=== PATIENT | male | born 1945 ===

== ENCOUNTER 2020-04-03 08:40 | Outpatient (REF) | payer MEDICARE, SELFPAY ==
[2020-04-03 09:27] LABS: Glucose Urine UA NEG (NEG); Leukocyte Esterase Urine NEG (NEG); Nitrite Urine POS (NEG); Specific Gravity - Urine >= 1.030 (1.005-1.025); Urine Blood 3+ (NEG); Urine Ketones NEG (NEG); Urine Protein 2+ MG/DL (NEG-TRACE)
[2020-04-03 09:28] LABS: Appearance Urine CLOUDY; Color Urine YELLOW
[2020-04-03 09:36] LABS: Bacteria Urine 1+ /LPF; RBC Urine TNTC /HPF (0); Squamous Epithelial Cell Urine 1+ /LPF
[2020-04-03 09:54] LABS: Alanine Aminotransferase 23 U/L (0-40); Albumin Level 4.2 g/dL (3.5-5.0); Alkaline Phosphatase 61 U/L (39-117); Anion Gap 12 (12-20); Aspartate Amino Transferase 21 U/L (5-37); Blood Urea Nitrogen 12 mg/dL (9-16); Carbon Dioxide 31 mmol/L (22-29); Chloride 101 mmol/L (96-108); Cholesterol 134 mg/dL; Estimated Glomerular Filt Rate > 60; Glucose Fasting 145 mg/dL (60-99); HDL Cholesterol 44 mg/dL; LDL Cholesterol Calculated 54 mg/dl; Potassium 4.4 mmol/L (3.3-5.1); Sodium 140 mmol/L (135-145); Total Protein 7.2 g/dL (6.5-8.0); Triglycerides 183 mg/dL
== END 2020-04-03 08:41 | disposition home or self-care (01) ==
LOC: HO.LAB 08:40
PROVIDERS: PCP Internal Medicine; Visit Provider Internal Medicine
DX: E11.9 Type 2 diabetes mellitus without complications (principal); R30.0 Dysuria
CPT/HCPCS: 36415; 80053; 80061; 81001

== ENCOUNTER 2020-04-24 17:19 | Emergency (ER) | payer MEDICARE, SELFPAY ==
--- NOTE | ~2020-04-24 | CT_ITS ---
EXAMINATION: CT ABDOMEN AND PELVIS WITHOUT CONTRAST CLINICAL INFORMATION: r/o renal mass, blood in urine COMPARISON: 03/04/2014 TECHNIQUE: Multidetector volumetric imaging was performed from the superior aspect of the liver through the pubic symphysis. Sagittal and coronal reformatted images were obtained on the technologist's workstation. This CT examination was performed using dose optimization techniques as appropriate, variously including the following: *Automated exposure control *Adjustment of mA and/or kV according to patient size (this includes techniques or standardized protocols for targeted exams where dose is matched to indication/reason for exam; i.e. extremities or head) *Use of iterative reconstruction technique DLP: 200 mGy-cm FINDINGS: LUNG BASES: The visualized lung bases are unremarkable. LIVER, GALLBLADDER, AND BILIARY TREE: The liver is normal in size, shape, and attenuation. No focal hepatic lesion or biliary ductal dilatation is present. There is a punctate 3 mm hyperdense focus within the dependent portion of the gallbladder neck, likely correspond to a small gallstone. The gallbladder is otherwise unremarkable with no evidence of gallbladder wall thickening, or obvious pericholecystic inflammatory changes. PANCREAS: Unremarkable. SPLEEN: Unremarkable. ADRENAL GLANDS: Normal KIDNEYS AND URETERS: A punctate 1 mm nonobstructing calculus is present within a calyx at the interpolar region/lower pole of the right kidney. No additional renal calculi are identified. No hydronephrosis or hydroureter. Focal cortical scarring is present at the lateral aspect of the right renal midpole. At the interpolar region of the left kidney, there is a 2.1 cm water density cystic structure (-6 Hounsfield units). No aggressive features are identified on these images. This is increased in size from 7 mm in the prior study from 2014. No additional renal lesions are identified. Ureters are normal in course and caliber. BLADDER: Hyperdense intraluminal material is present within the base of the bladder near the urethral orifice. There is a 1.1 cm lobular cluster of intraluminal calcifications in the left lateral aspect of the base the bladder, likely a cluster of 2 small adjacent calcifications with peripheral lobulation. The hyperdense material is most consistent with colectomy with a blood products. The bladder is otherwise normal in appearance. GASTROINTESTINAL TRACT: Moderate colonic diverticulosis, most notably in the transverse and descending colon. No acute diverticulitis. Appendix is normal. Stomach, small bowel, and colon are normal in caliber. No bowel wall thickening or inflammatory changes. No intraperitoneal free air or free fluid. ABDOMINAL WALL: Small fat-containing umbilical hernia. There is a 2.4 cm subcutaneous cyst in the midline at level of L5, likely a epidermal inclusion cyst/sebaceous cyst. LYMPH NODES: Normal. VASCULAR: Atherosclerotic calcifications are present in the abdominal aorta and iliac arteries. No aneurysmal dilatation. PELVIC VISCERA: Prostate gland is enlarged, measuring 6.3 x 6.2 x 6.3 cm. OSSEOUS STRUCTURES: Moderate to severe degenerative spondylosis in the lower lumbar spine. No acute fracture or malalignment. 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 CT/CT abdomen pelvis wo con IMPRESSION: 1. Small volume of hyperdense intraluminal coagulated blood products within the base of the bladder is consistent with known hematuria. There is an associated 1.1 cm lobular cluster of bladder calculi, potentially the cause of the hematuria. No appreciable bladder wall thickening or focal bladder lesions on these images, though sensitivity is limited. 2. A 2.1 cm water density cyst in the left kidney is indeterminate in the absence of intravenous contrast. No suspicious features. Consider further assessment with contrast-enhanced renal mass protocol CT/MRI or renal ultrasound on a nonemergent basis. 3. A punctate 1 mm nonobstructing right renal calculus. 4. Prostatomegaly 5. Cholelithiasis without evidence of acute cholecystitis. 6. Colonic diverticulosis without evidence of acute diverticulitis.
[2020-04-24 17:21] VITALS: BP 203/87; PULSE 80; RESP 20; TEMP 36.4; O2SAT 98; BMI 31.1
[2020-04-24 19:49] LABS: MANUAL DIFF FLAG NO
[2020-04-24 19:54] LABS: Basophils Absolute Auto 0.1 X10*3/uL (0.0-0.2); Basophils Percent Auto 0.8 % (0-2); Eosinophils Absolute Auto 0.3 X10*3/uL (0.0-0.4); Eosinophils Percent Auto 2.9 % (0-4); Hemoglobin 14.4 g/dl (14.0-18.0); Imm Gran Abs Auto 0.08 X10*3/uL (0.00-0.03); Imm Gran Pct Auto 0.8 % (0.0-0.4); Lymphocytes Absolute Auto 1.6 X10*3/uL (1.2-4.9); Lymphocytes Percent Auto 16.4 % (20-40); Mean Corpuscular HGB Conc 33.5 g/dl (31.0-36.0); Mean Corpuscular Hemoglobin 29.1 pg (27.0-33.0); Mean Corpuscular Volume 86.9 fL (80-98); Mean Platelet Volume 11.4 fL (9.4-12.4); Monocytes Absolute Auto 0.8 X10*3/uL (0.1-1.2); Monocytes Percent Auto 8.2 % (2-11); Neutrophils Percent Auto 70.9 % (45-73); Platelet Count 201 X10*3/uL (160-400); Red Blood Count 4.95 X10*6/uL (4.60-5.80); Red Cell Distribution Width 12.2 % (11.0-16.0); White Blood Count 9.9 X10*3/uL (4.8-10.8)
--- NOTE | 2020-04-24 20:12 | ED_ITS ---
HPI - Male Genitourinary General Chief complaint: Urogenital-Male Stated complaint: Blood in urine Time Seen by Provider: 04/24/20 20:00 Source: patient Mode of arrival: ambulatory Limitations: no limitations History of Present Illness HPI Narrative: Patient comes emergency room complaining of hematuria. Patient states he 1st noticed it 6-7 months ago. On April 03, patient went to see his primary care physician, a urinalysis was positive for UTI, patient was treated with Bactrim. Patient states that initially the hematuria resolved, however shortly after he started having hematuria again. Today was the worst day, this is the 1st time the patient passed blood clots. Patient denies dysuria. Related Data Home Medications Medication Instructions Recorded Confirmed atorvastatin 40 mg tablet 40 mg PO DAILY 12/06/19 04/06/20 fluticasone 500 mcg-salmeterol 50 INHALATION 12/06/19 04/06/20 mcg/dose blistr powdr for inhalation metformin 500 mg tablet,extended 1,000 mg PO BID 12/06/19 04/06/20 release 24 hr tiotropium bromide 18 mcg capsule 1 cap INHALATION DAILY 12/06/19 04/06/20 with inhalation device Previous Rx's Medication Instructions Recorded diltiazem HCl 180 mg 180 mg PO DAILY 90 Days #90 cap 11/25/19 capsule,extended release 24 hr lancets 33 gauge #100 ea 11/25/19 ibuprofen 600 mg tablet 600 mg PO TID PRN #30 tab 12/23/19 blood sugar diagnostic 1 strip MISCELLANEOUS BID 30 Days 01/12/20 #150 strip albuterol sulfate 90 mcg/actuation 2 puff INHALATION Q6H PRN 30 Days 04/06/20 aerosol inhaler #6.7 g fluticasone 500 mcg-salmeterol 50 1 ea PO BID #60 cap 04/06/20 mcg/dose blistr powdr for inhalation lisinopril 20 mg tablet 20 mg PO DAILY 90 Days #90 tab 04/06/20 sulfamethoxazole 800 1 tab PO BID 7 Days #14 tab 04/06/20 mg-trimethoprim 160 mg tablet Allergies Allergy/AdvReac Type Severity Reaction Status Date / Time levofloxacin [From LEVAQUIN] Allergy Unknown HIVES Verified 04/06/20 17:53 Iodinated Contrast Media AdvReac Intermediate HIVES Verified 04/06/20 17:53 [IV CONTRAST] Review of Systems Review of Systems: Constitutional : No Weight loss, No Fever, No Chills, No Night Sweats, No Fatigue, No Malaise ENT/Mouth : No Hearing loss, No Ear Pain, No Nasal Congestion, No Sinus Pain, No Hoarseness, No sore throat, No Rhinorrhea, No Swallowing Difficulty Eyes: No Eye Pain, No Swelling, No Redness, No Foreign Body, No Discharge, No Vision Changes Cardiovascular : No Chest Pain, No SOB, No Dyspnea on Exertion, No Orthopnea, No Edema, No Palpitations Respiratory : No Cough, No Sputum, No Wheezing, No Smoke Exposure, No Dyspnea Gastrointestinal : No Nausea, No Vomiting, No Diarrhea, No Constipation, No abdominal Pain, No Hematochezia, No Melena Genitourinary : Patient complaining of hematuria, No Dysuria, No Urinary Frequency, No Urinary Incontinence, No Urgency, No Flank Pain, No Urinary Flow Changes, No Hesitancy Musculoskeletal : No joint pain, No Myalgias, No Joint Swelling Skin : No Skin Lesions, No rash Neuro : No Weakness, No Numbness, No Paresthesias, No Loss of Consciousness, No Dizziness, No Headache Psych : No Anxiety/Panic, No Depression, No SI/HI/AH/VH, No Social Issues, Heme/Lymph: No Bruising, No Bleeding,No Lymphadenopathy Endocrine : No Polyuria, No Polydipsia, No Temperature Intolerance [facility] Past Medical History Medical History COPD (chronic obstructive pulmonary disease) Diabetes mellitus Dyslipidemia Essential hypertension Gross hematuria Surgical History History of prosthetic aortic valve replacement Family History Family History Father Medical history unknown Mother Medical history unknown Brother No problems noted. Son No problems noted. Daughter No problems noted. Daughter No problems noted. Daughter No problems noted. Social History Social History Alcohol intake: current Alcohol intake frequency: holidays/special occasions only Alcohol type: wine Smoking Status: Never smoker Use of substances other than those prescribed or required for medical reasons: No Advance Directives: No Physical Exam Vital Signs: Vital Signs: Last Vital Signs Temp 98.6 F 04/24/20 22:29 Pulse 85 04/25/20 02:28 Resp 17 04/25/20 02:28 BP 175/89 H 04/25/20 02:28 Pulse Ox 97 04/25/20 02:28 Body Mass Index 31.1 Appearance: Alert. Oriented X3. No acute distress. Eyes: Pupils equal, round and reactive to light. ENT: Pharynx normal. Neck: Normal inspection. Neck supple. No lymph nodes noted. No crepitus CVS: Normal heart rate and rhythm. Pulses normal. Normal S1 and S2 Respiratory: No respiratory distress. Breath sounds normal. No Wheezing. No rales Abdomen: Soft and nontender. No rigidity. No distention. good BS x4 Skin: Skin warm and dry. Normal skin color. Normal skin turgor. Extremities: No lower extremity edema. No lower extremity edema. No Lacerations. No Rash Neuro: Oriented X 3. No motor deficit. No sensory deficit. Moving all extermities. No slurred speech. Course Course Course Narrative: I discussed the labs and imaging with the patient, patient will need to follow-up with urology. Patient states that a few minutes ago he went to urinate a 2nd time, he still urinating amrita blood per patient. CBI will be started Patient received 2 bags, then patient's bladder was manually irrigated with 2 L of normal saline, the urine started to clear up, pinkish fluid was still draining. Patient is receiving 2 more bags. Patient remains asymptomatic. The last back is running at this time. No amrita hematuria. Patient is to follow-up with urology today. Patient is relatively ready for discharge. If anything changes prior to discharge, patient's nurse will inform Dr. jimenez. Received sign-out. Otherwise, patient will be discharged home with clear instructions to call Urology this morning MDM - Male Genitourinary Lab Data Result diagrams: 04/24/20 19:34 04/24/20 19:34 Labs: Lab Results 04/24/20 04/24/20 04/24/20 Range/Units 19:34 19:34 19:34 WBC 9.9 (4.8-10.8) X10*3/uL RBC 4.95 (4.60-5.80) X10*6/uL Hgb 14.4 (14.0-18.0) g/dl Hct 43.0 (42-52) % MCV 86.9 (80-98) fL MCH 29.1 (27.0-33.0) pg MCHC 33.5 (31.0-36.0) g/dl RDW 12.2 (11.0-16.0) % Plt Count 201 (160-400) X10*3/uL MPV 11.4 (9.4-12.4) fL Immature Gran % (Auto) 0.8 H (0.0-0.4) % Neut % (Auto) 70.9 (45-73) % Lymph % (Auto) 16.4 L (20-40) % [place] % (Auto) 8.2 (2-11) % Eos % (Auto) 2.9 (0-4) % Baso % (Auto) 0.8 (0-2) % Lymph # (Auto) 1.6 (1.2-4.9) X10*3/uL [place] # (Auto) 0.8 (0.1-1.2) X10*3/uL Eos # (Auto) 0.3 (0.0-0.4) X10*3/uL Baso # (Auto) 0.1 (0.0-0.2) X10*3/uL Abs Immat Gran (auto) 0.08 H (0.00-0.03) X10*3/uL Absolute Neuts (auto) 7.0 (2.0-8.3) X10*3/uL Absolute Nucleated RBC 0.000 (0.0-0.012) X10*3/uL Nucleated RBC % (auto) 0.0 (0.0-0.2) /100WBC Hold Blue Top SEE NOTE Sodium 139 (135-145) mmol/L Potassium 5.4 H D (3.3-5.1) mmol/L Chloride 102 (96-108) mmol/L Carbon Dioxide 30 H (22-29) mmol/L Anion Gap 12 (12-20) BUN 12 (9-16) mg/dL Creatinine 0.85 (0.5-1.4) mg/dL Estim Creat Clear Calc 83.0 Estimated GFR > 60 Random Glucose 149 H (60-115) mg/dL Calcium 9.4 (8.4-10.2) mg/dL Total Bilirubin 0.7 (0.0-1.0) mg/dL AST 20 (5-37) U/L ALT 20 (0-40) U/L Alkaline Phosphatase 61 (39-117) U/L Total Protein 7.2 (6.5-8.0) g/dL Albumin 4.2 (3.5-5.0) g/dL Urine Color Urine Appearance Urine pH (5.0-8.0) Ur Specific [place] (1.005-1.025) Urine Protein (NEG-TRACE) MG/DL Urine Glucose (UA) (NEG) MG/DL Urine Ketones (NEG) MG/DL Urine Blood (NEG) Urine Nitrite (NEG) Ur Leukocyte Esterase (NEG) Urine RBC (0) /HPF Urine WBC (0-4) /HPF Ur Squamous Epith Cells /LPF Urine Bacteria /LPF 04/24/20 Range/Units 20:30 WBC (4.8-10.8) X10*3/uL RBC (4.60-5.80) X10*6/uL Hgb (14.0-18.0) g/dl Hct (42-52) % MCV (80-98) fL MCH (27.0-33.0) pg MCHC (31.0-36.0) g/dl RDW (11.0-16.0) % Plt Count (160-400) X10*3/uL MPV (9.4-12.4) fL Immature Gran % (Auto) (0.0-0.4) % Neut % (Auto) (45-73) % Lymph % (Auto) (20-40) % [place] % (Auto) (2-11) % Eos % (Auto) (0-4) % Baso % (Auto) (0-2) % Lymph # (Auto) (1.2-4.9) X10*3/uL [place] # (Auto) (0.1-1.2) X10*3/uL Eos # (Auto) (0.0-0.4) X10*3/uL Baso # (Auto) (0.0-0.2) X10*3/uL Abs Immat Gran (auto) (0.00-0.03) X10*3/uL Absolute Neuts (auto) (2.0-8.3) X10*3/uL Absolute Nucleated RBC (0.0-0.012) X10*3/uL Nucleated RBC % (auto) (0.0-0.2) /100WBC Hold Blue Top Sodium (135-145) mmol/L Potassium (3.3-5.1) mmol/L Chloride (96-108) mmol/L Carbon Dioxide (22-29) mmol/L Anion Gap (12-20) BUN (9-16) mg/dL Creatinine (0.5-1.4) mg/dL Estim Creat Clear Calc Estimated GFR Random Glucose (60-115) mg/dL Calcium (8.4-10.2) mg/dL Total Bilirubin (0.0-1.0) mg/dL AST (5-37) U/L ALT (0-40) U/L Alkaline Phosphatase (39-117) U/L Total Protein (6.5-8.0) g/dL Albumin (3.5-5.0) g/dL Urine Color RED Urine Appearance TURBID Urine pH 8.0 (5.0-8.0) Ur Specific [place] 1.020 (1.005-1.025) Urine Protein 2+ H (NEG-TRACE) MG/DL Urine Glucose (UA) NEG (NEG) MG/DL Urine Ketones NEG (NEG) MG/DL Urine Blood 3+ H (NEG) Urine Nitrite NEG (NEG) Ur Leukocyte Esterase NEG (NEG) Urine RBC TNTC H (0) /HPF Urine WBC 1-4 (0-4) /HPF Ur Squamous Epith Cells TRACE /LPF Urine Bacteria TRACE /LPF ECG Data Attestation: I personally reviewed and interpreted this ECG as follows: (Heart rate 80, sinus rhythm, occasional PVCs, ST segment depression or elevation, no T-wave inversions, QTC 445) Discharge Plan Discharge Clinical Impression: Gross hematuria Patient Disposition: Home, Self-Care Instructions: Hematuria (ED) Additional Instructions: Please call Urology this morning to schedule an appointment. Please follow-up with your primary care physician tomorrow. If you have any worsening or new symptoms, please return to the emergency room or call 911 Prescriptions: No Action diltiazem HCl [Cartia XT] 180 mg capsule,extended release 24hr 180 mg PO DAILY 90 Days Qty: 90 RF: 3 (DME) lancets [OneTouch Delica Lancets] 33 gauge misc See Rx Instructions .ROUTE .MEDSUPPLY Qty: 100 RF: 11 ibuprofen 600 mg tablet 600 mg PO TID PRN (Reason: fever or pain) Qty: 30 RF: 0 blood sugar diagnostic [OneTouch Ultra Blue Test Strip] Strip 1 strip miscellaneous BID 30 Days Qty: 150 RF: 11 metformin 500 mg tablet extended release 24 hr 1,000 mg PO BID RF: 0 Spiriva with HandiHaler 18 mcg capsule, w/inhalation device 1 cap inhalation DAILY RF: 0 fluticasone propion-salmeterol 500-50 mcg/dose blister with device inhalation RF: 0 atorvastatin 40 mg tablet 40 mg PO DAILY RF: 0 albuterol sulfate 90 mcg/actuation HFA aerosol inhaler 2 puff inhalation Q6H PRN (Reason: shortness of breath or wheezing) 30 Days Qty: 6.7 RF: 6 fluticasone propion-salmeterol [Advair Diskus] 500-50 mcg/dose blister with device 1 ea PO BID Qty: 60 RF: 6 lisinopril 20 mg tablet 20 mg PO DAILY 90 Days Qty: 90 RF: 3 sulfamethoxazole-trimethoprim [Bactrim DS] 800-160 mg tablet 1 tab PO BID 7 Days Qty: 14 RF: 0 Referrals: Jose D Abel MD [Physician] - 04/25/20 8:00 am
[2020-04-24 20:17] LABS: Alanine Aminotransferase 20 U/L (0-40); Albumin Level 4.2 g/dL (3.5-5.0); Alkaline Phosphatase 61 U/L (39-117); Anion Gap 12 (12-20); Aspartate Amino Transferase 20 U/L (5-37); Bilirubin Total 0.7 mg/dL (0.0-1.0); Blood Urea Nitrogen 12 mg/dL (9-16); Calcium 9.4 mg/dL (8.4-10.2); Carbon Dioxide 30 mmol/L (22-29); Chloride 102 mmol/L (96-108); Estimated Glomerular Filt Rate > 60; Glucose Random 149 mg/dL (60-115); Potassium 5.4 mmol/L (3.3-5.1); Sodium 139 mmol/L (135-145); Total Protein 7.2 g/dL (6.5-8.0)
[2020-04-24 20:28] VITALS: BP 155/97; PULSE 87; RESP 18; TEMP 37.1; O2SAT 96
[2020-04-24 20:54] LABS: Glucose Urine UA NEG (NEG); Leukocyte Esterase Urine NEG (NEG); Nitrite Urine NEG (NEG); Urine Blood 3+ (NEG); Urine Ketones NEG (NEG); Urine Protein 2+ MG/DL (NEG-TRACE)
[2020-04-24 20:55] LABS: Appearance Urine TURBID; Color Urine RED
--- NOTE | 2020-04-24 20:56 | ECG_ITS ---
Test Reason : ABNORMAL LABS Blood Pressure : / mmHG Vent. Rate : 080 BPM Atrial Rate : 080 BPM P-R Int : 184 ms QRS Dur : 106 ms QT Int : 386 ms P-R-T Axes : 023 -40 052 degrees QTc Int : 445 ms Sinus rhythm with occasional Premature ventricular complexes Left axis deviation Abnormal ECG When compared with ECG of 08-MAY-2017 12:24, No significant change was found Referred By: Constanza Brewer Electronically Signed By:SAIMA WHITAKER MD
[2020-04-24 21:01] LABS: Bacteria Urine TRACE /LPF; RBC Urine TNTC /HPF (0); Squamous Epithelial Cell Urine TRACE /LPF
[2020-04-24] MEDS: Sodium Polystyrene Sulfon/Sorb 15 GM/60 ML ORAL.SUSP 30 GM PO (21:35)
[2020-04-24 22:29] VITALS: BP 156/97; PULSE 67; RESP 18; TEMP 37; O2SAT 96
[2020-04-24 23:29] VITALS: BP 173/100; PULSE 83; RESP 18; O2SAT 96
[2020-04-25] MEDS: Lidocaine HCl 2 % Urojet 10 ML JEL.PF.APP 20 ML TOPICAL (00:26)
--- NOTE | 2020-04-25 00:27 | PC.NURSE ---
Pt A&Ox3, skin pwd, respirations even and unlabored without distress noted. Pt denies the presence of pain and/or discomfort at this time. RN received report from Marialuisa ROBERTS at 2300 when CBI was initiated; pt tolerating well. This RN emptied the patient's collection bag for 4L. Output remains a cranberry color with clots of various sizes noted. Pt was educated on plan and asked if he can go home after the second 3L irrigation bag was infused and the RN educated the pt on potential outcomes. Pt with call wheeler in reach, denies questions/concerns at this time
--- NOTE | 2020-04-25 01:00 | PC.NURSE ---
This RN to bedside with Md Brewer for manual bladder irrigation; pt tolerated well. Pt denied pain/discomfort during the irrigation. Plan at this time is to continue with another 3L bag of irrigation and reassess
[2020-04-25 02:28] VITALS: BP 175/89; PULSE 85; RESP 17; O2SAT 97
== END 2020-04-25 04:15 | disposition home or self-care (01) ==
PROVIDERS: Emergency Provider Emergency Medicine; PCP Internal Medicine
DX: R31.0 Gross hematuria (principal); E11.69 Type 2 diabetes mellitus with other specified complication; I10 Essential (primary) hypertension; E78.5 Hyperlipidemia, unspecified; J44.9 Chronic obstructive pulmonary disease, unspecified; Z79.899 Other long term (current) drug therapy; Z79.84 Long term (current) use of oral hypoglycemic drugs
CPT/HCPCS: 36415; 51700; 51702; 74176; 80053; 81001; 85025; 93005; 99284

== ENCOUNTER 2020-05-03 14:52 | Outpatient (REF) | payer MEDICARE, SELFPAY | END 2020-05-03 14:53 | disposition home or self-care (01) | LOC: CF 14:52 | PROVIDERS: PCP Internal Medicine; Visit Provider Urology | DX: R31.9 Hematuria, unspecified (principal); N21.0 Calculus in bladder | CPT/HCPCS: 81002; 88112; 99202 ==

== ENCOUNTER → 2020-05-24 14:18 | Outpatient (BNVA) | payer MEDICARE, SELFPAY | PROVIDERS: PCP Internal Medicine; Visit Provider Internal Medicine | DX: Z01.810 Encounter for preprocedural cardiovascular examination (principal); Z95.3 Presence of xenogenic heart valve; Z98.890 Other specified postprocedural states; Z87.74 Personal history of (corrected) congenital malformations of heart and circulatory system | CPT/HCPCS: 93005; 99202 ==

== ENCOUNTER → 2020-05-31 13:56 | Outpatient (REF) | payer MEDICARE, SELFPAY ==
--- NOTE | 2020-05-31 14:03 | CA_ITS ---
Transthoracic Echocardiogram Patient (Last, First, Middle): Nasir Olvera, Gender: Male Date of : 1945 Age: 74 Procedure Date: 05/31/2020 Procedure Type: Transthoracic Echocardiogram Location: OP Height: 172.72 cm Weight: 96.62 kg BSA: 2.10 m2 Heart Rate: bpm BP: 137 / 70 mmHg Housekeeping Associate: DSG Referring MD: Raul Herrera MD Symptoms: Z95.3 - Presence of xenogenic heart valve Study Quality: Fair ECG Rhythm: Sinus Conclusions: - The left ventricular systolic function is normal. The visually estimated ejection fraction is between 60-65%. - Gradients across the bioprosthetic aortic valve are slightly elevated but there is no significant dysfunction. Could reflect early degeneration of the valve. - There is mild mitral valve regurgitation. There is no mitral valve stenosis. By history, there is mitral valve repair. Findings Left Ventricle Normal left ventricular cavity size. There is mildly increased left ventricular wall thickness. The left ventricular systolic function is normal. The visually estimated ejection fraction is between 60-65%. There is no evidence of regional wall motion abnormalities. E/E prime ratio is between 8 and 15 consistent with indeterminate filling pressures. Evidence suggests grade I (mild) diastolic dysfunction. Right Ventricle Normal right ventricular cavity size and systolic function. Atria The left atrium is normal in size. The right atrium is normal in size. Aortic Valve A bioprosthetic aortic valve is present. The peak aortic velocity is 2.91 m/s with a calculated peak gradient of 34 mmHg. The mean gradient is 21 mmHg. The aortic valve area is 1.59 cm2. There is no aortic valve regurgitation. Gradients across the bioprosthetic aortic valve are slightly elevated but there is no significant dysfunction. Could reflect early degeneration of the valve. Mitral Valve There is mild anterior mitral leaflet thickening. There is mild mitral valve regurgitation. There is no mitral valve stenosis. By history, there is mitral valve repair. Mean gradient across the valve 2 mm Hg at 83/Min. Pulmonic Valve The pulmonic valve was not well visualized. Tricuspid Valve Normal tricuspid valve structure. There is trace tricuspid valve regurgitation. The pulmonary artery systolic pressure is normal. Great Vessels The aortic annulus, sinuses of valsalva, and asc aorta are normal in size. Venous The inferior vena cava is normal in size and collapses greater than 50% with inspiration. Pericardium/Pleural There is no evidence of pericardial effusion. Prior Study Comparison Changes noted compared to prior study dated: 03/05/2014. s/p valve surgery. Measurements 2D Linear Measurements IVSd: 1.26 0.6-0.9/0.6-1.0 cm LVIDd: 5.06 3.9-5.3/4.2-5.9 cm LVIDd Index: 2.41 2.4-3.2/2.2-3.1 cm/m2 LVIDs: 2.87 2.0-3.6 cm LVPWd: 1.27 0.7-1.1 cm LA Diam: 3.60 2.7-3.8/3.0-4.0 cm LAIDs Index: 1.71 1.5-2.3 cm/m2 LV Mass: 320.00 67-162/88-224 g LV Mass Index: 152.38 43-95/49-115 g/m2 LVOT Diam: 2.00 3.0+(-)1.3 cm 2D Systolic Function EF 4C: 65.70 >55% EF 2C: 66.70 >55% EF BiP: 65.70 >55% Mitral Valve MV VTI: 0.25 MV Pk Santos: 0.98 MV Mn Santos: 0.64 MV Pk Grad: 4.00 MV Mn Grad: 2.00 MV Pk E: 0.87 MV PK A: 0.93 MV Decel Time: 215.00 E/A: 0.90 E'Lateral: 9.67 E'Medial: 8.51 E/E' Med: 10.20 E/E' Lat: 9.00 PHT: 63.00 MVA PHT: 3.49 MVA Continuity: 3.14 Decel [place]: 4.04 Aortic Valve AoV Pk Santos: 2.91 AoV Mn Santos: 2.11 AoV VTI: 0.50 AoV Pk Grad: 34.00 Aov Mn Grad: 21.00 RONALD Cont.VTI: 1.59 LVOT LVOT Pk Santos: 1.43 LVOT Mn Santos: 0.92 LVOT VTI: 0.25 LVOT Pk Grad: 8.00 LVOT Mn Grad: 5.00 LVOT Diam: 2.00 LVOT Area: 3.14 Diastolic Function MV Pk E: 0.87 MV Pk A: 0.93 E/A: 0.90 E'Medial: 8.51 E/E' Med: 10.20 E' Laterial: 9.67 E/E' Lat: 9.00 Tricuspid Valve TR Pk Santos: 2.51 TR Pk Grad: 25.00 RA Press: 3.00 RVSP: 28.00 Great Vessels Aorta Ao Asc: 3.90 2.1-3.4 cm Updated in Other Vendor System with Status of Final Raul Herrera MD electronically signed on 06/01/2020 12:10:20 PM with status of Final
== END ==
LOC: HO.CARD 13:56
PROVIDERS: PCP Internal Medicine; Visit Provider Internal Medicine
DX: Z95.3 Presence of xenogenic heart valve (principal); Z98.890 Other specified postprocedural states
CPT/HCPCS: 93306

== ENCOUNTER → 2020-06-07 10:42 | Outpatient (BNVA) | payer MEDICARE, SELFPAY | PROVIDERS: PCP Internal Medicine; Visit Provider Nurse Practitioner Family | DX: Z01.810 Encounter for preprocedural cardiovascular examination (principal); I10 Essential (primary) hypertension; E78.5 Hyperlipidemia, unspecified; E11.9 Type 2 diabetes mellitus without complications; Z87.74 Personal history of (corrected) congenital malformations of heart and circulatory system; Z98.890 Other specified postprocedural states; Z95.3 Presence of xenogenic heart valve; Z79.899 Other long term (current) drug therapy; Z87.891 Personal history of nicotine dependence | CPT/HCPCS: Q3014 ==

== ENCOUNTER 2020-06-26 13:14 | Day surgery (SDC) | payer MEDICARE, SELFPAY ==
[2020-05-18 12:08] VITALS: BMI 32.5
[2020-05-18 12:13] VITALS: BP 137/68; PULSE 81; RESP 20; O2SAT 94
--- NOTE | 2020-05-18 12:38 | P.CONAN_ITS ---
HPI - Anesthesia Eval Consult details Narrative: 74yo M for Cystoscopy Bladder Stone Laser 05/18/20 Pt with h/o AVR and MV repair. Hasn't followed with cardiology since 2014. Denies SOB/CP. 1+ LE edema. Needs cardiac clearance/echo. ARMANDO Stoddard at [facility] notified. Seen by cardiology. ? cancelled procedure. [facility] Active Problems Active Problems: All Active Problems (Updated 05/18/20 @ 11:58 by Tyesha Acosta) Gross hematuria (Acute) Dyslipidemia (Acute) Diabetes mellitus (Acute) Essential hypertension (Acute) COPD (chronic obstructive pulmonary disease) (Acute) Past Medical History Medical History Asthma BPH (benign prostatic hyperplasia) Chronic back pain COPD (chronic obstructive pulmonary disease) Diabetes mellitus Dyslipidemia Essential hypertension Gross hematuria History of DVT (deep vein thrombosis) History of TIA (transient ischemic attack) Family History Family History Father Medical history unknown Mother Medical history unknown Brother No problems noted. Son No problems noted. Daughter No problems noted. Daughter No problems noted. Daughter No problems noted. Surgical History Surgical History History of prosthetic aortic valve replacement Hx of cataract extraction Social History Social History Alcohol intake: current Alcohol intake frequency: a few times a month Alcohol type: wine Smoking Status: Former smoker Meds Allergies Allergy/AdvReac Type Severity Reaction Status Date / Time levofloxacin [From LEVAQUIN] Allergy Unknown HIVES Verified 06/07/20 10:52 Iodinated Contrast Media AdvReac Intermediate HIVES Verified 06/07/20 10:52 [IV CONTRAST] Home Medications Medication Instructions Recorded Confirmed Last Taken Type atorvastatin 40 mg tablet 40 mg PO DAILY 12/06/19 06/07/20 Unknown History metformin 500 mg tablet,extended 1,000 mg PO BID 12/06/19 06/07/20 Unknown History release 24 hr tiotropium bromide 18 mcg capsule 1 cap INHALATION DAILY 12/06/19 06/07/20 Unknown History with inhalation device Exam Exam Date and Time: May 18, 2020 1238 Height,Weight and Vital Signs: Height 5 ft 8 in Weight 97.069 kg Last Vital Signs Pulse 81 05/18/20 12:13 Resp 20 05/18/20 12:13 BP 137/68 05/18/20 12:13 Pulse Ox 94 05/18/20 12:13 Airway Mallampati Class: IV (Small mouth) TM Dist: >3cm Neck ROM: Full Heart: RRR + M Lungs: CTA, dim bases Assessment and Plan Assessment Anesthesia Assessment: PAT Visit
--- NOTE | 2020-06-22 12:21 | P.CONAN_ITS ---
Documented by User: Olive Pierreney 06/22/20 12:25 HPI - Anesthesia Eval Consult details Narrative: 74yo M for Cystoscopy Bladder Stone Laser 05/18/20 Pt with h/o AVR and MV repair. Hasn't followed with cardiology since 2014. Denies SOB/CP. 1+ LE edema. Needs cardiac clearance/echo. [facility]O [facility] notified. Cardiac cleared @ low to intermediate cardiac risk. [facility] Active Problems Active Problems: All Active Problems (Updated 05/24/20 @ 15:11 by Raul Herrera MD) S/P patent foramen ovale closure (Acute) Status post mitral valve repair (Acute) Status post aortic valve replacement with bioprosthetic valve (Acute) Preoperative cardiovascular examination (Acute) Aortic valve disease (Acute) Gross hematuria (Acute) Dyslipidemia (Acute) Diabetes mellitus (Acute) Essential hypertension (Acute) COPD (chronic obstructive pulmonary disease) (Acute) Past Medical History Medical History Asthma BPH (benign prostatic hyperplasia) Chronic back pain COPD (chronic obstructive pulmonary disease) Diabetes mellitus Dyslipidemia Essential hypertension Gross hematuria History of DVT (deep vein thrombosis) History of TIA (transient ischemic attack) Family History Family History Father Medical history unknown Mother Medical history unknown Brother No problems noted. Son No problems noted. Daughter No problems noted. Daughter No problems noted. Daughter No problems noted. Surgical History Surgical History History of prosthetic aortic valve replacement Hx of cataract extraction S/P patent foramen ovale closure Social History Social History Are you a primary ocular care technologist to a significant other at home: No Do you presently have visiting nurse or other home services: No Alcohol intake: current Alcohol intake frequency: a few times a month Alcohol type: wine Smoking Status: Former smoker Smoking Quit Date: many years ago Use of substances other than those prescribed or required for medical reasons: No Have you been hit, kicked, punched, or otherwise hurt by someone within the past year? If so, by whom?: No Are you DNR?: No Advance Directives: No Advance Directives Information Provided: No Advance Directives on File: No Recently lost weight without trying: No Eating poorly because of decreased appetite: No Nutrition Risks: No Nutritional Risk Meds Allergies Allergy/AdvReac Type Severity Reaction Status Date / Time levofloxacin [From LEVAQUIN] Allergy Unknown HIVES Verified 06/07/20 10:52 Iodinated Contrast Media AdvReac Intermediate HIVES Verified 06/07/20 10:52 [IV CONTRAST] Home Medications Medication Instructions Recorded Confirmed Last Taken Type tiotropium bromide 18 mcg capsule 1 cap INHALATION DAILY 12/06/19 06/07/20 Unknown History with inhalation device Exam Exam Date and Time: June 22, 2020 1221 Height,Weight and Vital Signs: Height 5 ft 8 in Weight 97.069 kg Last Vital Signs Pulse 81 05/18/20 12:13 Resp 20 05/18/20 12:13 BP 137/68 05/18/20 12:13 Pulse Ox 94 05/18/20 12:13 Narrative Narrative: EKG 04/2020 Vent. Rate : 080 BPM Atrial Rate : 080 BPM P-R Int : 184 ms QRS Dur : 106 ms QT Int : 386 ms P-R-T Axes : 023 -40 052 degrees QTc Int : 445 ms Sinus rhythm with occasional Premature ventricular complexes Left axis deviation Abnormal ECG When compared with ECG of 08-MAY-2017 12:24, No significant change was found Echo 05/2020 Conclusions: - The left ventricular systolic function is normal. The visually estimated ejection fraction is between 60-65%. - Gradients across the bioprosthetic aortic valve are slightly elevated but there is no significant dysfunction. Could reflect early degeneration of the valve. - There is mild mitral valve regurgitation. There is no mitral valve stenosis. By history, there is mitral valve repair. Assessment and Plan Assessment Anesthesia Assessment: Chart Reviewed (Pt seen in PAT 04/2020. Procedure delayed d/t cardiac w/u.) Documented by User: Joan Cline 06/26/20 14:19 [facility] Past Medical History Medical History Asthma BPH (benign prostatic hyperplasia) Chronic back pain COPD (chronic obstructive pulmonary disease) Diabetes mellitus Dyslipidemia Essential hypertension Gross hematuria History of DVT (deep vein thrombosis) History of TIA (transient ischemic attack) Family History Family History Father Medical history unknown Mother Medical history unknown Brother No problems noted. Son No problems noted. Daughter No problems noted. Daughter No problems noted. Daughter No problems noted. Surgical History Surgical History History of prosthetic aortic valve replacement Hx of cataract extraction S/P patent foramen ovale closure Social History Social History Are you a primary ocular care technologist to a significant other at home: No Do you presently have visiting nurse or other home services: No Alcohol intake: current Alcohol intake frequency: a few times a month Alcohol type: wine Smoking Status: Former smoker Smoking Quit Date: many years ago Use of substances other than those prescribed or required for medical reasons: No Have you been hit, kicked, punched, or otherwise hurt by someone within the past year? If so, by whom?: No Are you DNR?: No Advance Directives: No Advance Directives Information Provided: No Advance Directives on File: No Recently lost weight without trying: No Eating poorly because of decreased appetite: No Nutrition Risks: No Nutritional Risk Meds Allergies Allergy/AdvReac Type Severity Reaction Status Date / Time levofloxacin [From LEVAQUIN] Allergy Unknown HIVES Verified 06/07/20 10:52 Iodinated Contrast Media AdvReac Intermediate HIVES Verified 06/07/20 10:52 [IV CONTRAST] Home Medications Medication Instructions Recorded Confirmed Last Taken Type tiotropium bromide 18 mcg capsule 1 cap INHALATION DAILY 12/06/19 06/07/20 Unknown History with inhalation device Exam Airway Mallampati Class: II TM Dist: >3cm Neck ROM: Full Assessment and Plan Assessment Anesthesia Assessment: Anesthesia Plan Discussed and Chart Reviewed Final Anesthetic Review NPO: Yes ASA Class: III Final Preanesthetic Review: No Changes in Pt Med Stat, Meds/Allgs Chart Reviewed, Consent Obtained/Reviewed and Anes Risks/Benef Reviewed Patient Risk: Intermediate Procedure Risk: Low Assessment/Block/Sedation in SS: Assess/Block/Sedation-SS Anesthetic Plan Anesthetic Plan: GA Disposition: Standard PACU
[2020-06-26] VITALS (7 sets, daily range): BP systolic 112–152; BP diastolic 67–79; PULSE 72–81; RESP 12–18; TEMP 36.4–36.9; O2SAT 94–99
[2020-06-26 14:19] LABS: Glucose, Whole Blood 93 mg/dL (60-115)
[2020-06-26] MEDS: Lactated Ringers 1,000 ML 100 ML IVCONT (14:35)
--- NOTE | 2020-06-26 14:58 | MHC.SHP ---
Pre-Procedural Eval Section B Chief Complaint: Calculus of Bladder Details of Present Illness: Small bladder stones Relevant Family History (Specify if Yes): No Relevant Social History: None Present Medications: see Short Stay Collaborative assessment Medical History: No relevant PMH Allergies: Allergies Allergy/AdvReac Type Severity Reaction Status Date / Time levofloxacin [From LEVAQUIN] Allergy Unknown HIVES Verified 06/07/20 10:52 Iodinated Contrast Media AdvReac Intermediate HIVES Verified 06/07/20 10:52 [IV CONTRAST] Review of Systems Sugical H&P ROS: Negative: Constitution, Cardiovascular, Respiratory, Neurological, Psychiatric, Hem-Onc, Allergic/Immunologic, Gastrointestinal, Genitourinary, Musculoskeletal, Integumentary, Endocrine and Eyes/Ears/Nose/Throat Exam Surgical H&P Exam: Normal: HEENT, Normal: Heart, Normal: Lungs, Normal: Extremities, Normal: Abdomen, Normal: Skin and Normal: Neurological Plan Diagnosis/Plan: Unchanged (Plan for cystoscopy with removal of bladder stones) I have reviewed the history and physical and performed a pertinent physical examination on my patient. No changes have occurred unless specified.
--- NOTE | 2020-06-26 15:34 | W.PM.OPN ---
Operative Note Operative Note Date of Service: 06/26/20 Narrative: PreOperative Diagnosis: Bladder stone Post Operative Diagnosis: Calcified hematoma in bladder Procedure: Cystoscopy with bladder stone removal small Surgeon: Dr Jose D Abel Anesthesia: General Indications for procedure: Gross hematuria with bladder stone on CT. Urgency frequency. Procedure: After informed consent was verified the patient was brought to the operating room and placed in a supine position. anesthesia was administered per protocol. The patient was placed in modified dorsal lithotomy position and prepped and draped in sterile fashion. Safety pause time-out was performed. Twenty-two Bahraini cystoscope inserted per urethra. Bladder was entered and there were for 1 cm dark stones. Using the stone forest fire management officer these were easily broken. There appeared to be calcified clot product that may been left over from when he had gross hematuria. They were easily removed and his bladder was washed out. He was extubated and transferred in stable condition to the recovery area Pathology: - Drains: -
== END 2020-06-26 16:40 | disposition home or self-care (01) ==
PROVIDERS: PCP Internal Medicine; Visit Provider Urology
PROC: (CPT 52317; principal; 2020-06-26 14:40)
DX: N21.0 Calculus in bladder (principal); R31.0 Gross hematuria; N40.0 Benign prostatic hyperplasia without lower urinary tract symptoms; J44.9 Chronic obstructive pulmonary disease, unspecified; I10 Essential (primary) hypertension; E11.9 Type 2 diabetes mellitus without complications; Z79.51 Long term (current) use of inhaled steroids; Z79.84 Long term (current) use of oral hypoglycemic drugs; Z79.899 Other long term (current) drug therapy; Z86.718 Personal history of other venous thrombosis and embolism; Z86.73 Personal history of transient ischemic attack (TIA), and cerebral infarction without residual deficits; Z95.2 Presence of prosthetic heart valve
CPT/HCPCS: 52317; 82947; J2250; J3010

== ENCOUNTER → 2020-07-27 13:24 | Outpatient (BNVA) | payer MEDICARE, SELFPAY | PROVIDERS: PCP Internal Medicine; Visit Provider Urology | DX: Z13.89 Encounter for screening for other disorder (principal) | CPT/HCPCS: Q3014 ==

== ENCOUNTER 2020-10-18 08:25 | Outpatient (REF) | payer MEDICARE, SELFPAY ==
[2020-10-18 08:57] LABS: MANUAL DIFF FLAG NO
[2020-10-18 09:01] LABS: Basophils Absolute Auto 0.1 X10*3/uL (0.0-0.2); Basophils Percent Auto 0.7 % (0-2); Eosinophils Absolute Auto 0.2 X10*3/uL (0.0-0.4); Eosinophils Percent Auto 2.9 % (0-4); Hematocrit 43.9 % (42-52); Hemoglobin 14.3 g/dl (14.0-18.0); Imm Gran Pct Auto 1.2 % (0.0-0.4); Lymphocytes Absolute Auto 2.4 X10*3/uL (1.2-4.9); Lymphocytes Percent Auto 28.3 % (20-40); Mean Corpuscular HGB Conc 32.6 g/dl (31.0-36.0); Mean Corpuscular Hemoglobin 28.4 pg (27.0-33.0); Mean Corpuscular Volume 87.1 fL (80-98); Mean Platelet Volume 10.9 fL (9.4-12.4); Monocytes Absolute Auto 0.7 X10*3/uL (0.1-1.2); Monocytes Percent Auto 8.7 % (2-11); Neutrophils Absolute Auto 4.9 X10*3/uL (2.0-8.3); Neutrophils Percent Auto 58.2 % (45-73); Platelet Count 161 X10*3/uL (160-400); Red Blood Count 5.04 X10*6/uL (4.60-5.80); Red Cell Distribution Width 13.2 % (11.0-16.0); White Blood Count 8.4 X10*3/uL (4.8-10.8)
[2020-10-18 09:34] LABS: Alanine Aminotransferase 17 U/L (0-40); Albumin Level 4.1 g/dL (3.5-5.0); Alkaline Phosphatase 52 U/L (39-117); Anion Gap 12 (12-20); Aspartate Amino Transferase 18 U/L (5-37); Bilirubin Total 1.4 mg/dL (0.0-1.0); Blood Urea Nitrogen 14 mg/dL (9-16); Calcium 9.5 mg/dL (8.4-10.2); Carbon Dioxide 28 mmol/L (22-29); Chloride 103 mmol/L (96-108); Cholesterol 125 mg/dL; Estimated Glomerular Filt Rate > 60; Glucose Fasting 170 mg/dL (60-99); HDL Cholesterol 43 mg/dL; LDL Cholesterol Calculated 44 mg/dl; Potassium 4.2 mmol/L (3.3-5.1); Sodium 139 mmol/L (135-145); Total Protein 7.1 g/dL (6.5-8.0); Triglycerides 192 mg/dL
[2020-10-18 11:10] LABS: Creatinine Urine 238.94 mg/dL; Microalbum/Creatinine Ratio Ur 199.6 ug/mg cr
[2020-10-24 13:16] LABS: Vitamin D 25-OH, D2 <4 ng/mL; Vitamin D 25-OH, D3 21 ng/mL; Vitamin D 25-OH, Total 21 ng/mL (30-100)
== END 2020-10-18 08:26 | disposition home or self-care (01) ==
LOC: HO.LAB 08:25
PROVIDERS: PCP Internal Medicine; Visit Provider Internal Medicine
DX: E11.9 Type 2 diabetes mellitus without complications (principal); E78.5 Hyperlipidemia, unspecified; E55.9 Vitamin D deficiency, unspecified; D64.9 Anemia, unspecified
CPT/HCPCS: 36415; 80053; 80061; 82043; 82306; 85025

== ENCOUNTER → 2020-12-06 14:56 | Outpatient (BNVA) | payer MEDICARE, SELFPAY | PROVIDERS: PCP Internal Medicine; Referring Provider Internal Medicine; Visit Provider Surgery | DX: L72.0 Epidermal cyst (principal) | CPT/HCPCS: 99202 ==

== ENCOUNTER 2020-12-22 13:16 | Outpatient (REF) | payer MEDICARE, SELFPAY ==
[2020-12-22 14:02] VITALS: BP 171/91; PULSE 74; RESP 16; TEMP 36.9; O2SAT 98
[2020-12-22 14:06] VITALS: BMI 32.2
[2020-12-22 14:50] VITALS: BP 154/53; PULSE 95; RESP 16; O2SAT 96
--- NOTE | 2020-12-22 15:16 | P.OP_ITS ---
Operative Note Operative Note Date of Service: 12/22/20 Narrative: Preop diagnosis: Epidermal cyst of the back Postop diagnosis: Epidermal cyst of the back Procedure: Excision of large epidermal cyst of the back Surgeon: Willian Cameron MD Patient is a 75-year-old male with an area of recurrent swelling and drainage on the back with this was consistent with an epidermal cyst. He understood the technique of excision under local anesthesia. He was aware of the risks, benefits, and alternatives He was brought to the minor procedure room and placed in prone position. The area of the cyst was prepped and draped. Lidocaine 1% was used for local anesthesia. I made a generous elliptical incision on the skin around this area of induration using a blade 15. This carried down through the full-thickness of skin and subcutaneous fat. We continued to carry down the incision sharply with a blade to excise the entire indurated tissue. This was sent as specimen. The specimen measured about 5 cm long by about 3 cm wide. I irrigated the area of excision. I closed the incision with multiple full- thickness nylon 2-0 interrupted sutures. Dressings were applied. The procedure was then completed. The patient tolerated procedure well. There were no complications noted. He was given wound care instructions and will be seen in the office for follow-up for removal of sutures.
== END 2020-12-22 13:17 | disposition home or self-care (01) ==
LOC: HO.MS 13:16
PROVIDERS: PCP Internal Medicine; Visit Provider Surgery
PROC: (CPT 11406; principal; 2020-12-22 14:00)
DX: L72.0 Epidermal cyst (principal); Z88.1 Allergy status to other antibiotic agents; Z91.041 Radiographic dye allergy status; J45.909 Unspecified asthma, uncomplicated; G89.29 Other chronic pain; M54.9 Dorsalgia, unspecified; J44.9 Chronic obstructive pulmonary disease, unspecified; I10 Essential (primary) hypertension; E11.9 Type 2 diabetes mellitus without complications; Z86.718 Personal history of other venous thrombosis and embolism; Z86.73 Personal history of transient ischemic attack (TIA), and cerebral infarction without residual deficits; Z95.2 Presence of prosthetic heart valve; Z87.891 Personal history of nicotine dependence
CPT/HCPCS: 11406; 88304

== ENCOUNTER → 2021-01-03 11:29 | Outpatient (BNVA) | payer MEDICARE, SELFPAY | PROVIDERS: PCP Internal Medicine; Referring Provider Internal Medicine; Visit Provider Surgery | DX: Z48.817 Encounter for surgical aftercare following surgery on the skin and subcutaneous tissue (principal); Z87.2 Personal history of diseases of the skin and subcutaneous tissue | CPT/HCPCS: 99212 ==

== ENCOUNTER → 2021-01-26 13:41 | Outpatient (BNVA) | payer MEDICARE, SELFPAY | PROVIDERS: PCP Internal Medicine; Visit Provider Urology | DX: N40.1 Benign prostatic hyperplasia with lower urinary tract symptoms (principal); R35.1 Nocturia; R39.12 Poor urinary stream; R31.0 Gross hematuria | CPT/HCPCS: 51798; 99212 ==

== ENCOUNTER 2021-03-02 09:09 | Outpatient (REF) | payer MEDICARE, SELFPAY ==
[2021-03-02 09:33] LABS: MANUAL DIFF FLAG NO
[2021-03-02 09:43] LABS: Basophils Absolute Auto 0.1 X10*3/uL (0.0-0.2); Basophils Percent Auto 0.6 % (0-2); Eosinophils Absolute Auto 0.3 X10*3/uL (0.0-0.4); Eosinophils Percent Auto 3.1 % (0-4); Hematocrit 43.8 % (42.0-52.0); Hemoglobin 14.2 g/dl (14.0-18.0); Imm Gran Pct Auto 1.1 % (0.0-0.4); Lymphocytes Absolute Auto 2.3 X10*3/uL (1.2-4.9); Lymphocytes Percent Auto 25.6 % (20-40); Mean Corpuscular HGB Conc 32.4 g/dl (31.0-36.0); Mean Corpuscular Hemoglobin 28.9 pg (27.0-33.0); Mean Platelet Volume 10.7 fL (9.4-12.4); Monocytes Absolute Auto 0.8 X10*3/uL (0.1-1.2); Monocytes Percent Auto 8.5 % (2-11); Neutrophils Absolute Auto 5.5 x10*3/uL (2.0-8.3); Neutrophils Percent Auto 61.1 % (45-73); Platelet Count 166 X10*3/uL (160-400); Red Blood Count 4.92 X10*6/uL (4.60-5.80); Red Cell Distribution Width 12.5 % (11.0-16.0); White Blood Count 8.9 X10*3/uL (4.8-10.8)
[2021-03-02 10:05] LABS: Creatinine Urine 235.48 mg/dL
[2021-03-02 10:08] LABS: Alanine Aminotransferase 19 U/L (0-40); Albumin Level 3.9 g/dL (3.5-5.0); Alkaline Phosphatase 58 U/L (39-117); Anion Gap 11 (12-20); Aspartate Amino Transferase 14 U/L (5-37); Bilirubin Total 0.7 mg/dL (0.0-1.0); Blood Urea Nitrogen 12 mg/dL (9-16); Calcium 9.4 mg/dL (8.4-10.2); Carbon Dioxide 31 mmol/L (22-29); Chloride 104 mmol/L (96-108); Cholesterol 119 mg/dL; Estimated Glomerular Filt Rate > 60; Glucose Fasting 135 mg/dL (60-99); HDL Cholesterol 38 mg/dL; LDL Cholesterol Calculated 52 mg/dl; Potassium 4.7 mmol/L (3.3-5.1); Sodium 141 mmol/L (135-145); Total Protein 7.1 g/dL (6.5-8.0); Triglycerides 146 mg/dL
[2021-03-07 16:02] LABS: Vitamin D 25-OH, D2 <4 ng/mL; Vitamin D 25-OH, D3 12 ng/mL; Vitamin D 25-OH, Total 12 ng/mL (30-100)
== END 2021-03-02 09:10 | disposition home or self-care (01) ==
LOC: HO.LAB 09:09
PROVIDERS: PCP Internal Medicine; Visit Provider Internal Medicine
DX: E55.9 Vitamin D deficiency, unspecified (principal); E11.9 Type 2 diabetes mellitus without complications; E78.5 Hyperlipidemia, unspecified; J44.9 Chronic obstructive pulmonary disease, unspecified
CPT/HCPCS: 36415; 80053; 80061; 82043; 82306; 85025

== ENCOUNTER → 2021-05-14 12:45 | Outpatient (REF) | payer MEDICARE, SELFPAY ==
--- NOTE | 2021-05-14 12:48 | CA_ITS ---
Transthoracic Echocardiogram Patient (Last, First, Middle): Nasir Olvera, Gender: Male Date of : 1945 Age: 75 Procedure Date: 05/14/2021 Procedure Type: Transthoracic Echocardiogram Location: OP Height: 172.72 cm Weight: 96.16 kg BSA: 2.10 m2 Heart Rate: bpm BP: 140 / 82 mmHg Summer School Coordinator: AZEEM Referring MD: Harriet Ashley CD TECHNICIAN-Lyssa Rotor Winder: Javed Singh MD Symptoms: Z95.3 - Presence of xenogenic heart valve Study Quality: Fair ECG Rhythm: Sinus Conclusions: - 1. Normal LV systolic function with grade 2 diastolic dysfunction next 2. Mildly dilated left atrium 3. Bioprosthetic aortic valve with mean gradient of 20 mmHg, not changed from before 4. [id number] mitral regurgitation 5. Normal RV systolic pressure 6. No pericardial effusion Findings Left Ventricle Normal left ventricular size and systolic function. There is mildly increased left ventricular wall thickness. The visually estimated ejection fraction is between 60-65%. Spectral Doppler is indicative of a pseudonormal filling pattern. E/E prime ratio is >15, consistent with elevated filling pressures. Evidence suggests grade II (moderate) diastolic dysfunction. Right Ventricle Normal right ventricular cavity size and systolic function. Atria The left atrium is mildly dilated. Interatrial shunt cannot be excluded. The right atrium is normal in size. Aortic Valve A bioprosthetic aortic valve is present. The mean gradient is 20 mmHg. There is no aortic valve regurgitation. the valve is well seated without abnormal rocking motion. The leaflets are not well visualized. The gradients are elevated, although unchanged from before Mitral Valve There is moderate anterior and posterior mitral leaflet thickening. There is mild mitral annular calcification. There is mild to moderate mitral valve regurgitation. There is no mitral valve stenosis. Pulmonic Valve The pulmonic valve was not well visualized. Tricuspid Valve Likely normal tricuspid valve structure and function. There is trace tricuspid valve regurgitation. The right ventricular systolic pressure is normal. The right ventricular systolic pressure is 15 mmHg. Normal right atrial pressure. Great Vessels The pulmonary artery was not well visualized. There is mild dilatation of the ascending aorta measuring 4.00 cm. Venous The inferior vena cava is normal in size and collapses greater than 50% with inspiration. Pericardium/Pleural There is no evidence of pericardial effusion. Prior Study Comparison No significant change compared to prior study dated: 05/31/2020. Measurements 2D Linear Measurements IVSd: 1.15 0.6-0.9/0.6-1.0 cm LVIDd: 5.46 3.9-5.3/4.2-5.9 cm LVIDd Index: 2.60 2.4-3.2/2.2-3.1 cm/m2 LVIDs: 4.03 2.0-3.6 cm LVPWd: 1.22 0.7-1.1 cm LA Diam: 3.80 2.7-3.8/3.0-4.0 cm LAIDs Index: 1.81 1.5-2.3 cm/m2 LV Mass: 329.97 67-162/88-224 g LV Mass Index: 157.13 43-95/49-115 g/m2 LVOT Diam: 2.00 3.0+(-)1.3 cm 2D Systolic Function EF 4C: 61.00 >55% EF 2C: 65.00 >55% EF BiP: 62.40 >55% Mitral Valve MV VTI: 0.33 MV Pk Santos: 0.94 MV Mn Santos: 0.62 MV Pk Grad: 4.00 MV Mn Grad: 2.00 MV Pk E: 0.89 MV PK A: 0.94 MV Decel Time: 273.00 E/A: 0.90 E'Lateral: 10.70 E'Medial: 5.98 E/E' Med: 14.80 E/E' Lat: 8.30 PHT: 80.00 MVA PHT: 2.75 MVA Continuity: 2.13 Decel [place]: 3.25 Aortic Valve AoV Pk Santos: 2.91 AoV Mn Santos: 2.11 AoV VTI: 0.59 AoV Pk Grad: 34.00 Aov Mn Grad: 20.00 RONALD Cont.VTI: 1.19 LVOT LVOT Pk Santos: 1.04 LVOT Mn Santos: 0.73 LVOT VTI: 0.22 LVOT Pk Grad: 4.00 LVOT Mn Grad: 2.00 LVOT Diam: 2.00 LVOT Area: 3.14 Diastolic Function MV Pk E: 0.89 MV Pk A: 0.94 E/A: 0.90 E'Medial: 5.98 E/E' Med: 14.80 E' Laterial: 10.70 E/E' Lat: 8.30 Right Ventricle TAPSE (mm): 18.60 TVS' Santos: 9.03 Tricuspid Valve TR Pk Santos: 1.75 TR Pk Grad: 12.00 RA Press: 3.00 RVSP: 15.00 Great Vessels Aorta Sinus of Valsalva: 3.47 2.0-3.[address] [place]: 2.93 1.7-3.4 cm Ao Asc: 4.00 2.1-3.4 cm Ao Arch: 2.70 Updated in Other Vendor System with Status of Final Javed Singh MD electronically signed on 05/14/2021 6:12:38 PM with status of Final
== END ==
LOC: HO.CARD 12:45
PROVIDERS: Visit Provider Internal Medicine
DX: Z87.74 Personal history of (corrected) congenital malformations of heart and circulatory system (principal); Z95.3 Presence of xenogenic heart valve; Z98.890 Other specified postprocedural states
CPT/HCPCS: 93306

== ENCOUNTER 2021-05-23 14:21 | Outpatient (REF) | payer MEDICARE, OTHER, SELFPAY ==
--- NOTE | ~2021-05-23 | XR_ITS ---
EXAMINATION: XR CHEST CLINICAL INFORMATION: Dyspnea. COMPARISON: Chest 02/26/2016. TECHNIQUE: 2 views of the chest were obtained. FINDINGS: The lungs are hyperinflated but clear of acute pneumonic process. The heart size and pulmonary vascularity is normal.. There are median sternotomy sutures and aortic valve prosthesis noted. No gross bony abnormality seen. XR/XR chest 2V IMPRESSION: Hyperinflated lungs with no acute process.
== END 2021-05-23 14:22 | disposition home or self-care (01) ==
LOC: HO.XRAY 14:21
PROVIDERS: PCP Internal Medicine; Visit Provider Internal Medicine
DX: R06.00 Dyspnea, unspecified (principal)
CPT/HCPCS: 71046

== ENCOUNTER → 2021-06-07 10:59 | Outpatient (BNVA) | payer MEDICARE, MEDICAID, SELFPAY | PROVIDERS: PCP Internal Medicine; Visit Provider Internal Medicine Pulmonary Disease | DX: J44.9 Chronic obstructive pulmonary disease, unspecified (principal); R91.8 Other nonspecific abnormal finding of lung field | CPT/HCPCS: 99202 ==

== ENCOUNTER → 2021-06-13 14:02 | Outpatient (BNVA) | payer MEDICARE, MEDICAID, SELFPAY | PROVIDERS: PCP Internal Medicine; Referring Provider Internal Medicine; Visit Provider Internal Medicine | DX: Z95.3 Presence of xenogenic heart valve (principal); Z87.74 Personal history of (corrected) congenital malformations of heart and circulatory system | CPT/HCPCS: 93005; 99212 ==

== ENCOUNTER 2021-06-19 11:07 | Outpatient (REF) | payer MEDICARE, OTHER, SELFPAY ==
--- NOTE | ~2021-06-19 | CT_ITS ---
EXAMINATION: CT CHEST WITHOUT CONTRAST CLINICAL INFORMATION: Pulmonary nodules. COMPARISON: CTA chest 05/30/2014. TECHNIQUE: Multidetector volumetric CT imaging of the chest was done. Axial MIP volume rendering provided. Sagittal and coronal reformatted images were obtained. This CT examination was performed using dose optimization techniques as appropriate, variously including the following: *Automated exposure control *Adjustment of mA and/or kV according to patient size (this includes techniques or standardized protocols for targeted exams where dose is matched to indication/reason for exam; i.e. extremities or head) *Use of iterative reconstruction technique DLP: 322 mGy-cm. FINDINGS: GEAR SETTER: Well-inflated lungs with median sternotomy sutures and aortic valve prosthesis. LUNGS: The lungs are well expanded and clear. There are no ground-glass densities seen in the right upper lobe or right lower lobe medially as was noted on the previous study. There is a 2 mm nodule seen in the superior segment right lower lobe axial image 28/74, previously it measured 3 mm. MEDIASTINUM: The thyroid lobes are symmetric and normal. The central trachea and the bronchi are widely patent. Heart size and the great vessels are normal caliber. There are punctate small mediastinal lymph nodes. No pericardial effusion seen. There is aortic valve prosthesis. PLEURA: There is no pleural effusion. No pleural mass or thickening. AXILLA: No lymphadenopathy. UPPER ABDOMEN: Visualized liver, spleen, pancreas and bilateral adrenal glands are unremarkable. OSSEOUS STRUCTURES: There is moderate ventral spondylosis throughout dorsal spine. Median sternotomy sutures are noted from previous intervention. CT/CT chest wo con IMPRESSION: Interval resolution of right upper lobe and right lower lobe medially-based ground-glass density since 2014. 3 mm pulmonary nodule now measures 2 mm in the superior segment right lower lobe. No new nodules seen. Fleischner guidelines were followed.
== END 2021-06-19 11:08 | disposition home or self-care (01) ==
LOC: HO.CT 11:07
PROVIDERS: Visit Provider Internal Medicine Pulmonary Disease
DX: R91.8 Other nonspecific abnormal finding of lung field (principal)
CPT/HCPCS: 71250

== ENCOUNTER 2021-07-18 09:49 | Outpatient (REF) | payer MEDICARE, OTHER, SELFPAY ==
--- NOTE | 2021-07-18 11:03 | PFT_ITS ---
INDICATION: COPD. SPIROMETRY: FEV1 to FVC 58% with an FEV1 of 1.52 L, which is 55% predicted and an FVC of 2.6 L, which is 67% predicted. There was a trend response to bronchodilators noted and significant small airways disease. Maximum voluntary ventilation 57% predicted. LUNG VOLUMES: Total lung capacity 90% predicted with a residual volume of 57% predicted. DIFFUSION CAPACITY: DLCO 76% predicted. COMPARISONS: PFTs in 2019. INTERPRETATION: There appears to be an obstructive ventilatory defect consistent with moderate to severe COPD. There was a trend response to bronchodilators noted and significant small airways disease. There was a moderate decrease in maximum voluntary ventilation secondary to likely deconditioning. Lung volumes do demonstrate a low normal total lung capacity, although with respect to hyperinflation based on the obstruction. The patient has some mild diffusion impairment. When compared to 2019, there is a trend decrease in the FVC, trend decrease in the FEV1, significant increase in the total lung capacity, and a significant decrease in the diffusion capacity. Clinical correlation warranted. MD EVA Burnette/WILDER / [id number]
== END 2021-07-18 09:50 | disposition home or self-care (01) ==
LOC: HO.RESP 09:49
PROVIDERS: PCP Internal Medicine; Visit Provider Internal Medicine Pulmonary Disease
DX: J44.9 Chronic obstructive pulmonary disease, unspecified (principal); R91.8 Other nonspecific abnormal finding of lung field
CPT/HCPCS: 94060; 94727; 94729; 99212

== ENCOUNTER 2021-12-01 10:18 | Outpatient (REF) | payer MEDICARE, SELFPAY ==
[2021-12-01 12:09] LABS: Creatinine Urine 86.74 mg/dL
[2021-12-01 12:37] LABS: Alanine Aminotransferase 13 U/L (0-40); Albumin Level 4.2 g/dL (3.5-5.0); Alkaline Phosphatase 50 U/L (39-117); Anion Gap 17 (12-20); Aspartate Amino Transferase 14 U/L (5-37); Blood Urea Nitrogen 15 mg/dL (9-16); Calcium 9.5 mg/dL (8.4-10.2); Carbon Dioxide 26 mmol/L (22-29); Chloride 107 mmol/L (96-108); Cholesterol 119 mg/dL; Estimated Glomerular Filt Rate > 60; Glucose Fasting 114 mg/dL (60-99); HDL Cholesterol 37 mg/dL; LDL Cholesterol Calculated 60 mg/dl; Potassium 4.3 mmol/L (3.3-5.1); Sodium 146 mmol/L (135-145); Total Protein 7.1 g/dL (6.5-8.0); Triglycerides 112 mg/dL
[2021-12-01 13:00] LABS: Vitamin D 25-OH Total 43.4 ng/mL (>30)
== END 2021-12-01 10:19 | disposition home or self-care (01) ==
LOC: HO.LAB 10:18
PROVIDERS: PCP Internal Medicine; Visit Provider Internal Medicine
DX: E55.9 Vitamin D deficiency, unspecified (principal); E78.5 Hyperlipidemia, unspecified; E11.9 Type 2 diabetes mellitus without complications
CPT/HCPCS: 36415; 80053; 80061; 82043; 82306

== ENCOUNTER → 2021-12-20 11:15 | Outpatient (REF) | payer MEDICARE, SELFPAY ==
--- NOTE | 2021-12-20 11:19 | ECG_ITS ---
Test Reason : preop Blood Pressure : / mmHG Vent. Rate : 080 BPM Atrial Rate : 080 BPM P-R Int : 176 ms QRS Dur : 118 ms QT Int : 370 ms P-R-T Axes : 042 -53 061 degrees QTc Int : 426 ms Sinus rhythm with frequent Premature ventricular complexes Left anterior fascicular block Non-specific intra-ventricular conduction delay Abnormal ECG When compared with ECG of 24-APR-2020 21:37, No significant change was found Referred By: Connie Robertson Electronically Signed By:KANU JEFFREY MD
== END ==
LOC: HO.CARD 11:15
PROVIDERS: PCP Internal Medicine; Visit Provider Internal Medicine
DX: Z01.818 Encounter for other preprocedural examination (principal)
CPT/HCPCS: 93005

== ENCOUNTER 2022-01-24 10:03 | Outpatient (REF) | payer MEDICARE, SELFPAY ==
[2022-01-24 11:46] LABS: Prostate Specific Antigen 2.78 ng/mL (<0.05-4.0)
== END 2022-01-24 10:04 | disposition home or self-care (01) ==
LOC: HO.LAB 10:03
PROVIDERS: PCP Internal Medicine; Visit Provider Urology
DX: N40.1 Benign prostatic hyperplasia with lower urinary tract symptoms (principal); N13.8 Other obstructive and reflux uropathy; Z12.5 Encounter for screening for malignant neoplasm of prostate
CPT/HCPCS: 36415; 84153

== ENCOUNTER 2022-01-29 14:41 | Outpatient (AMB) | payer MEDICARE, SELFPAY ==
--- NOTE | 2022-01-29 14:57 | MHC.OFFVIS ---
Intake Intake Visit Reasons: 1 Year PSA/PVR(set) Intake Note: Patient is present for PVR/PSA Urology Medication: Finasteride Blood Thinner: Aspirin PVR: 51ml Allergies levofloxacin [From LEVAQUIN] Allergy (Intermediate, Verified 07/22/22 16:16) HIVES Iodinated Contrast Media [IV CONTRAST] Adverse Reaction (Intermediate, Verified 07/22/22 16:16) HIVES HPI HPI Comments History of Present Illness Details Nasir is a pleasant Slovak male. He is a patient of Dr. Robertson. He seen for the following urologic conditions - gross hematuria with blood in stone - BPH Slovak translation provided in office by qualified medical records library professor Says he is doing well with emptying Happy on the combination of finasteride and terazosin Check PSA in 12 months Lower urinary tract symptoms/Bladder stones weakness of stream nocturia times 2-3 current therapy finasteride prior therapy - cystoscopy with removal of bladder stone June 2020 PSA 01/31 2.8 Seen in ER last month for blood in urine Review in 12 months PFS Medical History Asthma Blurry vision BPH (benign prostatic hyperplasia) Chronic back pain COPD (chronic obstructive pulmonary disease) Diabetes mellitus Dyslipidemia Epidermal inclusion cyst Essential hypertension Grade II diastolic dysfunction Gross hematuria History of DVT (deep vein thrombosis) History of TIA (transient ischemic attack) Lipoma Microalbuminuria Physical exam Skin lesion Surgical History History of epidermal inclusion cyst excision (~12/22/20) History of prosthetic aortic valve replacement Hx of cataract extraction S/P patent foramen ovale closure Family History Father Medical history unknown Mother Medical history unknown Brother No problems noted. Son No problems noted. Daughter No problems noted. Daughter No problems noted. Daughter No problems noted. Social History Housing: House Are you a primary foster care social worker to a significant other at home: No Do you presently have visiting nurse or other home services: No Alcohol intake: current Alcohol intake frequency: a few times a month Alcohol type: beer and wine Patient Tobacco Use Status: Former Tobacco user e-Cigarette/Vaping Use: Never Used Second Hand Smoke Exposure: No service: No Current occupational status: retired Cognitive needs: No Hearing needs: No Vision needs: Yes Review of Systems Const Denies chills and Denies fever(s) Card Reports no additional complaints and Denies syncope Resp Denies cough GI Denies abdominal pain and Denies heartburn Reports as per HPI and Denies change in libido Neuro Denies syncope Psych Denies change in libido Endo Denies change in libido Physical Exam Const General: cooperative, healthy appearing, comfortable and no acute distress Orientation/consciousness: patient oriented x3 HEENT Face and sinus: Yes normal facial exam Mouth: moist mucous membranes Neck Neck: Yes normal visual inspection, Yes full ROM and Yes trachea midline Chest Chest palpation & inspection: normal inspection of the chest Resp Effort & Inspection: normal respiratory effort, able to speak in complete sentences and no respiratory distress GI Inspection: Yes normal to inspection Back/Spine/Pelvis Cervical Spine: normal cervical lordosis Thoracic/Lumbar Spine: thoracic and lumbar spine normal to inspection Skin General skin exam: no rashes or lesions noted Neuro General: patient oriented x3, gait normal, tone normal and moves all extremities Extrem General: Yes normal to inspection and Yes capillary refill normal Office Procedures Post Void Residual Post Residual Void Post Void Residual (PVR): 51 [id number] Void Residual by ultrasound Results AMB Urinalysis, Automated UA Leukoctes 15 Nacho/uL Last Edit by JAIRO Mora on 01/29/22 15:13 UA Nitrite Negative Last Edit by JAIRO Mora on 01/29/22 15:13 UA Urobilinogen 0.2 mg/dL Last Edit by JAIRO Mora on 01/29/22 15:13 UA Protein 30 mg/dL Last Edit by JAIRO Mora on 01/29/22 15:13 UA pH 6.5 Last Edit by JAIRO Mora on 01/29/22 15:13 UA Blood 25 David/uL Last Edit by JAIRO Mora on 01/29/22 15:13 UA Specific [place] 1.015 Last Edit by JAIRO Mora on 01/29/22 15:13 UA Ketone Negative Last Edit by JAIRO Mora on 01/29/22 15:13 UA Bilirubin 0 mg/dL Last Edit by JAIRO Mora on 01/29/22 15:13 UA Glucose 0 mg/dL Last Edit by JAIRO Mora on 01/29/22 15:13 Results Reviewed Results Reviewed: Laboratory Last Values Urine pH (Auto) 6.5 01/29/22 15:12 Specific [place] (Auto) 1.015 01/29/22 15:12 Urine Protein (Auto) 30 mg/dL 01/29/22 15:12 Glucose (UA)(Auto) 0 mg/dL 01/29/22 15:12 Urine Ketones (Auto) Negative 01/29/22 15:12 Urine Blood (Auto) 25 David/uL 01/29/22 15:12 Urine Nitrite (Auto) Negative 01/29/22 15:12 Urine Bilirubin (Auto) 0 mg/dL 01/29/22 15:12 Urine Urobilinogen (Auto) 0.2 mg/dL 01/29/22 15:12 Leukocyte Esterase (Auto) 15 Nacho/uL 01/29/22 15:12 Assessment & Plan Assessment & Plan (1) BPH (benign prostatic hyperplasia): Code(s): N40.0 - Benign prostatic hyperplasia without lower urinary tract symptoms (2) Bladder stones: Code(s): N21.0 - Calculus in bladder Plan 12 month follow-up Orders: Orders AMB Urinalysis Automated 01/29/22 Z13.9 - Encounter for screening, unspecified AMB Post Void Residual by ultrasound 01/29/22 N40.0 - Benign prostatic hyperplasia without lower urinary tract symptoms Medications: Refilled terazosin 5 mg PO BEDTIME 90 caps 3RF 90 days R31.0 - Gross hematuria, N40.1 - Benign prostatic hyperplasia with lower urinary tract symptoms, N13.8 - Other obstructive and reflux uropathy finasteride 5 mg PO DAILY 90 tabs 3RF 90 days N40.1 - Benign prostatic hyperplasia with lower urinary tract symptoms, R33.9 - Retention of urine, unspecified Patient Instructions: Imaging studies, laboratory and physical exam results were discussed and reviewed in detail. No major barriers to patient understanding were identified. An opportunity to ask questions regarding the treatment plan was provided. All questions were answered. The patient expressed understanding and agreement with the above treatment plan. The patient is aware they should contact our office by phone for worsening of their current condition or the appearance of new urologic symptoms. Compliance is encouraged with any medications and followup testing that is ordered. It is a privilege to participate in the urologic care of your patient. If you have any questions or concerns regarding treatment for the above conditions, or other urologic issues, please do not hesitate to contact me. The office telephone contact is [phone]. This note is constructed using voice recognition software. While every effort has been made to ensure accuracy gasoline tester errors may have been included. Yours sincerely, Dr Jose D Abel MD, [facility] - Urology Providers of Expert, Compassionate Care for the Genitourinary System Coding Level of Care Code Est Pt Level 4 (22060) Diagnoses BPH (benign prostatic hyperplasia) N40.0 Bladder stones N21.0 CPT Codes Post Residual Void - PVR CPT Code: 38897-Qgrf Void Residual by ultrasound ([id number])
== END 2022-01-29 15:27 | disposition home or self-care (01) ==
LOC: HO.HUSH 14:41
PROVIDERS: PCP Internal Medicine; Visit Provider Urology
DX: N40.0 Benign prostatic hyperplasia without lower urinary tract symptoms (principal); N21.0 Calculus in bladder
CPT/HCPCS: 99214

== ENCOUNTER → 2022-01-29 14:41 | Outpatient (BNVA) | payer MEDICARE, SELFPAY | PROVIDERS: PCP Internal Medicine; Visit Provider Urology | DX: N40.0 Benign prostatic hyperplasia without lower urinary tract symptoms (principal); N21.0 Calculus in bladder | CPT/HCPCS: 51798; 99212 ==

== ENCOUNTER 2022-04-10 08:16 | Outpatient (REF) | payer MEDICARE, SELFPAY ==
[2022-04-10 09:06] LABS: Creatinine Urine 258.34 mg/dL; Microalbum/Creatinine Ratio Ur 143.9 ug/mg cr
[2022-04-10 09:17] LABS: Alanine Aminotransferase 13 U/L (0-40); Alkaline Phosphatase 57 U/L (39-117); Anion Gap 10 (12-20); Aspartate Amino Transferase 11 U/L (5-37); Bilirubin Total 0.8 mg/dL (0.0-1.0); Blood Urea Nitrogen 18 mg/dL (9-16); Calcium 9.2 mg/dL (8.4-10.2); Carbon Dioxide 22 mmol/L (22-29); Chloride 114 mmol/L (96-108); Cholesterol 116 mg/dL; Estimated Glomerular Filt Rate > 60; Glucose Fasting 129 mg/dL (60-99); HDL Cholesterol 35 mg/dL; LDL Cholesterol Calculated 61 mg/dl; Potassium 4.2 mmol/L (3.3-5.1); Sodium 142 mmol/L (135-145); Total Protein 6.9 g/dL (6.5-8.0); Triglycerides 103 mg/dL
[2022-04-10 09:31] LABS: Vitamin D 25-OH Total 31.1 ng/mL (>30)
== END 2022-04-10 08:17 | disposition home or self-care (01) ==
LOC: HO.LAB 08:16
PROVIDERS: PCP Internal Medicine; Visit Provider Internal Medicine
DX: E11.9 Type 2 diabetes mellitus without complications (principal); E78.5 Hyperlipidemia, unspecified; E55.9 Vitamin D deficiency, unspecified
CPT/HCPCS: 36415; 80053; 80061; 82043; 82306

== ENCOUNTER → 2022-06-19 13:48 | Outpatient (BNVA) | payer MEDICARE, SELFPAY | PROVIDERS: PCP Internal Medicine; Referring Provider Internal Medicine; Visit Provider Internal Medicine | DX: Z95.3 Presence of xenogenic heart valve (principal); Z98.890 Other specified postprocedural states; Z87.74 Personal history of (corrected) congenital malformations of heart and circulatory system | CPT/HCPCS: 99212 ==

== ENCOUNTER 2022-12-20 08:02 | Outpatient (REF) | payer MEDICARE, SELFPAY ==
[2022-12-20 09:50] LABS: Alanine Aminotransferase 10 U/L (0-40); Albumin Level 3.8 g/dL (3.5-5.0); Alkaline Phosphatase 54 U/L (39-117); Anion Gap 10 (12-20); Aspartate Amino Transferase 12 U/L (5-37); Bilirubin Total 0.6 mg/dL (0.0-1.0); Blood Urea Nitrogen 17 mg/dL (9-16); Carbon Dioxide 21 mmol/L (22-29); Chloride 115 mmol/L (96-108); Cholesterol 116 mg/dL (<200); Estimated Glomerular Filt Rate > 60; Glucose Fasting 93 mg/dL (60-99); HDL Cholesterol 35 mg/dL (>40); LDL Cholesterol Calculated 63 mg/dL (<100); Potassium 3.7 mmol/L (3.3-5.1); Sodium 142 mmol/L (135-145); Total Protein 6.7 g/dL (6.5-8.0); Triglycerides 91 mg/dL (<150)
[2022-12-20 10:10] LABS: Vitamin D 25-OH Total 33.9 ng/mL (>30)
[2022-12-20 10:46] LABS: Creatinine Urine 142.78 mg/dL
== END 2022-12-20 08:03 | disposition home or self-care (01) ==
LOC: HO.LAB 08:02
PROVIDERS: PCP Internal Medicine; Visit Provider Internal Medicine
DX: E11.9 Type 2 diabetes mellitus without complications (principal); E78.5 Hyperlipidemia, unspecified; E55.9 Vitamin D deficiency, unspecified
CPT/HCPCS: 36415; 80053; 80061; 82043; 82306; 82570

== ENCOUNTER 2022-12-27 15:19 | Outpatient (AMB) | payer MEDICARE, SELFPAY ==
[2022-12-27 15:23] VITALS: BP 110/62; PULSE 76; O2SAT 96; BMI 29.0
--- NOTE | 2022-12-27 15:23 | MHC.PC.OV ---
Vital Signs 12/27/22 15:23 Height 5 ft 8 in Weight 191 lb 0.4 oz BMI 29.0 BP 110/62 Blood Pressure Location Lt brachial Position Sitting Pulse 76 Pulse Source Pulse Oximeter Temp Source Skin Pulse Oximetry (%) 96 Oxygen Delivery Method Room Air Intake Visit Reasons: DM Electronic Industrial Controls Mechanic Required: Yes Electronic Industrial Controls Mechanic Language: Burmese Allergies levofloxacin [From LEVAQUIN] Allergy (Intermediate, Verified 12/27/22 15:53) HIVES Iodinated Contrast Media [IV CONTRAST] Adverse Reaction (Intermediate, Verified 12/27/22 15:53) HIVES Medication List - Last Reconciled 12/27/22 by Keyla Rene, SATYA acetazolamide ER 500 mg PO BID albuterol sulfate 90 mcg/actuation 2 puffs inhalation Q6H PRN 30 days aspirin 81 mg PO DAILY 90 days atorvastatin 40 mg PO DAILY 90 days blood sugar diagnostic ([employer] Ultra Blue Test Strip) 1 strip miscellaneous BID 30 days brinzolamide-brimonidine 1-0.2 % (Simbrinza) 1 drp ophthalmic (eye) TID bromfenac 0.07% (Prolensa) 1 drp ophthalmic (eye) DAILY cholecalciferol (vitamin D3) 50 mcg PO DAILY 90 days diltiazem HCl (Cartia XT) 180 mg PO DAILY 90 days finasteride 5 mg PO DAILY 90 days lancets ([employer] Delica Lancets) 1 Lancet to be use twice a day latanoprost 0.005% drps ophthalmic (eye) lisinopril 20 mg PO DAILY 90 days metformin ER 2,000 mg (4 x 500 mg) PO QPM netarsudil 0.02% (Rhopressa) 0 drps ophthalmic (eye) terazosin 5 mg PO BEDTIME 90 days Trelegy Ellipta 200-62.5-25 mcg (lsrzzjmqini-axfdyfcmy-fdzblznk) 1 ea inhalation DAILY NS Tobacco use date assessed: 12/27/22 Fall risk assessment: No Falls in past year Last assessed Fall Risk: 12/27/22 HPI DM HPI Details Patient is a 77-year-old male who presents today to follow-up on diabetes. Patient of Dr. Merrill. Medical history significant for COPD, diabetes, dyslipidemia, BPH, diastolic dysfunction-followed by [facility], microalbuminuria, glaucoma-reports seeing eye doctor every 3 months. Patient reports that he is compliant with medications and denies side effects. No shortness of breath or chest pain. Recent blood work results reviewed with the patient. Patient is a Burmese-speaking and GILDA Johnson was helping with interpretation. [facility] Medical History Microalbuminuria Physical exam Grade II diastolic dysfunction Blurry vision Epidermal inclusion cyst Skin lesion Lipoma History of TIA (transient ischemic attack) Asthma History of DVT (deep vein thrombosis) Chronic back pain BPH (benign prostatic hyperplasia) Gross hematuria Dyslipidemia Diabetes mellitus Essential hypertension COPD (chronic obstructive pulmonary disease) Surgical History History of epidermal inclusion cyst excision (~12/22/20) S/P patent foramen ovale closure Hx of cataract extraction History of prosthetic aortic valve replacement Family History Father Medical history unknown Mother Medical history unknown Brother No problems noted. Son No problems noted. Daughter No problems noted. Daughter No problems noted. Daughter No problems noted. Social History Housing: House Are you a primary elderly caregiver to a significant other at home: No Do you presently have visiting nurse or other home services: No Alcohol intake: current Alcohol intake frequency: a few times a month Alcohol type: beer and wine Patient Tobacco Use Status: Former Tobacco user e-Cigarette/Vaping Use: Never Used Second Hand Smoke Exposure: No service: No Current occupational status: retired Cognitive needs: No Hearing needs: No Vision needs: Yes Questionnaire Thrive Questionnaire Date Thrive assessed: 04/15/22 AUDIT C Alcohol Use Questionnaire (AUDIT-C) 1. How often do you have a drink containing alcohol?: Monthly or less 2. How many drinks containing alcohol do you have on a typical day when you are drinking?: 1 or 2 3. How often do you have six or more drinks on one occasion?: Never Total Score: 1 Score Reviewed/Action Taken: No ANNIE-7 AMB Questionnaire ANNIE-7 Date ANNIE - 7 assessed: 04/15/22 Source: Developed by Drs. Jonathan Escobar, Lianet MichaelsFord and colleagues, with an educational harrison from [employer]. Review of Systems Const Denies body aches, Denies chills, Denies fever(s) and Denies headache(s) Eyes Details: Glaucoma ENT Denies dizziness, Denies otalgia, Denies headache(s), Denies nasal discharge, Denies sinus pain and Denies sore throat Card Denies chest pain, Denies edema, Denies lightheadedness and Denies dyspnea Resp Denies cough, Denies dyspnea and Denies wheezing GI Denies abdominal pain Denies dysuria Musc Denies myalgias Skin/Breast Denies rash Neuro Denies dizziness and Denies headache(s) Aller/Immun Denies wheezing Physical exam (Primary Care) Vital Signs: Last Vital Signs Pulse 76 12/27/22 15:23 BP 110/62 12/27/22 15:23 Pulse Ox 96 12/27/22 15:23 Oxygen Delivery Method Room Air 12/27/22 15:23 BMI result Body Mass Index 29.0 Tobacco/Smoking Status: Tobacco use Status Tobacco use date assessed 12/27/22 12/27/22 15:25 Patient Tobacco Use Status Former Tobacco user 12/27/22 15:25 Tobacco use type 06/19/22 14:04 e-Cigarette/Vaping Use Never Used 12/27/22 15:25 Thrive Assessment: Date of Thrive Assessment Date Thrive assessed 04/15/22 12/27/22 15:25 Const General: cooperative and no acute distress Orientation/consciousness: patient oriented x3 HENMT Head: Yes normocephalic and Yes atraumatic Throat: Yes posterior oropharynx normal Eyes Other: Bilateral conjunctival erythema-patient reports this is chronic-he is followed by Ophthalmology every 3 months Pupils: Equal, round and reactive pupils present Neck Neck: Yes normal visual inspection and Yes full ROM Resp Effort & Inspection: normal respiratory effort and able to speak in complete sentences Auscultation: clear to auscultation bilaterally, no crackles, no rales, no rhonchi and no wheezes Cardio Rate: regular rate Rhythm: regular rhythm Heart sounds: S1 normal heart sound present and S2 normal heart sound present GI Auscultation: normal bowel sounds Skin General skin exam: no rashes or lesions noted Neuro General: patient oriented x3 Cranial nerves: Yes Equal, round and reactive pupils present Gait exam (Neuro): Normal gait present Extrem General: Yes full ROM and No edema Results AMB Hemoglobin A1c AMB Hemoglobin A1c 5.9 % Last Edit by JAIRO Jarvis on 12/27/22 15:45 Results Reviewed Results Reviewed: Laboratory Last Values Hgb A1c (Clinic) 5.9 % (4.0-6.0) 12/27/22 15:29 Assessment and Plan Assessment & Plan (1) Microalbuminuria: Code(s): R80.9 - Proteinuria, unspecified Plan: Microalbumin 160 12/2022, better than previously Will recheck in 4 months (2) Dyslipidemia: Code(s): E78.5 - Hyperlipidemia, unspecified Plan: Continue atorvastatin Low-cholesterol diet (3) Diabetes mellitus: Code(s): E11.9 - Type 2 diabetes mellitus without complications Qualifiers: Diabetes mellitus type: type 2 Diabetes mellitus terminal superintendent insulin use: without terminal superintendent use Diabetes mellitus complication status: without complication Qualified Code(s): E11.9 - Type 2 diabetes mellitus without complications Plan: A1c 5.9 today Continue metformin Low-carbohydrate diet (4) Essential hypertension: Code(s): I10 - Essential (primary) hypertension Plan: Continue current treatment Low-sodium diet Goal BP equal or less than 140/90 (5) COPD (chronic obstructive pulmonary disease): Code(s): J44.9 - Chronic obstructive pulmonary disease, unspecified Plan: Stable with current inhalers Orders: Orders Lipid Panel 12/27/22 E78.5 - Hyperlipidemia, unspecified Comprehensive Arnett. Panel Fast 12/27/22 E11.9 - Type 2 diabetes mellitus without complications Hemoglobin A1c 4 Months E11.9 - Type 2 diabetes mellitus without complications Microalbumin, Random (w Creat) 12/27/22 E11.9 - Type 2 diabetes mellitus without complications AMB Hemoglobin A1c 12/27/22 E11.9 - Type 2 diabetes mellitus without complications Coding Level of Care Code Est Pt Level 4 (30550) Diagnoses Microalbuminuria R80.9 Dyslipidemia E78.5 Type 2 diabetes mellitus without complication, without long-term current use of insulin E11.9 Diabetes mellitus type: type 2 Diabetes mellitus snf insulin use: without snf use Diabetes mellitus complication status: without complication Essential hypertension I10 COPD (chronic obstructive pulmonary disease) J44.9
== END 2022-12-27 16:06 | disposition home or self-care (01) ==
PROVIDERS: PCP Internal Medicine; Visit Provider Nurse Practitioner Family
DX: E11.9 Type 2 diabetes mellitus without complications (principal)
CPT/HCPCS: 83036; 99214

== ENCOUNTER 2023-05-17 07:28 | Outpatient (REF) | payer MEDICARE, SELFPAY ==
[2023-05-17 08:41] LABS: Estimated Average Glucose 117 mg/dL; Hemoglobin A1c % 5.7 % (<6.0)
[2023-05-17 09:05] LABS: Alanine Aminotransferase 10 U/L (0-40); Albumin Level 3.9 g/dL (3.5-5.0); Alkaline Phosphatase 57 U/L (39-117); Anion Gap 11 (12-20); Aspartate Amino Transferase 9 U/L (5-37); Bilirubin Total 0.8 mg/dL (0.0-1.0); Blood Urea Nitrogen 19 mg/dL (9-16); Calcium 9.4 mg/dL (8.4-10.2); Carbon Dioxide 22 mmol/L (22-29); Chloride 114 mmol/L (96-108); Cholesterol 100 mg/dL (<200); Estimated Glomerular Filt Rate > 60; Glucose Fasting 105 mg/dL (60-99); HDL Cholesterol 36 mg/dL (>40); LDL Cholesterol Calculated 47 mg/dL (<100); Potassium 3.8 mmol/L (3.3-5.1); Sodium 143 mmol/L (135-145); Triglycerides 85 mg/dL (<150)
[2023-05-17 14:33] LABS: Creatinine Urine 199.09 mg/dL; Microalbum/Creatinine Ratio Ur 160.2 ug/mg cr (<30)
== END 2023-05-17 07:29 | disposition home or self-care (01) ==
LOC: HO.LAB 07:28
PROVIDERS: Absent Provider Nurse Practitioner Family; PCP Internal Medicine; Visit Provider Urology
DX: E78.5 Hyperlipidemia, unspecified (principal); E11.9 Type 2 diabetes mellitus without complications
CPT/HCPCS: 36415; 80053; 80061; 82043; 82570; 83036

== ENCOUNTER 2023-05-22 14:57 | Outpatient (AMB) | payer MEDICARE, SELFPAY ==
--- NOTE | 2023-05-22 14:59 | A.OFFPC_ITS ---
Vital Signs 05/22/23 15:00 Height 5 ft 8 in Weight 194 lb BMI 29.5 BP 112/70 Blood Pressure Location Lt brachial Position Sitting Intake Visit Reasons: Per Dr Merrill Intake Note: Patient here for a follow up, c/o toe nail issues Legal Records Manager Required: No Accompanied by: Significant Other Allergies levofloxacin [From LEVAQUIN] Allergy (Intermediate, Verified 05/22/23 15:16) HIVES Iodinated Contrast Media [IV CONTRAST] Adverse Reaction (Intermediate, Verified 05/22/23 15:16) HIVES Medication List - Last Reconciled 05/22/23 by Connie Robertson MD acetazolamide ER 500 mg PO BID albuterol sulfate 90 mcg/actuation 2 puffs inhalation Q6H PRN 30 days aspirin 81 mg PO DAILY 90 days atorvastatin 40 mg PO DAILY 90 days blood sugar diagnostic ([employer] Ultra Blue Test Strip) 1 strip miscellaneous BID 30 days brinzolamide-brimonidine 1-0.2 % (Simbrinza) 1 drp ophthalmic (eye) TID bromfenac 0.07% (Prolensa) 1 drp ophthalmic (eye) DAILY cholecalciferol (vitamin D3) 50 mcg PO DAILY 90 days diltiazem HCl CD (Cartia XT) 180 mg PO DAILY 90 days finasteride 5 mg PO DAILY 90 days ilcojgmgcnn-noejcdrio-pelfdzvv 200-62.5-25 mcg (Trelegy Ellipta) 1 ea inhalation DAILY lancets ([employer] Delica Lancets) 1 Lancet to be use twice a day latanoprost 0.005% drps ophthalmic (eye) lisinopril 20 mg PO DAILY 90 days metformin ER 2,000 mg (4 x 500 mg) PO QPM netarsudil 0.02% (Rhopressa) 0 drps ophthalmic (eye) terazosin 5 mg PO BEDTIME 90 days Tobacco use date assessed: 05/22/23 Fall risk assessment: No Falls in past year Last assessed Fall Risk: 05/22/23 Dental Screening Dental Screen Date: 05/22/23 Did you have a dental visit in the last 12 months?: No Did you have a dental problem in the last 6 months where you did not have access to dental care?: No Was dental information given to patient?: Patient declined HPI HPI Comments History of Present Illness Details This is a 77-year-old male with diabetes mellitus type 2, hypertension, dyslipidemia and COPD that comes today accompanied by for follow-up on his conditions. A1c within goal. LDL stable. Blood pressure within goal. COPD well controlled with long-acting inhaler and use rescue inhaler once or twice a month. 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 I will refer him to Ophthalmo logy close by. Denies any chest pain or shortness of breath. [facility] Medical History Microalbuminuria Physical exam Grade II diastolic dysfunction Blurry vision Epidermal inclusion cyst Skin lesion Lipoma History of TIA (transient ischemic attack) Asthma History of DVT (deep vein thrombosis) Chronic back pain BPH (benign prostatic hyperplasia) Gross hematuria Dyslipidemia Diabetes mellitus Essential hypertension COPD (chronic obstructive pulmonary disease) Surgical History History of epidermal inclusion cyst excision (~12/22/20) S/P patent foramen ovale closure Hx of cataract extraction History of prosthetic aortic valve replacement Family History Father Medical history unknown Mother Medical history unknown Brother No problems noted. Son No problems noted. Daughter No problems noted. Daughter No problems noted. Daughter No problems noted. Social History Housing: House Are you a primary skin care instructor to a significant other at home: No Do you presently have visiting nurse or other home services: No Alcohol intake: current Alcohol intake frequency: a few times a month Alcohol type: beer and wine Patient Tobacco Use Status: Former Tobacco user e-Cigarette/Vaping Use: Never Used Second Hand Smoke Exposure: No service: No Current occupational status: retired Cognitive needs: No Hearing needs: No Vision needs: Yes Questionnaire PHQ-9 Over the last 2 weeks, how often have you been bothered by any of the following problems? 1. Little interest or pleasure in doing things: not at all 2. Feeling down, depressed, or hopeless: several days 3. Trouble falling or staying asleep, or sleeping too much: not at all 4. Feeling tired or having little energy: not at all 5. Poor appetite or overeating: not at all 6. Feeling bad about yourself - or that you are a failure or have let yourself or your family down: not at all 7. Trouble concentrating on things, such as reading the newspaper or watching television: not at all 8. Moving or speaking so slowly that other people could have noticed. Or the opposite - being so fidgety or restless that you have been moving around a lot more than usual: not at all 9. Thoughts that you would be better off or of hurting yourself in some way: not at all Total score: 1 Source: Developed by Drs. Jonathan Escobar, Lianet Michaels, Ford López and colleagues, with an educational harrison from [employer]. Thrive Questionnaire Date Thrive assessed: 05/22/23 I am a: Patient What is your living situation today?: I have a steady place to live Within the past 12 months, did the food you bought not last and you didn't have the money to get more?: Never true Within the past 12 months, did you worry whether your food would run out before you got money to buy more?: Never true Do you have trouble paying for medicines?: No Do you have trouble getting transportation to medical appointments?: No Do you have trouble paying your heating and electricity bill?: No Do you have trouble taking care of your child, family member or friend?: No Do you have trouble with day-to-day activities such as bathing, preparing meals, shopping, managing finances, etc.?: No Are you currently unemployed and looking for a job?: No Are you interested in more education?: No Please select the resources that you would like help with: None Currently or been in a relationship where the following occur: no concerns reported THRIVE Score: 0 AUDIT C Alcohol Use Questionnaire (AUDIT-C) 1. How often do you have a drink containing alcohol?: Monthly or less 2. How many drinks containing alcohol do you have on a typical day when you are drinking?: 1 or 2 3. How often do you have six or more drinks on one occasion?: Never Total Score: 1 ANNIE-7 AMB Questionnaire ANNIE-7 Date ANNIE - 7 assessed: 05/22/23 Feeling nervous, anxious, or on edge: 0 = Not at all Not being able to stop or control worryin = Not at all Worrying too much about different things: 0 = Not at all Trouble relaxin = Not at all Being so restless that it is hard to sit still: 0 = Not at all Becoming easily annoyed or irritable: 0 = Not at all Feeling afraid as if something awful might happen: 0 = Not at all Total ANNIE-7 score (0-4 normal; 5-9 mild; 10-14 moderate; 15-21 severe): 0 Source: Developed by Drs. Jonathan Escobar, Lianet Michaels, Ford López and colleagues, with an educational harrison from [employer]. Review of Systems Const All systems reviewed & are unremarkable except as noted in HPI and below Eyes Reports no additional complaints, Denies change in vision and Denies other v isual disturbances Card Denies chest pain at rest, Denies chest pain with activity, Denies edema, Denies irregular heart rhythm, Denies claudication, Denies dyspnea, Denies dyspnea on exertion, Denies orthopnea, Denies paroxysmal nocturnal dyspnea and Denies slow heart rate Resp Denies cough, Denies dyspnea and Denies dyspnea on exertion GI Denies abdominal pain, Denies change in bowel habits, Denies excessive flatus, Denies nausea and Denies vomiting Denies urinary hesitancy, Denies urinary incontinence and Denies urinary urgency Physical exam (Primary Care) Vital Signs: Last Vital Signs BP 112/70 05/22/23 15:00 BMI result Body Mass Index 29.5 Tobacco/Smoking Status: Tobacco use Status Tobacco use date assessed 05/22/23 05/22/23 15:06 Patient Tobacco Use Status Former Tobacco user 05/22/23 15:06 Tobacco use type 06/19/22 14:04 e-Cigarette/Vaping Use Never Used 05/22/23 15:06 PHQ-9: PHQ-9 Score PHQ-9: Total score 1 05/22/23 15:52 Thrive Assessment: Date of Thrive Assessment Date Thrive assessed 05/22/23 05/22/23 15:06 Currently or been in a relationship where the following occur: no concerns reported Const General: cooperative Eyes Conjunctivae: conjunctival abnormal bilateral conjunctival injection diffuse Resp Effort & Inspection: normal respiratory effort Auscultation: clear to auscultation bilaterally Cardio Jugular venous distension: no JVD Rate: regular rate Rhythm: regular rhythm Heart sounds: S1 normal heart sound present and S2 normal heart sound present Extrem General: Yes full ROM Assessment and Plan Assessment & Plan (1) Diabetes mellitus: Code(s): E11.9 - Type 2 diabetes mellitus without complications Qualifiers: Diabetes mellitus type: type 2 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 A1c goal is equal or less than 7%. (2) COPD (chronic obstructive pulmonary disease): Code(s): J44.9 - Chronic obstructive pulmonary disease, unspecified Plan: Continue long-acting inhaler. Use rescue inhaler as needed. Follow-up with pulmonology. (3) Dyslipidemia: Code(s): E78.5 - Hyperlipidemia, unspecified Plan: Continue statins. LDL goal is less than 70. (4) Essential hypertension: Code(s): I10 - Essential (primary) hypertension Plan: Continue lisinopril. Blood pressure goal is equal or less than 130/80. 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
[2023-05-22 15:00] VITALS: BP 112/70; BMI 29.5
== END 2023-05-22 15:28 | disposition home or self-care (01) ==
PROVIDERS: PCP Internal Medicine; Visit Provider Internal Medicine
DX: E11.69 Type 2 diabetes mellitus with other specified complication (principal); J44.9 Chronic obstructive pulmonary disease, unspecified; E78.5 Hyperlipidemia, unspecified; I10 Essential (primary) hypertension
CPT/HCPCS: 99214

== ENCOUNTER → 2023-06-06 08:35 | Outpatient (REF) | payer MEDICARE, SELFPAY ==
--- NOTE | 2023-06-06 08:38 | CA_ITS ---
Transthoracic Echocardiogram Patient (Last, First, Middle): Nasir Olvera, Gender: Male Date of : 1945 Age: 77 Procedure Date: 06/06/2023 Procedure Type: Transthoracic Echocardiogram Location: OP Height: 172.72 cm Weight: 88. kg BSA: 2.02 m2 Heart Rate: 81 bpm BP: 110 / 68 mmHg Basket Weaver: SB Referring MD: Raul Herrera MD Special Equipment Technician: Javed Singh MD Symptoms: Z95.3 - Presence of xenogenic heart valve Study Quality: Adequate ECG Rhythm: Sinus with extra beats Conclusions: - 1. Normal LV ejection fraction 55-60% with impaired relaxation filling pattern with moderate asymmetric septal hypertrophy 2. Bioprosthetic aortic valve present with normal function with mean gradient of 12 mmHg 3. Mild mitral regurgitation 4. Mildly dilated ascending aorta at 4 cm 5. Normal RV systolic pressure 6. No gross pericardial effusion Findings Left Ventricle Normal left ventricular size, thickness, and systolic function. The visually estimated ejection fraction is between 55-60%. Spectral Doppler is indicative of an impaired relaxation filling pattern. E/E prime ratio is between 8 and 15 consistent with indeterminate filling pressures. There is moderate septal asymmetric hypertrophy. Wall Motion Rest Echo Findings The basal inferior segment is akinetic. All other scored wall segments showed normal motion. Right Ventricle Mildly increased right ventricular cavity size. There is normal right ventricular systolic function. Atria The left atrium is normal in size. Interatrial shunt cannot be excluded. The right atrium is mildly dilated. Aortic Valve A bioprosthetic aortic valve is present. The prosthetic aortic valve appears to be functioning normally. The mean gradient is 12 mmHg. There is no aortic valve regurgitation. the valve is well seated without abnormal rocking motion Mitral Valve There is moderate anterior and mild posterior mitral leaflet thickening. There is mild mitral valve regurgitation. There is no mitral valve stenosis. Pulmonic Valve The pulmonic valve was not well visualized. Tricuspid Valve Likely normal tricuspid valve structure and function. There is mild tricuspid valve regurgitation. The right ventricular systolic pressure is normal. The right ventricular systolic pressure is 33 mmHg. Normal right atrial pressure. There is no evidence of pulmonary hypertension. Great Vessels The pulmonary artery was not well visualized. There is mild dilatation of the ascending aorta measuring 4.00 cm. Venous The inferior vena cava is normal in size and collapses greater than 50% with inspiration. Pericardium/Pleural There is no evidence of pericardial effusion. Prior Study Comparison Changes noted compared to prior study dated: 05/14/2021. aortic valve gradient is reduced compared to prior study at 12 mm Hg, question lower stroke volume versus technical issues Measurements 2D Linear Measurements IVSd: 1.54 0.6-0.9/0.6-1.0 cm LVIDd: 5.44 3.9-5.3/4.2-5.9 cm LVIDd Index: 2.69 2.4-3.2/2.2-3.1 cm/m2 LVIDs: 4.21 2.0-3.6 cm LVPWd: 0.77 0.7-1.1 cm LA Diam: 3.60 2.7-3.8/3.0-4.0 cm LAIDs Index: 1.78 1.5-2.3 cm/m2 LV Mass: 316.30 67-162/88-224 g LV Mass Index: 156.58 43-95/49-115 g/m2 LVOT Diam: 2.20 3.0+(-)1.3 cm 2D Systolic Function EF 4C: 54.40 >55% EF 2C: 57.30 >55% EF BiP: 55.00 >55% Mitral Valve MV Pk E: 0.74 MV PK A: 0.80 MV Decel Time: 233.00 E/A: 0.90 E'Lateral: 8.49 E'Medial: 5.98 E/E' Med: 12.30 E/E' Lat: 8.70 PHT: 68.00 MVA PHT: 3.24 Decel Graves: 3.15 Aortic Valve AoV Pk Santos: 2.38 AoV Mn Santos: 1.65 AoV VTI: 0.46 AoV Pk Grad: 23.00 Aov Mn Grad: 12.00 RONALD Cont.VTI: 2.22 LVOT LVOT Pk Santos: 1.33 LVOT Mn Santos: 0.95 LVOT VTI: 0.27 LVOT Pk Grad: 7.00 LVOT Mn Grad: 4.00 LVOT Diam: 2.20 LVOT Area: 3.80 Diastolic Function MV Pk E: 0.74 MV Pk A: 0.80 E/A: 0.90 E'Medial: 5.98 E/E' Med: 12.30 E' Laterial: 8.49 E/E' Lat: 8.70 Right Ventricle TVS' Santos: 9.79 Tricuspid Valve TR Pk Santos: 2.73 TR Pk Grad: 30.00 RA Press: 3.00 RVSP: 33.00 Great Vessels Aorta Sinus of Valsalva: 2.90 2.0-3.5 cm Ao Asc: 4.00 2.1-3.4 cm Pulmonary Veins Pulm Vein S/D 1.60 Pulmonary Valve PV Pk Santos: 1.46 Peak PV Grad: 9.00 Updated in Other Vendor System with Status of Final Javed Singh MD electronically signed on 06/07/2023 5:59:51 AM with status of Final
== END ==
LOC: HO.CARD 08:35
PROVIDERS: PCP Internal Medicine; Visit Provider Internal Medicine
DX: Z95.3 Presence of xenogenic heart valve (principal)
CPT/HCPCS: 93306

== ENCOUNTER → 2023-06-06 08:38 | Outpatient (BNV) | payer MEDICARE, SELFPAY | PROVIDERS: PCP Internal Medicine; Visit Provider Internal Medicine Cardiovascular Disease | DX: I34.0 Nonrheumatic mitral (valve) insufficiency (principal) | CPT/HCPCS: 93306 ==

== ENCOUNTER 2023-06-19 13:03 | Outpatient (AMB) | payer MEDICARE, SELFPAY ==
[2023-06-19 13:10] VITALS: BP 120/70; PULSE 98; BMI 29.6
--- NOTE | 2023-06-19 13:10 | MHC.OFFVIS ---
Vital Signs 06/19/23 13:10 Height 5 ft 8 in Weight 194 lb 14.218 oz BMI 29.6 BP 120/70 Pulse 98 Intake Visit Reasons: 1 yr s/p echo Regional Marketing Director Required: Yes Regional Marketing Director Name: [id number] Accompanied by: Self / Same As Patient Allergies levofloxacin [From LEVAQUIN] Allergy (Intermediate, Verified 05/22/23 15:16) HIVES Iodinated Contrast Media [IV CONTRAST] Adverse Reaction (Intermediate, Verified 05/22/23 15:16) HIVES Medication List - Last Reconciled 06/19/23 by Raul Herrera MD acetazolamide ER 500 mg PO BID albuterol sulfate 90 mcg/actuation 2 puffs inhalation Q6H PRN 30 days aspirin 81 mg PO DAILY 90 days atorvastatin 40 mg PO DAILY 90 days blood sugar diagnostic ([employer] Ultra Blue Test Strip) 1 strip miscellaneous BID 30 days brinzolamide-brimonidine 1-0.2 % (Simbrinza) 1 drp ophthalmic (eye) TID bromfenac 0.07% (Prolensa) 1 drp ophthalmic (eye) DAILY cholecalciferol (vitamin D3) 50 mcg PO DAILY 90 days diltiazem HCl CD (Cartia XT) 180 mg PO DAILY 90 days finasteride 5 mg PO DAILY 90 days tybtwvvdlog-kyyfszttw-imgexuwr 200-62.5-25 mcg (Trelegy Ellipta) 1 ea inhalation DAILY lancets ([employer] Delica Lancets) 1 Lancet to be use twice a day latanoprost 0.005% drps ophthalmic (eye) lisinopril 20 mg PO DAILY 90 days metformin ER 2,000 mg (4 x 500 mg) PO QPM netarsudil 0.02% (Rhopressa) 0 drps ophthalmic (eye) terazosin 5 mg PO BEDTIME 90 days HPI Comments Details: Nasir returns for follow-up. 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 He underwent bioprosthetic aortic valve replacement, mitral valve repair and PFO closure. He states that he is generally doing fine for the most part. Does not really have any cardiac symptoms like chest pain or palpitations. Has been having vision issues and can not see well. Has been going on for a while. He does go to ophthalmology. [facility] Medical History Microalbuminuria Physical exam Grade II diastolic dysfunction Blurry vision Epidermal inclusion cyst Skin lesion Lipoma History of TIA (transient ischemic attack) Asthma History of DVT (deep vein thrombosis) Chronic back pain BPH (benign prostatic hyperplasia) Gross hematuria Dyslipidemia Diabetes mellitus Essential hypertension COPD (chronic obstructive pulmonary disease) Surgical History History of epidermal inclusion cyst excision (~12/22/20) S/P patent foramen ovale closure Hx of cataract extraction History of prosthetic aortic valve replacement Family History Father Medical history unknown Mother Medical history unknown Brother No problems noted. Son No problems noted. Daughter No problems noted. Daughter No problems noted. Daughter No problems noted. Social History Housing: House Are you a primary career professional to a significant other at home: No Do you presently have visiting nurse or other home services: No Alcohol intake: current Alcohol intake frequency: a few times a month Alcohol type: beer and wine Patient Tobacco Use Status: Former Tobacco user e-Cigarette/Vaping Use: Never Used Second Hand Smoke Exposure: No service: No Current occupational status: retired Cognitive needs: No Hearing needs: No Vision needs: Yes Review of Systems Const Denies chills, Denies fatigue, Denies fever(s), Denies frequent falls, Denies weakness, Denies weight gain and Denies weight loss ENT Denies dizziness Card Denies chest pain, Denies leg edema, Denies lightheadedness, Denies palpitations, Denies dyspnea and Denies dyspnea on exertion Resp Denies cough, Denies dyspnea and Denies dyspnea on exertion GI Denies hematochezia Musc Denies abnormal gait, Denies muscle weakness, Denies numbness, Denies radiating pain into limb and Denies tingling Neuro Denies abnormal gait, Denies dizziness, Denies frequent falls, Denies numbness, Denies tingling and Denies weakness Endo Denies fatigue and Denies palpitations Physical Exam Vital Signs: Last Vital Signs Pulse 98 06/19/23 13:10 BP 120/70 06/19/23 13:10 BMI result Body Mass Index 29.6 Const General: comfortable and no acute distress Orientation/consciousness: patient oriented x3 HEENT Other: Unremarkable Head: Yes normal to inspection Neck Neck: Yes normal visual inspection Chest Chest palpation & inspection: normal inspection of the chest Resp Auscultation: clear to auscultation bilaterally Cardio Palpation: normal PMI Heart sounds: S1 normal heart sound present, S2 normal heart sound present, no gallops, Murmur heart sound present systolic II/ and at the right sternal border and no rubs GI Palpation (GI): Soft to palpation Back/Spine/Pelvis Other: unremarkable Skin General skin exam: no rashes or lesions noted Neuro General: patient oriented x3 Extrem General: Yes normal to inspection Psych Mental Status: mental status grossly normal Office Procedures EKG Details: EKG with sinus rhythm at 98/Min; LVH; frequent [place]. [id number], Complete Assessment & Plan Assessment & Plan (1) Status post aortic valve replacement with bioprosthetic valve: Code(s): Z95.3 - Presence of xenogenic heart valve Category: Surgical (2) Status post mitral valve repair: Code(s): Z98.890 - Other specified postprocedural states Category: Surgical (3) S/P patent foramen ovale closure: Code(s): Z87.74 - Personal history of (corrected) congenital malformations of heart and circulatory system Category: Surgical (4) PVC (premature ventricular contraction): Code(s): I49.3 - Ventricular premature depolarization Category: Medical Plan In the recent echocardiogram, normally functioning bioprosthetic aortic valve. LVEF is preserved at 55-60%. Question of basal inferior akinesis but upon review, no major change compared to before. Valve gradient is lower than before and hence possibly technical issue vs difference in stroke volume. EKG shows frequent PVCs. However, he has got no palpitations or in fact any other complaints. Based on operative report from 2015, normal coronary arteries. With age, frailty, inability to see due to vision issues, we will keep the care conservative. As he has got no symptoms from the PVCs, we can just plan Holter to evaluate for any NSVT extra. Infective endocarditis prophylaxis per protocol. Follow-up in 6 months. Orders: Orders ECG 3 day holter monitor 6 Months I49.3 - Ventricular premature depolarization Coding Level of Care Code Est Pt Level 4 (99386) Diagnoses Status post aortic valve replacement with bioprosthetic valve Z95.3 Status post mitral valve repair Z98.890 S/P patent foramen ovale closure Z87.74 PVC (premature ventricular contraction) I49.3 CPT Codes EKG - CPT: [id number], Complete ([id number])
== END 2023-06-19 13:32 | disposition home or self-care (01) ==
PROVIDERS: Visit Provider Internal Medicine
DX: Z95.3 Presence of xenogenic heart valve (principal); Z98.890 Other specified postprocedural states; Z87.74 Personal history of (corrected) congenital malformations of heart and circulatory system; I49.3 Ventricular premature depolarization
CPT/HCPCS: 93010; 99214

== ENCOUNTER → 2023-06-19 13:03 | Outpatient (BNVA) | payer MEDICARE, SELFPAY | PROVIDERS: Visit Provider Internal Medicine | DX: I49.3 Ventricular premature depolarization (principal); Z95.3 Presence of xenogenic heart valve; Z98.890 Other specified postprocedural states; Z87.74 Personal history of (corrected) congenital malformations of heart and circulatory system | CPT/HCPCS: 93005; 99212 ==

== ENCOUNTER 2023-06-23 08:39 | Outpatient (REF) | payer MEDICARE, SELFPAY ==
[2023-06-23 10:15] LABS: PSA,Total (Free>4and<10) 5.32 ng/mL (0.00-4.00)
[2023-06-24 12:34] LABS: Free Prostate Spec Ag 0.8 ng/mL; Percent Free Prostate Spec Ag 17 % (calc) (>25); Prostate Specific Ag Total 4.6 ng/mL (< OR = 4.0)
== END 2023-06-23 08:40 | disposition home or self-care (01) ==
LOC: HO.LAB 08:39
PROVIDERS: PCP Internal Medicine; Visit Provider Urology
DX: N40.0 Benign prostatic hyperplasia without lower urinary tract symptoms (principal); Z12.5 Encounter for screening for malignant neoplasm of prostate
CPT/HCPCS: 36415; 84153; 84154

== ENCOUNTER 2023-06-27 10:21 | Outpatient (AMB) | payer MEDICARE, SELFPAY ==
--- NOTE | 2023-06-27 10:24 | A.OFFVIS_ITS ---
Intake Visit Reasons: 1y/PSA/PVR(set) Intake Note: Patient is present for PVR/PSA Urology Medication: terazosin Blood Thinner: Aspirin Last PVR: 51ml Today's PVR: 47ml's Boat Painter Required: Yes Accompanied by: Unknown Allergies levofloxacin [From LEVAQUIN] Allergy (Intermediate, Verified 07/29/23 14:32) HIVES Iodinated Contrast Media [IV CONTRAST] Adverse Reaction (Intermediate, Verified 07/29/23 14:32) HIVES HPI Comments Details: Nasir is a pleasant [place]i male. He is a patient of Dr. Robertson. He seen for the following urologic conditions - gross hematuria with blood in stone - BPH Yemeni translation provided in office by qualified medical lab assistant Restart finasteride which have been stopped Repeat PSA in 6 months UA today with urinary tract infection needs antibiotics Lower urinary tract symptoms/Bladder stones weakness of stream nocturia times 2-3 current therapy finasteride prior therapy - cystoscopy with removal of bladder stone June 2020 PSA 01/31 2.8, 07/03 4.6 17% Seen in ER last month for blood in urine Review in 12 months PFS Medical History Microalbuminuria Physical exam Grade II diastolic dysfunction Blurry vision Epidermal inclusion cyst Skin lesion Lipoma History of TIA (transient ischemic attack) Asthma History of DVT (deep vein thrombosis) Chronic back pain BPH (benign prostatic hyperplasia) Gross hematuria Dyslipidemia Diabetes mellitus Essential hypertension COPD (chronic obstructive pulmonary disease) Surgical History History of epidermal inclusion cyst excision (~12/22/20) S/P patent foramen ovale closure Hx of cataract extraction History of prosthetic aortic valve replacement Family History Father Medical history unknown Mother Medical history unknown Brother No problems noted. Son No problems noted. Daughter No problems noted. Daughter No problems noted. Daughter No problems noted. Social History Housing: House Are you a primary urgent care physician assistant to a significant other at home: No Do you presently have visiting nurse or other home services: No Alcohol intake: current Alcohol intake frequency: a few times a month Alcohol type: beer and wine Patient Tobacco Use Status: Former Tobacco user e-Cigarette/Vaping Use: Never Used Second Hand Smoke Exposure: No service: No Current occupational status: retired Cognitive needs: No Hearing needs: No Vision needs: Yes Review of Systems Const Denies chills and Denies fever(s) Card Reports no additional complaints and Denies syncope Resp Denies cough GI Denies abdominal pain and Denies heartburn Reports as per HPI and Denies change in libido Neuro Denies syncope Psych Denies change in libido Endo Denies change in libido Physical Exam Const General: cooperative, healthy appearing, comfortable and no acute distress Orientation/consciousness: patient oriented x3 HEENT Face and sinus: Yes normal facial exam Mouth: moist mucous membranes Neck Neck: Yes normal visual inspection, Yes full ROM and Yes trachea midline Chest Chest palpation & inspection: normal inspection of the chest Resp Effort & Inspection: normal respiratory effort, able to speak in complete sentences and no respiratory distress GI Inspection: Yes normal to inspection Back/Spine/Pelvis Cervical Spine: normal cervical lordosis Thoracic/Lumbar Spine: thoracic and lumbar spine normal to inspection Skin General skin exam: no rashes or lesions noted Neuro General: patient oriented x3, gait normal, tone normal and moves all extremities Extrem General: Yes normal to inspection and Yes capillary refill normal Results AMB Urinalysis, Automated UA Leukoctes 70 Nacho/uL Last Edit by [employer] on 06/27/23 10:40 UA Nitrite Positive Last Edit by [employer] on 06/27/23 10:40 UA Urobilinogen 0.2 mg/dL Last Edit by [employer] on 06/27/23 10:40 UA Protein 300 mg/dL Last Edit by [employer] on 06/27/23 10:40 UA pH 5.5 Last Edit by [employer] on 06/27/23 10:40 UA Blood 25 David/uL Last Edit by [employer] on 06/27/23 10:40 UA Specific [place] 1.030 Last Edit by [employer] on 06/27/23 10:40 UA Ketone Positive Last Edit by [employer] on 06/27/23 10:40 UA Bilirubin 1 mg/dL Last Edit by [employer] on 06/27/23 10:40 UA Glucose 0 mg/dL Last Edit by Regulo Tai on 06/27/23 10:40 Results Reviewed Results Reviewed: Laboratory Last Values Urine pH (Auto) 5.5 06/27/23 10:39 Specific [place] (Auto) 1.030 06/27/23 10:39 Urine Protein (Auto) 300 mg/dL 06/27/23 10:39 Glucose (UA)(Auto) 0 mg/dL 06/27/23 10:39 Urine Ketones (Auto) Positive 06/27/23 10:39 Urine Blood (Auto) 25 David/uL 06/27/23 10:39 Urine Nitrite (Auto) Positive 06/27/23 10:39 Urine Bilirubin (Auto) 1 mg/dL 06/27/23 10:39 Urine Urobilinogen (Auto) 0.2 mg/dL 06/27/23 10:39 Leukocyte Esterase (Auto) 70 Nacho/uL 06/27/23 10:39 Assessment & Plan Assessment & Plan (1) Chronic UTI (urinary tract infection): Code(s): N39.0 - Urinary tract infection, site not specified Category: Medical (2) Bladder outlet obstruction: Code(s): N32.0 - Bladder-neck obstruction Category: Medical Plan Restart finasteride Infection today Bactrim Orders: Orders AMB Urinalysis Automated 06/27/23 Z13.9 - Encounter for screening, unspecified Urine Culture 06/27/23 Z13.9 - Encounter for screening, unspecified PSA,Total (Free>4and<10) 6 Months N40.0 - Benign prostatic hyperplasia without lower urinary tract symptoms Medications: New sulfamethoxazole-trimethoprim 800-160 mg (Bactrim DS) 1 tab PO BID 10 tabs 0RF 5 days N39.0 - Urinary tract infection, site not specified Refilled finasteride 5 mg PO DAILY 90 tabs 3RF 90 days N40.1 - Benign prostatic hyperplasia with lower urinary tract symptoms, R33.9 - Retention of urine, unspecified Patient Instructions: Imaging studies, laboratory and physical exam results were discussed and reviewed in detail. No major barriers to patient understanding were identified. An opportunity to ask questions regarding the treatment plan was provided. All q uestions were answered. The patient expressed understanding and agreement with the above treatment plan. The patient is aware they should contact our office by phone for worsening of their current condition or the appearance of new urologic symptoms. Compliance is encouraged with any medications and followup testing that is ordered. It is a privilege to participate in the urologic care of your patient. If you have any questions or concerns regarding treatment for the above conditions, or other urologic issues, please do not hesitate to contact me. The office telephone contact is [phone]. This note is constructed using voice recognition software. While every effort has been made to ensure accuracy molder vacuum errors may have been included. Yours sincerely, Dr Jose D Abel MD, [facility] - Urology Providers of Expert, Compassionate Care for the Genitourinary System Coding Level of Care Code Est Pt Level 4 (98752) Diagnoses Chronic UTI (urinary tract infection) N39.0 Bladder outlet obstruction N32.0
== END 2023-06-27 11:10 | disposition home or self-care (01) ==
PROVIDERS: PCP Internal Medicine; Visit Provider Urology
DX: N39.0 Urinary tract infection, site not specified (principal); N32.0 Bladder-neck obstruction
CPT/HCPCS: 99214

== ENCOUNTER 2023-06-27 10:21 | Outpatient (REF) | payer MEDICARE, SELFPAY | END 2023-06-27 10:22 | disposition home or self-care (01) | LOC: HO.LNP 10:21 | PROVIDERS: PCP Internal Medicine; Visit Provider Urology | DX: N40.1 Benign prostatic hyperplasia with lower urinary tract symptoms (principal); R33.8 Other retention of urine; N39.0 Urinary tract infection, site not specified | CPT/HCPCS: 81003; 87086; 99212 ==

== ENCOUNTER 2023-07-25 08:27 | Outpatient (REF) | payer MEDICARE, MEDICAID, SELFPAY ==
[2023-07-25 09:46] LABS: Basophils Absolute Auto 0.1 X10*3/uL (0.0-0.2); Basophils Percent Auto 0.7 % (0-2); Eosinophils Absolute Auto 0.2 X10*3/uL (0.0-0.4); Eosinophils Percent Auto 2.6 % (0-4); Hematocrit 42.1 % (42.0-52.0); Hemoglobin 13.8 g/dl (14.0-18.0); Imm Gran Abs Auto 0.08 X10*3/uL (0.00-0.03); Imm Gran Pct Auto 1.2 % (0.0-0.4); Lymphocytes Absolute Auto 1.5 X10*3/uL (1.2-4.9); Lymphocytes Percent Auto 22.4 % (20-40); MANUAL DIFF FLAG SCAN; Mean Corpuscular HGB Conc 32.8 g/dl (31.0-36.0); Mean Corpuscular Hemoglobin 29.4 pg (27.0-33.0); Mean Corpuscular Volume 89.6 fL (80.0-98.0); Monocytes Absolute Auto 0.6 X10*3/uL (0.1-1.2); Monocytes Percent Auto 8.2 % (2-11); Neutrophils Absolute Auto 4.5 x10*3/uL (2.0-8.3); Neutrophils Percent Auto 64.9 % (45-73); PLT CLUMP 1; Red Cell Distribution Width 12.8 % (11.0-16.0); SCAN SMEAR FLAG 1
[2023-07-25 09:50] LABS: White Blood Count 6.9 X10*3/uL (4.8-10.8)
[2023-07-25 10:11] LABS: Alanine Aminotransferase 12 U/L (0-40); Alkaline Phosphatase 54 U/L (39-117); Anion Gap 10 (12-20); Aspartate Amino Transferase 11 U/L (5-37); Bilirubin Total 0.8 mg/dL (0.0-1.0); Blood Urea Nitrogen 15 mg/dL (9-16); Calcium 9.4 mg/dL (8.4-10.2); Carbon Dioxide 23 mmol/L (22-29); Chloride 114 mmol/L (96-108); Estimated Glomerular Filt Rate > 60; Glucose Random 106 mg/dL (60-115); Potassium 4.1 mmol/L (3.3-5.1); Sodium 143 mmol/L (135-145); Total Protein 7.2 g/dL (6.5-8.0)
[2023-07-25 10:24] LABS: Platelet Count 125 X10*3/uL (160-400)
[2023-07-25 10:25] LABS: SLIDE REVIEW VERIFIED
[2023-07-25 10:29] LABS: Syphilis Screen Nonreactive (Nonreactive)
[2023-07-28 04:15] LABS: TS Negative Control Passed; TS Panel A 1; TS Panel B 0; TS Positive Control Passed; TSpotTB Negative (Negative)
[2023-07-28 17:47] LABS: Lyme Abs Screen <0.90 index
[2023-07-29 09:47] LABS: Neutrophil Cyto Ab Screen NEGATIVE (NEGATIVE)
[2023-07-30 14:38] LABS: Lysozyme, Serum 10.4 mcg/mL (5.0-11.0)
[2023-07-30 22:04] LABS: Angiotensin Converting Enzyme 5 U/L (9-67)
== END 2023-07-25 08:28 | disposition home or self-care (01) ==
LOC: HO.LAB 08:27
PROVIDERS: PCP Internal Medicine; Visit Provider Ophthalmology
DX: H20.13 Chronic iridocyclitis, bilateral (principal)
CPT/HCPCS: 36415; 80053; 82164; 85025; 85549; 86036; 86481; 86617; 86618; 86780

== ENCOUNTER 2023-07-29 14:05 | Outpatient (AMB) | payer MEDICARE, SELFPAY ==
[2023-07-29 14:11] VITALS: BP 102/60; BMI 29.3
--- NOTE | 2023-07-29 14:11 | A.OFFPC_ITS ---
Vital Signs 07/29/23 14:11 Height 5 ft 8 in Weight 193 lb BMI 29.3 BP 102/60 Blood Pressure Location Lt brachial Position Sitting Intake Visit Reasons: PE Intake Note: Patient here for a physical exam Pugger Helper Required: No Accompanied by: Significant Other Allergies levofloxacin [From LEVAQUIN] Allergy (Intermediate, Verified 07/29/23 14:32) HIVES Iodinated Contrast Media [IV CONTRAST] Adverse Reaction (Intermediate, Verified 07/29/23 14:32) HIVES Medication List - Last Reconciled 07/29/23 by Connie Robertson MD acetazolamide ER 500 mg PO BID albuterol sulfate 90 mcg/actuation 2 puffs inhalation Q6H PRN 30 days aspirin 81 mg PO DAILY 90 days atorvastatin 40 mg PO DAILY 90 days blood sugar diagnostic (MinuteKey Ultra Blue Test Strip) 1 strip miscellaneous BID 30 days brinzolamide-brimonidine 1-0.2 % (Simbrinza) 1 drp ophthalmic (eye) TID bromfenac 0.07% (Prolensa) 1 drp ophthalmic (eye) DAILY cholecalciferol (vitamin D3) 50 mcg PO DAILY 90 days diltiazem HCl CD (Cartia XT) 180 mg PO DAILY 90 days finasteride 5 mg PO DAILY 90 days iffcvxwmkaf-inqzauuki-bijcmvhm 200-62.5-25 mcg (Trelegy Ellipta) 1 ea inhalation DAILY lancets ([employer] Delica Lancets) 1 Lancet to be use twice a day latanoprost 0.005% drps ophthalmic (eye) lisinopril 20 mg PO DAILY 90 days metformin ER 2,000 mg (4 x 500 mg) PO QPM netarsudil 0.02% (Rhopressa) 0 drps ophthalmic (eye) prednisolone acetate 1% drps ophthalmic (eye) terazosin 5 mg PO BEDTIME 90 days Tobacco use date assessed: 05/22/23 Fall risk assessment: No Falls in past year Last assessed Fall Risk: 07/29/23 Dental Screening Dental Screen Date: 05/22/23 HPI HPI Comments History of Present Illness Details This is a 77-year-old male with COPD and diabetes mellitus type 2 that comes accompanied by for his physical exam. COPD has been stable with Trelegy and this is follow by pulmonology. A1c within goal. Last diabetic eye exam was less than a year ago. No chest pain or shortness on breath. No need for colonoscopy in due to age. [facility] Medical History (Updated 07/29/23 @ 15:30 by Connie Robertson MD) Microalbuminuria Physical exam Grade II diastolic dysfunction Blurry vision Epidermal inclusion cyst Skin lesion Lipoma History of TIA (transient ischemic attack) Asthma History of DVT (deep vein thrombosis) Chronic back pain BPH (benign prostatic hyperplasia) Gross hematuria Dyslipidemia Diabetes mellitus Essential hypertension COPD (chronic obstructive pulmonary disease) Surgical History History of epidermal inclusion cyst excision (~12/22/20) S/P patent foramen ovale closure Hx of cataract extraction History of prosthetic aortic valve replacement Family History Father Medical history unknown Mother Medical history unknown Brother No problems noted. Son No problems noted. Daughter No problems noted. Daughter No problems noted. Daughter No problems noted. Social History Housing: House Are you a primary aged or disabled carer to a significant other at home: No Do you presently have visiting nurse or other home services: No Alcohol intake: current Alcohol intake frequency: a few times a month Alcohol type: beer and wine Patient Tobacco Use Status: Former Tobacco user e-Cigarette/Vaping Use: Never Used Second Hand Smoke Exposure: No service: No Current occupational status: retired Cognitive needs: No Hearing needs: No Vision needs: Yes Questionnaire Thrive Questionnaire Date Thrive assessed: 05/22/23 ANNIE-7 AMB Questionnaire ANNIE-7 Date ANNIE - 7 assessed: 05/22/23 Source: Developed by Drs. Jonathan Escobar, Lianet Michaels, Ford López and colleagues, with an educational harrison from [employer]. Review of Systems Const All systems reviewed & are unremarkable except as noted in HPI and below Card Denies chest pain at rest, Denies chest pain with activity, Denies edema, Denies irregular heart rhythm, Denies claudication, Denies dyspnea, Denies dyspnea on exertion, Denies orthopnea, Denies paroxysmal nocturnal dyspnea and Denies slow heart rate Resp Denies cough, Denies dyspnea and Denies dyspnea on exertion Musc Denies abnormal gait, Denies atrophy, Denies deformity and Denies limited range of motion Neuro Denies abnormal gait, Denies behavioral changes, Denies confusion and Denies lack of coordination Psych Denies behavioral changes and Denies confusion Physical exam (Primary Care) Vital Signs: Last Vital Signs BP 102/60 07/29/23 14:11 BMI result Body Mass Index 29.3 Tobacco/Smoking Status: Tobacco use Status Tobacco use date assessed 05/22/23 07/29/23 14:13 Patient Tobacco Use Status Former Tobacco user 07/29/23 14:13 Tobacco use type 06/19/22 14:04 e-Cigarette/Vaping Use Never Used 07/29/23 14:13 Thrive Assessment: Date of Thrive Assessment Date Thrive assessed 05/22/23 07/29/23 14:13 Const General: No confusion Orientation/consciousness: patient oriented x3 and No confusion HENMT Head: Yes normal to inspection, Yes normocephalic and Yes atraumatic Ears: external ears normal Eyes General: appearance normal, both eyes and all related structures Eyelids: Yes eyelids normal Conjunctivae: conjunctivae normal Neck Neck: Yes normal visual inspection and Yes supple Resp Effort & Inspection: normal respiratory effort Auscultation: clear to auscultation bilaterally Cardio Jugular venous distension: no JVD Rate: regular rate Rhythm: regular rhythm Heart sounds: S1 normal heart sound present and S2 normal heart sound present GI Inspection: Yes normal to inspection Palpation (GI): Soft to palpation and nontender Auscultation: normal bowel sounds Skin General skin exam: no rashes or lesions noted Neuro General: patient oriented x3, no focal motor deficits and No confusion Extrem General: Yes full ROM Psych Appearance: grossly normal Assessment and Plan Assessment & Plan (1) Physical exam: Code(s): Z00.00 - Encounter for general adult medical examination without abnormal findings Plan: Repeat in a year. (2) Diabetes mellitus: Code(s): E11.9 - Type 2 diabetes mellitus without complications Qualifiers: Diabetes mellitus type: type 2 Diabetes mellitus termite control technician insulin use: without termite control technician use Diabetes mellitus complication status: without complication Qualified Code(s): E11.9 - Type 2 diabetes mellitus without complications Plan: Continue metformin. A1c goal is equal or less than 7%. (3) COPD (chronic obstructive pulmonary disease): Code(s): J44.9 - Chronic obstructive pulmonary disease, unspecified Qualifiers: COPD type: unspecified COPD Qualified Code(s): J44.9 - Chronic obstructive pulmonary disease, unspecified Plan: Continue Trelegy. Follow-up with pulmonology. Coding Level of Care Code Est Pt Prev Care >65y(32250) Diagnoses Physical exam Z00.00 Type 2 diabetes mellitus without complication, without long-term current use of insulin E11.9 Diabetes mellitus type: type 2 Diabetes mellitus termite control technician insulin use: without termite control technician use Diabetes mellitus complication status: without complication Chronic obstructive pulmonary disease, unspecified COPD type J44.9 COPD type: unspecified COPD Time Spent (min) 35
== END 2023-07-29 14:46 | disposition home or self-care (01) ==
PROVIDERS: PCP Internal Medicine; Visit Provider Internal Medicine
DX: Z00.00 Encounter for general adult medical examination without abnormal findings (principal); E11.9 Type 2 diabetes mellitus without complications; J44.9 Chronic obstructive pulmonary disease, unspecified
CPT/HCPCS: 99397

== ENCOUNTER 2023-09-12 07:06 | Outpatient (REF) | payer MEDICARE, OTHER, SELFPAY ==
--- NOTE | ~2023-09-12 | CT_ITS ---
EXAMINATION: CT CHEST WITHOUT CONTRAST CLINICAL INFORMATION: Pulmonary nodules COMPARISON: CT chest 06/27/2021. CT chest 03/04/2014. TECHNIQUE: Multidetector volumetric CT imaging of the chest was done. Axial MIP volume rendering provided. Sagittal and coronal reformatted images were obtained. This CT examination was performed using dose optimization techniques as appropriate, variously including the following: *Automated exposure control *Adjustment of mA and/or kV according to patient size (this includes techniques or standardized protocols for targeted exams where dose is matched to indication/reason for exam; i.e. extremities or head) *Use of iterative reconstruction technique DLP: 189 mGy-cm FINDINGS: LUNGS: Evaluation of lung parenchyma is slightly limited due to motion. Central airways are patent. No focal consolidation. 4 mm nodule in the superior right lower lobe, not significantly changed from prior exam dating back to 2014, 6:259. No new or enlarging pulmonary nodules. MEDIASTINUM: Heart is normal in size. No pericardial effusion. Aortic valvular prosthesis. Scattered aortic calcifications. No enlarged mediastinal lymph nodes. CORONARY ARTERY CALCIFICATION: Mild to moderate coronary calcifications PLEURA: There is no pleural effusion. AXILLA: No lymphadenopathy. UPPER ABDOMEN: Punctate cholelithiasis. Scattered colonic diverticulosis. Small hiatal hernia. OSSEOUS STRUCTURES: Median sternotomy wires. Flowing ossification along the anterior longitudinal ligament at multiple levels in thoracic spine suggestive of diffuse idiopathic skeletal hyperostosis. No acute or suspicious osseous abnormality. CT/CT chest wo IV con IMPRESSION: Evaluation of lung parenchyma is slightly limited due to motion. 4 mm nodule in the superior right lower lobe, not significantly changed from prior exam dating back to 2014. No new or enlarging pulmonary nodules. Punctate cholelithiasis. Scattered colonic diverticulosis. Small hiatal hernia. Fleischner guidelines were followed. Electronically signed by: Jacob Everett MD 10/07/2023 12:21 PM EDT
== END 2023-09-12 07:07 | disposition home or self-care (01) ==
LOC: HO.CT 07:06
PROVIDERS: PCP Internal Medicine; Visit Provider Internal Medicine Pulmonary Disease
DX: R91.8 Other nonspecific abnormal finding of lung field (principal)
CPT/HCPCS: 71250

== ENCOUNTER 2023-10-10 09:55 | Outpatient (AMB) | payer MEDICARE, MEDICAID, SELFPAY ==
--- NOTE | 2023-10-10 09:59 | MHC.OFFVIS ---
Vital Signs 10/10/23 10:00 Height 5 ft 8 in Weight 194 lb BMI 29.5 BP 108/60 Blood Pressure Location Lt brachial Position Sitting Pulse 78 Pulse Source Pulse Oximeter Pulse Oximetry (%) 96 Oxygen Delivery Method Room Air Intake Visit Reasons: pulm nodules/ CT Follow up Strapper And Buffer Required: Yes Strapper And Buffer Name: tashira Allergies levofloxacin [From LEVAQUIN] Allergy (Intermediate, Verified 10/10/23 10:02) HIVES Iodinated Contrast Media [IV CONTRAST] Adverse Reaction (Intermediate, Verified 10/10/23 10:02) HIVES HPI HPI pulm nodules/ CT Follow up: Details: 78-year-old gentleman, former 40+ pack-year smoker, quit over 20 years prior with underlying at least moderate diastolic dysfunction and history of bioprosthetic aortic valve replacement.? He is followed by Cardiology service. He continues to use trilogy and albuterol MDI with good control of his symptoms. He denies any recent exacerbations. His follow-up CT chest showed stable 4 mm pulmonary nodule. [facility] Medical History (Updated 10/10/23 @ 09:31 by Selene Connelly PA-C) Microalbuminuria Grade II diastolic dysfunction Blurry vision History of TIA (transient ischemic attack) Asthma History of DVT (deep vein thrombosis) Chronic back pain BPH (benign prostatic hyperplasia) Gross hematuria Dyslipidemia Diabetes mellitus Essential hypertension COPD (chronic obstructive pulmonary disease) Surgical History (Updated 10/10/23 @ 09:35 by Selene Connelly PA-C) Status post aortic valve replacement with bioprosthetic valve Status post mitral valve repair Status post patent foramen ovale closure History of epidermal inclusion cyst excision (~12/22/20) Hx of cataract extraction Family History Father Medical history unknown Mother Medical history unknown Brother No problems noted. Son No problems noted. Daughter No problems noted. Daughter No problems noted. Daughter No problems noted. Social History Housing: House Are you a primary child care education coordinator to a significant other at home: No Do you presently have visiting nurse or other home services: No Alcohol intake: current Alcohol intake frequency: a few times a month Alcohol type: beer and wine Patient Tobacco Use Status: Former Tobacco user e-Cigarette/Vaping Use: Never Used Second Hand Smoke Exposure: No service: No Current occupational status: retired Cognitive needs: No Hearing needs: No Vision needs: Yes Review of Systems Const Denies daytime sleepiness, Denies excessive sweating, Denies fatigue, Denies fever(s), Denies lethargy, Denies malaise, Denies night sweats, Denies snoring and Denies weight loss Eyes Denies blurry vision and Denies itchy eyes ENT Denies nasal congestion, Denies post nasal drip, Denies sinus pain, Denies sinus pressure and Denies other ( Thrush) Card Denies chest pain, Denies pedal edema, Denies dyspnea, Denies orthopnea and Denies paroxysmal nocturnal dyspnea Resp Denies cough, Denies hemoptysis, Denies excessive phlegm production, Denies dyspnea, Denies snoring and Denies wheezing GI Denies abdominal pain and Denies heartburn Musc Denies myalgias, Denies arthralgias and Denies joint swelling Skin/Breast Denies rash Neuro Denies memory loss and Denies seizure-like activity Psych Denies abnormal sleep pattern, Denies anxiety and Denies memory loss Endo Denies excessive sweating, Denies fatigue and Denies heat intolerance Bryson/Lymph Denies easy bruising Aller/Immun Denies itchy eyes, Denies seasonal rhinorrhea and Denies wheezing Physical Exam Vital Signs: Last Vital Signs Pulse 78 10/10/23 10:00 BP 108/60 10/10/23 10:00 Pulse Ox 96 10/10/23 10:00 Oxygen Delivery Method Room Air 10/10/23 10:00 BMI result Body Mass Index 29.5 Const General: no acute distress and alert Nutritional Appearance: not obese Orientation/consciousness: Other orientation findings ( oriented) HEENT Head: Yes atraumatic Eyes General: appearance normal, both eyes and all related structures Sclerae: sclerae normal EOM: EOMs intact bilaterally Neck Neck: Yes supple Lymphatic: no lymphadenopathy noted Resp Effort & Inspection: normal respiratory effort and no use of accessory muscles Auscultation: clear to auscultation bilaterally Cardio Rate: regular rate Rhythm: regular rhythm Heart sounds: no gallops, no murmurs and no rubs Skin General skin exam: other ( warm) Extrem General: No clubbing, No cyanosis and No edema Assessment & Plan Assessment & Plan (1) Pulmonary nodules: Code(s): R91.8 - Other nonspecific abnormal finding of lung field Category: Medical Plan: Results of follow-up CT chest reviewed, stable 4 mm pulmonary nodule, will repeat CT chest in 12 months, if stable at that time, then no further imaging follow-up would be required. (2) COPD (chronic obstructive pulmonary disease): Code(s): J44.9 - Chronic obstructive pulmonary disease, unspecified Category: Medical Qualifiers: COPD type: unspecified COPD Qualified Code(s): J44.9 - Chronic obstructive pulmonary disease, unspecified Plan: Well controlled current regimen of Trelegy and albuterol MDI. Continue current regimen. Orders: Orders CT chest wo IV con 09/08/24 R91.8 - Other nonspecific abnormal finding of lung field Medications: Refilled mextzmlhmrm-tbkjzlizt-fvustvpd 200-62.5-25 mcg (Trelegy Ellipta) 1 ea inhalation DAILY 60 ea 6RF Coding Level of Care Code Est Pt Level 4 (12392) Diagnoses Pulmonary nodules R91.8 Chronic obstructive pulmonary disease, unspecified COPD type J44.9 COPD type: unspecified COPD
[2023-10-10 10:00] VITALS: BP 108/60; PULSE 78; O2SAT 96; BMI 29.5
== END 2023-10-10 10:19 | disposition home or self-care (01) ==
PROVIDERS: PCP Internal Medicine; Visit Provider Internal Medicine Pulmonary Disease
DX: R91.8 Other nonspecific abnormal finding of lung field (principal); J44.9 Chronic obstructive pulmonary disease, unspecified
CPT/HCPCS: 99214

== ENCOUNTER → 2023-10-10 09:55 | Outpatient (BNVA) | payer MEDICARE, MEDICAID, SELFPAY | PROVIDERS: PCP Internal Medicine; Visit Provider Internal Medicine Pulmonary Disease | DX: R91.8 Other nonspecific abnormal finding of lung field (principal); J44.9 Chronic obstructive pulmonary disease, unspecified | CPT/HCPCS: 99212 ==

== ENCOUNTER 2023-11-28 09:09 | Outpatient (REF) | payer MEDICARE, MEDICAID, SELFPAY ==
[2023-11-28 11:20] LABS: Creatinine Urine 117.29 mg/dL; Microalbum/Creatinine Ratio Ur 153.4 ug/mg cr (<30)
[2023-11-28 11:22] LABS: Alanine Aminotransferase 11 U/L (0-40); Albumin Level 3.8 g/dL (3.5-5.0); Alkaline Phosphatase 57 U/L (39-117); Anion Gap 14 (12-20); Aspartate Amino Transferase 12 U/L (5-37); Bilirubin Total 0.6 mg/dL (0.0-1.0); Blood Urea Nitrogen 19 mg/dL (9-16); Calcium 9.3 mg/dL (8.4-10.2); Carbon Dioxide 22 mmol/L (22-29); Chloride 112 mmol/L (96-108); Cholesterol 128 mg/dL (<200); Estimated Glomerular Filt Rate > 60; Glucose Fasting 129 mg/dL (60-99); HDL Cholesterol 33 mg/dL (>40); LDL Cholesterol Calculated 76 mg/dL (<100); Potassium 4.3 mmol/L (3.3-5.1); Sodium 144 mmol/L (135-145); Triglycerides 98 mg/dL (<150)
== END 2023-11-28 09:10 | disposition home or self-care (01) ==
LOC: HO.LAB 09:09
PROVIDERS: PCP Internal Medicine; Visit Provider Internal Medicine
DX: E11.9 Type 2 diabetes mellitus without complications (principal); E78.5 Hyperlipidemia, unspecified
CPT/HCPCS: 36415; 80053; 80061; 82043; 82570

== ENCOUNTER 2023-12-01 16:55 | Outpatient (AMB) | payer MEDICARE, MEDICAID, SELFPAY ==
[2023-12-01 17:09] VITALS: BP 122/80; BMI 30.1
--- NOTE | 2023-12-01 17:09 | A.OFFPC_ITS ---
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 Required: No Accompanied by: Self / Same As Patient Allergies levofloxacin [From LEVAQUIN] Allergy (Intermediate, Verified 12/01/23 17:15) HIVES Iodinated Contrast Media [IV CONTRAST] Adverse Reaction (Intermediate, Verified 12/01/23 17:15) HIVES Medication List - Last Reconciled 12/01/23 by Connie Robertson MD acetazolamide ER 500 mg PO BID albuterol sulfate 90 mcg/actuation 2 puffs inhalation Q6H PRN 30 days aspirin 81 mg PO DAILY 90 days atorvastatin 40 mg PO DAILY 90 days blood sugar diagnostic ([employer] Ultra Blue Test Strip) 1 strip miscellaneous BID 30 days brinzolamide-brimonidine 1-0.2 % (Simbrinza) 1 drp ophthalmic (eye) TID bromfenac 0.07% (Prolensa) 1 drp ophthalmic (eye) DAILY cholecalciferol (vitamin D3) 50 mcg PO DAILY 90 days diltiazem HCl CD (Cartia XT) 180 mg PO DAILY 90 days finasteride 5 mg PO DAILY 90 days xxrjafvbndu-xdwqiovsn-iwqvsyrs 200-62.5-25 mcg (Trelegy Ellipta) 1 ea inhalation DAILY lancets ([employer] Delica Lancets) 1 Lancet to be use twice a day latanoprost 0.005% drps ophthalmic (eye) lisinopril 20 mg PO DAILY 90 days metformin ER 2,000 mg (4 x 500 mg) PO QPM netarsudil 0.02% (Rhopressa) 0 drps ophthalmic (eye) prednisolone acetate 1% drps ophthalmic (eye) terazosin 5 mg PO BEDTIME 90 days Tobacco use date assessed: 05/22/23 Fall risk assessment: No Falls in past year Last assessed Fall Risk: 12/01/23 Dental Screening Dental Screen Date: 12/01/23 Did you have a dental visit in the last 12 months?: No Did you have a dental problem in the last 6 months where you did not have access to dental care?: No Was dental information given to patient?: Patient has dentist HPI HPI Comments History of Present Illness Details This is a 78-year-old male with diabetes mellitus type 2, hypertension, dyslipidemia, COPD and microalbuminuria that comes today accompanied by complaining of epigastric pain burning like quality most likely due to GERD. I will start him on PPIs 30 minutes before breakfast. A1c within goal. Blood pressure stable. LDL close to goal. Use rescue inhaler twice a month for his COPD and is follow by pulmonology. Microalbumin has decreased but still elevated and I will refer him to Nephrology. No chest pain or shortness on breath. Has bilateral eye inflammation and glaucoma follow by Ophthalmology. [facility] Medical History History of TIA (transient ischemic attack) History of DVT (deep vein thrombosis) Grade II diastolic dysfunction Essential hypertension Dyslipidemia Diabetes mellitus COPD (chronic obstructive pulmonary disease) Gross hematuria Microalbuminuria BPH (benign prostatic hyperplasia) Chronic UTI (urinary tract infection) Chronic back pain Glaucoma Surgical History Status post aortic valve replacement with bioprosthetic valve (~2014) Status post mitral valve repair (~2014) Status post patent foramen ovale closure (~2014) History of epidermal inclusion cyst excision (~2020) Hx of cataract extraction (~2013) Family History Father Medical history unknown Mother Medical history unknown Brother No problems noted. Son No problems noted. Daughter No problems noted. Daughter No problems noted. Daughter No problems noted. Social History Housing: House Are you a primary child care leader to a significant other at home: No Do you presently have visiting nurse or other home services: No Alcohol intake: current Alcohol intake frequency: a few times a month Alcohol type: beer and wine Patient Tobacco Use Status: Former Tobacco user e-Cigarette/Vaping Use: Never Used Second Hand Smoke Exposure: No service: No Current occupational status: retired Cognitive needs: No Hearing needs: No Vision needs: Yes Questionnaire Thrive Questionnaire Date Thrive assessed: 05/22/23 AUDIT C Alcohol Use Questionnaire (AUDIT-C) 3. How often do you have six or more drinks on one occasion?: Less than monthly Total Score: 1 ANNIE-7 AMB Questionnaire ANNIE-7 Date ANNIE - 7 assessed: 05/22/23 Source: Developed by Drs. Jonathan Escobar, Lianet Michaels, Ford López and colleagues, with an educational harrison from [employer]. Review of Systems Const All systems reviewed & are unremarkable except as noted in HPI and below Card Denies chest pain at rest, Denies chest pain with activity, Denies edema, Denies irregular heart rhythm, Denies claudication, Denies dyspnea, Denies dyspnea on exertion, Denies orthopnea, Denies paroxysmal nocturnal dyspnea and Denies slow heart rate Resp Denies cough, Denies dyspnea and Denies dyspnea on exertion Neuro Denies lack of coordination Physical exam (Primary Care) Vital Signs: Last Vital Signs BP 122/80 12/01/23 17:09 BMI result Body Mass Index 30.1 BMI Assessment/Plan discussion: High BMI High, discussed plan: lifestyle, weight reduction, dietary and physical activity Tobacco/Smoking Status: Tobacco use Status Tobacco use date assessed 05/22/23 12/01/23 17:12 Patient Tobacco Use Status Former Tobacco user 12/01/23 17:12 Tobacco use type 06/19/22 14:04 e-Cigarette/Vaping Use Never Used 12/01/23 17:12 Thrive Assessment: Date of Thrive Assessment Date Thrive assessed 05/22/23 12/01/23 17:12 Eyes Conjunctivae: conjunctival abnormal bilateral conjunctival injection Resp Effort & Inspection: normal respiratory effort Auscultation: clear to auscultation bilaterally Cardio Jugular venous distension: no JVD Rate: regular rate Rhythm: regular rhythm Heart sounds: S1 normal heart sound present and S2 normal heart sound present Extrem General: Yes full ROM Office Procedures Flu Questionnaire Does the patient have a severe egg allergy?: No Does the patient have severe life threatening allergies?: No Does the patient have a fever or illness today?: No Has the patient ever had Guillain-[place] Syndrome?: No Has the patient ever had any past reaction to a flu shot?: No Results AMB Hemoglobin A1c AMB Hemoglobin A1c 5.9 % Last Edit by JAIRO Garcia on 12/01/23 17:1 5 Immunizations Fluarix Triv [id number] (PF) 45 mcg (15 mcg x 3)/0.5 mL IM syringe Performing Provider: Connie Robertson MD [facility] Administered by: JAIRO Garcia on 12/01/23 17:49 Dose Route Admin Location Dispensed Lot Number Expiration Date NDC Paper Gluing Operator 0.5 mL IM Left Deltoid 0.5 mL [id number] 08/09/24 [id number] [employer] VIS Given Date VIS Provided VIS Publication Date 12/01/23 Single Vaccine 20 Eligibility Eligibility Date Funding Source Not [facility] Eligible 12/01/23 Private Results Reviewed Results Reviewed: Laboratory Last Values Hgb A1c (Clinic) 5.9 % (4.0-6.0) 12/01/23 17:13 Coding Level of Care Code Est Pt Level 4 (62172) Complex EM visit Add On G2211 Diagnoses Type 2 diabetes mellitus without complication, without long-term current use of insulin E11.9 Diabetes mellitus complication status: without complication Diabetes mellitus intermediate insulin use: without buttermaker helper use Diabetes mellitus type: type 2 Chronic obstructive pulmonary disease, unspecified COPD type J44.9 COPD type: unspecified COPD Essential hypertension I10 Microalbuminuria R80.9 Dyslipidemia E78.5 Gastroesophageal reflux disease, unspecified whether esophagitis present K21.9 Esophagitis presence: esophagitis presence not specified Time Spent (min) 24 Assessment & Plan Assessment & Plan (1) Diabetes mellitus: Code(s): E11.9 - Type 2 diabetes mellitus without complications Category: Medical Qualifiers: Diabetes mellitus complication status: without complication Diabetes mellitus buttermaker helper insulin use: without buttermaker helper use Diabetes mellitus type: type 2 Qualified Code(s): E11.9 - Type 2 diabetes mellitus without complications Plan: Continue metformin. A1c goal is equal or less than 7%. (2) COPD (chronic obstructive pulmonary disease): Code(s): J44.9 - Chronic obstructive pulmonary disease, unspecified Category: Medical Qualifiers: COPD type: unspecified COPD Qualified Code(s): J44.9 - Chronic obstructive pulmonary disease, unspecified Plan: Continue Trelegy. Use rescue inhaler as needed. (3) Essential hypertension: Code(s): I10 - Essential (primary) hypertension Category: Medical Plan: Continue lisinopril and diltiazem. Blood pressure goal is equal or less than 130/80. (4) Microalbuminuria: Code(s): R80.9 - Proteinuria, unspecified Category: Medical Plan: Referred to nephrology (5) Dyslipidemia: Code(s): E78.5 - Hyperlipidemia, unspecified Category: Medical Plan: Continue statins. LDL goal is less than 70. (6) GERD (gastroesophageal reflux disease): Code(s): K21.9 - Gastro-esophageal reflux disease without esophagitis Category: Medical Qualifiers: Esophagitis presence: esophagitis presence not specified Qualified Code(s): K21.9 - Gastro-esophageal reflux disease without esophagitis Plan: Start PPIs Orders: Orders Influenza [id number] Immunization Today Z23 - Encounter for immunization Lipid Panel 4 Months E78.5 - Hyperlipidemia, unspecified Microalbumin, Random (w Creat) 4 Months R80.9 - Proteinuria, unspecified Complete Blood Count Auto Diff 4 Months D64.9 - Anemia, unspecified IRON PROFILE 4 Months D64.9 - Anemia, unspecified Vitamin D 25-OH Total 4 Months E55.9 - Vitamin D deficiency, unspecified AMB Hemoglobin A1c Today E11.9 - Type 2 diabetes mellitus without complications Comprehensive [place]. Panel Fast 4 Months E11.9 - Type 2 diabetes mellitus without complications Referrals Nephrology Referral R80.9 - Proteinuria, unspecified Medications: New omeprazole 20 mg PO DAILY 90 caps 0RF 90 days
== END 2023-12-01 17:30 | disposition home or self-care (01) ==
PROVIDERS: PCP Internal Medicine; Visit Provider Internal Medicine
DX: E11.9 Type 2 diabetes mellitus without complications (principal); J44.9 Chronic obstructive pulmonary disease, unspecified; I10 Essential (primary) hypertension; R80.9 Proteinuria, unspecified; E78.5 Hyperlipidemia, unspecified; K21.9 Gastro-esophageal reflux disease without esophagitis; Z23 Encounter for immunization

== ENCOUNTER → 2023-12-01 16:55 | Outpatient (BNVA) | payer MEDICARE, MEDICAID, SELFPAY | PROVIDERS: PCP Internal Medicine; Visit Provider Internal Medicine | DX: E11.9 Type 2 diabetes mellitus without complications (principal); J44.9 Chronic obstructive pulmonary disease, unspecified; I10 Essential (primary) hypertension; R80.9 Proteinuria, unspecified; E78.5 Hyperlipidemia, unspecified; K21.9 Gastro-esophageal reflux disease without esophagitis; Z79.899 Other long term (current) drug therapy; Z23 Encounter for immunization | CPT/HCPCS: 83036; 90471; 90656; 99212 ==

== ENCOUNTER → 2023-12-18 12:34 | Outpatient (REF) | payer MEDICARE, OTHER, SELFPAY ==
--- NOTE | 2023-12-18 12:37 | HM_ITS ---
* Total monitoring time 3 days. * Underlying rhythm is sinus with an average rate of 74/Min. * Supraventricular ectopy noted with a burden of 0.6%. * Ventricular ectopy noted with a burden of 2.6%. Rare couplets, triplets, bigeminy, trigeminy. Very brief runs, up to 4 beats. * No significant pauses or high-grade AV blocks. * No patient markers or diary events. MTDD
== END ==
LOC: HO.CARD 12:34
PROVIDERS: PCP Internal Medicine; Visit Provider Internal Medicine
DX: I49.3 Ventricular premature depolarization (principal)
CPT/HCPCS: 93242

== ENCOUNTER → 2023-12-18 12:37 | Outpatient (BNV) | payer MEDICARE, MEDICAID, SELFPAY | PROVIDERS: PCP Internal Medicine; Visit Provider Internal Medicine | DX: I49.3 Ventricular premature depolarization (principal) | CPT/HCPCS: 93244 ==

== ENCOUNTER 2023-12-29 11:00 | Outpatient (AMB) | payer MEDICARE, MEDICAID, SELFPAY ==
[2023-12-29 11:23] VITALS: BP 110/62; PULSE 72; BMI 29.8
--- NOTE | 2023-12-29 11:23 | MHC.OFFVIS ---
Vital Signs 12/29/23 11:23 Height 5 ft 8 in Weight 196 lb 3.382 oz BMI 29.8 BP 110/62 Blood Pressure Location Lt brachial Position Sitting Pulse 72 Pulse Source Pulse Oximeter Intake Visit Reasons: r/s 12/23/23 6 mos f/u after holter Venue Manager Required: Yes Venue Manager Name: [id number] Allergies levofloxacin [From LEVAQUIN] Allergy (Intermediate, Verified 12/01/23 17:15) HIVES Iodinated Contrast Media [IV CONTRAST] Adverse Reaction (Intermediate, Verified 12/01/23 17:15) HIVES Medication List - Last Reconciled 12/29/23 by Raul Herrera MD acetazolamide ER 500 mg PO BID albuterol sulfate 90 mcg/actuation 2 puffs inhalation Q6H PRN 30 days aspirin 81 mg PO DAILY 90 days atorvastatin 40 mg PO DAILY 90 days brinzolamide-brimonidine 1-0.2 % (Simbrinza) 1 drp ophthalmic (eye) TID bromfenac 0.07% (Prolensa) 1 drp ophthalmic (eye) DAILY cholecalciferol (vitamin D3) 50 mcg PO DAILY 90 days diltiazem HCl CD (Cartia XT) 180 mg PO DAILY 90 days finasteride 5 mg PO DAILY 90 days [id number]-sczuidgxd-xukbfnvx 200-62.5-25 mcg (Trelegy Ellipta) 1 ea inhalation DAILY lancets ([employer] Delica Lancets) 1 Lancet to be use twice a day latanoprost 0.005% drps ophthalmic (eye) lisinopril 20 mg PO DAILY 90 days metformin ER 2,000 mg (4 x 500 mg) PO QPM netarsudil 0.02% (Rhopressa) 0 drps ophthalmic (eye) omeprazole 20 mg PO DAILY 90 days prednisolone acetate 1% drps ophthalmic (eye) terazosin 5 mg PO BEDTIME 90 days HPI Comments Details: Nasir returns for follow-up. 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 He underwent bioprosthetic aortic valve replacement, mitral valve repair and PFO closure. Discussed with patient and family using geosciences faculty member. Overall, doing fine. No complaints like angina or shortness of breath or palpitations or in fact anything cardiac sounding. Getting along okay. Per family, he is very sedentary. [facility] Medical History History of TIA (transient ischemic attack) History of DVT (deep vein thrombosis) Grade II diastolic dysfunction Essential hypertension Dyslipidemia Diabetes mellitus COPD (chronic obstructive pulmonary disease) Gross hematuria Microalbuminuria BPH (benign prostatic hyperplasia) Chronic UTI (urinary tract infection) Chronic back pain Glaucoma Surgical History Status post aortic valve replacement with bioprosthetic valve (~2014) Status post mitral valve repair (~2014) Status post patent foramen ovale closure (~2014) History of epidermal inclusion cyst excision (~2020) Hx of cataract extraction (~2013) Family History Father Medical history unknown Mother Medical history unknown Brother No problems noted. Son No problems noted. Daughter No problems noted. Daughter No problems noted. Daughter No problems noted. Social History Housing: House Are you a primary hourly caregiver to a significant other at home: No Do you presently have visiting nurse or other home services: No Alcohol intake: current Alcohol intake frequency: a few times a month Alcohol type: beer and wine Patient Tobacco Use Status: Former Tobacco user e-Cigarette/Vaping Use: Never Used Second Hand Smoke Exposure: No service: No Current occupational status: retired Cognitive needs: No Hearing needs: No Vision needs: Yes Review of Systems Const Denies weakness ENT Denies dizziness Card Denies chest pain, Denies chest pain with activity, Denies syncope, Denies rapid heart rate, Denies pedal edema, Denies edema, Denies leg edema, Denies lightheadedness, Denies palpitations, Denies dyspnea, Denies dyspnea on exertion and Denies orthopnea Resp Denies cough, Denies dyspnea and Denies dyspnea on exertion GI Denies hematochezia and Denies change in stool character Musc Denies abnormal gait, Denies muscle cramps, Denies muscle weakness, Denies numbness, Denies radiating pain into limb and Denies tingling Neuro Denies abnormal gait, Denies dizziness, Denies syncope, Denies numbness, Denies tingling and Denies weakness Endo Denies palpitations Physical Exam Vital Signs: Last Vital Signs Pulse 72 12/29/23 11:23 BP 110/62 12/29/23 11:23 BMI result Body Mass Index 29.8 Const General: comfortable and no acute distress Orientation/consciousness: patient oriented x3 HEENT Other: Unremarkable Head: Yes normal to inspection Neck Neck: Yes normal visual inspection Chest Chest palpation & inspection: normal inspection of the chest Resp Auscultation: clear to auscultation bilaterally Cardio Palpation: normal PMI Heart sounds: S1 normal heart sound present, S2 normal heart sound present, no gallops, Murmur heart sound present systolic II/ and at the right sternal border and no rubs GI Palpation (GI): Soft to palpation Back/Spine/Pelvis Other: unremarkable Skin General skin exam: no rashes or lesions noted Neuro General: patient oriented x3 Extrem General: Yes normal to inspection Psych Mental Status: mental status grossly normal Assessment & Plan Assessment & Plan (1) Status post aortic valve replacement with bioprosthetic valve: Onset Date: ~2014 Comment: (Aortic valve replaced, Mitrial valve repair, PFO closure - Dr. Joseph, 03/11/2014) Code(s): Z95.3 - Presence of xenogenic heart valve Category: Surgical (2) Status post mitral valve repair: Onset Date: ~2014 Comment: (Aortic valve replaced, Mitrial valve repair, PFO closure - Dr. Joseph, 03/11/2014) Code(s): Z98.890 - Other specified postprocedural states Category: Surgical (3) S/P patent foramen ovale closure: Code(s): Z87.74 - Personal history of (corrected) congenital malformations of heart and circulatory system Category: Surgical (4) PVC (premature ventricular contraction): Code(s): I49.3 - Ventricular premature depolarization Category: Medical Plan In the last echocardiogram, normally functioning bioprosthetic aortic valve. LVEF is preserved at 55-60%. Question of basal inferior akinesis but upon review, no major change compared to before. Valve gradient is lower than before and hence possibly technical issue vs difference in stroke volume. EKG shows frequent PVCs. However, he has got no palpitations or in fact any other complaints. In the Holter, preliminary report with PVC burden of 2.6%. Very brief runs, up to 4 beats. Based on operative report from 2015, normal coronary arteries. Overall, conservative care only based on age, frailty. As he has got no symptoms from the PVCs, no specific management. He is already on Diltiazem and that may be continued. Otherwise, in fact endocarditis prophylaxis per protocol. Follow-up in 6 months. Discussed with geosciences faculty member. Discussed with family. Orders: Orders CA echo transthoracic complete 6 Months Z95.3 - Presence of xenogenic heart valve, Z98.890 - Other specified postprocedural states Coding Level of Care Code Est Pt Level 4 (36402) Diagnoses Status post aortic valve replacement with bioprosthetic valve Z95.3 Status post mitral valve repair Z98.890 S/P patent foramen ovale closure Z87.74 PVC (premature ventricular contraction) I49.3
== END 2023-12-29 11:45 | disposition home or self-care (01) ==
PROVIDERS: PCP Internal Medicine; Visit Provider Internal Medicine
DX: Z95.3 Presence of xenogenic heart valve (principal); Z98.890 Other specified postprocedural states; Z87.74 Personal history of (corrected) congenital malformations of heart and circulatory system; I49.3 Ventricular premature depolarization
CPT/HCPCS: 99214

== ENCOUNTER → 2023-12-29 11:00 | Outpatient (BNVA) | payer MEDICARE, MEDICAID, SELFPAY | PROVIDERS: PCP Internal Medicine; Visit Provider Internal Medicine | DX: I49.3 Ventricular premature depolarization (principal); Z95.3 Presence of xenogenic heart valve; Z98.890 Other specified postprocedural states; Z87.74 Personal history of (corrected) congenital malformations of heart and circulatory system | CPT/HCPCS: 99212 ==

== ENCOUNTER 2023-12-30 16:13 | Outpatient (REF) | payer MEDICARE, OTHER, SELFPAY ==
[2023-12-30 17:31] LABS: Prostate Specific Antigen 4.43 ng/mL (<0.05-4.0)
== END 2023-12-30 16:14 | disposition home or self-care (01) ==
LOC: HO.LAB 16:13
PROVIDERS: PCP Internal Medicine; Visit Provider Urology
DX: N40.0 Benign prostatic hyperplasia without lower urinary tract symptoms (principal); Z12.5 Encounter for screening for malignant neoplasm of prostate
CPT/HCPCS: 36415; 84153

== ENCOUNTER 2024-01-02 09:02 | Outpatient (AMB) | payer MEDICARE, SELFPAY ==
--- NOTE | 2024-01-02 09:08 | MHC.OFFVIS ---
Intake Visit Reasons: 6m/PSA/UA(SET) Intake Note: Patient is present for PSA/PVR/UA Follow up Urology Med: Finasteride, Terazosin Antibiotic Allergy: Levofloxacin Blood Thinner: Aspirin Last PVR: 47ml's Todays PVR: 81ml PSA: 12/30/23- 4.43 Hemoglobin A1C: 5.9 French Binder Required: Yes French Binder Language: Dance Coach Services: French Binder Present Rotor Blade Installer: Rotor Blade Installer Present Accompanied by: Spouse Allergies levofloxacin [From LEVAQUIN] Allergy (Intermediate, Verified 01/02/24 09:09) HIVES Iodinated Contrast Media [IV CONTRAST] Adverse Reaction (Intermediate, Verified 01/02/24 09:09) HIVES HPI Comments Details: Nasir is a pleasant [place] male. He is a patient of Dr. Robertson. He seen for the following urologic conditions - gross hematuria with blood in stone - BPH Bhutanese translation provided in office by qualified medical doctor md/medical director UA likely Gram-positive - culture today PVR 80 cc Adequate voiding parameters nocturia x2 Six-month follow-up repeat PSA Lower urinary tract symptoms/Bladder stones weakness of stream nocturia times 2-3 current therapy finasteride prior therapy - cystoscopy with removal of bladder stone June 2020 PSA 01/31 2.8, 07/03 4.6 17%, 01/03 4.4 Seen in ER last month for blood in urine Review in six-month [facility] Medical History History of TIA (transient ischemic attack) History of DVT (deep vein thrombosis) Grade II diastolic dysfunction Essential hypertension Dyslipidemia Diabetes mellitus COPD (chronic obstructive pulmonary disease) Gross hematuria Microalbuminuria BPH (benign prostatic hyperplasia) Chronic UTI (urinary tract infection) Chronic back pain Glaucoma Surgical History Status post mitral valve repair (~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 Son No problems noted. Daughter No problems noted. Daughter No problems noted. Daughter No problems noted. Social History Housing: House Are you a primary before and after school daycare worker to a significant other at home: No Do you presently have visiting nurse or other home services: No Alcohol intake: current Alcohol intake frequency: a few times a month Alcohol type: beer and wine Patient Tobacco Use Status: Former Tobacco user e-Cigarette/Vaping Use: Never Used Second Hand Smoke Exposure: No service: No Current occupational status: retired Cognitive needs: No Hearing needs: No Vision needs: Yes Review of Systems Const Denies chills and Denies fever(s) Card Reports no additional complaints and Denies syncope Resp Denies cough GI Denies abdominal pain and Denies heartburn Reports as per HPI and Denies change in libido Neuro Denies syncope Psych Denies change in libido Endo Denies change in libido Physical Exam Const General: cooperative, healthy appearing, comfortable and no acute distress Orientation/consciousness: patient oriented x3 HEENT Face and sinus: Yes normal facial exam Mouth: moist mucous membranes Neck Neck: Yes normal visual inspection, Yes full ROM and Yes trachea midline Chest Chest palpation & inspection: normal inspection of the chest Resp Effort & Inspection: normal respiratory effort, able to speak in complete sentences and no respiratory distress GI Inspection: Yes normal to inspection Back/Spine/Pelvis Cervical Spine: normal cervical lordosis Thoracic/Lumbar Spine: thoracic and lumbar spine normal to inspection Skin General skin exam: no rashes or lesions noted Neuro General: patient oriented x3, gait normal, tone normal and moves all extremities Extrem General: Yes normal to inspection and Yes capillary refill normal Office Procedures Post Void Residual Post Residual Void Post Void Residual (PVR): 81 [id number] Void Residual by ultrasound Results AMB Urinalysis, Automated UA Leukoctes 125 Nacho/uL Last Edit by JAIRO Mora on 01/02/24 09:22 UA Nitrite Negative Last Edit by JAIRO Mora on 01/02/24 09:22 UA Urobilinogen 0.2 mg/dL Last Edit by JARIO Mora on 01/02/24 09:22 UA Protein 30 mg/dL Last Edit by JAIRO Mora on 01/02/24 09:22 UA pH 5.5 Last Edit by Juani Uribe RMA on 01/02/24 09:22 UA Blood 25 David/uL Last Edit by Juani Uribe RMA on 01/02/24 09:22 UA Specific [place] 1.025 Last Edit by Juani Uribe, RMA on 01/02/24 09:22 UA Ketone Negative Last Edit by Juani Uribe, RMA on 01/02/24 09:22 UA Bilirubin 0 mg/dL Last Edit by Juani Uribe RMA on 01/02/24 09:22 UA Glucose 0 mg/dL Last Edit by Juani Uribe RMA on 01/02/24 09:22 Results Reviewed Results Reviewed: Laboratory Last Values Urine pH (Auto) 5.5 01/02/24 09:10 Specific [place] (Auto) 1.025 01/02/24 09:10 Urine Protein (Auto) 30 mg/dL 01/02/24 09:10 Glucose (UA)(Auto) 0 mg/dL 01/02/24 09:10 Urine Ketones (Auto) Negative 01/02/24 09:10 Urine Blood (Auto) 25 David/uL 01/02/24 09:10 Urine Nitrite (Auto) Negative 01/02/24 09:10 Urine Bilirubin (Auto) 0 mg/dL 01/02/24 09:10 Urine Urobilinogen (Auto) 0.2 mg/dL 01/02/24 09:10 Leukocyte Esterase (Auto) 125 Nacho/uL 01/02/24 09:10 Assessment & Plan Assessment & Plan (1) BPH (benign prostatic hyperplasia): Code(s): N40.0 - Benign prostatic hyperplasia without lower urinary tract symptoms Category: Medical (2) Chronic UTI (urinary tract infection): Code(s): N39.0 - Urinary tract infection, site not specified Category: Medical Plan Six-month follow-up PSA Orders: Orders AMB Post Void Residual by ultrasound Today N40.0 - Benign prostatic hyperplasia without lower urinary tract symptoms Urine Culture Today N39.0 - Urinary tract infection, site not specified Prostate Specific Antigen 6 Months N32.0 - Bladder-neck obstruction Prostate Specific Antigen 12/30/23 N40.0 - Benign prostatic hyperplasia without lower urinary tract symptoms AMB Urinalysis Automated Today Z13.9 - Encounter for screening, unspecified Urine Cytology Today R31.0 - Gross hematuria Patient Instructions: Imaging studies, laboratory and physical exam results were discussed and reviewed in detail. No major barriers to patient understanding were identified. An opportunity to ask questions regarding the treatment plan was provided. All questions were answered. The patient expressed understanding and agreement with the above treatment plan. The patient is aware they should contact our office by phone for worsening of their current condition or the appearance of new urologic symptoms. Compliance is encouraged with any medications and followup testing that is ordered. It is a privilege to participate in the urologic care of your patient. If you have any questions or concerns regarding treatment for the above conditions, or other urologic issues, please do not hesitate to contact me. The office telephone contact is [phone]. This note is constructed using voice recognition software. While every effort has been made to ensure accuracy radiology transcriptionist errors may have been included. Yours sincerely, Dr Jose D Abel MD, [facility] - Urology Providers of Expert, Compassionate Care for the Genitourinary System Coding Level of Care Code Est Pt Level 3 (34825) Diagnoses BPH (benign prostatic hyperplasia) N40.0 Chronic UTI (urinary tract infection) N39.0 CPT Codes Post Residual Void - PVR CPT Code: 96518-Hqvd Void Residual by ultrasound ([id number])
== END 2024-01-02 10:00 | disposition home or self-care (01) ==
PROVIDERS: PCP Internal Medicine; Visit Provider Urology
DX: N40.0 Benign prostatic hyperplasia without lower urinary tract symptoms (principal); N39.0 Urinary tract infection, site not specified; Z13.9 Encounter for screening, unspecified
CPT/HCPCS: 99213

== ENCOUNTER 2024-01-02 09:02 | Outpatient (REF) | payer MEDICARE, SELFPAY ==
[2024-01-02 16:23] LABS: Urine Cytology See Pathology rpt
== END 2024-01-02 09:03 | disposition home or self-care (01) ==
LOC: HO.LAB 09:02
PROVIDERS: PCP Internal Medicine; Visit Provider Urology
DX: N39.0 Urinary tract infection, site not specified (principal); R31.0 Gross hematuria; N40.0 Benign prostatic hyperplasia without lower urinary tract symptoms
CPT/HCPCS: 51798; 81003; 87086; 88112; 99212

== ENCOUNTER 2024-01-16 11:08 | Inpatient (IN) | payer MEDICARE, SELFPAY ==
[2024-01-16] VITALS (13 sets, daily range): BP systolic 98–153; BP diastolic 52–70; PULSE 77–100; RESP 15–23; TEMP 36.4–38.1; O2SAT 94–99; BMI 30.4; BMI 30.6
--- NOTE | ~2024-01-16 | CT_ITS ---
EXAMINATION: CT ABDOMEN AND PELVIS WITHOUT CONTRAST CLINICAL INFORMATION: Flank pain. Fever. Urinary symptoms. COMPARISON: CT chest dated 09/12/2023. CT abdomen/pelvis dated 04/24/2020. TECHNIQUE: Multidetector volumetric imaging was performed from the superior aspect of the liver through the pubic symphysis. Sagittal and coronal reformatted images were obtained on the technologist's workstation. This CT examination was performed using dose optimization techniques as appropriate, variously including the following: *Automated exposure control *Adjustment of mA and/or kV according to patient size (this includes techniques or standardized protocols for targeted exams where dose is matched to indication/reason for exam; i.e. extremities or head) *Use of iterative reconstruction technique DLP: 644 mGy-cm FINDINGS: LUNG BASES: The visualized lung bases are unremarkable. LIVER, GALLBLADDER, AND BILIARY TREE: The liver is normal in size and shape. Parenchymal hypoattenuation, consistent with steatosis. No focal hepatic lesion or biliary ductal dilatation is present. Cholelithiasis. No gallbladder wall thickening or inflammatory change to suggest acute cholecystitis. PANCREAS: Unremarkable. SPLEEN: Unremarkable. ADRENAL GLANDS: Unremarkable. KIDNEYS AND URETERS: The kidneys are normal in size, shape, and attenuation. Proximal right ureteral stone at the ureteropelvic junction measuring up to 0.6 x 0.3 x 0.3 cm. This is located approximately 16.2 cm from the posterior axillary line. Mild right-sided hydronephrosis. Right periureteral and perinephric stranding. Additional 0.2 cm right renal stones. No left-sided renal or ureteral stone. No left-sided hydroureteronephrosis. Simple left midpole renal cyst measuring up to 3 cm. Findings are not clinically significant and no dedicated follow-up imaging is recommended for the cyst. BLADDER: Nondistended and unremarkable. No calcification. GASTROINTESTINAL TRACT: Small, sliding hiatal hernia. Mild stool burden throughout the colon. No small or large bowel obstruction. There are a few scattered colonic diverticula without evidence of acute diverticulitis. No bowel wall thickening or inflammatory change. Unremarkable appendix. PERITONEAL CAVITY: No intra-abdominal free air or free fluid. No organized fluid collection or abscess formation. No intra-abdominal mass. ABDOMINAL WALL: No significant hernia is appreciated. LYMPH NODES: No significant lymphadenopathy. VASCULAR: No abdominal aortic dilatation. Scattered atherosclerotic calcifications. PELVIC VISCERA: Stable prostatomegaly. OSSEOUS STRUCTURES: No acute osseous abnormality. CT/CT abdomen pelvis wo IV con IMPRESSION: 1. Proximal right ureteral stone at the ureteropelvic junction measuring up to 0.6 cm. Mild right-sided hydronephrosis with right periureteral and perinephric stranding. Additional 0.2 cm right renal stones. No left-sided renal or ureteral stone. No left-sided hydroureteronephrosis. Unremarkable urinary bladder. 2. Small, sliding hiatal hernia. Mild stool burden throughout the colon. Diverticulosis without evidence of acute diverticulitis. No small or large bowel obstruction. Unremarkable appendix. 3. Cholelithiasis without evidence of acute cholecystitis. 4. Hepatic steatosis. 5. Stable prostatomegaly. Fleischner guidelines were followed. Electronically signed by: Maurice Gilliland MD 01/16/2024 04:45 PM [facility] Workstation: [id number]
[2024-01-16] MEDS: cefTRIAXone sodium 1 GM VIAL IVPUSH (11:43)
[2024-01-16 11:44] LABS: Appearance Urine Turbid; Color Urine Dark Yellow; Glucose Urine UA Negative (Negative); Leukocyte Esterase Urine Large (3+) (Negative); Nitrite Urine Negative (Negative); PH 5.5 (5.0-9.0); Specific Gravity - Urine 1.025 (1.005-1.025); UMIC TRIGGER UACC YES; Urine Blood Moderate (2+) (Negative); Urine Ketones Trace mg/dL (Negative); Urine Protein 300 (3+) mg/dL (Neg-Trace)
[2024-01-16 11:48] LABS: MANUAL DIFF FLAG NO
[2024-01-16 11:50] LABS: Basophils Percent Auto 0.4 % (0-2); Eosinophils Absolute Auto 0.1 X10*3/uL (0.0-0.4); Hemoglobin 12.7 g/dl (14.0-18.0); Imm Gran Abs Auto 0.08 X10*3/uL (0.00-0.03); Imm Gran Pct Auto 0.9 % (0.0-0.4); Lymphocytes Absolute Auto 0.8 X10*3/uL (1.2-4.9); Lymphocytes Percent Auto 9.1 % (20-40); Mean Corpuscular HGB Conc 33.4 g/dl (31.0-36.0); Mean Corpuscular Hemoglobin 29.5 pg (27.0-33.0); Mean Corpuscular Volume 88.4 fL (80.0-98.0); Mean Platelet Volume 11.5 fL (9.4-12.4); Monocytes Absolute Auto 1.3 X10*3/uL (0.1-1.2); Monocytes Percent Auto 14.8 % (2-11); Neutrophils Absolute Auto 6.6 x10*3/uL (2.0-8.3); Neutrophils Percent Auto 73.8 % (45-73); Platelet Count 148 X10*3/uL (160-400); Red Cell Distribution Width 12.7 % (11.0-16.0)
[2024-01-16 11:58] LABS: Bacteria Urine 2+ (None Seen); Renal Epithelial Cells Urine Present; Transitional Epi Cells Urine Present; UACC Culture Trigger YES; WBC Urine >50 /HPF (0-5)
[2024-01-16 12:03] LABS: Alanine Aminotransferase 51 U/L (0-40); Albumin Level 3.7 g/dL (3.5-5.0); Alkaline Phosphatase 61 U/L (39-117); Anion Gap 14 (12-20); Aspartate Amino Transferase 56 U/L (5-37); Bilirubin Total 1.2 mg/dL (0.0-1.0); Blood Urea Nitrogen 37 mg/dL (9-16); Calcium 9.9 mg/dL (8.4-10.2); Carbon Dioxide 21 mmol/L (22-29); Chloride 109 mmol/L (96-108); Creatinine Clr Calc Pharmacy 27.5; Estimated Glomerular Filt Rate 27; Glucose Random 177 mg/dL (60-115); Magnesium 1.8 mg/dL (1.6-2.6); Potassium 3.8 mmol/L (3.3-5.1); Sodium 140 mmol/L (135-145); Total Protein 7.6 g/dL (6.5-8.0)
[2024-01-16 12:07] LABS: Lactic Acid 2.5 mmol/L (0.5-2.0)
--- NOTE | 2024-01-16 12:14 | ED_ITS ---
HPI - General Adult General Chief complaint: Fever Stated complaint: Fever back pain Time Seen by Provider: 01/16/24 12:20 Source: patient, family () and ferris wheel operator (maltese (voyce)) Mode of arrival: ambulatory Limitations: language barrier (maltese speaking) History of Present Illness ED Provider: MARIANNE PEARSON PA-C HPI narrative: 78 year old male with pmhx significant for glaucoma, BPH, COPD, DM, HDL, HTN, DVT, and TIA (s/p septic emboli) presents to the ED today for evaluation of fevers (TMAX 101F at home), urinary frequency, urinating in small amounts, and bilateral lower back pain x3 days. Endorses lower abdominal discomfort secondary to urge to urinate. Denies hematuria. Denies N/V, diarrhea or constipation. Related Data Home Medications ?Medication ?Instructions ?Recorded ?Confirmed acetazolamide 500 mg 500 mg PO BID 04/15/22 01/16/24 capsule,extended release brinzolamide 1 %-brimonidine 0.2 % 1 drp ophthalmic (eye) TID 04/15/22 01/16/24 eye drops,suspension (Simbrinza) latanoprost 0.005 % eye drops 1 drp ophthalmic (eye) BEDTIME 12/27/22 01/16/24 prednisolone acetate 1 % eye 1 drp ophthalmic (eye) QID 07/29/23 01/16/24 drops,suspension bromfenac 0.07 % eye drops 1 drp ophthalmic (eye) DAILY 01/16/24 01/16/24 (Prolensa) diltiazem HCl 180 mg 180 mg PO DAILY 01/16/24 01/16/24 capsule,extended release 24 hr (Cartia XT) metformin 500 mg tablet,extended 2,000 mg PO BEDTIME 01/16/24 01/16/24 release 24 hr netarsudil 0.02 % eye drops 1 drp ophthalmic (eye) BEDTIME 01/16/24 01/16/24 (Rhopressa) terazosin 5 mg capsule 5 mg PO DAILY 01/16/24 01/16/24 Previous Rx's ?Medication ?Instructions ?Recorded lancets 33 gauge (OneTouch Delsebastian #100 ea 11/25/19 Lancets) albuterol sulfate 90 mcg/actuation 2 puff inhalation Q6H PRN 04/22/22 aerosol inhaler shortness of breath or wheezing 30 days #6.7 grams cholecalciferol (vitamin D3) 50 50 mcg PO DAILY 90 days #90 caps 07/22/22 mcg (2,000 unit) capsule aspirin 81 mg tablet,delayed 81 mg PO DAILY 90 days #90 tabs 06/29/23 release atorvastatin 40 mg tablet 40 mg PO DAILY 90 days #90 tabs 08/01/23 lisinopril 20 mg tablet 20 mg PO DAILY 90 days #90 tabs 08/15/23 fluticasone fur. 200 mcg-umeclid 1 ea inhalation DAILY #60 ea 10/10/23 62.5 mcg-vilant 25 mcg inhalat.powder (Trelegy Ellipta) finasteride 5 mg tablet 5 mg PO DAILY 90 days #90 tabs 01/02/24 Allergies Allergy/AdvReac Type Severity Reaction Status Date / Time levofloxacin [From LEVAQUIN] Allergy Intermediate HIVES Verified 01/16/24 11:16 Iodinated Contrast Media AdvReac Intermediate HIVES Verified 01/16/24 11:16 [IV CONTRAST] Review of Systems 2 Review of Systems: Constitutional: No fever, chills, fatigue, night sweats, weight changes ENT/Mouth: No ear pain, hearing loss, nasal congestion, sinus pain, rhinorrhea, sore throat Eyes: No eye pain, swelling, redness, vision changes, discharge Cardio: No chest pain, palpitations, BLACKWELL, orthopnea, peripheral edema Pulm: No SOB, cough, sputum, wheezing, dyspnea, hemoptysis GI: No nausea, vomiting, hematemesis, diarrhea, constipation, hematochezia, melena, +lower abd pain : No irregular bleeding, dysuria, urgency, hesitancy, hematuria, flank pain, urinary flow changes, urinary incontinence or retention, +urinary frequency MSK: No neck pain, joint pain, myalgias, +low back pain Skin: No lesions, rashes Neuro: No weakness, numbness, paresthesias, LOC, dizziness, headache Psych: No anxiety/panic, depression, SI/HI, AH/VH All other systems reviewed and are negative. [facility] Past Medical History Attestation statement: The following information was validated with the patient. Source: old records reviewed and nursing notes reviewed Medical History History of TIA (transient ischemic attack) History of DVT (deep vein thrombosis) Grade II diastolic dysfunction Essential hypertension Dyslipidemia Diabetes mellitus COPD (chronic obstructive pulmonary disease) Gross hematuria Microalbuminuria BPH (benign prostatic hyperplasia) Chronic UTI (urinary tract infection) Chronic back pain Glaucoma Surgical History Status post mitral valve repair (~2014) Status post aortic valve replacement with bioprosthetic valve (~2014) Status post patent foramen ovale closure (~2014) History of epidermal inclusion cyst excision (~2020) Hx of cataract extraction (~2013) Family History Family History Father Medical history unknown Mother Medical history unknown Brother No problems noted. Son No problems noted. Daughter No problems noted. Daughter No problems noted. Daughter No problems noted. Social History Social History Housing: House Are you a primary hospice care consultant to a significant other at home: No Do you presently have visiting nurse or other home services: No Alcohol intake: current Alcohol intake frequency: a few times a month Alcohol type: beer and wine Patient Tobacco Use Status: Former Tobacco user Smoked in Last 30 Days: No e-Cigarette/Vaping Use: Never Used Second Hand Smoke Exposure: No Use of substances other than those prescribed or required for medical reasons: No Advance Directives: No Advance Directives Information Provided: Yes service: No Current occupational status: retired Cognitive needs: No Hearing needs: No Vision needs: Yes Physical Exam ED Vital Signs: Vital Signs - 24 hr 01/16/24 11:12 01/16/24 11:56 01/16/24 12:18 Temperature 98.5 F 99.7 F 98.1 F Pulse Rate 80 90 90 Respiratory Rate 18 18 15 Blood Pressure 109/52 L 102/52 L 100/59 L Pulse Oximetry 95 94 94 Oxygen Delivery Method Room Air Room Air Room Air 01/16/24 12:30 01/16/24 14:00 01/16/24 14:43 Temperature 100.5 F H 98.9 F 97.8 F Pulse Rate 88 81 79 Respiratory Rate 18 18 18 Blood Pressure 106/59 L 98/59 L 101/56 L Pulse Oximetry 95 96 97 Oxygen Delivery Method Room Air Room Air Room Air 01/16/24 15:33 01/16/24 16:45 01/16/24 17:15 Temperature 98.2 F 97.5 F 97.8 F Pulse Rate 77 77 80 Respiratory Rate 18 16 18 Blood Pressure 98/60 108/60 113/60 Pulse Oximetry 95 97 97 Oxygen Delivery Method Room Air Room Air Room Air 01/16/24 19:08 Temperature 97.8 F Pulse Rate 79 Respiratory Rate 21 H Blood Pressure 129/64 Pulse Oximetry 99 Oxygen Delivery Method Room Air BMI result Body Mass Index 30.4 patient hypotensive, febrile, vitals otherwise WNL General: Well appearing, in no acute distress. Skin: Warm, dry, intact. No rashes or lesions. no jaundice. Head: Normocephalic, atraumatic. EENT: Hearing is intact b/l. Conjunctiva clear. Sclera is anicteric. PERRLA. EOM intact. Moist mucous membranes.? Cardiac: Chest wall symmetric. RRR. Lungs: Normal respiratory effort without accessory muscle use. CTA bilaterally Abdomen: soft, mildly distended, nontender to palpation without rebound tenderness or guarding. Normoactive bowel sounds x4. No CVAT bilaterally. Back: No midline spinous or paraspinal tenderness. No step off deformity. Ext: Upper and lower extremities atraumatic, without tenderness, deformity, swelling or erythema Neuro: AOx3. Normal speech. Ambulating with steady gait. Psych: Appropriate mood and affect. Responds appropriately to questions. Course Course Course Narrative: 1142 -- CBC without leukocytosis or left shift. Normocytic anemia, H&H stable and above transfusion threshold. chloride 109. carbon dioxide 21. DELISA with BUN 37 and Creatinine 2.38. lactic elevated 2.5. transaminitis with elevated total bilirubin. Urine is infected. Negative for COVID, flu, RSV. > infection suspected. Ceftriaxone given. sepsis fluid bolus ordered d/t elevated lactic. will continue to monitor. ct a/p pending. on my review, there appears to be a large stone at the right UVJ ?infected stone. will await CT results. > patient reporting abdominal pain. he is hypotensive > IV tylenol ordered for pain control. 1712 -- Lactic acid improved to 1.3 after IVF resuscitation. Delay in obtaining CT results d/tlogn read times. CT A/P showing proximal right ureteral stone at the ureteropelvic junction measuring up to 6 mm with mild right-sided hydronephrosis and right periureteral and perinephric stranding. There is an additional 2 mm right renal stone. There is no left-sided renal or ureteral stone. urinary bladder is unremarkable. > I did speak with urologist, Dr. Matthew, who has evaluated patient at bedside and endorses concern for pyelonephritis over obstructed stone. She does not feel as though surgical intervention is warranted at this time. She is recommending admission to medicine for IV antibiotics and pain control. She has plans to re- evaluate patient in the morning. > I discussed all work up results with patient. He is agreeable with admission. Will reach out to hospitalist for admission. Medications Administered Generic Name Dose Route Start Last Admin Trade Name Freq PRN Reason Stop Dose Admin Lactated Ringer's 1,000 mls @ 100 mls/hr 01/16/24 20:15 01/16/24 20:21 Lr IVCONT 01/17/24 16:14 100 mls/hr .Q10H RAJAT Administration Discontinued Medications Generic Name Dose Route Start Last Admin Trade Name Freq PRN Reason Stop Dose Admin Ceftriaxone Sodium 1 gm 01/16/24 11:17 01/16/24 11:43 Ceftriaxone Sodium 1 Gm Vial IVPUSH 01/16/24 11:18 1 gm ONCE ONE Administration Sodium Chloride 2,721 mls @ 2,721 mls/hr 01/16/24 12:15 01/16/24 16:17 Ns 30 ml/kg infuse over 1 hr (2721 ml) 01/16/24 13:14 Infused IV Infusion .Q1H STA Acetaminophen 1,000 mg in 100 mls @ 400 mls/hr 01/16/24 12:57 01/16/24 13:30 Ofirmev IV 01/16/24 13:11 Infused ONCE ONE Infusion Medical Decision Making Medical Decision Making MDM Narrative: 78 year old male with pmhx significant for glaucoma, BPH, COPD, DM, HDL, HTN, DVT, and TIA (s/p septic emboli) presents to the ED today for evaluation of fevers (TMAX 101F at home), urinary frequency, urinating in small amounts, and bilateral lower back pain x3 days. On arrival, triage provider noted patient to be hypotensive to 90's/50's. He had a low grade oral temp of 99.7. Triage provider noted concern for sepsis at that time - sepsis alert was called at 1142. Ceftriaxone administered. On my evaluation, patient is nontoxic-appearing and in no acute distress. He is lying comfortably on the exam bed. His abdomen is obese, soft, mildly distended, nontender to palpation without rebound tenderness or guarding. Bladder is not palpable. No CVAT bilaterally. There is no midline spinous tenderness or step-off deformity. Differential diagnosis includes urinary tract infection, urosepsis, nephrolitasis, bladder stones, hydronephrosis, pyelonephritis, anemia, electrolyte abnormality, BPH, viral syndrome, acute kidney injury. unlikely testicular torsion, orchitis, hydrocele, varicocele, sexually transmitted infection. Plan for labs, UA, lactic, blood cultures, CT A/P, re-evaluation. IV tylenol given for fever and pain control. Differential Diagnosis Differential Diagnoses: The differential diagnosis associated with the presentation includes as above. Admission/Observation Consideration of admission/observation: Escalation of care including admission/observation considered Patient admitted to medicine Consult Healthcare Provider Management of the patient was discussed with: Hospitalist (Dr. Singh) and Mortgage Closer (Dr. Matthew (urology)) Lab Data MDM Lab Attestation statement: I reviewed the patient's lab results. as above 01/16/24 11:40 01/16/24 11:40 Labs: Lab Results 01/16/24 01/16/24 01/16/24 Range/Units 11:26 11:40 11:45 WBC 9.0 (4.8-10.8) X10*3/uL RBC 4.30 L (4.60-5.80) X10*6/uL Hgb 12.7 L (14.0-18.0) g/dl Hct 38.0 L (42.0-52.0) % MCV 88.4 (80.0-98.0) fL MCH 29.5 (27.0-33.0) pg MCHC 33.4 (31.0-36.0) g/dl RDW 12.7 (11.0-16.0) % Plt Count 148 L (160-400) X10*3/uL MPV 11.5 (9.4-12.4) fL Immature Gran % (Auto) 0.9 H (0.0-0.4) % Neut % (Auto) 73.8 H (45-73) % Lymph % (Auto) 9.1 L (20-40) % [place] % (Auto) 14.8 H (2-11) % Eos % (Auto) 1.0 (0-4) % Baso % (Auto) 0.4 (0-2) % Lymph # (Auto) 0.8 L (1.2-4.9) X10*3/uL [place] # (Auto) 1.3 H (0.1-1.2) X10*3/uL Eos # (Auto) 0.1 (0.0-0.4) X10*3/uL Baso # (Auto) 0.0 (0.0-0.2) X10*3/uL Abs Immat Gran (auto) 0.08 H (0.00-0.03) X10*3/uL Absolute Neuts (auto) 6.6 (2.0-8.3) x10*3/uL Absolute Nucleated RBC 0.000 (0.0-0.012) X10*3/uL Nucleated RBC % (auto) 0.0 (0.0-0.2) /100WBC PT 12.0 (10.9-12.4) SEC INR 1.0 (0.9-1.1) Sodium 140 (135-145) mmol/L Potassium 3.8 (3.3-5.1) mmol/L Chloride 109 H (96-108) mmol/L Carbon Dioxide 21 L (22-29) mmol/L Anion Gap 14 (12-20) BUN 37 H (9-16) mg/dL Creatinine 2.38 H (0.5-1.4) mg/dL Estim Creat Clear Calc 27.5 Estimated GFR 27 Random Glucose 177 H (60-115) mg/dL Lactic Acid 2.5 H* (0.5-2.0) mmol/L Lactic Acid F/U @ 2Hr (0.5-2.0) mmol/L Calcium 9.9 D (8.4-10.2) mg/dL Magnesium 1.8 (1.6-2.6) mg/dL Total Bilirubin 1.2 H (0.0-1.0) mg/dL AST 56 H (5-37) U/L ALT 51 H (0-40) U/L Alkaline Phosphatase 61 (39-117) U/L Total Protein 7.6 (6.5-8.0) g/dL Albumin 3.7 (3.5-5.0) g/dL Urine Color Dark Yellow Urine Appearance Turbid Urine pH 5.5 (5.0-9.0) Ur Specific [employer] 1.025 (1.005-1.025) Urine Protein 300 (3+) H (Neg-Trace) mg/dL Urine Glucose (UA) Negative (Negative) mg/dL Urine Ketones Trace (Negative) mg/dL Urine Blood Moderate (2+) H (Negative) Urine Nitrite Negative (Negative) Ur Leukocyte Esterase Large (3+) H (Negative) Urine RBC 3-5 H (0-2) /HPF Urine WBC >50 H (0-5) /HPF Ur Squamous Epith Cells 6-10 (0-2) /HPF Ur Transition Epith Cell Present Ur Renal Epithelial Cell Present Urine Bacteria 2+ (None Seen) Hyaline Casts 3-5 (0-2) /LPF Influenza Type A (PCR) NEGATIVE (Negative) Influenza Type B (PCR) NEGATIVE (Negative) RSV RNA Qual (PCR) NEGATIVE (Negative) SARS-CoV-2 RNA (RT-PCR) NEGATIVE (Negative) 01/16/24 Range/Units 14:09 WBC (4.8-10.8) X10*3/uL RBC (4.60-5.80) X10*6/uL Hgb (14.0-18.0) g/dl Hct (42.0-52.0) % MCV (80.0-98.0) fL MCH (27.0-33.0) pg MCHC (31.0-36.0) g/dl RDW (11.0-16.0) % Plt Count (160-400) X10*3/uL MPV (9.4-12.4) fL Immature Gran % (Auto) (0.0-0.4) % Neut % (Auto) (45-73) % Lymph % (Auto) (20-40) % [place] % (Auto) (2-11) % Eos % (Auto) (0-4) % Baso % (Auto) (0-2) % Lymph # (Auto) (1.2-4.9) X10*3/uL [place] # (Auto) (0.1-1.2) X10*3/uL Eos # (Auto) (0.0-0.4) X10*3/uL Baso # (Auto) (0.0-0.2) X10*3/uL Abs Immat Gran (auto) (0.00-0.03) X10*3/uL Absolute Neuts (auto) (2.0-8.3) x10*3/uL Absolute Nucleated RBC (0.0-0.012) X10*3/uL Nucleated RBC % (auto) (0.0-0.2) /100WBC PT (10.9-12.4) SEC INR (0.9-1.1) Sodium (135-145) mmol/L Potassium (3.3-5.1) mmol/L Chloride (96-108) mmol/L Carbon Dioxide (22-29) mmol/L Anion Gap (12-20) BUN (9-16) mg/dL Creatinine (0.5-1.4) mg/dL Estim Creat Clear Calc Estimated GFR Random Glucose (60-115) mg/dL Lactic Acid (0.5-2.0) mmol/L Lactic Acid F/U @ 2Hr 1.3 (0.5-2.0) mmol/L Calcium (8.4-10.2) mg/dL Magnesium (1.6-2.6) mg/dL Total Bilirubin (0.0-1.0) mg/dL AST (5-37) U/L ALT (0-40) U/L Alkaline Phosphatase (39-117) U/L Total Protein (6.5-8.0) g/dL Albumin (3.5-5.0) g/dL Urine Color Urine Appearance Urine pH (5.0-9.0) Ur Specific [employer] (1.005-1.025) Urine Protein (Neg-Trace) mg/dL Urine Glucose (UA) (Negative) mg/dL Urine Ketones (Negative) mg/dL Urine Blood (Negative) Urine Nitrite (Negative) Ur Leukocyte Esterase (Negative) Urine RBC (0-2) /HPF Urine WBC (0-5) /HPF Ur Squamous Epith Cells (0-2) /HPF Ur Transition Epith Cell Ur Renal Epithelial Cell Urine Bacteria (None Seen) Hyaline Casts (0-2) /LPF Influenza Type A (PCR) (Negative) Influenza Type B (PCR) (Negative) RSV RNA Qual (PCR) (Negative) SARS-CoV-2 RNA (RT-PCR) (Negative) Independent Interpretation I performed an independent interpretation of an: CT Scan Interpretation: CT abdomen/pelvis with obstructing stone at right UPJ Radiology Impression Discussion of test interpretation with radiology: I have reviewed the radiologist's reading. Radiologist Impression: EXAMINATION: CT ABDOMEN AND PELVIS WITHOUT CONTRAST CLINICAL INFORMATION: Flank pain. Fever. Urinary symptoms. COMPARISON: CT chest dated 09/12/2023. CT abdomen/pelvis dated 04/24/2020. TECHNIQUE: Multidetector volumetric imaging was performed from the superior aspect of the liver through the pubic symphysis. Sagittal and coronal reformatted images were obtained on the technologist's workstation. This CT examination was performed using dose optimization techniques as appropriate, variously including the following: *Automated exposure control *Adjustment of mA and/or kV according to patient size (this includes techniques or standardized protocols for targeted exams where dose is matched to indication/reason for exam; i.e. extremities or head) *Use of iterative reconstruction technique DLP: 644 mGy-cm FINDINGS: LUNG BASES: The visualized lung bases are unremarkable. LIVER, GALLBLADDER, AND BILIARY TREE: The liver is normal in size and shape. Parenchymal hypoattenuation, consistent with steatosis. No focal hepatic lesion or biliary ductal dilatation is present. Cholelithiasis. No gallbladder wall thickening or inflammatory change to suggest acute cholecystitis. PANCREAS: Unremarkable. SPLEEN: Unremarkable. ADRENAL GLANDS: Unremarkable. KIDNEYS AND URETERS: The kidneys are normal in size, shape, and attenuation. Proximal right ureteral stone at the ureteropelvic junction measuring up to 0.6 x 0.3 x 0.3 cm. This is located approximately 16.2 cm from the posterior axillary line. Mild right-sided hydronephrosis. Right periureteral and perinephric stranding. Additional 0.2 cm right renal stones. No left-sided renal or ureteral stone. No left-sided hydroureteronephrosis. Simple left midpole renal cyst measuring up to 3 cm. Findings are not clinically significant and no dedicated follow-up imaging is recommended for the cyst. BLADDER: Nondistended and unremarkable. No calcification. GASTROINTESTINAL TRACT: Small, sliding hiatal hernia. Mild stool burden throughout the colon. No small or large bowel obstruction. There are a few scattered colonic diverticula without evidence of acute diverticulitis. No bowel wall thickening or inflammatory change. Unremarkable appendix. PERITONEAL CAVITY: No intra-abdominal free air or free fluid. No organized fluid collection or abscess formation. No intra-abdominal mass. ABDOMINAL WALL: No significant hernia is appreciated. LYMPH NODES: No significant lymphadenopathy. VASCULAR: No abdominal aortic dilatation. Scattered atherosclerotic calcifications. PELVIC VISCERA: Stable prostatomegaly. OSSEOUS STRUCTURES: No acute osseous abnormality. CT/CT abdomen pelvis wo IV con IMPRESSION: 1. Proximal right ureteral stone at the ureteropelvic junction measuring up to 0.6 cm. Mild right-sided hydronephrosis with right periureteral and perinephric stranding. Additional 0.2 cm right renal stones. No left-sided renal or ureteral stone. No left-sided hydroureteronephrosis. Unremarkable urinary bladder. 2. Small, sliding hiatal hernia. Mild stool burden throughout the colon. Diverticulosis without evidence of acute diverticulitis. No small or large bowel obstruction. Unremarkable appendix. 3. Cholelithiasis without evidence of acute cholecystitis. 4. Hepatic steatosis. 5. Stable prostatomegaly. Fleischner guidelines were followed. Electronically signed by: Maurice Gilliland MD 01/16/2024 04:45 PM [facility] [place] Workstation: [id number] Independent Historian Clinical information obtained from an independent historian. History obtained from or confirmed by: Spouse () External Record Review External record reviewed: Inpatient record, Office record, Outpatient record, Prior outpatient labs, Prior outpatient radiology, Primary care record and Outside ED record Prescription Management I considered prescription management with: Pain Medication and Antibiotic Chronic Conditions Patient?s care impacted by: Other (chronic UTI, bladder stones) Social Determinants Patient?s care significantly limited by Social Determinants of Health including: Other Social Determinant of Health Critical Care Time Critical Care Time Critical Care Time: Yes Total Critical Care Time: 40 Attestation: Critical care time in the amount of 40 minutes has been provided to the patient in terms of direct patient care, frequent reevaluation, consultation with urologist and hospitalist, review and interpretation of medical data and results, and management of potentially life-threatening conditions. This is all outside of any medical procedures. Discharge Plan Discharge Clinical Impression: Urinary tract infection, Calculus of proximal right ureter, Hydronephrosis due to obstruction of ureter, Pyelonephritis of right kidney, Sepsis Patient Disposition: Admitted As Inpatient Interventions: Admission Worksheet (ED) Last Done: 01/16/24 17:58
[2024-01-16] MEDS: 0.9 % Sodium Chloride 2,721 ML 2721 ML IV (12:27)
[2024-01-16 12:32] LABS: Influenza A PCR NEGATIVE (Negative); Influenza B PCR NEGATIVE (Negative); Resp Syncy Virus RNA Qual PCR NEGATIVE (Negative); SARS COV2 PCR INHOUSE NEGATIVE (Negative)
[2024-01-16] MEDS: Acetaminophen 1,000 MG/100 ML PIGGYBACK 400 MG IV (13:11)
[2024-01-16 13:46] LABS: Reflex Lactate? Lactic Acid Added
[2024-01-16 14:28] LABS: ~Lactic Acid-LAB USE ONLY 1.3 mmol/L (0.5-2.0)
--- NOTE | 2024-01-16 14:45 | PC.NURSE ---
Additional IV access established. Pt remains axox3. fluids continue to infuse'
--- NOTE | 2024-01-16 17:18 | P.CNUR_ITS ---
History of Present Illness Consult details Consult date: 01/16/24 Narrative: Nasir Olvera 78 year old presented with pain and fever. No prior h/o kidney stones. Follows with Dr. Abel for BPH, CTAP-6 mm proximal ureteral stone with mild hydro, Additional 0.2 cm right renal stones. No left-sided renal or ureteral stone. Review of Systems 2 Review of Systems: Yes all other systems are reviewed and are negative Constitutional: Constitutional: Reports no additional constitutional complaints Eyes: Eyes: Reports no additional eye complaints ENT: Reports system reviewed and no additional complaints, except as documented Cardiovascular: Cardiovascular: Reports no additional cardiovascular complaints Respiratory: Respiratory: Reports no additional respiratory complaints Gastrointestinal: Gastrointestinal: Reports no additional gastrointestinal complaints Genitourinary: Genitourinary: Reports as per HPI Musculoskeletal: Musculoskeletal: Reports no additional musculoskeletal complaints Integumentary/Breasts: Skin/Breast: Reports system reviewed and no additional complaints, except as docu Neurologic: Reports system reviewed and no additional complaints, except as documented Psychiatric: Psychiatric: Reports no additional psychiatric complaints Endocrine: Endocrine: Reports no additional endocrine complaints Hematologic/Lymphatic: Hematologic/Lymphatic: Reports no additional hematologic/lymphatic complaints Allergic/Immunologic: Allergic/Immunologic: Reports no additional allergic/immunologic complaints [facility] Past Medical History Medical History History of TIA (transient ischemic attack) History of DVT (deep vein thrombosis) Grade II diastolic dysfunction Essential hypertension Dyslipidemia Diabetes mellitus COPD (chronic obstructive pulmonary disease) Gross hematuria Microalbuminuria BPH (benign prostatic hyperplasia) Chronic UTI (urinary tract infection) Chronic back pain Glaucoma Family History Family History Father Medical history unknown Mother Medical history unknown Brother No problems noted. Son No problems noted. Daughter No problems noted. Daughter No problems noted. Daughter No problems noted. Surgical History Surgical History Status post mitral valve repair (~2014) Status post aortic valve replacement with bioprosthetic valve (~2014) Status post patent foramen ovale closure (~2014) History of epidermal inclusion cyst excision (~2020) Hx of cataract extraction (~2013) Social History Social History Housing: House Are you a primary childcare aide to a significant other at home: No Do you presently have visiting nurse or other home services: No Alcohol intake: current Alcohol intake frequency: a few times a month Alcohol type: beer and wine Patient Tobacco Use Status: Former Tobacco user Smoked in Last 30 Days: No e-Cigarette/Vaping Use: Never Used Second Hand Smoke Exposure: No Use of substances other than those prescribed or required for medical reasons: No Advance Directives: No Advance Directives Information Provided: Yes service: No Current occupational status: retired Cognitive needs: No Hearing needs: No Vision needs: Yes Meds Allergies Allergy/AdvReac Type Severity Reaction Status Date / Time levofloxacin [From LEVAQUIN] Allergy Intermediate HIVES Verified 01/16/24 11:16 Iodinated Contrast Media AdvReac Intermediate HIVES Verified 01/16/24 11:16 [IV CONTRAST] Home Medications ?Medication ?Instructions ?Recorded ?Confirmed ?Last Taken ?Type acetazolamide 500 mg 500 mg PO BID 04/15/22 12/29/23 Unknown History capsule,extended release brinzolamide 1 %-brimonidine 0.2 % 1 drp ophthalmic (eye) TID 04/15/22 12/29/23 Unknown History eye drops,suspension (Simbrinza) bromfenac 0.07 % eye drops 1 drp ophthalmic (eye) DAILY 04/15/22 12/29/23 Unknown History (Prolensa) netarsudil 0.02 % eye drops 0 drp ophthalmic (eye) 04/15/22 12/29/23 Unknown History (Rhopressa) latanoprost 0.005 % eye drops drp ophthalmic (eye) 12/27/22 12/29/23 Unknown History prednisolone acetate 1 % eye drp ophthalmic (eye) 07/29/23 12/29/23 Unknown History drops,suspension Physical Exam 2 Vital Signs: Vital Signs: Last Vital Signs Temp 98.2 F 01/16/24 15:33 Pulse 77 01/16/24 15:33 Resp 18 01/16/24 15:33 BP 98/60 01/16/24 15:33 Pulse Ox 95 01/16/24 15:33 O2 Del Method Room Air 01/16/24 15:33 BMI result Body Mass Index 30.4 Const: General: healthy appearing, no acute distress and well developed O rientation/consciousness: patient oriented x3 HEENT: Head: Yes normocephalic and Yes atraumatic Eyes: Conjunctivae: conjunctivae normal Neck: Neck: Yes normal visual inspection Chest: Chest palpation & inspection: normal inspection of the chest Resp: Effort & Inspection: normal respiratory effort Cardio: Rate: regular rate GI: Inspection: Yes normal to inspection Palpation (GI): Soft to palpation : General: Yes CVA tenderness (left) Back/Spine/Pelvis: Back: CVA tenderness (left) Neuro: General: patient oriented x3 Psych: Appearance: grossly normal Affect: normal affect Results Labs 01/16/24 11:40 01/16/24 11:40 Labs: Abnormal lab results 01/16/24 01/16/24 Range/Units 11:26 11:40 RBC 4.30 L (4.60-5.80) X10*6/uL Hgb 12.7 L (14.0-18.0) g/dl Hct 38.0 L (42.0-52.0) % Plt Count 148 L (160-400) X10*3/uL Immature Gran % (Auto) 0.9 H (0.0-0.4) % Neut % (Auto) 73.8 H (45-73) % Lymph % (Auto) 9.1 L (20-40) % [place] % (Auto) 14.8 H (2-11) % Lymph # (Auto) 0.8 L (1.2-4.9) X10*3/uL [place] # (Auto) 1.3 H (0.1-1.2) X10*3/uL Abs Immat Gran (auto) 0.08 H (0.00-0.03) X10*3/uL Chloride 109 H (96-108) mmol/L Carbon Dioxide 21 L (22-29) mmol/L BUN 37 H (9-16) mg/dL Creatinine 2.38 H (0.5-1.4) mg/dL Random Glucose 177 H (60-115) mg/dL Lactic Acid 2.5 H* (0.5-2.0) mmol/L Total Bilirubin 1.2 H (0.0-1.0) mg/dL AST 56 H (5-37) U/L ALT 51 H (0-40) U/L Urine Protein 300 (3+) H (Neg-Trace) mg/dL Urine Blood Moderate (2+) H (Negative) Ur Leukocyte Esterase Large (3+) H (Negative) Urine RBC 3-5 H (0-2) /HPF Urine WBC >50 H (0-5) /HPF Short CBC 01/16/24 Range/Units 11:40 WBC 9.0 (4.8-10.8) X10*3/uL Hgb 12.7 L (14.0-18.0) g/dl Hct 38.0 L (42.0-52.0) % Plt Count 148 L (160-400) X10*3/uL BMP 01/16/24 11:40 Sodium 140 Potassium 3.8 Chloride 109 H Carbon Dioxide 21 L BUN 37 H Creatinine 2.38 H Calcium 9.9 D Liver Function 01/16/24 Range/Units 11:40 Total Bilirubin 1.2 H (0.0-1.0) mg/dL AST 56 H (5-37) U/L ALT 51 H (0-40) U/L Alkaline Phosphatase 61 (39-117) U/L Albumin 3.7 (3.5-5.0) g/dL Urine 01/16/24 Range/Units 11:26 Urine Color Dark Yellow Urine Appearance Turbid Urine pH 5.5 (5.0-9.0) Ur Specific [place] 1.025 (1.005-1.025) Urine Protein 300 (3+) H (Neg-Trace) mg/dL Urine Glucose (UA) Negative (Negative) mg/dL Imaging Abdomen CT scan report/results: report reviewed CT scan - pelvis: report reviewed Additional studies: Date of Service: 01/16/24 CT ABDOMEN AND PELVIS WITHOUT CONTRAST CLINICAL INFORMATION: Flank pain. Fever. Urinary symptoms. COMPARISON: CT chest dated 09/12/2023. CT abdomen/pelvis dated 04/24/2020. TECHNIQUE: Multidetector volumetric imaging was performed from the superior aspect of the liver through the pubic symphysis. Sagittal and coronal reformatted images were obtained on the technologist's workstation. This CT examination was performed using dose optimization techniques as appropriate, variously including the following: *Automated exposure control *Adjustment of mA and/or kV according to patient size (this includes techniques or standardized protocols for targeted exams where dose is matched to indication/reason for exam; i.e. extremities or head) *Use of iterative reconstruction technique DLP: 644 mGy-cm FINDINGS: LUNG BASES: The visualized lung bases are unremarkable. LIVER, GALLBLADDER, AND BILIARY TREE: The liver is normal in size and shape. Parenchymal hypoattenuation, consistent with steatosis. No focal hepatic lesion or biliary ductal dilatation is present. Cholelithiasis. No gallbladder wall thickening or inflammatory change to suggest acute cholecystitis. PANCREAS: Unremarkable. SPLEEN: Unremarkable. ADRENAL GLANDS: Unremarkable. KIDNEYS AND URETERS: The kidneys are normal in size, shape, and attenuation. Proximal right ureteral stone at the ureteropelvic junction measuring up to 0.6 x 0.3 x 0.3 cm. This is located approximately 16.2 cm from the posterior axillary line. Mild right-sided hydronephrosis. Right periureteral and perinephric stranding. Additional 0.2 cm right renal stones. No left-sided renal or ureteral stone. No left-sided hydroureteronephrosis. Simple left midpole renal cyst measuring up to 3 cm. Findings are not clinically significant and no dedicated follow-up imaging is recommended for the cyst. BLADDER: Nondistended and unremarkable. No calcification. GASTROINTESTINAL TRACT: Small, sliding hiatal hernia. Mild stool burden throughout the colon. No small or large bowel obstruction. There are a few scattered colonic diverticula without evidence of acute diverticulitis. No bowel wall thickening or inflammatory change. Unremarkable appendix. PERITONEAL CAVITY: No intra-abdominal free air or free fluid. No organized fluid collection or abscess formation. No intra-abdominal mass. ABDOMINAL WALL: No significant hernia is appreciated. LYMPH NODES: No significant lymphadenopathy. VASCULAR: No abdominal aortic dilatation. Scattered atherosclerotic calcifications. PELVIC VISCERA: Stable prostatomegaly. OSSEOUS STRUCTURES: No acute osseous abnormality. IMPRESSION: 1. Proximal right ureteral stone at the ureteropelvic junction measuring up to 0.6 cm. Mild right-sided hydronephrosis with right periureteral and perinephric stranding. Additional 0.2 cm right renal stones. No left-sided renal or ureteral stone. No left-sided hydroureteronephrosis. Unremarkable urinary bladder. 2. Small, sliding hiatal hernia. Mild stool burden throughout the colon. Diverticulosis without evidence of acute diverticulitis. No small or large bowel obstruction. Unremarkable appendix. 3. Cholelithiasis without evidence of acute cholecystitis. 4. Hepatic steatosis. 5. Stable prostatomegaly. Assessment and Plan (1) Urinary tract infection: Status: Acute (2) Pyelonephritis: Status: Acute (3) Left ureteral stone: Status: Acute (4) Kidney stone: Status: Acute Plan IV ABX and IVF hydration No indication for surgical at this time will follow his clinical progress Procedures Date of Service Date of Service: 01/16/24
--- NOTE | 2024-01-16 17:56 | PC.NURSE ---
resting quietly. family has left but is aware of plan for admission and f/u with uro during stay.
--- NOTE | 2024-01-16 18:19 | PM.IMHP ---
History of Present Illness Date of Service: 01/16/24 Attending physician on admission: [facility] Chief Complaint: Fevers, dysuria, back pain Pt is a 78-year-old Palauan-speaking male with a PMH significant for infective endocarditis in 2014, s/p bioprosthetic aortic valve, mitral valve repair, and PFO closure, COPD, HLD, HTN, hx of TIA, glaucoma, and BPH who presents to the ED with?fever, back pain, and dysuria x3-4 days. The patient reports fever has been as high as 101 degrees at home. Pain in his back located in the middle, nonradiating. Reports increased dribbling and lessened urinary output the past 2/3 weeks, worse the past few days. No nausea, vomiting, or abdominal pain. Denies chest pain/pressure, palpitations. No shortness a breath or difficulty breathing. In the ED pt was febrile up to 100.5, elevated HR up to 90, and soft BP as low as 98/59. Labs were significant for H&H 12.7/38.0, BUN 37 , creatinine 2.38(elevated from 1.02 on 11/28/2023), lactic acid 2.5 with repeat 1.3, T bili 1.5, AST 56, ALT 51. UA positive for UTI. Tested negative for flu, COVID, RSV. CT of abdomen and pelvis found proximal right ureteral stone at UPJ of 0.6 cm, mild right-sided hydronephrosis with right periureteral and perinephric stranding, and additional 0.2 cm right renal stones. Other incidental findings include small sliding hiatal hernia, mild stool burden, diverticulosis without diverticulitis, cholelithiasis without acute cholecystitis, hepatic steatosis, and stable prostatomegaly. Pt was treated with acetaminophen, IVF, and ceftriaxone. Pt will be admitted to the hospital for treatment and further evaluation of DELISA and nephrolithiasis in the setting pyelonephritis vs ureteral obstruction. Review of Systems Review of Systems: Negative except for that which is stated in the [facility] Medical History History of TIA (transient ischemic attack) History of DVT (deep vein thrombosis) Grade II diastolic dysfunction Essential hypertension Dyslipidemia Diabetes mellitus COPD (chronic obstructive pulmonary disease) Gross hematuria Microalbuminuria BPH (benign prostatic hyperplasia) Chronic UTI (urinary tract infection) Chronic back pain Glaucoma Family History Father Medical history unknown Mother Medical history unknown Brother No problems noted. Son No problems noted. Daughter No problems noted. Daughter No problems noted. Daughter No problems noted. Surgical History Status post mitral valve repair (~2014) Status post aortic valve replacement with bioprosthetic valve (~2014) Status post patent foramen ovale closure (~2014) History of epidermal inclusion cyst excision (~2020) Hx of cataract extraction (~2013) Social History Housing: House Are you a primary hospice care consultant to a significant other at home: No Do you presently have visiting nurse or other home services: No Alcohol intake: current Alcohol intake frequency: a few times a month Alcohol type: beer and wine Patient Tobacco Use Status: Former Tobacco user Smoked in Last 30 Days: No e-Cigarette/Vaping Use: Never Used Second Hand Smoke Exposure: No Use of substances other than those prescribed or required for medical reasons: No Advance Directives: No Advance Directives Information Provided: Yes service: No Current occupational status: retired Cognitive needs: No Hearing needs: No Vision needs: Yes Meds Allergies Allergy/AdvReac Type Severity Reaction Status Date / Time levofloxacin [From LEVAQUIN] Allergy Intermediate HIVES Verified 01/16/24 11:16 Iodinated Contrast Media AdvReac Intermediate HIVES Verified 01/16/24 11:16 [IV CONTRAST] Home Medications ?Medication ?Instructions ?Recorded ?Confirmed ?Last Taken ?Type acetazolamide 500 mg 500 mg PO BID 04/15/22 01/16/24 01/15/24 History capsule,extended release brinzolamide 1 %-brimonidine 0.2 % 1 drp ophthalmic (eye) TID 04/15/22 01/16/24 01/15/24 History eye drops,suspension (Simbrinza) latanoprost 0.005 % eye drops 1 drp ophthalmic (eye) BEDTIME 12/27/22 01/16/24 01/15/24 History prednisolone acetate 1 % eye 1 drp ophthalmic (eye) QID 07/29/23 01/16/24 01/15/24 History drops,suspension bromfenac 0.07 % eye drops 1 drp ophthalmic (eye) DAILY 01/16/24 01/16/24 01/15/24 History (Prolensa) diltiazem HCl 180 mg 180 mg PO DAILY 01/16/24 01/16/24 01/15/24 History capsule,extended release 24 hr (Cartia XT) metformin 500 mg tablet,extended 2,000 mg PO BEDTIME 01/16/24 01/16/24 01/15/24 History release 24 hr netarsudil 0.02 % eye drops 1 drp ophthalmic (eye) BEDTIME 01/16/24 01/16/24 01/15/24 History (Rhopressa) terazosin 5 mg capsule 5 mg PO DAILY 01/16/24 01/16/24 01/15/24 History Physical Exam Vital Signs and Narrative: Vital Signs: Last Vital Signs Temp 97.8 F 01/16/24 17:15 Pulse 80 01/16/24 17:15 Resp 18 01/16/24 17:15 BP 113/60 01/16/24 17:15 Pulse Ox 97 01/16/24 17:15 O2 Del Method Room Air 01/16/24 17:15 BMI result Body Mass Index 30.4 General: AOx3, no acute distress Resp: CTA bilaterally CVS: S1, S2, RRR GI: +BS, NT, no distention Back: Non-tender; no CVA tenderness Skin: Warm, dry Neuro: Cranial nerves II-XII grossly intact bilaterally. Motor grossly intact bilaterally Extremities: No edema Psych: Appropriate affect Results Labs 01/16/24 11:40 01/16/24 11:40 Labs: Laboratory Results - last 24 hr 01/16/24 01/16/24 01/16/24 11:26 11:40 11:45 MCV 88.4 MCH 29.5 MCHC 33.4 RDW 12.7 Plt Count 148 L MPV 11.5 Immature Gran % (Auto) 0.9 H Neut % (Auto) 73.8 H Lymph % (Auto) 9.1 L [place] % (Auto) 14.8 H Eos % (Auto) 1.0 Baso % (Auto) 0.4 Lymph # (Auto) 0.8 L [place] # (Auto) 1.3 H Eos # (Auto) 0.1 Baso # (Auto) 0.0 Abs Immat Gran (auto) 0.08 H Absolute Neuts (auto) 6.6 Absolute Nucleated RBC 0.000 Nucleated RBC % (auto) 0.0 PT 12.0 INR 1.0 Anion Gap 14 Estim Creat Clear Calc 27.5 Estimated GFR 27 Random Glucose 177 H Lactic Acid 2.5 H* Lactic Acid F/U @ 2Hr Calcium 9.9 D Magnesium 1.8 Total Bilirubin 1.2 H AST 56 H ALT 51 H Alkaline Phosphatase 61 Total Protein 7.6 Albumin 3.7 Urine Color Dark Yellow Urine Appearance Turbid Urine pH 5.5 Ur Specific [place] 1.025 Urine Protein 300 (3+) H Urine Glucose (UA) Negative Urine Ketones Trace Urine Blood Moderate (2+) H Urine Nitrite Negative Ur Leukocyte Esterase Large (3+) H Urine RBC 3-5 H Urine WBC >50 H Ur Squamous Epith Cells 6-10 Ur Transition Epith Cell Present Ur Renal Epithelial Cell Present Urine Bacteria 2+ Hyaline Casts 3-5 Influenza Type A (PCR) NEGATIVE Influenza Type B (PCR) NEGATIVE RSV RNA Qual (PCR) NEGATIVE SARS-CoV-2 RNA (RT-PCR) NEGATIVE 01/16/24 14:09 MCV MCH MCHC RDW Plt Count MPV Immature Gran % (Auto) Neut % (Auto) Lymph % (Auto) [place] % (Auto) Eos % (Auto) Baso % (Auto) Lymph # (Auto) [place] # (Auto) Eos # (Auto) Baso # (Auto) Abs Immat Gran (auto) Absolute Neuts (auto) Absolute Nucleated RBC Nucleated RBC % (auto) PT INR Anion Gap Estim Creat Clear Calc Estimated GFR Random Glucose Lactic Acid Lactic Acid F/U @ 2Hr 1.3 Calcium Magnesium Total Bilirubin AST ALT Alkaline Phosphatase Total Protein Albumin Urine Color Urine Appearance Urine pH Ur Specific [place] Urine Protein Urine Glucose (UA) Urine Ketones Urine Blood Urine Nitrite Ur Leukocyte Esterase Urine RBC Urine WBC Ur Squamous Epith Cells Ur Transition Epith Cell Ur Renal Epithelial Cell Urine Bacteria Hyaline Casts Influenza Type A (PCR) Influenza Type B (PCR) RSV RNA Qual (PCR) SARS-CoV-2 RNA (RT-PCR) Imaging Radiologist's Impressions: Impressions Abdomen/Pelvis CT 01/16/24 11:25 IMPRESSION: 1. Proximal right ureteral stone at the ureteropelvic junction measuring up to 0.6 cm. Mild right-sided hydronephrosis with right periureteral and perinephric stranding. Additional 0.2 cm right renal stones. No left-sided renal or ureteral stone. No left-sided hydroureteronephrosis. Unremarkable urinary bladder. 2. Small, sliding hiatal hernia. Mild stool burden throughout the colon. Diverticulosis without evidence of acute diverticulitis. No small or large bowel obstruction. Unremarkable appendix. 3. Cholelithiasis without evidence of acute cholecystitis. 4. Hepatic steatosis. 5. Stable prostatomegaly. Fleischner guidelines were followed. Electronically signed by: Maurice Gilliland MD 01/16/2024 04:45 PM EST [employer] Workstation: [id number] Assessment and Plan (1) Acute UTI: Status: Acute (2) Hydronephrosis, right: Status: Acute Plan Pt is a 78-year-old [place]auan-speaking male with a PMH significant for infective endocarditis in 2014, s/p bioprosthetic aortic valve, mitral valve repair, and PFO closure, COPD, HLD, HTN, hx of TIA, glaucoma, and BPH who presents to the ED with?fever, back pain, and dysuria x3-4 days. Pt will be admitted to the hospital for treatment and further evaluation of DELISA and nephrolithiasis in the setting pyelonephritis vs ureteral obstruction. Acute UTI CT showing mild right sided hydronephrosis, concerning for pyelonephritis vs obstruction No sepsis: Tachypnea, but no tachycardia, fever, or leukocytosis; initial lactic acid 2.5 with repeat 1.3 after IVF Patient given fluid and started on broad-spectrum antibiotics in the ED Treat with ceftriaxone, started 01/16/2024 Follow urine cultures DELISA Creatinine 2.38 at time of presentation, elevated from 1.02 on 11/28/2023 In the setting of pyelonephritis vs obstruction Patient received IVF in the ED Will place on maintenance fluids Urology consult NPO after midnight for possible stenting in the morning Analgesics pain management Follow creatinine Acute lactic acidosis, resolved Lactic acid 2.5 at time of presentation with repeat 1.3 after IVF COPD Not in acute exacerbation Continue home inhalers CAD/HLD Hold aspirin due to possible surgical procedure, resume as warranted Continue statin Glaucoma Continue eye drops [id number] type 2 diabetes Hold metformin due to DELISA Will place on sliding scale insulin Diabetic diet BPH Hold finasteride, terazosin due to soft BP HTN Hold lisinopril due to DELISA and soft BP Full Code Attending:?Dr. Singh DVT Prophylaxis: Pneumatic boots due to possible surgical procedure Pt will require a hospitalization of at least two nights for treatment of?DELISA and nephrolithiasis and hydronephrosis concerning for pyelonephritis vs obstruction. Patient will require hospital level care for administration of IVF, IV antibiotics, close monitoring of labs, and specialist consultation with Urology for possible surgical procedure in the morning. Quality Stroke Does the patient have a stroke diagnosis?: No VTE Prior VTE?: Yes VTE Risk Level:: Medical - moderate - high VTE Device Contraindication: N/A - Device Ordered VTE Drug Contraindication: Treatment Not Indicated
--- NOTE | 2024-01-16 19:11 | PHA.MEDREC ---
Addendum entered by Anjel Sanabria RPh 01/16/24 19:26: MED REC CHECKED BY [facility] Original Note: Pharmacy Consult ? Medication Reconciliation Pharmacy has completed the medication reconciliation. Spoke to patient and family at bedside. Family was able to tell me what medications patient takes. Patient is no longer taking Omeprazole 20 mg. last time patient took his medication was 11/15/23.
--- NOTE | 2024-01-16 19:23 | PC.NURSE ---
This RN assumed pt care @ 1900. Pt a&ox3, no signs of distress. Pt denies pain at this time, resting in bed comfortably Family at bedside Plan of care ongoing.
[2024-01-16] MEDS: Lactated Ringers 1,000 ML 100 ML IVCONT (20:21)
--- NOTE | 2024-01-16 20:27 | PC.NURSE ---
Pt medicated per apr Pt a&ox3, no signs of distress Pt denies pain at this time Pt requested and given warm blanket Plan of care ongoing.
[2024-01-16] MEDS: Latanoprost 0.005 % Ophth Sol 2.5 ML DROPS 1 DROP EYE-BOTH (23:03)
[2024-01-16] MEDS: prednisoLONE Acetate 1 % Oph Susp 5 ML DRPBTL 1 DROP EYE-BOTH (23:03)
[2024-01-17] VITALS (7 sets, daily range): BP systolic 107–135; BP diastolic 60–75; PULSE 58–82; RESP 16–18; TEMP 36.8–37.6; O2SAT 94–97
[2024-01-17 08:15] LABS: Anion Gap 13 (12-20); Blood Urea Nitrogen 25 mg/dL (9-16); Calcium 9.3 mg/dL (8.4-10.2); Carbon Dioxide 19 mmol/L (22-29); Chloride 113 mmol/L (96-108); Estimated Glomerular Filt Rate 51; Glucose Random 94 mg/dL (60-115); Sodium 141 mmol/L (135-145)
[2024-01-17] MEDS: 0.9 % Sodium Chloride Flush 3 ML SYRINGE IVFLUSH (08:32)
[2024-01-17] MEDS: cefTRIAXone sodium 2 GM VIAL IVPUSH (08:32)
[2024-01-17] MEDS: dilTIAZem HCL CD 180 MG CAP.ER.24H PO (08:33)
[2024-01-17] MEDS: Cholecalciferol (Vitamin D3) 25 MCG TABLET 50 MCG PO (08:33)
[2024-01-17] MEDS: Atorvastatin Calcium 40 MG TABLET PO (08:33)
[2024-01-17] MEDS: prednisoLONE Acetate 1 % Oph Susp 5 ML DRPBTL 1 DROP EYE-BOTH ×3 (09:55→20:20)
[2024-01-17] MEDS: Lactated Ringers 1,000 ML 50 ML IVCONT (09:55)
[2024-01-17] MEDS: Albuterol Sulfate 90 MCG 8 GM INHALER 2 PUFF INHALE (11:32)
--- NOTE | 2024-01-17 13:09 | HO.PM.IMPN ---
Subjective Subjective Date of Service: 01/17/24 Interval History: This history was taken in [place] from the patient. Feels better No fever Denies flank or groin pain No dysuria or hematuria Review of Systems Review of Systems: Yes all other systems are reviewed and are negative Physical Exam Vital Signs: Vital Signs: Last Vital Signs Temp 99.6 F 01/17/24 07:06 Pulse 69 01/17/24 11:33 Resp 17 01/17/24 11:33 BP 122/69 01/17/24 11:33 Pulse Ox 94 01/17/24 11:33 O2 Del Method Room Air 01/17/24 07:06 BMI result Body Mass Index 30.6 Gen: in no acute distress HEENT: sclera anicteric, moist mucus membranes Neck: supple Lungs: clear to auscultation bilaterally Heart: regular rate and rhythm, no murmurs Abd: soft, non-tender, non-distended Ext: no edema Skin: warm/well-perfused Neuro: alert and oriented x3, no focal findings Psych: appropriate affect Objective Data Active Medications Acetaminophen (Acetaminophen 325 Mg Tablet) 650 mg PO Q6H PRN PRN Reason: Pain, Mild (Pain Scale 1-3), fever or headache Albuterol Sulfate (Albuterol Sulfate 90 Mcg 8 Gm Inhaler) 2 puff INHALE Q6H PRN PRN Reason: shortness of breath or wheezing Last Admin: 01/17/24 11:32 Dose: 2 puff Documented By: KAROL Atorvastatin Calcium (Atorvastatin Calcium 40 Mg Tablet) 40 mg PO DAILY [facility] Last Admin: 01/17/24 08:33 Dose: 40 mg Documented By: JERMAINE Calcium Carbonate (Calcium Carbonate 750 Mg Tab.Chew) 750 mg PO Q4H PRN PRN Reason: Heartburn Ceftriaxone Sodium (Ceftriaxone Sodium 2 Gm Vial) 2 gm IVPUSH Q24H [facility] Last Admin: 01/17/24 08:32 Dose: 2 gm Documented By: JERMAINE Diltiazem HCl (Diltiazem Hcl Cd 180 Mg Cap.Er.24h) 180 mg PO DAILY [facility]; Protocol Last Admin: 01/17/24 08:33 Dose: 180 mg Documented By: JERMAINE Fluticasone/Umeclidinium/Vilanterol (Fluticasone/Umeclidinium/Vilanterol 200/62.5/25 Blst.W.Dev) 1 puff INHALE RDAILY [facility] Last Admin: 01/17/24 07:44 Dose: Not Given Documented By: KAROL Non-Admin Reason: Patient Asleep Lactated Ringer's (Lr) 1,000 mls @ 50 mls/hr IVCONT .Q20H [facility] Last Admin: 01/17/24 09:55 Dose: 50 mls/hr Documented By: JERMAINE Latanoprost (Latanoprost 0.005 % Ophth Celena 2.5 Ml Drops) 1 drop EYE-BOTH BEDTIME [facility] Last Admin: 01/16/24 23:03 Dose: 1 drop Documented By: ODRISLaure Magnesium Hydroxide (Milk Of Magnesia 30 Ml Oral.Susp) 30 ml PO DAILY PRN PRN Reason: Constipation Melatonin (Melatonin 3 Mg Tablet) 6 mg PO BEDTIME PRN PRN Reason: Insomnia Non-Formulary Medication (Brinzolamide-Brimonidine [Simbrinza]) 1 drop EYE-BOTH TID [facility] Non-Formulary Medication (Bromfenac [Prolensa]) 1 drop EYE-BOTH DAILY [facility] Non-Formulary Medication (Netarsudil [Rhopressa]) 1 drop EYE-BOTH BEDTIME RAJAT Ondansetron HCl (Ondansetron Hcl 4 Mg/2 Ml Vial) 4 mg IVPUSH Q8H PRN PRN Reason: Nausea and Vomiting Prednisolone Acetate (Prednisolone Acetate 1 % Oph Susp 5 Ml Drpbtl) 1 drop EYE-BOTH QID [facility] Last Admin: 01/17/24 13:00 Dose: Not Given Documented By: JERMAINE Non-Admin Reason: Patient Refused Sodium Chloride (0.9 % Sodium Chloride Flush 3 Ml Syringe) 3 ml IVFLUSH QSHIFT [facility] Last Admin: 01/17/24 08:32 Dose: 3 ml Documented By: JERMAINE Tamsulosin HCl (Tamsulosin Hcl 0.4 Mg Capsule) 0.4 mg PO BEDTIME [facility] Vitamin D (Cholecalciferol (Vitamin D3) 25 Mcg Tablet) 50 mcg PO DAILY [facility] Last Admin: 01/17/24 08:33 Dose: 50 mcg Documented By: JERMAINE Labs 01/16/24 11:40 01/17/24 06:33 Labs: Laboratory Results - last 24 hr 01/16/24 01/17/24 14:09 06:33 Hold Purple Top SEE NOTE Anion Gap 13 Estim Creat Clear Calc 49.0 Estimated GFR 51 Random Glucose 94 Lactic Acid F/U @ 2Hr 1.3 Calcium 9.3 D Microbiology Microbiology Results: Microbiology 01/16/24 11:20 Urine Culture - Final Urine clean catch - Clean Catch Midstream Assessment and Plan (1) Kidney stone: Status: Acute Plan d2 for 78yo M with hx IE [2015] s/p bioprosthetic aortic valve + mitral valve repair + PFO closure, COPD, HLD, hx TIA, glaucoma, BPH; presenting with 3-4d of fever, back pain, and dysuria, found to have DELISA + pyelonephritis with 6mm ureteral stone at [facility] with mild hydronephrosis with peripnephric straindg UTI - ceftriaxone 01/15-, follow UCx/BCx; not septic ureterolithiasis - Urology consulted, no acute surgical intervention indicated DELISA - improved with IV fluids; will consider reimaging kidney to see if hydronephrosis resolves; hold lisinopril; continue IV LR lactic acidosis, acute - resolved after IV fluid hydration COPD not in acute exacerbation - continue home inhalers CAD - continue statin; ASA on hold for possible surgical procedure glaucoma - continue eye drops HTN - continue diltiazem; lisinopril held as above BPH - continue tamsulosin VTE ppx - enoxaparin dispo - eventual home with VNA In my clinical judgment, the patient requires continued inpatient hospitalization for the following reasons: IV ABX, IV fluids Total time managing care of this patient today: 45 minutes. Quality Stroke Does the patient have a stroke diagnosis?: No VTE Prior VTE?: Yes VTE Risk Level:: Medical - moderate - high VTE Device Contraindication: N/A - Device Ordered VTE Drug Contraindication: Treatment Not Indicated
[2024-01-17] MEDS: Enoxaparin Sodium 30 MG/0.3 ML SYRINGE SUBCUT (15:04)
[2024-01-17] MEDS: Latanoprost 0.005 % Ophth Sol 2.5 ML DROPS 1 DROP EYE-BOTH (20:20)
[2024-01-17] MEDS: Tamsulosin HCL 0.4 MG CAPSULE PO (20:20)
[2024-01-18] MEDS: Lactated Ringers 1,000 ML 50 ML IVCONT (03:48)
[2024-01-18 07:35] LABS: Anion Gap 14 (12-20); Blood Urea Nitrogen 21 mg/dL (9-16); Calcium 9.6 mg/dL (8.4-10.2); Carbon Dioxide 16 mmol/L (22-29); Chloride 112 mmol/L (96-108); Creatinine Clr Calc Pharmacy 60.2; Estimated Glomerular Filt Rate > 60; Glucose Random 97 mg/dL (60-115); Sodium 138 mmol/L (135-145)
[2024-01-18 07:58] VITALS: PULSE 78; RESP 16; O2SAT 96
[2024-01-18] MEDS: Fluticasone/Umeclidinium/Vilanterol 200/62.5/25 BLST.W.DEV 1 PUFF INHALE (07:58)
[2024-01-18 08:00] VITALS: BP 132/60; PULSE 61; RESP 16; TEMP 36.4; O2SAT 94
[2024-01-18] MEDS: cefTRIAXone sodium 2 GM VIAL IVPUSH (08:23)
[2024-01-18] MEDS: dilTIAZem HCL CD 180 MG CAP.ER.24H PO (08:24)
[2024-01-18] MEDS: 0.9 % Sodium Chloride Flush 3 ML SYRINGE IVFLUSH (08:24)
[2024-01-18] MEDS: Atorvastatin Calcium 40 MG TABLET PO (08:24)
[2024-01-18] MEDS: Cholecalciferol (Vitamin D3) 25 MCG TABLET 50 MCG PO (08:24)
[2024-01-18] MEDS: prednisoLONE Acetate 1 % Oph Susp 5 ML DRPBTL 1 DROP EYE-BOTH (08:31)
--- NOTE | 2024-01-18 11:46 | P.F2F_ITS ---
Service Date Service Date: 01/18/24 Encounter Date of encounter: 01/18/24 Reasons for Services Signs and symptoms assessed: balance/gait Reason for nursing home: medication management, medication treatment and teach disease management Reason for physical therapy: home safety and mobility, therapeutic exercises, gait/transfer training, assess need for DME, ADL training and energy conservation MD Overseeing Care: Connie Robertson Homebound: Leaving the home is medically contraindicated at this time without the asist of a device and/or another person due th the listed conditions above and below. Reason homebound: unsteady gait / fall risk and weakness related to hospital stay Certification: Based on the above findings, I certify that this patient is confined to the home and needs intermittent nursing home care, physical therapy and/or speech therapy, or continues to need occupational therapy. The patient is under my care, and I have initiated the establishment of the plan of care. The patient will be followed by a physician who will periodically review the plan of care. Time Spent With Patient Time: Total time managing care of this patient today ____ minutes.
--- NOTE | 2024-01-18 11:52 | PM.DS ---
DS: Providers Provider Date of Service: 01/18/24 Date of admission: 01/16/24 20:04 Date of discharge: 01/18/24 Primary care physician: Connie Robertson MD Consults: 01/16/24 20:09 Consult to Urology Routine Consulting Provider: [facility] Urology Services Reason for consultation: DELISA, UTI: Pyelonephritis vs obstruction DS: Diagnosis Discharge Diagnosis (1) Kidney stone: Status: Acute (2) Pyelonephritis of right kidney: Status: Acute (3) Acute UTI: Status: Acute (4) Hydronephrosis due to obstruction of ureter: Status: Acute DS: Summary Hospital Course Hospital Course: From the history and physical by the admitting hospitalist, BROCK Pedroza, 01/16/24: Pt is a 78-year-old Chinese-speaking male with a PMH significant for infective endocarditis in 2014, s/p bioprosthetic aortic valve, mitral valve repair, and PFO closure, COPD, HLD, HTN, hx of TIA, glaucoma, and BPH who presents to the ED with?fever, back pain, and dysuria x3-4 days. The patient reports fever has been as high as 101 degrees at home. Pain in his back located in the middle, nonradiating. Reports increased dribbling and lessened urinary output the past 2/3 weeks, worse the past few days. No nausea, vomiting, or abdominal pain. Denies chest pain/pressure, palpitations. No shortness a breath or difficulty breathing. In the ED pt was febrile up to 100.5, elevated HR up to 90, and soft BP as low as 98/59. Labs were significant for H&H 12.7/38.0, BUN 37 , creatinine 2.38(elevated from 1.02 on 11/28/2023), lactic acid 2.5 with repeat 1.3, T bili 1.5, AST 56, ALT 51. UA positive for UTI. Tested negative for flu, COVID, RSV. CT of abdomen and pelvis found proximal right ureteral stone at [facility] of 0.6 cm, mild right-sided hydronephrosis with right periureteral and perinephric stranding, and additional 0.2 cm right renal stones. Other incidental findings include small sliding hiatal hernia, mild stool burden, diverticulosis without diverticulitis, cholelithiasis without acute cholecystitis, hepatic steatosis, and stable prostatomegaly. Pt was treated with acetaminophen, IVF, and ceftriaxone. Pt will be admitted to the hospital for treatment and further evaluation of DELISA and nephrolithiasis in the setting pyelonephritis vs ureteral obstruction. 78yo M with hx IE [2015] s/p bioprosthetic aortic valve + mitral valve repair + PFO closure, COPD, HLD, hx TIA, glaucoma, BPH; presenting with 3-4d of fever, back pain, and dysuria; found to have DELISA + pyelonephritis with 6mm ureteral stone at [facility] with mild hydronephrosis with perinephric stranding. He was admitted to the medical-surgical unit and treated with IV ceftriaxone. Urine culture was contaminated. Blood cultures negative. Fever and urinary symptoms resolved quickly. Urology was consulted and no acute surgical intervention was indicated. DELISA improved with IV fluids and holding lisinopril. Lactic acidosis resolved after IV hydration. He was discharged on cefuroxime for 7 days and should follow up with Urology in 2 weeks with ultrasound to ensure hydronephrosis has resolved. Lisinopril was resumed on discharge and BMP should be checked in 1 week. Home VNA and PT services were arranged. Time Attestation Discharge Coordination Time (in mins): 35 Quality: Safe Use of Opioids Does Pt have an Active Cancer Diagnosis on the Problem List?: No Quality: Stroke Does the patient have a stroke diagnosis?: No Physical Exam Vital Signs: Vital Signs: Last Vital Signs Temp 97.5 F 01/18/24 08:00 Pulse 61 01/18/24 08:00 Resp 16 01/18/24 08:00 BP 132/60 01/18/24 08:00 Pulse Ox 94 01/18/24 08:00 O2 Del Method Room Air 01/18/24 08:00 BMI result Body Mass Index 30.6 Gen: in no acute distress HEENT: sclera anicteric, moist mucus membranes Neck: supple Lungs: clear to auscultation bilaterally Heart: regular rate and rhythm, no murmurs Abd: soft, non-tender, non-distended Ext: no edema Skin: warm/well-perfused Neuro: alert and oriented x3, no focal findings Psych: appropriate affect DS: Data Data Completed and Pending Completed studies during hospitalization [Text1]: Laboratory Results WBC 9.0 X10*3/uL (4.8-10.8) 01/16/24 11:40 RBC 4.30 X10*6/uL (4.60-5.80) L 01/16/24 11:40 Hgb 12.7 g/dl (14.0-18.0) L 01/16/24 11:40 Hct 38.0 % (42.0-52.0) L 01/16/24 11:40 MCV 88.4 fL (80.0-98.0) 01/16/24 11:40 MCH 29.5 pg (27.0-33.0) 01/16/24 11:40 MCHC 33.4 g/dl (31.0-36.0) 01/16/24 11:40 RDW 12.7 % (11.0-16.0) 01/16/24 11:40 Plt Count 148 X10*3/uL (160-400) L 01/16/24 11:40 MPV 11.5 fL (9.4-12.4) 01/16/24 11:40 Immature Gran % (Auto) 0.9 % (0.0-0.4) H 01/16/24 11:40 Neut % (Auto) 73.8 % (45-73) H 01/16/24 11:40 Lymph % (Auto) 9.1 % (20-40) L 01/16/24 11:40 Mcminn % (Auto) 14.8 % (2-11) H 01/16/24 11:40 Eos % (Auto) 1.0 % (0-4) 01/16/24 11:40 Baso % (Auto) 0.4 % (0-2) 01/16/24 11:40 Lymph # (Auto) 0.8 X10*3/uL (1.2-4.9) L 01/16/24 11:40 Mcminn # (Auto) 1.3 X10*3/uL (0.1-1.2) H 01/16/24 11:40 Eos # (Auto) 0.1 X10*3/uL (0.0-0.4) 01/16/24 11:40 Baso # (Auto) 0.0 X10*3/uL (0.0-0.2) 01/16/24 11:40 Abs Immat Gran (auto) 0.08 X10*3/uL (0.00-0.03) H 01/16/24 11:40 Absolute Neuts (auto) 6.6 x10*3/uL (2.0-8.3) 01/16/24 11:40 Absolute Nucleated RBC 0.000 X10*3/uL (0.0-0.012) 01/16/24 11:40 Nucleated RBC % (auto) 0.0 /100WBC (0.0-0.2) 01/16/24 11:40 Hold Purple Top SEE NOTE 01/17/24 06:33 PT 12.0 SEC (10.9-12.4) 01/16/24 11:40 INR 1.0 (0.9-1.1) 01/16/24 11:40 Sodium 138 mmol/L (135-145) 01/18/24 06:39 Potassium 4.0 mmol/L (3.3-5.1) 01/18/24 06:39 Chloride 112 mmol/L (96-108) H 01/18/24 06:39 Carbon Dioxide 16 mmol/L (22-29) L 01/18/24 06:39 Anion Gap 14 (12-20) 01/18/24 06:39 BUN 21 mg/dL (9-16) H 01/18/24 06:39 Creatinine 1.09 mg/dL (0.5-1.4) 01/18/24 06:39 Estim Creat Clear Calc 60.2 01/18/24 06:39 Estimated GFR > 60 01/18/24 06:39 Random Glucose 97 mg/dL (60-115) 01/18/24 06:39 Lactic Acid 2.5 mmol/L (0.5-2.0) H* 01/16/24 11:40 Lactic Acid F/U @ 2Hr 1.3 mmol/L (0.5-2.0) 01/16/24 14:09 Calcium 9.6 mg/dL (8.4-10.2) 01/18/24 06:39 Magnesium 1.8 mg/dL (1.6-2.6) 01/16/24 11:40 Total Bilirubin 1.2 mg/dL (0.0-1.0) H 01/16/24 11:40 AST 56 U/L (5-37) H 01/16/24 11:40 ALT 51 U/L (0-40) H 01/16/24 11:40 Alkaline Phosphatase 61 U/L (39-117) 01/16/24 11:40 Total Protein 7.6 g/dL (6.5-8.0) 01/16/24 11:40 Albumin 3.7 g/dL (3.5-5.0) 01/16/24 11:40 Urine Color Dark Yellow 01/16/24 11:26 Urine Appearance Turbid 01/16/24 11:26 Urine pH 5.5 (5.0-9.0) 01/16/24 11:26 Ur Specific Grimes 1.025 (1.005-1.025) 01/16/24 11:26 Urine Protein 300 (3+) mg/dL (Neg-Trace) H 01/16/24 11:26 Urine Glucose (UA) Negative mg/dL (Negative) 01/16/24 11:26 Urine Ketones Trace mg/dL (Negative) 01/16/24 11:26 Urine Blood Moderate (2+) (Negative) H 01/16/24 11:26 Urine Nitrite Negative (Negative) 01/16/24 11:26 Ur Leukocyte Esterase Large (3+) (Negative) H 01/16/24 11:26 Urine RBC 3-5 /HPF (0-2) H 01/16/24 11:26 Urine WBC >50 /HPF (0-5) H 01/16/24 11:26 Ur Squamous Epith Cells 6-10 /HPF (0-2) 01/16/24 11:26 Ur Transition Epith Cell Present 01/16/24 11:26 Ur Renal Epithelial Cell Present 01/16/24 11:26 Urine Bacteria 2+ (None Seen) 01/16/24 11:26 Hyaline Casts 3-5 /LPF (0-2) 01/16/24 11:26 Influenza Type A (PCR) NEGATIVE (Negative) 01/16/24 11:45 Influenza Type B (PCR) NEGATIVE (Negative) 01/16/24 11:45 RSV RNA Qual (PCR) NEGATIVE (Negative) 01/16/24 11:45 SARS-CoV-2 RNA (RT-PCR) NEGATIVE (Negative) 01/16/24 11:45 Impressions Abdomen/Pelvis CT 01/16/24 11:25 IMPRESSION: 1. Proximal right ureteral stone at the ureteropelvic junction measuring up to 0.6 cm. Mild right-sided hydronephrosis with right periureteral and perinephric stranding. Additional 0.2 cm right renal stones. No left-sided renal or ureteral stone. No left-sided hydroureteronephrosis. Unremarkable urinary bladder. 2. Small, sliding hiatal hernia. Mild stool burden throughout the colon. Diverticulosis without evidence of acute diverticulitis. No small or large bowel obstruction. Unremarkable appendix. 3. Cholelithiasis without evidence of acute cholecystitis. 4. Hepatic steatosis. 5. Stable prostatomegaly. Fleischner guidelines were followed. Electronically signed by: Maurice Gilliland MD 01/16/2024 04:45 PM [facility] Discharge Plan Discharge Anticipated Discharge Date/Time: 01/18/24 16:47 Patient Disposition: Home Health Service Discharge Diagnosis: pyelonephritis with kidney stone acute kidney injury Referrals: Cathy Carson MD [Physician] - 2 Weeks Connie Cummings MD [Primary Care Provider] - 1 Week Discharge Medications: New cefuroxime axetil 500 mg tablet 500 mg PO BID Qty: 14 0RF Continued (DME) lancets [OneTouch Delica Lancets] 33 gauge misc See Rx Instructions .ROUTE .MEDSUPPLY Qty: 100 11RF Rx Instructions: 1 Lancet to be use twice a day albuterol sulfate 90 mcg/actuation HFA aerosol inhaler 2 puff inhalation Q6H PRN (Reason: shortness of breath or wheezing) 30 Days Qty: 6.7 6RF aspirin 81 mg tablet,delayed release (DR/EC) 81 mg PO DAILY 90 Days Qty: 90 3RF atorvastatin 40 mg tablet 40 mg PO DAILY 90 Days Qty: 90 1RF lisinopril 20 mg tablet 20 mg PO DAILY 90 Days Qty: 90 3RF diltiazem HCl [Cartia XT] 180 mg capsule,extended release 24hr 180 mg PO DAILY bromfenac [Prolensa] 0.07 % drops 1 drp ophthalmic (eye) DAILY Rx Instructions: left eye Rhopressa 0.02 % drops 1 drp ophthalmic (eye) BEDTIME terazosin 5 mg capsule 5 mg PO DAILY metformin 500 mg tablet extended release 24 hr 2,000 mg PO BEDTIME cholecalciferol (vitamin D3) 50 mcg (2,000 unit) capsule 50 mcg PO DAILY 90 Days Qty: 90 1RF acetazolamide 500 mg capsule, extended release 500 mg PO BID Simbrinza 1-0.2 % drops,suspension 1 drp ophthalmic (eye) TID prednisolone acetate 1 % drops,suspension 1 drp ophthalmic (eye) QID Rx Instructions: Both Eyes latanoprost 0.005 % drops 1 drp ophthalmic (eye) BEDTIME Rx Instructions: both eyes Trelegy Ellipta 200-62.5-25 mcg blister with device 1 ea inhalation DAILY Qty: 60 6RF finasteride 5 mg tablet 5 mg PO DAILY 90 Days Qty: 90 3RF Discharge Orders: Discharge Order (Routine); Ordered 01/18/24 Ordered By: Mari Cooley Diet: Advance to usual diet Activity on Discharge: As tolerated Stand Alone Forms: Patient Portal Discharge page Print Language: Chinese Other Ambulatory Orders: Basic Metabolic Panel (Routine) Timeframe: 1 Week Facility: [facility] - Location: Laboratory Ordered By: Mari Cooley Care Plan Goals: cure of infection Health Concerns: pyelonephritis with kidney stone acute kidney injury Plan of Treatment: take cefuroxime 500 mg twice daily for 7 days repeat BMP in 1 week follow up with [facility] Urology in 2 weeks Please follow up with your primary care doctor within 1 week. Return to the hospital if you experience recurrent or worsening symptoms. Assessment: See Discharge Summary. Discharge Date/Time: 01/18/24 14:28
== END 2024-01-18 14:28 | disposition home health service (06) | DRG 690 ==
LOC: HO.ED 18:37 → HO.EDOVER 20:19 → HO.S3 20:45
PROVIDERS: Physician Assistant; Admitting Provider Student in an Organized Health Care Education/Training Program; Emergency Provider Emergency Medicine Emergency Medical Services; PCP Internal Medicine; Visit Provider Family Medicine
DX: N13.6 Pyonephrosis (principal); E87.1 Hypo-osmolality and hyponatremia; N40.0 Benign prostatic hyperplasia without lower urinary tract symptoms; N17.9 Acute kidney failure, unspecified; J44.9 Chronic obstructive pulmonary disease, unspecified; I25.10 Atherosclerotic heart disease of native coronary artery without angina pectoris; E78.5 Hyperlipidemia, unspecified; Z20.822 Contact with and (suspected) exposure to COVID-19; Z87.74 Personal history of (corrected) congenital malformations of heart and circulatory system; Z95.2 Presence of prosthetic heart valve; Z79.82 Long term (current) use of aspirin; Z79.84 Long term (current) use of oral hypoglycemic drugs; Z79.899 Other long term (current) drug therapy
CPT/HCPCS: 0241U; 36415; 74176; 80048; 80053; 81001; 83605; 83735; 85025; 85610; 87040; 87086; 94664; 97162; 99285; J0131; J0696; J1650; J7120

== ENCOUNTER → 2024-01-16 11:50 | Outpatient (BNV) | payer MEDICARE, SELFPAY | PROVIDERS: Emergency Provider Emergency Medicine Emergency Medical Services; PCP Internal Medicine; Visit Provider Urology | DX: N39.0 Urinary tract infection, site not specified (principal); N12 Tubulo-interstitial nephritis, not specified as acute or chronic; N20.1 Calculus of ureter; N20.0 Calculus of kidney | CPT/HCPCS: 99222 ==

== ENCOUNTER → 2024-01-16 20:04 | Outpatient (BNV) | payer MEDICARE, SELFPAY | PROVIDERS: Admitting Provider Student in an Organized Health Care Education/Training Program; Emergency Provider Emergency Medicine Emergency Medical Services; PCP Internal Medicine; Visit Provider Family Medicine | DX: N39.0 Urinary tract infection, site not specified (principal); N13.30 Unspecified hydronephrosis; N20.0 Calculus of kidney | CPT/HCPCS: 99222; 99232; 99239; G0180 ==

== ENCOUNTER 2024-01-21 16:31 | Outpatient (AMB) | payer MEDICARE, MEDICAID, SELFPAY ==
--- NOTE | 2024-01-21 16:41 | MHC.PC.OV ---
Vital Signs 01/21/24 16:42 Height 5 ft 8 in Weight 201 lb BMI 30.6 BP 120/86 Blood Pressure Location Lt brachial Position Sitting Intake Visit Reasons: [facility] 01/14 Encoding Machine Operator Required: No Accompanied by: Spouse Allergies levofloxacin [From LEVAQUIN] Allergy (Intermediate, Verified 01/21/24 16:55) HIVES Iodinated Contrast Media [IV CONTRAST] Adverse Reaction (Intermediate, Verified 01/21/24 16:55) HIVES Medication List - Last Reconciled 01/21/24 by Connie Robertson MD acetazolamide ER 500 mg PO BID albuterol sulfate 90 mcg/actuation 2 puffs inhalation Q6H PRN 30 days aspirin 81 mg PO DAILY 90 days atorvastatin 40 mg PO DAILY 90 days brinzolamide-brimonidine 1-0.2 % (Simbrinza) 1 drp ophthalmic (eye) TID bromfenac 0.07% (Prolensa) 1 drp ophthalmic (eye) DAILY cefuroxime axetil 500 mg PO BID cholecalciferol (vitamin D3) 50 mcg PO DAILY 90 days diltiazem HCl CD (Cartia XT) 180 mg PO DAILY finasteride 5 mg PO DAILY 90 days ungkorjxrjw-ltakevmhx-pvdivejg 200-62.5-25 mcg (Trelegy Ellipta) 1 ea inhalation DAILY lancets (OneTouch Delica Lancets) 1 Lancet to be use twice a day latanoprost 0.005% 1 drp ophthalmic (eye) BEDTIME lisinopril 20 mg PO DAILY 90 days metformin ER 2,000 mg (4 x 500 mg) PO QPM netarsudil 0.02% (Rhopressa) 1 drp ophthalmic (eye) BEDTIME prednisolone acetate 1% 1 drp ophthalmic (eye) QID terazosin 5 mg PO DAILY Tobacco use date assessed: 05/22/23 Fall risk assessment: No Falls in past year Last assessed Fall Risk: 01/21/24 Dental Screening Dental Screen Date: 12/01/23 HPI TCM TCM Information Date of Discharge 01/18/24 Discharged From [facility] Interactive Contact Date (Reference documentation from this date) 01/19/24 HPI Comments History of Present Illness Details The patient is a 78-year-old male presenting today accompanied by for hospital discharge follow up. He went to ER 01/16/24 with fever, back pain, and dysuria. The symptoms began several days prior to admission. The fever reached a maximum of 101?F, while the back pain was midline. Upon emergency presentation, his temperature was 100.5?F, heart rate was noted at 90 beats per minute, and blood pressure dropped to 98/59 mmHg. His hemoglobin level was slightly decreased at 12.7 g/dL, while the creatinine level was elevated at 2.38 mg/dL, raising concern for an acute kidney injury. A nephrology appointment was scheduled for further evaluation due to observed proteinuria. Lactate levels were initially 2.5 and later decreased to 1.3, indicating a positive response. A urinalysis was positive for a urinary tract infection. Negative results were obtained for flu, COVID-19, and RSV. A CT scan of the abdomen and pelvis revealed a 0.6 cm calculus in the right ureter causing hydronephrosis, along with a smaller 0.2 cm calculus in the right kidney. Gallstones and hepatic steatosis were also identified. Initial treatment in the hospital included IV fluids and ceftriaxone, and cessation of lisinopril due to low blood pressure. The patient was later transitioned to oral antibiotics. 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 Chronic conditions include COPD, hypertension controlled with lisinopril, type 2 diabetes treated with metformin, and hyperlipidemia managed with atorvastatin. The patient's oral health was noted, with one swollen cheek potentially from chewing on a hard item, like a tangerine, and not attributable to infection. Current medication adherence was confirmed during the visit. [facility] Medical History (Updated 01/21/24 @ 17:18 by Connie Robertson MD) Sepsis Acute kidney failure History of TIA (transient ischemic attack) History of DVT (deep vein thrombosis) Grade II diastolic dysfunction Essential hypertension Dyslipidemia Diabetes mellitus COPD (chronic obstructive pulmonary disease) Gross hematuria Microalbuminuria BPH (benign prostatic hyperplasia) Chronic UTI (urinary tract infection) Chronic back pain Glaucoma Surgical History Status post mitral valve repair (~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 Son No problems noted. Daughter No problems noted. Daughter No problems noted. Daughter No problems noted. Social History Household Members: Significant Other Housing: House Are you a primary pediatric care coordinator to a significant other at home: No Do you presently have visiting nurse or other home services: No Alcohol intake: current Alcohol intake frequency: a few times a month Alcohol type: beer and wine Patient Tobacco Use Status: Former Tobacco user Years Smoked: 10 e-Cigarette/Vaping Use: Never Used Second Hand Smoke Exposure: No service: No Current occupational status: retired Cognitive needs: No Hearing needs: No Vision needs: Yes Questionnaire Thrive Questionnaire Date Thrive assessed: 05/22/23 ANNIE-7 AMB Questionnaire ANNIE-7 Date ANNIE - 7 assessed: 05/22/23 Source: Developed by Drs. Jonathan Escobar, Lianet Michaels, Ford López and colleagues, with an educational harrison from [employer]. Review of Systems Const Details: - General: Reports back pain that has improved - Genitourinary: Reports burning sensation during urination. - Cardiovascular: Denies recent chest pain or palpitations. - Respiratory: Denies shortness of breath (inadequately controlled COPD noted in past history section). Physical exam (Primary Care) Vital Signs: Last Vital Signs BP 120/86 01/21/24 16:42 BMI result Body Mass Index 30.6 BMI Assessment/Plan discussion: High BMI High, discussed plan: lifestyle, weight reduction, dietary and physical activity Tobacco/Smoking Status: Tobacco use Status Tobacco use date assessed 05/22/23 01/21/24 16:42 Patient Tobacco Use Status Former Tobacco user 01/21/24 16:42 Tobacco use type 06/19/22 14:04 e-Cigarette/Vaping Use Never Used 01/21/24 16:42 Thrive Assessment: Date of Thrive Assessment Date Thrive assessed 05/22/23 01/21/24 16:42 Const Other: General: No confusion Orientation/Consciousness: Patient oriented x3 and No confusion Respiratory: Normal respiratory effort, clear to auscultation bilaterally Cardiovascular: No jugular venous distension, regular rate, regular rhythm, S1 normal heart sound present and S2 normal heart sound present Skin: No rashes or lesions noted Neurology: Patient oriented x3, no focal motor deficits and No confusion Extremities: Full ROM Coding Level of Care Code TCM Mod MDM <= 7 Days Diagnoses Pyelonephritis of right kidney N12 Kidney stone N20.0 Chronic obstructive pulmonary disease, unspecified COPD type J44.9 COPD type: unspecified COPD Type 2 diabetes mellitus without complication, without long-term current use of insulin E11.9 Diabetes mellitus type: type 2 Diabetes mellitus correction insulin use: without correction use Diabetes mellitus complication status: without complication Essential hypertension I10 Time Spent (min) 26 Assessment & Plan Assessment & Plan (1) Pyelonephritis of right kidney: Code(s): N12 - Tubulo-interstitial nephritis, not specified as acute or chronic Category: Medical (2) Kidney stone: Code(s): N20.0 - Calculus of kidney Category: Medical (3) COPD (chronic obstructive pulmonary disease): Code(s): J44.9 - Chronic obstructive pulmonary disease, unspecified Category: Medical Qualifiers: COPD type: unspecified COPD Qualified Code(s): J44.9 - Chronic obstructive pulmonary disease, unspecified (4) Diabetes mellitus: Code(s): E11.9 - Type 2 diabetes mellitus without complications Category: Medical Qualifiers: Diabetes mellitus type: type 2 Diabetes mellitus correction insulin use: without petroleum terminal plant operator use Diabetes mellitus complication status: without complication Qualified Code(s): E11.9 - Type 2 diabetes mellitus without complications (5) Essential hypertension: Code(s): I10 - Essential (primary) hypertension Category: Medical Plan - Urinary Tract Infection: Continue oral antibiotic therapy as previously prescribed. - Nephrolithiasis with Right Ureteral Obstruction: Refer to urology for further management given presence of calculus in the right ureter causing hydronephrosis. - Hypertension: Resume lisinopril with monitoring of blood pressure stability. - Gallstones and Hepatic Steatosis: Monitor; no current intervention unless symptomatic. - Chronic Conditions Management: Continue current medications including metformin, atorvastatin, and Trelegy for COPD. - Legal Blindness: Arrange support from a case briefer and discuss management of daily activities. Patient was informed and verbally consented to the use of an ambient scribe for clinic note documentation during this visit. I explained to the patient the presence of a right ureteral stone and its likely contribution to the symptoms of hydronephrosis and infection. Management includes continuation of antibiotics and referral to urology for evaluation and potential intervention. I advised the patient to adhere to the current regimen, including resuming previously held antihypertensive therapy. Discussions were made regarding the patient's visual impairment, and arrangements for support with daily living activities were highlighted. Routine follow-up for chronic conditions was recommended, along with monitoring for any progression of symptoms requiring urgent care. The importance of staying hydrated to aid in stone expulsion was emphasized. Orders: Orders Comprehensive Met. Panel Today N12 - Tubulo-interstitial nephritis, not specified as acute or chronic Referrals Urology Referral N20.0 - Calculus of kidney Patient Instructions: - Continue current antibiotics as prescribed until completion. - Resume lisinopril, monitoring blood pressure regularly. - Increase water intake to support kidney function and stone passage. - Schedule follow-up with the drug department worker on January 22. - Follow up with urologist as scheduled for right ureteral obstruction. - Contact assigned case briefer regarding visual impairment support. - Avoid eating hard foods to prevent dental issues. - Monitor for any new or worsening symptoms, and report to the clinic promptly.
[2024-01-21 16:42] VITALS: BP 120/86; BMI 30.6
== END 2024-01-21 17:08 | disposition home or self-care (01) ==
PROVIDERS: PCP Internal Medicine; Visit Provider Internal Medicine
DX: E11.9 Type 2 diabetes mellitus without complications (principal); N12 Tubulo-interstitial nephritis, not specified as acute or chronic; N20.0 Calculus of kidney; J44.9 Chronic obstructive pulmonary disease, unspecified; I10 Essential (primary) hypertension

== ENCOUNTER → 2024-01-21 16:31 | Outpatient (BNVA) | payer MEDICARE, MEDICAID, SELFPAY | PROVIDERS: PCP Internal Medicine; Visit Provider Internal Medicine | DX: N12 Tubulo-interstitial nephritis, not specified as acute or chronic (principal); N20.0 Calculus of kidney; J44.9 Chronic obstructive pulmonary disease, unspecified; E11.9 Type 2 diabetes mellitus without complications; I10 Essential (primary) hypertension | CPT/HCPCS: 99495 ==

== ENCOUNTER 2024-01-23 09:31 | Outpatient (AMB) | payer MEDICARE, MEDICAID, SELFPAY ==
--- NOTE | 2024-01-23 09:39 | HO.NEPHOV_ITS ---
Vital Signs 01/23/24 09:43 Height 5 ft 8 in Weight 204 lb 4 oz BMI 31.1 BP 120/60 Blood Pressure Location Rt brachial Position Sitting Pulse 79 Pulse Source Pulse Oximeter Pulse Oximetry (%) 95 Oxygen Delivery Method Room Air Intake Visit Reasons: Proteinuria-No Voicemail Assembler For Puller Over Hand Required: Yes Assembler For Puller Over Hand Language: Deputy Sheriff Generalist/Bailiff Services: Assembler For Puller Over Hand Offered & Declined Accompanied by: Significant Other Allergies levofloxacin [From LEVAQUIN] Allergy (Intermediate, Verified 01/23/24 09:43) HIVES Iodinated Contrast Media [IV CONTRAST] Adverse Reaction (Intermediate, Verified 01/23/24 09:43) HIVES HPI Comments Details: I had the pleasure of seeing Nasir who is a 78-year-old male presenting today for consultation for proteinuria. He recently had a creatinine level was elevated at 2.38 mg/dL which had settled down to baseline. He had a urinary tract infection @ that time. CT scan of the abdomen and pelvis revealed a 0.6 cm calculus in the right ureter causing hydronephrosis, along with a smaller 0.2 cm calculus in the right kidney. He was treated with IV fluids and ceftriaxone, and cessation of lisinopril due to low blood pressure & DELISA. 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 He has type 2 diabetes treated with metformin, and hyperlipidemia managed with atorvastatin. He has been having proteinuria for some time. He denies hypercalcemia, excess NSAID use, new bone or back pain or any new systemic complaints. He also has H/O vascular disease including TIA. [facility] Medical History (Updated 01/26/24 @ 12:53 by Christ Arthur MD) Sepsis Acute kidney failure History of TIA (transient ischemic attack) History of DVT (deep vein thrombosis) Grade II diastolic dysfunction Essential hypertension Dyslipidemia Diabetes mellitus COPD (chronic obstructive pulmonary disease) Gross hematuria Microalbuminuria BPH (benign prostatic hyperplasia) Chronic UTI (urinary tract infection) Chronic back pain Glaucoma Surgical History Status post mitral valve repair (~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 Son No problems noted. Daughter No problems noted. Daughter No problems noted. Daughter No problems noted. Social History Household Members: Significant Other Housing: House Are you a primary health care social worker to a significant other at home: No Do you presently have visiting nurse or other home services: No Alcohol intake: current Alcohol intake frequency: a few times a month Alcohol type: beer and wine Patient Tobacco Use Status: Former Tobacco user Years Smoked: 10 e-Cigarette/Vaping Use: Never Used Second Hand Smoke Exposure: No service: No Current occupational status: retired Cognitive needs: No Hearing needs: No Vision needs: Yes Review of Systems Const All systems reviewed & are unremarkable except as noted in HPI and below Physical Exam Vital Signs: Last Vital Signs Pulse 79 01/23/24 09:43 BP 120/60 01/23/24 09:43 Pulse Ox 95 01/23/24 09:43 Oxygen Delivery Method Room Air 01/23/24 09:43 BMI result Body Mass Index 31.1 Const General: comfortable and no acute distress Orientation/consciousness: patient oriented x3 HEENT Head: Yes normocephalic Mouth: Normal oral and palatal mucosa present Eyes EOM: EOMs intact bilaterally Neck Neck: Yes supple Resp Auscultation: clear to auscultation bilaterally Cardio Jugular venous distension: no JVD Rate: regular rate GI Palpation (GI): Soft to palpation Auscultation: normal bowel sounds General: Yes no CVA tenderness Back/Spine/Pelvis Back: no CVA tenderness Skin General skin exam: no rashes or lesions noted Neuro General: patient oriented x3 and moves all extremities Extrem General: Yes no pedal edema Results Reviewed Nephrology Results: Hgb 12.7 g/dl (14.0-18.0) L 01/16/24 WBC 9.0 X10*3/uL (4.8-10.8) 01/16/24 Plt Count 148 X10*3/uL (160-400) L 01/16/24 Sodium 144 mmol/L (135-145) 01/24/24 Potassium 3.8 mmol/L (3.3-5.1) 01/24/24 Chloride 108 mmol/L (96-108) 01/24/24 Carbon Dioxide 25 mmol/L (22-29) 01/24/24 BUN 11 mg/dL (9-16) 01/24/24 Creatinine 1.06 mg/dL (0.5-1.4) 01/24/24 Calcium 10.1 mg/dL (8.4-10.2) 01/24/24 Urine Protein 300 (3+) mg/dL (Neg-Trace) H 01/16/24 Assessment & Plan Assessment & Plan (1) Essential hypertension: Code(s): I10 - Essential (primary) hypertension Category: Medical (2) Kidney stone: Code(s): N20.0 - Calculus of kidney Category: Medical (3) Proteinuria: Code(s): R80.9 - Proteinuria, unspecified Category: Medical Qualifiers: Proteinuria type: other Qualified Code(s): R80.8 - Other proteinuria Plan Nasir has vascular disease as well as diabetes. 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 He had DELISA recently which has resolved. I have ordered further work up.He is on Diltiazem and ACEI. I plan to maximize ACEI if his serum creatinine, K and hemodynamics permit. He will need F/U USS for renal calculus. He may need a renal biopsy as well as addition of SGLT2i. All these have been explained to him in detail. Further management is pending evolving data Orders: Orders Protein Creatinine Ratio, Ur 2 Months I10 - Essential (primary) hypertension, N20.0 - Calculus of kidney, R80.9 - Proteinuria, unspecified Protein, 24 Hr Urine Group 2 Months I10 - Essential (primary) hypertension, N20.0 - Calculus of kidney, R80.9 - Proteinuria, unspecified Phospholipase A2 Receptor Pnl 2 Months I10 - Essential (primary) hypertension, N20.0 - Calculus of kidney, R80.9 - Proteinuria, unspecified Creatinine 2 Months I10 - Essential (primary) hypertension, N20.0 - Calculus of kidney, R80.9 - Proteinuria, unspecified Calcium 2 Months I10 - Essential (primary) hypertension, N20.0 - Calculus of kidney, R80.9 - Proteinuria, unspecified Immunofixation, Random Urine 2 Months I10 - Essential (primary) hypertension, N20.0 - Calculus of kidney, R80.9 - Proteinuria, unspecified Immunofixation Pnl, Serum 2 Months I10 - Essential (primary) hypertension, N20.0 - Calculus of kidney, R80.9 - Proteinuria, unspecified Myeloperoxidase Antibody 2 Months I10 - Essential (primary) hypertension, N20.0 - Calculus of kidney, R80.9 - Proteinuria, unspecified Proteinase 3 PR3 Antibodies 2 Months I10 - Essential (primary) hypertension, N20.0 - Calculus of kidney, R80.9 - Proteinuria, unspecified Anti DNA DS Antibody 2 Months I10 - Essential (primary) hypertension, N20.0 - Calculus of kidney, R80.9 - Proteinuria, unspecified Hepatitis B Core Antibody 2 Months I10 - Essential (primary) hypertension, N20 .0 - Calculus of kidney, R80.9 - Proteinuria, unspecified Hepatitis B Surface Antigen 2 Months I10 - Essential (primary) hypertension, N20.0 - Calculus of kidney, R80.9 - Proteinuria, unspecified Blood Urea Nitrogen 2 Months I10 - Essential (primary) hypertension, N20.0 - Calculus of kidney, R80.9 - Proteinuria, unspecified Electrolytes 2 Months I10 - Essential (primary) hypertension, N20.0 - Calculus of kidney, R80.9 - Proteinuria, unspecified Coding Level of Care Code New Pt Level 4 (11731) Diagnoses Essential hypertension I10 Kidney stone N20.0 Other proteinuria R80.8 Proteinuria type: other
[2024-01-23 09:43] VITALS: BP 120/60; PULSE 79; O2SAT 95; BMI 31.1
== END 2024-01-23 10:08 | disposition home or self-care (01) ==
PROVIDERS: PCP Internal Medicine; Referring Provider Internal Medicine; Visit Provider Internal Medicine Nephrology
DX: I10 Essential (primary) hypertension (principal); N20.0 Calculus of kidney; R80.8 Other proteinuria
CPT/HCPCS: 99204

== ENCOUNTER → 2024-01-23 09:31 | Outpatient (BNVA) | payer MEDICARE, MEDICAID, SELFPAY | PROVIDERS: PCP Internal Medicine; Referring Provider Internal Medicine; Visit Provider Internal Medicine Nephrology | DX: R80.8 Other proteinuria (principal); I10 Essential (primary) hypertension; N20.0 Calculus of kidney | CPT/HCPCS: 99202 ==

== ENCOUNTER 2024-01-24 10:55 | Outpatient (REF) | payer MEDICARE, MEDICAID, SELFPAY ==
[2024-01-24 12:23] LABS: Anion Gap 15 (12-20); Blood Urea Nitrogen 11 mg/dL (9-16); Calcium 10.1 mg/dL (8.4-10.2); Carbon Dioxide 25 mmol/L (22-29); Chloride 108 mmol/L (96-108); Estimated Glomerular Filt Rate > 60; Glucose Random 187 mg/dL (60-115); Potassium 3.8 mmol/L (3.3-5.1); Sodium 144 mmol/L (135-145)
== END 2024-01-24 10:56 | disposition home or self-care (01) ==
LOC: HO.LAB 10:55
PROVIDERS: PCP Internal Medicine; Visit Provider Family Medicine
DX: N17.9 Acute kidney failure, unspecified (principal)
CPT/HCPCS: 36415; 80048

== ENCOUNTER 2024-03-20 07:24 | Outpatient (REF) | payer MEDICARE, SELFPAY ==
[2024-03-20 09:45] LABS: Creatinine Urine 166.43 mg/dL; Protein/Creatinine Ratio, Ur 0.27 (<0.2); Total Protein Urine Random 45 mg/dL (<12)
[2024-03-20 11:17] LABS: HBc Num1 0.14 S/CO (0.00-0.79); HBsAGNum1 0.31 S/CO (0.00-0.99); Hepatitis B Core Antibody Nonreactive (Nonreactive); Hepatitis B Surface Antigen Negative (Negative)
[2024-03-20 12:42] LABS: Anion Gap 11 (12-20); Blood Urea Nitrogen 15 mg/dL (9-16); Calcium 9.8 mg/dL (8.4-10.2); Carbon Dioxide 23 mmol/L (22-29); Chloride 113 mmol/L (96-108); Estimated Glomerular Filt Rate > 60; Potassium 4.3 mmol/L (3.3-5.1); Sodium 143 mmol/L (135-145)
[2024-03-24 08:40] LABS: Anti DNA DS Antibody <1 IU/mL; Myeloperoxidase Antibody <1.0 AI; Proteinase 3 PR3 Antibodies <1.0 AI
[2024-03-25 01:43] LABS: Phospholipase A2 IgG ELISA <4 RU/mL; Phospholipase A2 IgG IFA NEGATIVE (NEGATIVE)
[2024-03-25 10:38] LABS: IgA 302 mg/dL (70-320); IgG 1688 mg/dL (600-1540); IgM 80 mg/dL (50-300)
== END 2024-03-20 07:25 | disposition home or self-care (01) ==
LOC: HO.LAB 07:24
PROVIDERS: PCP Internal Medicine; Visit Provider Internal Medicine Nephrology
DX: N20.0 Calculus of kidney (principal); I10 Essential (primary) hypertension; R80.9 Proteinuria, unspecified
CPT/HCPCS: 80051; 82310; 82565; 82570; 82784; 83520; 84156; 84520; 86021; 86225; 86255; 86334; 86335; 86704; 87340

== ENCOUNTER 2024-03-22 07:46 | Outpatient (REF) | payer MEDICARE, SELFPAY ==
--- OUTSIDE RECORDS SUMMARY | 2024-03-22 07:48 | XMS_ITS | Patient Health Record ---
[facility] [place] [address] 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 Name Role Phone Honey NUNN, Connie Primary Care Provider Unavail able Johnathan Saleh Unavailable [phone] Allergies Allergen (clinical drug ingredient) Drug/Non Drug Allergy documented on EMR Reaction Allergy Type Onset Date Status Contrast Dye (uncoded) Unknown Allergy Active Results Component Value Reference Range Notes HEMOGLOBIN A1C (GLYCOHEMOGLO BIN) Reviewed date:10/03/2023 10:56:47 AM Interpretation: Performing Lab: Notes/Report: HEMOGLOBIN A1C (HH) 5.6 Reason For Referral No Information Medications Medication SIG (Take, Route, Frequency, Duration) Notes Start Date End Date Status Trelegy Ellipta 200-62.5-25 MCG/ACT 1 puff Inhalation Once a day Active dilTIAZem HCl ER 180 MG 1 tablet Orally Once a day for 30 day(s) Active prednisoLONE Acetate 1 % 1 drop into aff ected eye Ophthalmic Twice a day Active Finasteride 5 MG 1 tablet Orally Once a day for 30 day(s) Active Lisinopril 20 MG 1 tablet Orally Once a day for 30 day(s) Active ProAir HFA Active Atorvastatin Calcium 40 MG 1 tablet Oral ly Once a day for 30 day(s) Active Rhopressa 0.02 % 1 drop into affected eye in the evening Ophthalmic Once a day Active Vitamin D Active Simbrinza 1-0.2 % 1 drop into affected eye Ophthalmic Three times a day Active Extra Depth Orthopedic Shoes, (1) Pair With (3) Pair Custom Heat Molded Multidensity Innersoles Dx: NIDDM/PVD(E11.51), Hammertoe Foot Deformity(M20.41,M20.42), Preulcerative Skin Lesion(s)(L85.1) Wear Daily for 365 days 10/03/2023 Active Prolensa 0.07 % 1 drop into affected eye Ophthalmic Once a day Active Ammonium Lactate 12 % 1 application Exte rnally to affected areas of dry skin to feet except for between the toes Twice a day for 30 days Active Terazosin HCl 5 MG 1 capsule at bedtime Orally Once a day for 30 day(s) Active Aspirin 81 MG 1 tablet Orally Once a day for 30 day(s) Active acetaZOLAMIDE ER 500 MG 1 capsule Orally Twice a day for 30 day(s) Active metFORMIN HCl 500 MG 1 tablet with a robbie l Orally Once a day for 30 day(s) Active Immunizations Vaccine Route Administration Date Status Comme nts Influenza Unknown 10/11/2022 Administered Social History Tobacco Use: Social History Observation Description Date Details (start date - stop date) Former Smoker NA - NA Tobacco Use/Smoking Question Answer Notes Are you a: former smoker Additional Findings: Tobacco Non-User Cu rrent non-smoker, but past smoking history unknown Alcohol Screen Question Answer Notes Did you have a drink containing alcohol in the p ast year? Yes Points 0 Interpretation Negative Tobacco use other than smoking: Question Answer Notes Are you an other tobacco user? No Problems Problem Type SNOMED Code ICD Code Onset Dates Problem Status W/U Status Risk Notes Problem Acquired hammer toe of right foot (7522908310535 105) Other hammer toe(s) (acquired), right foot (M20.41) Active confirmed Problem Acquired hammer toe of left foot (5772575869773 103) Other hammer toe(s) (acquired), left foot (M20.42) Active confirmed Problem Type 2 diabetes mellitus with peripheral angiopathy (845518251) Type 2 diabetes mellitus with diabetic peripheral angiopathy without gangrene (E11.51) Active confirmed Q7(A), Q8(2B), Q9(1B,2C) Vital Signs Blood pressure diastolic 85 mm Hg 01/02/2024 Height 5 ft 8 in in 01/02/2024 Blood pressure systolic 120 mm Hg 01/02/2024 Weight 184 lbs 01/02/2024 BMI 27.97 kg/m2 01/02/2024 Procedures Procedure Date Ordered Date Performed Result Body Sit e 29654-UMFDYEW NAIL, 1-5 10/03/2023 N/A 17598-VQNZ SKIN LESIONS, 2 TO 4 10/03/2023 N/A J9644-[id number] DYSTROPHIC NAILS ANY # 10/03/2023 N/A 90423-QAJBPFE NAIL, 1-5 01/02/2024 N/A 89635-YQFB SKIN LESIONS, 2 TO 4 01/02/2024 N/A U3757-NOVIVDCY DYSTROPHIC NAILS ANY # 01/02/2024 N/A Encounters Encounter Location Date Provider Diagnosis [address] [address] 10/03/2023 Johnathan Medleyunier Type 2 diabetes mellitus with diabetic peripheral angiopathy without gangrene E11.51 ; Tinea unguium B35.1 ; Pain in right toe(s) M79.674 ; Pain in left toe(s) M79.675 ; Other hammer toe(s) (acquired), right foot M20.41 and Other hammer toe(s) (acquired), left foot M20.42 [facility] [address] 01/02/2024 Johnathan Medleyunier Type 2 diabetes mellitus with diabetic peripheral angiopathy without gangrene E11.51 ; Tinea unguium B35.1 ; Pain in right toe(s) M79.674 ; Pain in left toe(s) M79.675 and Xerosis of skin L85.3 Assessments Encounter Date Diagnosis (ICD Code) Assessment Notes Treatment Notes Treatment Clinical Notes Section Notes 10/03/2023 Tinea unguium (ICD-10 - B35.1) 10/03/2023 Type 2 diabetes mellitus with diabetic peripheral angiopathy without gangrene (ICD-10 - E11.51) 01/02/2024 Tinea unguium (ICD-10 - B35.1) 01/02/2024 Type 2 diabetes mellitus with diabetic peripheral angiopathy without gangrene (ICD-10 - E11.51) Q7(A), Q8(2B), Q9(1B,2C) 10/03/2023 Pain in right toe(s) (ICD-10 - M79.674) 01/02/2024 Pain in right toe(s) (ICD-10 - M79.674) 01/02/2024 Pain in left toe(s) (ICD-10 - M79.675) 10/03/2023 Pain in left toe(s) (ICD-10 - M79.675) 10/03/2023 Other hammer toe(s) (acquired), right foot (ICD-10 - M20.41) Patient Educated with: DIABETIC FOOT CARE INSTRUCTIONS.p df (DIABETIC FOOT CARE INSTRUCTIONS.p df) 01/02/2024 Xerosis of skin (ICD-10 - L85.3) 10/03/2023 Other hammer toe(s) (acquired), left foot (ICD-10 - M20.42) Plan Of Treatment Pending Test Test Name Order Date 99922-DARXRKJ NAIL, 1-5 10/03/2023 95817-UOWVNMX NAIL, 1-5 01/02/2024 41789-TNZG SKIN LESIONS, 2 TO 4 10/03/19 24 09519-GQRX SKIN LESIONS, 2 TO 4 01/02/20 24 X9120-OZWRNUTI DYSTROPHIC NAILS ANY # B9215-XNVGMBAC DYSTROPHIC NAILS ANY # Next Appt Details Provider Name:Johnathan Carmen Saleh , 04/02/2024 12:45:00 PM, [address] [place] [address], [phone], Insurance Providers Payer Name Payer Address Payer Phone Subscriber Number Group Number Insured Name Patient Relationship to Insured Coverage Start Date Coverage End Date [employer] Medicare Adv-[id number] [address] [address] [place] [address] [id number] Nasir Ward Self - patient is the insured Medical (General) History Medical History History ICD Code Diabetic Hypertension Replacement Heart Valves Glaucoma COPD Surgical History Surgery Date(Month/Year) Heart Valve
--- OUTSIDE RECORDS SUMMARY | 2024-03-22 07:48 | XMS_ITS ---
Author Organization [facility] Address [address] [place] [address] Care Team Providers Care Quality Improvement Engineer Name Role Phone Honey NUNN, Connie Primary Care Provider Unavail able Johnathan Saleh Unavailable [phone] Allergies Allergen (clinical drug ingredient) Drug/Non Drug Allergy documented on EMR Reaction Allergy Type Onset Date Status Contrast Dye (uncoded) Unknown Allergy Active REASON FOR VISIT At Risk Footcare, Painful Nail(s) aggravated by shoes and causing difficulty standing/walking., Skin problem(s) Medications Medication SIG (Take, Route, Frequency, Duration) Notes Start Date End Date Status dilTIAZem HCl ER 180 MG 1 tablet Orally Once a day for 30 day(s) Active Lisinopril 20 MG 1 tablet Orally Once a day for 30 day(s) Active Atorvastatin Calcium 40 MG 1 tablet Oral ly Once a day for 30 day(s) Active Terazosin HCl 5 MG 1 capsule at bedtime Orally Once a day for 30 day(s) Active Aspirin 81 MG 1 tablet Orally Once a day for 30 day(s) Active Simbrinza 1-0.2 % 1 drop into affected eye Ophthalmic Three times a day Active Prolensa 0.07 % 1 drop into affected eye Ophthalmic Once a day Active Ammonium Lactate 12 % 1 application Exte rnally to affected areas of dry skin to feet except for between the toes Twice a day for 30 days Active acetaZOLAMIDE ER 500 MG 1 capsule Orally Twice a day for 30 day(s) Active metFORMIN HCl 500 MG 1 tablet with a robbie l Orally Once a day for 30 day(s) Active Trelegy Ellipta 200-62.5-25 MCG/ACT 1 puff Inhalation Once a day Active prednisoLONE Acetate 1 % 1 drop into aff ected eye Ophthalmic Twice a day Active ProAir HFA Active Rhopressa 0.02 % 1 drop into affected eye in the evening Ophthalmic Once a day Active Extra Depth Orthopedic Shoes, (1) Pair With (3) Pair Custom Heat Molded Multidensity Innersoles Dx: NIDDM/PVD(E11.51), Hammertoe Foot Deformity(M20.41,M20.42), Preulcerative Skin Lesion(s)(L85.1) Wear Daily for 365 days 10/03/2023 Active Finasteride 5 MG 1 tablet Orally Once a day for 30 day(s) Active Vitamin D Active Social History Tobacco Use: Social History Observation Description Date Details (start date - stop date) Former Smoker NA - NA Tobacco Use/Smoking Question Answer Notes Are you a: former smoker Additional Findings: Tobacco Non-User Cu rrent non-smoker, but past smoking history unknown Tobacco use other than smoking: Question Answer Notes Are you an other tobacco user? No Vital Signs Height 5 ft 8 in in 01/02/2024 Weight 184 lbs 01/02/2024 BMI 27.97 kg/m2 01/02/2024 Blood pressure systolic 120 mm Hg 01/02/20 24 Blood pressure diastolic 85 mm Hg 024 Procedures Procedure Date Ordered Date Performed Result Body Sit e 85704-WICWMTU NAIL, 1-5 01/02/2024 N/A 34704-KEJV SKIN LESIONS, 2 TO 4 01/02/2024 N/A I4801-TIOZOYHT DYSTROPHIC NAILS ANY # 01/02/2024 N/A Encounters Encounter Location Date Provider Diagnosis [facility] [address] [place] [address] 01/02/2024 Johnathan Saleh Type 2 diabetes mellitus with diabetic peripheral angiopathy without gangrene E11.51 ; Tinea unguium B35.1 ; Pain in right toe(s) M79.674 ; Pain in left toe(s) M79.675 and Xerosis of skin L85.3 Assessments Encounter Date Diagnosis (ICD Code) Assessment Notes Treatment Notes Treatment Clinical Notes Section Notes 01/02/2024 Type 2 diabetes mellitus with diabetic peripheral angiopathy without gangrene (ICD-10 - E11.51) Q7(A), Q8(2B), Q9(1B,2C) 01/02/2024 Tinea unguium (ICD-10 - B35.1) 01/02/2024 Pain in right toe(s) (ICD-10 - M79.674) 01/02/2024 Pain in left toe(s) (ICD-10 - M79.675) 01/02/2024 Xerosis of skin (ICD-10 - L85.3) Plan Of Treatment Medication Medication Name Sig Start Date Stop Date Notes Ammonium Lactate 12 % 1 application Exte rnally to affected areas of dry skin to feet except for between the toes Twice a day for 30 days Pending Test Test Name Order Date 26248-CJQHNPL NAIL, 1-5 01/02/2024 81888-TJUA SKIN LESIONS, 2 TO 4 01/02/20 24 K5769-QCWQNGLP DYSTROPHIC NAILS ANY # Next Appt Details Follow Up: 3 Months, Reason: Provider Name:Johnathan Saleh , 04/02/2024 12:45:00 PM, [address] [place] [address], [id number], Procedure Notes * Category Sub-Category Detail Notes Keratoma Treatment Parring or Cutting o f Benign Hyperkeratotic Lesion(s) (-56) 2-4 Lesions - The Benign hyperkeratotic lesions, ( 2) in total, locations as stated and described in exam, were pared, and/or cut utilizing a sterile 15 blade, tissue nippers, and/or power dremel instrumentation - 21148, Q8 Debride Nails 1-5 Procedure: Performance of this nail treatment by a nonprofessional would put this patients foot and overall health at risk. Therefore, debridement to affected nail(s), as described in exam, was performed extensively to reduce/remove overall nail length, girth, thickness, subungual debris, and necrotic tissue, by manual and/or electrical means through the use of a nail nipper and/or dremel-type chisel grinder, to a more viable healthy nail plate or bed tissue 5 nails or less in number. Silver nitrate was used for any petechial bleeding as necessary. Definitive antifungal treatment options, both pharmaceutical and surgical, have been reviewed and discussed with the patient. The patient solely prefers the use of intermittent/as needed professional debridement services for their nail condition and understands that additional periodic treatments may be required as necessary to maintain effective symptomatic relief - 49558 Nail Reduction Nail Reduction (-27) Trimming o f all dystrophic nails, locations as stated and described in exam, was performed to reduce/remove overall nail length and girth, by manual and electrical means with use of a nail nipper and/or dremel, to more viable healthy nail plate or bed tissue - G0127, Q8 Progress Notes * Cj THOMPSONoDOB:[birth year] (78 yo M)Acc No.[id number]:01/02/2024 Progress Note Patient:?Cj THOMPSON Provider:?Johnathan Saleh DPM :1945???Age:78 Y???Sex:Male Eric e:01/02/2024 Address:[address] [place], [place] [id number] Pcp:Connie Méndez MD Subjective: * Chief Complaints: * ???At Risk FootcarePainful N ail(s) aggravated by shoes and causing difficulty standing/walking.Skin problem(s) * HPI: ???At Risk footcare:?Pt States Last PCP Visit:?Date?07/30/2023 ???Skin problems:?Nature:?dryness , scaling.?Location:?B/L .?Duration:?several days.?Course:?worse.? * ROS:?General/Constitutional:?Nausea?denies, denies.?Vomiting?denies, denies.?Hunger Thirst?denies, denies.?Loss appetite?denies, denies.?Chills?denies, denies.?Fatigue?denies, denies.?Fever?denies, denies.?Night Sweats denies, denies.?Unexplained weight loss?denies, denies.?Unexplained weight gain?denies, denies.?HEENTM:?Dentures?denies.?Dizziness?denies, denies.?Glasses/contacts?denies, denies.?Retinopathy?denies, denies.?Blurred/double vision?admits, glaucoma.?TMJ?denies, denies.?Discharge/drainage?denies, denies. Implants?denies, denies.?Sore throat?denies, denies.?Dental implants?denies, denies.?Hard of hearing ?denies, denies.?Difficulty chewing/swallowing/speaking?denies, denies.?Nose bleeds?denies, denies.?Sore mouth?denies, denies.?Respiratory:?On Oxygen?denies, denies.?Pneumonia/pleurisy?denies, denies.?Bronchitis?denies, denies.?Emphysema?denies, denies.?Coughing?denies, denies.?Cough blood?denies, denies.?Shortness of breath?denies, denies.?Wheezing?admits.?Cardiovascular:?Pacemaker?denies, denies.?MVP?denies, denies.?WPW?denies, denies.?CHF?denies, denies.?Heart attack?denies, denies.?Septal defect?denies, denies.?Rapid beat?denies, denies.?Chest pain ?denies, denies.?Atrial Fib.?denies, denies.?Murmur/Palpitations?denies, denies.?Gastrointestinal:?Hemorrhoids?denies, denies.?Stomach/Abdominal pain?denies, denies.?Dark blood stool?denies, denies.?Irritable bowel ?denies, denies.?Constipation?denies, denies.?Diarrhea?denies, denies.?Hematology:?Swelling?denies, denies.?Clots?denies, denies.?Varicose Veins?denies, denies.?Bruising?admits, on aspirin.?Bleeding problem?admits, on anticoagulants.?Genitourinary:?Blood urine?denies, denies.?Frequent/Painfu/urination/bladder control?denies, denies.?Kidney stones?denies, denies.?Infection (UTI)?denies, denies.?Nephropathy?denies, denies.?sex trans dis (STD)?denies, denies.?Prostate?denies, denies.?Musculoskeletal:?Hammertoes?denies, denies.?Bunions?denies, denies.?Back Pain?denies, denies.?Muscle Cramps/ Resting?denies, denies.?Muscle cramps / walking?denies, denies.?Generalized aches and pains?denies, denies.?Weakness?denies, denies.?Integ.:?Rodriguez?denies, denies.?Scars?denies, denies.?Corns/calluses?admits.?Ingrown nails?admits.?Painful nails?admits.?Open Sores?denies, denies.?Rashes?denies, denies.?Neurologic:?Difficulty sleeping?denies, denies.?Brain disorder?denies, denies.?Numbness?denies, denies.?Balance trouble?denies, denies.?Confusion?denies, denies.?Fainting/blackouts?denies, denies.?Tingling?denies, denies.?Tremors?denies, denies.? * Medical History:? * Surgical History:?Heart Valv e * Hospitalization/Major Diagno stic Procedure:?Denies Past Hospitalization * Family History:?Mother: dece ased.?Father: .? Family history is unknown. * Social History:?Tobacco Use:?Tobacco Use/Smoking?Are you a:?former smoker ?Additional Findings: Tobacco Non-User?Current non-smoker, but past smoking history unknown ?Tobacco use other than smoking?Are you an other tobacco user??No ???Miscellaneous:?Caffeine: yes, frequency:. ?Children: yes. ?Exercise: no. ?Marital status: single. ?Occupation: Unemployed. * Medications:?TakingProAir HF A Trelegy Ellipta 200-62.5-25 MCG/ACT Aerosol Powder Breath Activated 1 puff Inhalation Once a day prednisoLONE Acetate 1 % Suspension 1 drop into affected eye Ophthalmic Twice a day Rhopressa 0.02 % Solution 1 drop into affected eye in the evening Ophthalmic Once a day Simbrinza 1-0.2 % Suspension 1 drop into affected eye Ophthalmic Three times a day Prolensa 0.07 % Solution 1 drop into affected eye Ophthalmic Once a day acetaZOLAMIDE ER 500 MG Capsule Extended Release 12 Hour 1 capsule Orally Twice a day metFORMIN HCl 500 MG Tablet 1 tablet with a meal Orally Once a day Terazosin HCl 5 MG Capsule 1 capsule at bedtime Orally Once a day Aspirin 81 MG Tablet Chewable 1 tablet Orally Once a day Lisinopril 20 MG Tablet 1 tablet Orally Once a day Atorvastatin Calcium 40 MG Tablet 1 tablet Orally Once a day dilTIAZem HCl ER 180 MG Tablet Extended Release 24 Hour 1 tablet Orally Once a day Finasteride 5 MG Tablet 1 tablet Orally Once a day Vitamin D Extra Depth Orthopedic Shoes, (1) Pair With (3) Pair Custom Heat Molded Multidensity Innersoles . Dx: NIDDM/PVD(E11.51), Hammertoe Foot Deformity(M20.41,M20.42), Preulcerative Skin Lesion(s)(L85.1) Wear Daily Medication List reviewed and reconciled with the patientTaking ProAir HFA Taking Trelegy Ellipta 200-62.5-25 MCG/ACT Aerosol Powder Breath Activated 1 puff Inhalation Once a day Taking prednisoLONE Acetate 1 % Suspension 1 drop into affected eye Ophthalmic Twice a day Taking Rhopressa 0.02 % Solution 1 drop into affected eye in the evening Ophthalmic Once a day Taking Simbrinza 1-0.2 % Suspension 1 drop into affected eye Ophthalmic Three times a day Taking Prolensa 0.07 % Solution 1 drop into affected eye Ophthalmic Once a day Taking acetaZOLAMIDE ER 500 MG Capsule Extended Release 12 Hour 1 capsule Orally Twice a day Taking metFORMIN HCl 500 MG Tablet 1 tablet with a meal Orally Once a day Taking Terazosin HCl 5 MG Capsule 1 capsule at bedtime Orally Once a day Taking Aspirin 81 MG Tablet Chewable 1 tablet Orally Once a day Taking Lisinopril 20 MG Tablet 1 tablet Orally Once a day Taking Atorvastatin Calcium 40 MG Tablet 1 tablet Orally Once a day Taking dilTIAZem HCl ER 180 MG Tablet Extended Release 24 Hour 1 tablet Orally Once a day Taking Finasteride 5 MG Tablet 1 tablet Orally Once a day Taking Vitamin D Taking Extra Depth Orthopedic Shoes, (1) Pair With (3) Pair Custom Heat Molded Multidensity Innersoles . Dx: NIDDM/PVD(E11.51), Hammertoe Foot Deformity(M20.41,M20.42), Preulcerative Skin Lesion(s)(L85.1) Wear Daily Medication List reviewed and reconciled with the patient * Allergies:?Contrast Dyeyes[A llergies Verified] Objective: * Vitals:?Ht: 5 ft 8 in, Wt:18 4, BMI: 27.97, Shoe size:9, BP:120/85mm Hg, Ht-cm: 172.72 cm, Wt-k.46 kg. * Examination: ???Vascular: ?DP PULSES(B):?0/4 , LEFT , 1/4 , RIGHT.?PT PULSES(B):? 0/4, B/L.?CAPILLARY FILL TIME:? delayed, all digits, B/L.?TROPHIC CONDITION-TEXTURE/ELASTICITY/TURGOR/HAIR GROWTH(B):? decreased, B/L.?TEMPERTURE GRADIENT(C):? decreased, cool to cool, proximal to distal, B/L.?PIGMENTATION:?mottled, B/L.?EDEMA(C):?absent, B/L.?CLAUDICATION(C):?denies, B/L.?REST PAIN:?denies, B/L.?Nails: ?NAILS are:?Elongated, overgrown, dystrophic, lytic, greater than 3mm thick, discolored and friable with crumbly malodorous subungual debris, with pain on palpation , TA , T5, all other nails not described with characteristics as possessing mycosis are elongated, overgrown, and dystrophic.?Dermatologic: ?SKIN FINDINGS:?Skin exam reveals Keratotic lesion(s) located at , Plantar, Heel(s) , B/L , Skin shows sign(s) of, dryness, scaling, in a stocking fashion, no fissure(s) present, B/L.? Assessment: * Assessment: 1.?Tinea unguium - B35.1???2 .?Type 2 diabetes mellitus with diabetic peripheral angiopathy without gangrene - E11.51 (Primary)???Notes :Q7(A), Q8(2B), Q9(1B,2C)???3.?Pain in right toe(s) - M79.674???4.?Pain in left toe(s) - M79.675???5.?Xerosis of skin - L85.3???Specify :Acute problem, Uncomplicated (3),Rx Management (4)??? Plan: * Treatment: 2.?Tinea unguium?Procedure: 45501-JLAAQWE NAIL, 1-5 3.?Xerosis of skin? Start Ammonium Lactate Cream, 12 %, 1 application, Externally to affected areas of dry skin to feet except for between the toes, Twice a day, 30 days, 140, Refills 2.?? * Procedures:?Debride Nails 1-5:?Procedure:?Performance of this nail treatment by a nonprofessional would put this patients foot and overall health at risk. Therefore, debridement to affected nail(s), as described in exam, was performed extensively to reduce/remove overall nail length, girth, thickness, subungual debris, and necrotic tissue, by manual and/or electrical means through the use of a nail nipper and/or dremel-type chisel grinder, to a more viable healthy nail plate or bed tissue 5 nails or less in number. Silver nitrate was used for any petechial bleeding as necessary. Definitive antifungal treatment options, both pharmaceutical and surgical, have been reviewed and discussed with the patient. The patient solely prefers the use of intermittent/as needed professional debridement services for their nail condition and understands that additional periodic treatments may be required as necessary to maintain effective symptomatic relief - 09055.?Keratoma Treatment:?Parring or Cutting of Benign Hyperkeratotic Lesion(s)?(-56) 2-4 Lesions - The Benign hyperkeratotic lesions, ( 2) in total, locations as stated and described in exam, were pared, and/or cut utilizing a sterile 15 blade, tissue nippers, and/or power dremel instrumentation - 48590, Q8.?Nail Reduction:?Nail Reduction?(-27) Trimming of all dystrophic nails, locations as stated and described in exam, was performed to reduce/remove overall nail length and girth, by manual and electrical means with use of a nail nipper and/or dremel, to more viable healthy nail plate or bed tissue - G0127, Q8.? * Procedure Codes:?G0127 TALI ING DYSTROPHIC NAILS ANY #, Modifiers: XS , [id number] DEBRIDE NAIL, 1-5, Modifiers: XS 01765 TRIM SKIN LESIONS, 2 TO 4, Modifiers: XS , Q8 * Preventive Medicine:? ??Counseling:?Discussion:?-13: Office or other outpatient visit for the evaluation and management of an established patient, which required a medically appropriate history and/or examination and LOW level of DECISION MAKING for: 1 STABLE ACUTE UNCOMPLICATED PROBLEM, 2 OR MORE MINOR PROBLEMS, OR 1 STABLE CHRONIC PROBLEM, THAT POSE(S) A LOW RISK FOR MORBIDITY/MORTALITY. The visit on the day of the encounter encompassed interpreting the data and educating the patient as to the nature of their condition, treatment options available according to their individual PMH, meds, allergies, and overall health/living conditions, as well as any potential risks or complications that may occur from a failure to adhere to, and participate in, the recommended course of therapy. The discussion included a complete verbal, and/or written explanation of the examination results, any x-rays taken, the proposed diagnosis, and outline of the treatment plan. A schedule for future care needs was also explained. The patient verbalized an understanding of the instructions at this time and agreed to be an active participant in their treatment. If the patient should think of any questions or concerns after the visit, I have encouraged the patient to call the office.?Xerosis:?The patient was counseled on the diagnosis, potential etiologies, and treatment options for their skin condition. We discussed the risks and benefits of each option from performing no treatment, to utilizing OTC topical skin creams/ointments, to utilizing prescription topical creams/ointments, to utilizing customized compounded topical medications and use of nocturnal occlusion with any/all previously detailed therapies. We discussed the advantages and disadvantages of each possible treatment and importance for adherence to all the recommended therapies for optimum success and avoid potential complications such as open sore/infection/possible hospitalization. We discussed the potential effectiveness of each topical preparation as well as each ones possible side effects and/or patient medication interactions. Patient questions re: use, dosage, successful outcomes, and application consistency were reviewed and the patient verbalized that all answers were clearly understood. The patient has decided to apply Rx skin creams to their feet save the interspaces while paying special attention to the heels. Such was sent to their pharmacy at the time of visit.? * Follow Up:?3 Months * Images: * Sign off status: Completed true * Provider:?Johnathan Saleh DPM Date:?2023 Generated for Terrence ortez/Gilda/Alejandro on:?03/22/2024 07:48 AM EST History and Physical Notes * HPI (History of Present Illness) Category Sub-Category Detail Notes Category Not es Skin problems Nature: dryness , scaling Location: B/L Duration: several days Course: worse At Risk footcare Pt States Last PCP Visit: Date: 4 Examination Category Sub-Category Detail Notes Category Not es Dermatologic SKIN FINDINGS: Skin exam reveal s Keratotic lesion(s) located at , Plantar, Heel(s) , B/L , Skin shows sign(s) of, dryness, scaling, in a stocking fashion, no fissure(s) present, B/L Vascular DP PULSES (B): 0/4 , LEFT , 1/4 , RIGHT PT PULSES (B): 0/4, B/L CAPILLARY FILL TIME: delayed, all digits , B/L TEMPERTURE GRADIENT (C): decreased, cool to cool, proximal to distal, B/L TROPHIC CONDITION-TEXTURE/ELASTICITY/TURGOR/HAIR GROWTH (B): decreased, B/L EDEMA (C): absent, B/L CLAUDICATION (C): denies, B/L REST PAIN: denies, B/L PIGMENTATION: mottled, B/L Nails NAILS are: Elongated, overg rown, dystrophic, lytic, greater than 3mm thick, discolored and friable with crumbly malodorous subungual debris, with pain on palpation , TA , T5, all other nails not described with characteristics as possessing mycosis are elongated, overgrown, and dystrophic
--- OUTSIDE RECORDS SUMMARY | 2024-03-22 07:48 | XMS_ITS ---
Author Organization [facility] Address [address] [place] [address] Care Team Providers Care Traffic Court Magistrate Name Role Phone Honey NUNN, Connie Primary Care Provider Unavail able Johnathan Saleh Unavailable [phone] Allergies Allergen (clinical drug ingredient) Drug/Non Drug Allergy documented on EMR Reaction Allergy Type Onset Date Status Contrast Dye (uncoded) Unknown Allergy Active REASON FOR VISIT At Risk Footcare, Painful Nail(s) aggravated by shoes and causing difficulty standing/walking., ToeIrritation Medications Medication SIG (Take, Route, Frequency, Duration) Notes Start Date End Date Status Prolensa 0.07 % 1 drop into affected eye Ophthalmic Once a day Active Simbrinza 1-0.2 % 1 drop into affected eye Ophthalmic Three times a day Active Rhopressa 0.02 % 1 drop into affected eye in the evening Ophthalmic Once a day Active prednisoLONE Acetate 1 % 1 drop into aff ected eye Ophthalmic Twice a day Active Trelegy Ellipta 200-62.5-25 MCG/ACT 1 puff Inhalation Once a day Active Vitamin D Active ProAir HFA Active Extra Depth Orthopedic Shoes, (1) Pair With (3) Pair Custom Heat Molded Multidensity Innersoles Dx: NIDDM/PVD(E11.51), Hammertoe Foot Deformity(M20.41,M20.42), Preulcerative Skin Lesion(s)(L85.1) Wear Daily for 365 days 10/03/2023 Active Finasteride 5 MG 1 tablet Orally Once a day for 30 day(s) Active dilTIAZem HCl ER 180 MG 1 tablet Orally Once a day for 30 day(s) Active Terazosin HCl 5 MG 1 capsule at bedtime Orally Once a day for 30 day(s) Active metFORMIN [...] Twice a day for 30 day(s) Active Social History Tobacco Use: Social History [...] Problem Status W/U Status Risk Notes Problem Type 2 diabetes mellitus with peripheral angiopathy (542895102) Type 2 diabetes mellitus with diabetic peripheral angiopathy without gangrene (E11.51) Active confirmed Q7(A), Q8(2B), Q9(1B,2C) Problem Acquired hammer toe of right foot (1320110645978 105) Other hammer toe(s) (acquired), right foot (M20.41) Active confirmed Problem Acquired hammer toe of left foot (1097768244778 103) Other hammer toe(s) (acquired), left foot (M20.42) Active confirmed Vital Signs Height 5 ft 8 in in 10/03/2023 Weight 184 lbs 10/03/2023 BMI 27.97 kg/m2 10/03/2023 Blood pressure systolic 120 mm Hg 10/03/19 24 Blood pressure diastolic 85 mm Hg 024 Procedures Procedure Date Ordered Date Performed Result Body Sit e 79621-WEIYOFX NAIL, 1-5 10/03/2023 N/A 37143-AKOM SKIN LESIONS, 2 TO 4 10/03/2023 N/A T7655-BJKTCLDF DYSTROPHIC NAILS ANY # 10/03/2023 N/A Encounters Encounter Location Date Provider Diagnosis [facility] [address] [place] [address] 10/03/2023 Johnathan Saleh Type 2 diabetes mellitus with diabetic peripheral angiopathy without gangrene E11.51 ; Tinea unguium B35.1 ; Pain in right toe(s) M79.674 ; Pain in left toe(s) M79.675 ; Other hammer toe(s) (acquired), right foot M20.41 and Other hammer toe(s) (acquired), left foot M20.42 Assessments Encounter Date Diagnosis (ICD Code) Assessment Notes Treatment Notes Treatment Clinical Notes Section Notes 10/03/2023 Type 2 diabetes mellitus with diabetic peripheral angiopathy without gangrene (ICD-10 - E11.51) 10/03/2023 Tinea unguium (ICD-10 - B35.1) 10/03/2023 Pain in right toe(s) (ICD-10 - M79.674) 10/03/2023 Pain in left toe(s) (ICD-10 - M79.675) 10/03/2023 Other hammer toe(s) (acquired), right foot (ICD-10 - M20.41) Patient Educated with: DIABETIC FOOT CARE INSTRUCTIONS.p df (DIABETIC FOOT CARE INSTRUCTIONS.p df) 10/03/2023 Other hammer toe(s) (acquired), left foot (ICD-10 - M20.42) Plan Of Treatment Medication Medication Name Sig Start Date Stop Date Notes Extra Depth Orthopedic Shoes , (1) Pair With (3) Pair Custom Heat Molded Multidensity Innersoles Dx: NIDDM/PVD(E11.51), Hammertoe Foot Deformity(M20.41,M20.42), Preulcerative Skin Lesion(s)(L85.1) Wear Daily for 365 days 10/03/2023 Treatment Notes Assessment Notes Other hammer toe(s) (acquired), right fo ot Patient Educated with: DIABETIC FOOT CARE INSTRUCTIONS.pdf (DIABETIC FOOT CARE INSTRUCTIONS.pdf) Pending Test Test Name Order Date 28460-ADWEEQI NAIL, 1-5 10/03/2023 22281-UKKW SKIN LESIONS, 2 TO 4 10/03/19 24 D8890-NSTQXYPM DYSTROPHIC NAILS ANY # 08 / Next Appt Details Follow Up: prn, Reason: Provider Name:Johnathan Saleh , 04/02/2024 12:45:00 PM, [address] [place], [address], Procedure Notes * Category Sub-Category Detail Notes Keratoma Treatment Parring or Cutting o f Benign Hyperkeratotic Lesion(s) 52893 ( 2-4 Lesions ) - The Benign hyperkeratotic lesions, as described above were pared, and/or cut utilizing a sterile 15 blade, tissue nippers, and/or dremel , Q8 Debride Nails 1-5 Procedure: Performance of this nail treatment by a nonprofessional would put this patients foot and overall health at risk. Therefore, nail debridement was performed extensively to reduce/remove overall nail length, girth, thickness, subungual debris, and necrotic tissue, by manual and/or electrical means through the use of a nail nipper and/or dremel-type rotary surface grinder, to a more viable healthy nail plate or bed tissue 1-5. Silver nitrate used for any petechial bleeding as necessary. Definitive antifungal treatment options have been reviewed and discussed with the patient. The patient chooses, no pharmaceutical tx (34312) Nail Reduction Nail Reduction Trimming of dyst rophic nails performed to reduce/remove overall nail length and girth, by manual and electrical means with use of a nail nipper and/or dremel, to more viable healthy nail plate or bed tissue, any number (G0127), Q8 Progress Notes * Cj THOMPSONoDOB:[birth year] (78 yo M)Acc No.[id number]:10/03/2023 Progress Notes Patient:?Cj Thompson Provider:?oJhnathan Saleh DPM :1945???Age:78 Y???Sex:Male Eric e:10/03/2023 Address:[address] [place], [place] [id number] Pcp:Connie Méndez MD Subjective: * Chief Complaints: * ???At Risk FootcarePainful N ail(s) aggravated by shoes and causing difficulty standing/walking.Toe Irritation * HPI: ???At Risk footcare:?Pt States Last PCP Visit:?Date?07/30/2023 ???Toe pain:?Location:?B/L feet.?Duration:?several years.?Course:?worse.?Aggravated by:?shoes, any pressure.?Treatments:?change in shoes.? * ROS:?General/Constitutional:?Nausea?denies, denies.?Vomiting?denies, denies.?Hunger Thirst?denies, denies.?Loss appetite?denies, denies.?Chills?denies, denies.?Fatigue?denies, denies.?Fever?denies, denies.?Night Sweats denies, denies.?Unexplained weight loss?denies, denies.?Unexplained weight gain?denies, denies.?HEENTM:?Dentures?denies.?Dizziness?denies, denies.?Glasses/contacts?denies, denies.?Retinopathy?denies, denies.?Blurred/double vision?admits, glaucoma.?TMJ?denies, denies.?Discharge/drainage?denies, denies. Implants?denies, denies.?Sore throat?denies, denies.?Dental implants?denies, denies.?Hard of hearing ?denies, denies.?Difficulty chewing/swallowing/speaking?denies, denies.?Nose bleeds?denies, denies.?Sore mouth?denies, denies.?Respiratory:?On Oxygen?denies, denies.?Pneumonia/pleurisy?denies, denies.?Bronchitis?denies, denies.?Emphysema?denies, denies.?Coughing?denies, denies.?Cough blood?denies, denies.?Shortness of breath?denies, denies.?Wheezing?admits, denies.?Cardiovascular:?Pacemaker?denies, denies.?MVP?denies, denies.?WPW?denies, denies.?CHF?denies, denies.?Heart attack?denies, denies.?Septal defect?denies, [...] than smoking?Are you an other tobacco user??No ???Drugs/Alcohol:?Drugs?Have you used drugs other than those for medical reasons in the past 12 months??No ?Alcohol Screen?Did you have a drink containing alcohol in the past year??Yes ?Points?0 ?Interpretation?Negative ???Miscellaneous:?Caffeine: yes, frequency:. ?Children: yes. ?no Exercise. ?Marital status: single. ?Occupation: Unemployed. * Medications:?TakingProAir HF A Trelegy Ellipta 200-62.5-25 MCG/ACT Aerosol Powder Breath Activated 1 puff Inhalation Once a dayprednisoLONE Acetate 1 % Suspension 1 drop into affected eye Ophthalmic Twice a dayRhopressa 0.02 % Solution 1 drop into affected eye in the evening Ophthalmic Once a daySimbrinza 1-0.2 % Suspension 1 drop into affected eye Ophthalmic Three times a dayProlensa 0.07 % Solution 1 drop into affected eye Ophthalmic Once a dayacetaZOLAMIDE ER 500 MG Capsule Extended Release 12 Hour 1 capsule Orally Twice a daymetFORMIN HCl 500 MG Tablet 1 tablet with a meal Orally Once a dayTerazosin HCl 5 MG Capsule 1 capsule at bedtime Orally Once a dayAspirin 81 MG Tablet Chewable 1 tablet Orally Once a dayLisinopril 20 MG Tablet 1 tablet Orally Once a dayAtorvastatin Calcium 40 MG Tablet 1 tablet Orally Once a daydilTIAZem HCl ER 180 MG Tablet Extended Release 24 Hour 1 tablet Orally Once a dayFinasteride 5 MG Tablet 1 tablet Orally Once a dayVitamin D Medication List reviewed and reconciled with the patientTaking ProAir HFA Taking Trelegy Ellipta 200-62.5-25 MCG/ACT Aerosol Powder Breath Activated 1 puff Inhalation Once a dayTaking prednisoLONE Acetate 1 % Suspension 1 drop into affected eye Ophthalmic Twice a dayTaking Rhopressa 0.02 % Solution 1 drop into affected eye in the evening Ophthalmic Once a dayTaking Simbrinza 1-0.2 % Suspension 1 drop into affected eye Ophthalmic Three times a dayTaking Prolensa 0.07 % Solution 1 drop into affected eye Ophthalmic Once a dayTaking acetaZOLAMIDE ER 500 MG Capsule Extended Release 12 Hour 1 capsule Orally Twice a dayTaking metFORMIN HCl 500 MG Tablet 1 tablet with a meal Orally Once a dayTaking Terazosin HCl 5 MG Capsule 1 capsule at bedtime Orally Once a dayTaking Aspirin 81 MG Tablet Chewable 1 tablet Orally Once a dayTaking Lisinopril 20 MG Tablet 1 tablet Orally Once a dayTaking Atorvastatin Calcium 40 MG Tablet 1 tablet Orally Once a dayTaking dilTIAZem HCl ER 180 MG Tablet Extended Release 24 Hour 1 tablet Orally Once a dayTaking Finasteride 5 MG Tablet 1 tablet Orally Once a dayTaking Vitamin D Medication List reviewed and reconciled with the patient * Allergies:?Contrast Dyeyes[A llergies Verified] Objective: * Vitals:?Ht: 5 ft 8 in, Wt: 1 84, BMI: 27.97, Shoe size: 9, BP: 120/85 mm Hg, BS: not taken, Ht-cm: 172.72 cm, Wt-k.46 kg. * ???Past Orders: ???Lab:HEMOGLOBIN A1C (GLYCO HEMOGLOBIN) (Order Date - 07/12/2023) (Collection Date - 07/12/2023) ? Value Reference Range ?HEMOGLOBIN A1C (HH) 5.6 * Examination: ???Vascular: ?DP PULSES:?0/4 , LEFT , 1/4 , RIGHT.?PT PULSES:? 0/4, B/L.?CAPILLARY FILL TIME:? delayed, all digits, B/L.?SKIN TEMPERTURE GRADIENT OF THE LOWER EXTERMITIES:? decreased, cool to cool, proximal to distal, B/L.?HAIR GROWTH/TEXTURE/ELASTICITY/TURGOR:? decreased, B/L.?PIGMENTATION:?mottled, B/L.?EDEMA:?absent, B/L.?CLAUDICATION:?denies, B/L.?REST PAIN:?denies, B/L.?Nails: ?NAILS are:?Elongated, overgrown, dystrophic, lytic, greater than 3mm thick, discolored and friable with crumbly malodorous subungual debris, with pain on palpation , TA , T5 , remaining nails are elongated, overgrown, dystrophic , Bassem-horn appearance noted, TA.?Dermatologic: ?SKIN FINDINGS:?Skin exam reveals Keratotic lesion(s) located at , Heel(s) , B/L.?Orthopedic: ?MUSCLE STRENGTH:?5/5 all groups in a symmetrical fashion, B/L.?FOOT MORPHOLOGY:?(-) Charcot collapse/destruction noted at MTJ.?DIGITAL DEFORMITIES:?Digital contracture, PIPJ, 2-5 B/L, incompl-reducible to push-up test, no over, nor underlapping,?there is?evidence of shoe producing skin irritation.?FOOTWEAR:?worn, non-supportive, shoe gear properties exacerbate patient's foot/toe deformity.?Neurological: ?SENSORY:?Neurological exam reveals intact sensorium, pain sensation normal, vibration sensation intact, pinprick sensation is normal in the lower extremities, Pt denies, anesthesia, burning, paresthesia, tingling, B/L.?Ophthalmology Referral: ?DIABETES EYE EXAM?General Examination: ?GENERAL APPEARANCE:?Reveals a pleasant, alert, well nourished, well- developed, well hydrated individual, who demonstrates proper attention to hygiene/body habitus, and is in no acute distress, Pt serves as own historian for office visit today , Pt accompanied by , , and/who is physically present in exam room at time of visit.?ORIENTED:?person, place, and time.?FOOT EXAM:?Footwear Evaluation? Assessment: * Assessment: 1.?Tinea unguium - B35.1?2.? Type 2 diabetes mellitus with diabetic peripheral angiopathy without gangrene - E11.51?3.?Pain in right toe(s) - M79.674?4.?Pain in left toe(s) - M79.675?5.?Other hammer toe(s) (acquired), right foot - M20.41, Chronic problem, Worse (4),Rx Management (4)?6.?Other hammer toe(s) (acquired), left foot - M20.42, Chronic problem, Worse (4),Rx Management (4)? Plan: * Treatment: 2.?Type 2 diabetes mellitus with diabetic peripheral angiopathy without gangrene?Procedure: 70222-CSAU SKIN LESIONS, 2 TO 4 ?Procedure: D2143-DSSODMJX DYSTROPHIC NAILS ANY # 3.?Other hammer toe(s) (acqu ired), right foot? Start Extra Depth Orthopedic Shoes, (1) Pair ., With (3) Pair Custom Heat Molded Multidensity Innersoles, Dx: NIDDM/PVD(E11.51), Hammertoe Foot Deformity(M20.41,M20.42), Preulcerative Skin Lesion(s)(L85.1), Wear, Daily, 365 days, 2, Refills 0.?? Notes: Patient Educated with: DIABETIC FOOT CARE INSTRUCTIONS.pdf (DIABETIC FOOT CARE INSTRUCTIONS.pdf)?? * Procedures:?Debride Nails 1-5:?Procedure:?Performance of this nail treatment by a nonprofessional would put this patients foot and overall health at risk. Therefore, nail debridement was performed extensively to reduce/remove overall nail length, girth, thickness, subungual debris, and necrotic tissue, by manual and/or electrical means through the use of a nail nipper and/or dremel-type rotary surface grinder, to a more viable healthy nail plate or bed tissue 1-5. Silver nitrate used for any petechial bleeding as necessary. Definitive antifungal treatment options have been reviewed and discussed with the patient. The patient chooses, no pharmaceutical tx (38618).?Keratoma Treatment:?Parring or Cutting of Benign Hyperkeratotic Lesion(s)?34367 ( 2-4 Lesions ) - The Benign hyperkeratotic lesions, as described above were pared, and/or cut utilizing a sterile 15 blade, tissue nippers, and/or dremel , Q8.?Nail Reduction:?Nail Reduction?Trimming of dystrophic nails performed to reduce/remove overall nail length and girth, by manual and electrical means with use of a nail nipper and/or dremel, to more viable healthy nail plate or bed tissue, any number?(G0127), Q8.? * Procedure Codes:?G0127 TALI ING DYSTROPHIC NAILS ANY #, Modifiers: XS , [id number] DEBRIDE NAIL, 1-5, Modifiers: XS 64881 TRIM SKIN LESIONS, 2 TO 4, Modifiers: XS , Q8 * Preventive Medicine:? ??Counseling:?Discussion:?-04: Office or other outpatient visit for the evaluation and management of a new patient, which required a medically appropriate history and/or examination and MODERATE level of DECISION MAKING for: 1 OR MORE CHRONIC PROBLEM(S) THATS WORSENING, 2 STABLE CHRONIC PROBLEMS, A NEWLY DIAGNOSED PROBLEM WITH UNCERTAIN PROGNOSIS, AN ACUTE COMPLICATED INJURY WITH MULTIPLE TREATMENT OPTIONS, OR AN ACUTE PROBLEM WITH ACCOMPANYING SYSTEMIC SYMPTOMS, THAT POSE(S) A MODERATE RISK OF MORBIDITY. THIS CONDITION MAY ALSO INCLUDE RX DRUG MANAGEMENT, OR A DECISON FOR MINOR SURGERY. The visit on the day of the [...] have encouraged the patient to call the office.?Digital Surgery:?Digital surgery was discussed with the patient, We elected to try conservative treatment at the present time, due to the patients medical history and increased asssociated post-operative risks.?Digital Treatment:?HT- I explained to the patient the possible etiologies of Hammertoes, including genetics/foot type/shoegear/activity level/exercise routine and the risks/benefits of all the different treatment options for their pain including: No treatment at all, Rest, Ice, New/supportive/wider/deeper Shoegear, Digital Padding/Strapping/Taping/Bracing/Gel protective sleeves, Foot/Ankle AFO Bracing, Stretching exercises, Deep Tissue Massage, Arch support/shoe inserts with splay metatarsal padding, and Custom orthoses. I insisted that any digital devices be removed daily and not worn overnight for safety. The patient is to carefully examine the toes daily for any skin irritation while using any splinting or padding device. The advantages and disadvantages of each option were discussed and the patients questions re: shoegear, padding, custom vs prefabricated inserts, activity level, and consistency in home treatment regimens for optimal success were answered to their verbally confirmed satisfaction.?Shoe Gear Counseling:?SHOE Rx - The patient was counseled in great detail on their muscoloskeletal foot and toe deformities which coincided with the dermatological presentations visualized on exam. We discussed how their deformities put the integrity of their feet at risk for potential pedal complications which makes the accomidative diabetic shoes and cutomizable inserts medically necessary. We discussed the different shoe and insert treatment types and options, as well as the important advantages for adhering to regularly wearing these accomidative devices daily. The patient was made aware of the fact that a failure to abide by these recommedations may be deleterious to their foot health as they are able to prevent many pedal complications such as skin irritation, skin ulceration, infection, and even loss of toe/foot/leg/or life. Time was also spent with the patient dispensing and discussing proper diabetic footcare techniques including daily skin moisturization, daily foot inspection for any interruption in skin integrity including open lesions, or sign of infection such as redness/malodor/drainage/swelling. Also discussed and recommended were procedures regarding daily shoe inspection for the presence of internal foreign bodies as well as any visualized irregular shoe or insert wear. Patient questions re: shoes, inserts, and self foot inspections were answered to their satisfaction as the patient verbally confirmed a full understanding of the above information. A Rx for Extra Depth Orthopedic Shoes with 3 pair of custom heat-molded inserts was dispensed.? ??Screening/Special Tests:?Fall Risk?Assessment:?Performed ?Plan of Care:?Documented ?Screening:?No falls in the past year Despite compromised vision ?FALLS: Screening for Future Fall Risk?Have you had any falls with injury in the past year??No Despite compromised vision * Follow Up:?prn * Images: * Sign off status: Completed true * Provider:?Johnathan Saleh DPM Date:?2023 Generated for Terrence ortez/Gilda/Alejandro on:?03/22/2024 07:48 AM EST History and Physical Notes * HPI (History of Present Illness) Category Sub-Category Detail Notes Category Not es Toe pain Location: B/L feet Duration: several years Course: worse Aggravated by: shoes, any pressure Treatments: change in shoes At Risk footcare Pt States Last PCP Visit: Date: 4 Examination Category Sub-Category Detail Notes Category Not es Neurological SENSORY: Neurological exa m reveals intact sensorium, pain sensation normal, vibration sensation intact, pinprick sensation is normal in the lower extremities, Pt denies, anesthesia, burning, paresthesia, tingling, B/L Dermatologic SKIN FINDINGS: Skin exam reveal s Keratotic lesion(s) located at , Heel(s) , B/L Orthopedic FOOT MORPHOLOGY: (-) Charcot col lapse/destruction noted at MTJ FOOTWEAR: worn, non-supportive , shoe gear properties exacerbate patient's foot/toe deformity DIGITAL DEFORMITIES: Digital contracture , PIPJ, 2-5 B/L, incompl-reducible to push-up test, no over, nor underlapping, there is evidence of shoe producing skin irritation MUSCLE STRENGTH: 5/5 all groups in a symmetrical fashion, B/L General Examination GENERAL APPEARANCE: Reveals a pleasant, alert, well nourished, well-developed, well hydrated individual, who demonstrates proper attention to hygiene/body habitus, and is in no acute distress, Pt serves as own historian for office visit today , Pt accompanied by , , and/who is physically present in exam room at time of visit FOOT EXAM: Lower Extremity Neurological Exa m performed:: Yes ORIENTED: person, place, and t kirstie Footwear Evaluation Footwear Evaluation performe d:: Yes Ophthalmology Referral DIABETES EYE EXAM Diabetic Retinopa thy Screening:: Yes Findings of Diabetic Eye Exam:: no retin opathy Vascular DP PULSES (B): 0/4 , LEFT [...] with pain on palpation , TA , T5 , remaining nails are elongated, overgrown, dystrophic , Bassem-horn appearance noted, TA
[2024-03-22 08:20] LABS: Total Volume 24 Hour Urine 1925 mL
[2024-03-22 08:30] LABS: Creatinine, 24Hr Urine 1.7 G/Day (1.0-2.0); Creatinine, mg/dL 87.67; Protein 24 Hr Urine 308 mg/Day (<150); Protein mg/dL 16 mg/dL
== END 2024-03-22 07:47 | disposition home or self-care (01) ==
LOC: HO.LNP 07:46
PROVIDERS: Visit Provider Internal Medicine Nephrology
DX: N20.0 Calculus of kidney (principal); I10 Essential (primary) hypertension; R80.9 Proteinuria, unspecified
CPT/HCPCS: 84156

== ENCOUNTER 2024-03-26 09:49 | Outpatient (AMB) | payer MEDICARE, MEDICAID, SELFPAY ==
--- NOTE | 2024-03-26 09:58 | HO.NEPHOV_ITS ---
Vital Signs 03/26/24 10:02 Height 5 ft 8 in Weight 198 lb 2 oz BMI 30.1 BP 100/60 Blood Pressure Location Lt brachial Position Sitting Pulse 96 Pulse Source Pulse Oximeter Pulse Oximetry (%) 96 Oxygen Delivery Method Room Air Intake Visit Reasons: Essential hypertension/ LVM Service Administrator Required: Yes Service Administrator Language: Bacteriologist Dairy Services: Service Administrator Present Service Administrator Name: Sean [phone] Accompanied by: Significant Other Allergies levofloxacin [From LEVAQUIN] Allergy (Intermediate, Verified 03/26/24 10:01) HIVES Iodinated Contrast Media [IV CONTRAST] Adverse Reaction (Intermediate, Verified 03/26/24 10:01) HIVES HPI Comments Details: Nasir is a 78-year-old male whom I had the pleasure of seeing in follow up for proteinuria. He recently had a creatinine level was elevated at 2.38 mg/dL which had settled down to baseline. He had a urinary tract infection @ that time. CT scan of the abdomen and pelvis revealed a 0.6 cm calculus in the right ureter causing hydronephrosis, along with a smaller 0.2 cm calculus in the right kidney. He was treated with IV fluids and ceftriaxone, and cessation of lisinopril due to low blood pressure & DELISA. 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 He has type 2 diabetes treated with metformin, and hyperlipidemia managed with atorvastatin. He has been having proteinuria for some time. He denies hypercalcemia, excess NSAID use, new bone or back pain or any new systemic complaints. He also has H/O vascular disease including TIA. [facility] Medical History (Updated 01/26/24 @ 12:53 by Christ Arthur MD) Sepsis Acute kidney failure History of TIA (transient ischemic attack) History of DVT (deep vein thrombosis) Grade II diastolic dysfunction Essential hypertension Dyslipidemia Diabetes mellitus COPD (chronic obstructive pulmonary disease) Gross hematuria Microalbuminuria BPH (benign prostatic hyperplasia) Chronic UTI (urinary tract infection) Chronic back pain Glaucoma Surgical History Status post mitral valve repair (~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 Son No problems noted. Daughter No problems noted. Daughter No problems noted. Daughter No problems noted. Social History Household Members: Significant Other Housing: House Are you a primary direct care provider to a significant other at home: No Do you presently have visiting nurse or other home services: No Alcohol intake: current Alcohol intake frequency: a few times a month Alcohol type: beer and wine Patient Tobacco Use Status: Former Tobacco user Years Smoked: 10 e-Cigarette/Vaping Use: Never Used Second Hand Smoke Exposure: No service: No Current occupational status: retired Cognitive needs: No Hearing needs: No Vision needs: Yes Review of Systems Const All systems reviewed & are unremarkable except as noted in HPI and below Physical Exam Const General: comfortable and no acute distress Orientation/consciousness: patient oriented x3 HEENT Head: Yes normocephalic Mouth: Normal oral and palatal mucosa present Eyes EOM: EOMs intact bilaterally Neck Neck: Yes supple Resp Auscultation: clear to auscultation bilaterally Cardio Jugular venous distension: no JVD Rate: regular rate GI Palpation (GI): Soft to palpation Auscultation: normal bowel sounds General: Yes no CVA tenderness Back/Spine/Pelvis Back: no CVA tenderness Skin General skin exam: no rashes or lesions noted Neuro General: patient oriented x3 and moves all extremities Extrem General: Yes no pedal edema Results Reviewed Nephrology Results: Hgb 12.7 g/dl (14.0-18.0) L 01/16/24 WBC 9.0 X10*3/uL (4.8-10.8) 01/16/24 Plt Count 148 X10*3/uL (160-400) L 01/16/24 Sodium 143 mmol/L (135-145) 03/20/24 Potassium 4.3 mmol/L (3.3-5.1) 03/20/24 Chloride 113 mmol/L (96-108) H 03/20/24 Carbon Dioxide 23 mmol/L (22-29) 03/20/24 BUN 15 mg/dL (9-16) 03/20/24 Creatinine 1.06 mg/dL (0.5-1.4) 03/20/24 Calcium 9.8 mg/dL (8.4-10.2) 03/20/24 Urine Protein 300 (3+) mg/dL (Neg-Trace) H 01/16/24 Urine Creatinine 166.43 mg/dL 03/20/24 Protein/Creatinin Ratio 0.27 (<0.2) H 03/20/24 Assessment & Plan Assessment & Plan (1) Kidney stone: Code(s): N20.0 - Calculus of kidney Category: Medical (2) Essential hypertension: Code(s): I10 - Essential (primary) hypertension Category: Medical (3) Proteinuria: Code(s): R80.9 - Proteinuria, unspecified Category: Medical Qualifiers: Proteinuria type: other Qualified Code(s): R80.8 - Other proteinuria Plan Nasir has vascular disease as well as diabetes. 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 He had DELISA recently which has resolved. He is on Diltiazem and ACEI. I will start him on Jardiance 10 mg daily at next visit . I plan to maximize ACEI if his serum creatinine, K and hemodynamics permit. He follow s up with Urology for renal calculus. All these have been explained to him in detail. Further management is pending evolving data Orders: Orders Creatinine 6 Months I10 - Essential (primary) hypertension, N20.0 - Calculus of kidney, R80.8 - Other proteinuria Blood Urea Nitrogen 6 Months I10 - Essential (primary) hypertension, N20.0 - Calculus of kidney, R80.8 - Other proteinuria Electrolytes 6 Months I10 - Essential (primary) hypertension, N20.0 - Calculus of kidney, R80.8 - Other proteinuria Protein Creatinine Ratio, Ur 6 Months I10 - Essential (primary) hypertension, N20.0 - Calculus of kidney, R80.8 - Other proteinuria Coding Level of Care Code Est Pt Level 4 (59300) Diagnoses Kidney stone N20.0 Essential hypertension I10 Other proteinuria R80.8 Proteinuria type: other
[2024-03-26 10:02] VITALS: BP 100/60; PULSE 96; O2SAT 96; BMI 30.1
--- OUTSIDE RECORDS SUMMARY | 2024-03-26 10:21 | XMS_ITS ---
Author Organization [facility] Address [address] [facility] [place] [address] Care Team Providers Care Bead Picker Name Role Phone Honey UNNN, Connie Primary Care Provider Unavail able Johnathan Saleh Unavailable [phone] Allergies Allergen (clinical drug ingredient) Drug/Non Drug [...] an other tobacco user? No Vital Signs Blood pressure systolic 120 mm Hg 01/02/20 24 Blood pressure diastolic 85 mm Hg 024 Height 5 ft 8 in in 01/02/2024 Weight 184 lbs 01/02/2024 BMI 27.97 kg/m2 01/02/2024 Procedures Procedure Date Ordered Date Performed Result Body Sit e 82041-PCBJPWA NAIL, 1-5 01/02/2024 N/A 27356-QHUT SKIN LESIONS, 2 TO 4 01/02/2024 N/A I8013-PTTZTXAK DYSTROPHIC NAILS ANY # 01/02/2024 N/A Encounters Encounter Location Date Provider Diagnosis [facility] [place] [address] [place] [address] 01/02/2024 Johnathan Saleh Type 2 diabetes mellitus [...] days Pending Test Test Name Order Date 89309-GGQTPFB NAIL, 1-5 01/02/2024 10016-CKHK SKIN LESIONS, 2 TO 4 01/02/20 24 O3386-QNXKFDAE DYSTROPHIC NAILS ANY # Next Appt Details Follow Up: 3 Months, Reason: Provider Name:Johnathan Saleh , 04/02/2024 12:45:00 PM, [address] [place] [address], [phone], Procedure Notes * Category Sub-Category Detail Notes Keratoma Treatment Parring or Cutting o f Benign Hyperkeratotic Lesion(s) (-56) 2-4 Lesions - The Benign hyperkeratotic lesions, ( 2) in total, locations as stated and described in exam, were pared, and/or cut utilizing a sterile 15 blade, tissue nippers, and/or power dremel instrumentation - 89018, Q8 Debride Nails 1-5 Procedure: Performance of this nail treatment by a nonprofessional would put this patients foot and overall health at risk. Therefore, debridement to affected nail(s), as described in exam, was performed extensively to reduce/remove overall nail length, girth, thickness, subungual debris, and necrotic tissue, by manual and/or electrical means through the use of a nail nipper and/or dremel-type instrument lens grinder, to a more viable healthy nail [...] necessary to maintain effective symptomatic relief - 68496 Nail Reduction Nail Reduction (-27) Trimming o f all dystrophic nails, locations as stated and described in exam, was performed to reduce/remove overall nail length and girth, by manual and electrical means with use of a nail nipper and/or dremel, to more viable healthy nail plate or bed tissue - G0127, Q8 Progress Notes * Cj THOMPSONoDOB:[birth year] (78 yo M)Acc No.[id number]:01/02/2024 Progress Note Patient:?Cj THOMPSON Provider:?Johnathan Saleh DPM :1945???Age:78 Y???Sex:Male Eric e:01/02/2024 Address:[address] [place], [place] [id number] Pcp:Connie Méndez MD Subjective: * Chief Complaints: [...] Management (4)??? Plan: * Treatment: 2.?Tinea unguium?Procedure: 78485-LPDHBMX NAIL, 1-5 3.?Xerosis of skin? Start Ammonium [...] use of a nail nipper and/or dremel-type instrument lens grinder, to a more viable healthy nail [...] necessary to maintain effective symptomatic relief - 41344.?Keratoma Treatment:?Parring or Cutting of Benign Hyperkeratotic Lesion(s)?(-56) 2-4 Lesions - The Benign hyperkeratotic lesions, ( 2) in total, locations as stated and described in exam, were pared, and/or cut utilizing a sterile 15 blade, tissue nippers, and/or power dremel instrumentation - 41207, Q8.?Nail Reduction:?Nail Reduction?(-27) Trimming of all dystrophic nails, locations as stated and described in exam, was performed to reduce/remove overall nail length and girth, by manual and electrical means with use of a nail nipper and/or dremel, to more viable healthy nail plate or bed tissue - G0127, Q8.? * Procedure Codes:?G0127 TALI ING DYSTROPHIC NAILS ANY #, Modifiers: XS , H634419 DEBRIDE NAIL, 1-5, Modifiers: XS 58849 TRIM SKIN LESIONS, 2 TO 4, Modifiers: [...] Provider:?Johnathan Saleh DPM Date:?2023 Generated for Terrence ortez/Gilda/Panchoitting on:?03/26/2024 10:21 AM EST History and Physical Notes * [...]
--- OUTSIDE RECORDS SUMMARY | 2024-03-26 10:22 | XMS_ITS ---
Author Organization [facility] Address [address] [facility] [place] [address] Care Team Providers Care Instructor Trainer Canine Service Name Role Phone Honey NUNN, Connie Primary Care Provider Unavail able Johnathan Saleh Unavailable [phone] Allergies Allergen (clinical drug ingredient) Drug/Non Drug [...] Type 2 diabetes mellitus with peripheral angiopathy (037918686) Type 2 diabetes mellitus with diabetic peripheral angiopathy without gangrene (E11.51) Active confirmed Q7(A), Q8(2B), Q9(1B,2C) Problem Acquired hammer toe of right foot (7657632741608 105) Other hammer toe(s) (acquired), right foot (M20.41) Active confirmed Problem Acquired hammer toe of left foot (4761909324257 103) Other hammer toe(s) (acquired), left foot (M20.42) Active confirmed Vital Signs Blood pressure systolic 120 mm Hg 10/03/19 24 Blood pressure diastolic 85 mm Hg 024 Height 5 ft 8 in in 10/03/2023 Weight 184 lbs 10/03/2023 BMI 27.97 kg/m2 10/03/2023 Procedures Procedure Date Ordered Date Performed Result Body Sit e 81543-OVSTTBI NAIL, 1-5 10/03/2023 N/A 43443-KOKZ SKIN LESIONS, 2 TO 4 10/03/2023 N/A B3320-FZWLPZXW DYSTROPHIC NAILS ANY # 10/03/2023 N/A Encounters Encounter Location Date Provider Diagnosis [facility] [place] [address] [place] [address] 10/03/2023 Johnathan Saleh Type 2 diabetes mellitus [...] INSTRUCTIONS.pdf) Pending Test Test Name Order Date 93730-QHGPLEW NAIL, 1-5 10/03/2023 09332-TZTK SKIN LESIONS, 2 TO 4 10/03/19 24 J8302-QKVHIXWD DYSTROPHIC NAILS ANY # 08 / Next Appt Details Follow Up: prn, Reason: Provider Name:Johnathan Saleh , 04/02/2024 12:45:00 PM, [address] [place], [address], Procedure Notes * Category Sub-Category Detail Notes Keratoma Treatment Parring or Cutting o f Benign Hyperkeratotic Lesion(s) 62483 ( 2-4 Lesions ) - The Benign [...] use of a nail nipper and/or dremel-type liquor grinder mill operator, to a more viable healthy nail plate or bed tissue 1-5. Silver nitrate used for any petechial bleeding as necessary. Definitive antifungal treatment options have been reviewed and discussed with the patient. The patient chooses, no pharmaceutical tx (48756) Nail Reduction Nail Reduction Trimming of dyst rophic nails performed to reduce/remove overall nail length and girth, by manual and electrical means with use of a nail nipper and/or dremel, to more viable healthy nail plate or bed tissue, any number (G0127), Q8 Progress Notes * Cj THOMPSONoDOB:[birth year] (78 yo M)Acc No.[id number]:10/03/2023 Progress Notes Patient:?Cj Thmopson Provider:?Johnathan Saleh DPM :1945???Age:78 Y???Sex:Male Eric e:10/03/2023 Address:[address] [place], [place] [id number] Pcp:Connie Méndez MD Subjective: * Chief Complaints: [...] mellitus with diabetic peripheral angiopathy without gangrene?Procedure: 27962-GCEE SKIN LESIONS, 2 TO 4 ?Procedure: D9949-CZMACCZP DYSTROPHIC NAILS ANY # 3.?Other hammer toe(s) [...] use of a nail nipper and/or dremel-type liquor grinder mill operator, to a more viable healthy nail plate or bed tissue 1-5. Silver nitrate used for any petechial bleeding as necessary. Definitive antifungal treatment options have been reviewed and discussed with the patient. The patient chooses, no pharmaceutical tx (25649).?Keratoma Treatment:?Parring or Cutting of Benign Hyperkeratotic Lesion(s)?17742 ( 2-4 Lesions ) - The Benign [...] DYSTROPHIC NAILS ANY #, Modifiers: XS , Q827254 DEBRIDE NAIL, 1-5, Modifiers: XS 55060 TRIM SKIN LESIONS, 2 TO 4, Modifiers: [...] Saleh DPM Date:?2023 Generated for Terrence ortez/Gilda/Alejandro on:?03/26/2024 10:21 AM EST History and Physical [...]
--- OUTSIDE RECORDS SUMMARY | 2024-03-26 10:22 | XMS_ITS | Patient Health Record ---
[facility] Address [address] [facility] [place] [address] Care Team Providers Care Director Cpg Name Role Phone Honey NUNN, Connie Primary Care Provider Unavail able Johnathan Saleh Unavailable [phone] Allergies Allergen (clinical drug ingredient) Drug/Non Drug [...] Problem Acquired hammer toe of right foot (9301978738381 105) Other hammer toe(s) (acquired), right foot (M20.41) Active confirmed Problem Acquired hammer toe of left foot (5948138713505 103) Other hammer toe(s) (acquired), left foot (M20.42) Active confirmed Problem Type 2 diabetes mellitus with peripheral angiopathy (577750939) Type 2 diabetes mellitus with diabetic peripheral angiopathy without gangrene (E11.51) Active confirmed Q7(A), Q8(2B), Q9(1B,2C) Vital Signs Blood pressure diastolic 85 mm Hg 01/02/2024 Height 5 ft 8 in in 01/02/2024 Blood pressure systolic 120 mm Hg 01/02/2024 Weight 184 lbs 01/02/2024 BMI 27.97 kg/m2 01/02/2024 Procedures Procedure Date Ordered Date Performed Result Body Sit e 04280-NKOQHGL NAIL, 1-5 10/03/2023 N/A 53812-VPQJ SKIN LESIONS, 2 TO 4 10/03/2023 N/A T1896-GNDMIPJI DYSTROPHIC NAILS ANY # 10/03/2023 N/A 86683-CHNKLUW NAIL, 1-5 01/02/2024 N/A 48427-TJWK SKIN LESIONS, 2 TO 4 01/02/2024 N/A N8357-ADKFPGZS DYSTROPHIC NAILS ANY # 01/02/2024 N/A Encounters Encounter Location Date Provider Diagnosis [address] [address] 10/03/2023 Johnathan Medleyunier Type 2 diabetes mellitus with diabetic peripheral angiopathy without gangrene E11.51 ; Tinea unguium B35.1 ; Pain in right toe(s) M79.674 ; Pain in left toe(s) M79.675 ; Other hammer toe(s) (acquired), right foot M20.41 and Other hammer toe(s) (acquired), left foot M20.[address] [facility] [address] 01/02/2024 Johnathan Medleyunier Type 2 diabetes mellitus [...] Treatment Pending Test Test Name Order Date 19726-FIAYPPD NAIL, 1-5 10/03/2023 90042-BMNITGB NAIL, 1-5 01/02/2024 73153-UBAD SKIN LESIONS, 2 TO 4 10/03/19 24 93618-VBGV SKIN LESIONS, 2 TO 4 01/02/20 24 Q4725-TSLIMIIG DYSTROPHIC NAILS ANY # D1499-QVPHWKQP DYSTROPHIC NAILS ANY # Next Appt Details Provider Name:Johnathan Carmen Saleh , 04/02/2024 12:45:00 PM, [address] [place] [address], [phone], Insurance Providers Payer Name Payer Address Payer Phone Subscriber Number Group Number Insured Name Patient Relationship to Insured Coverage Start Date Coverage End Date [employer] Medicare Adv-[id number] [address] [address] [place] [address] [id number] Nasir Ward Self - patient is the insured Medical (General) History Medical History History ICD Code Diabetic Hypertension Replacement Heart Valves Glaucoma COPD Surgical History Surgery Date(Month/Year) Heart Valve
== END 2024-03-26 10:14 | disposition home or self-care (01) ==
PROVIDERS: PCP Internal Medicine; Visit Provider Internal Medicine Nephrology
DX: N20.0 Calculus of kidney (principal); I10 Essential (primary) hypertension; R80.8 Other proteinuria
CPT/HCPCS: 99214

== ENCOUNTER → 2024-03-26 09:49 | Outpatient (BNVA) | payer MEDICARE, MEDICAID, SELFPAY | PROVIDERS: PCP Internal Medicine; Visit Provider Internal Medicine Nephrology | DX: I10 Essential (primary) hypertension (principal); R80.8 Other proteinuria; N20.0 Calculus of kidney; E11.9 Type 2 diabetes mellitus without complications; E78.5 Hyperlipidemia, unspecified; Z79.84 Long term (current) use of oral hypoglycemic drugs | CPT/HCPCS: 99212 ==

== ENCOUNTER 2024-04-02 08:54 | Outpatient (REF) | payer MEDICARE, SELFPAY ==
[2024-04-02 09:12] LABS: MANUAL DIFF FLAG NO
--- OUTSIDE RECORDS SUMMARY | 2024-04-02 09:15 | XMS_ITS | Patient Health Record ---
Author Organization [facility] Address [address] [place] [address] Care Team Providers Care Director Life Name Role Phone Honey NUNN, Connie Primary Care Provider Unavail able Johnathan Saleh Unavailable [phone] Allergies Allergen (clinical drug ingredient) Drug/Non Drug Allergy documented on EMR Reaction Allergy Type Onset Date Status Contrast Dye (uncoded) Unknown Allergy Active Results Component Value Reference Range Notes HEMOGLOBIN A1C (GLYCOHEMOGLO BIN) Reviewed date:10/03/2023 10:56:47 AM Interpretation: Performing Lab: Notes/Report: HEMOGLOBIN A1C (HH) 5.6 Reason For Referral No Information Medications Medication SIG (Take, Route, Frequency, Duration) Notes Start Date End Date Status Terazosin HCl 5 MG 1 capsule at bedtime Orally Once a day for 30 day(s) Active metFORMIN HCl 500 MG 1 tablet with a robbie l Orally Once a day for 30 day(s) Active acetaZOLAMIDE ER 500 MG 1 capsule Orally Twice a day for 30 day(s) Active Prolensa 0.07 % 1 drop into affected eye Ophthalmic Once a day Active Ammonium Lactate 12 % 1 application Exte rnally to affected areas of dry skin to feet except for between the toes Twice a day for 30 days Active Simbrinza 1-0.2 % 1 drop into affected eye Ophthalmic Three times a day Active Extra Depth Orthopedic Shoes, (1) Pair With (3) Pair Custom Heat Molded Multidensity Innersoles Dx: NIDDM/PVD(E11.51), Hammertoe Foot Deformity(M20.41,M20.42), Preulcerative Skin Lesion(s)(L85.1) Wear Daily for 365 days 10/03/2023 Active Rhopressa 0.02 % 1 drop into affected eye in the evening Ophthalmic Once a day Active Vitamin D Active prednisoLONE Acetate 1 % 1 drop into aff ected eye Ophthalmic Twice a day Active Finasteride 5 MG 1 tablet Orally Once a day for 30 day(s) Active dilTIAZem HCl ER 180 MG 1 tablet Orally Once a day for 30 day(s) Active Trelegy Ellipta 200-62.5-25 MCG/ACT 1 puff Inhalation Once a day Active ProAir HFA Active Atorvastatin Calcium 40 [...] Problem Acquired hammer toe of right foot (2629150419318 105) Other hammer toe(s) (acquired), right foot (M20.41) Active confirmed Problem Acquired hammer toe of left foot (7370476525150 103) Other hammer toe(s) (acquired), left foot (M20.42) Active confirmed Problem Type 2 diabetes mellitus with peripheral angiopathy (330017832) Type 2 diabetes mellitus with diabetic peripheral angiopathy without gangrene (E11.51) Active confirmed Q7(A), Q8(2B), Q9(1B,2C) Vital Signs Blood pressure diastolic 85 mm Hg 01/02/2024 Height 5 ft 8 in in 01/02/2024 Blood pressure systolic 120 mm Hg 01/02/2024 Weight 184 lbs 01/02/2024 BMI 27.97 kg/m2 01/02/2024 Procedures Procedure Date Ordered Date Performed Result Body Sit e 13652-ZKIPKYG NAIL, 1-5 10/03/2023 N/A 35195-URRZ SKIN LESIONS, 2 TO 4 10/03/2023 N/A S2704-TFPUDRZP DYSTROPHIC NAILS ANY # 10/03/2023 N/A 83466-BVBDKPX NAIL, 1-5 01/02/2024 N/A 72044-UOAE SKIN LESIONS, 2 TO 4 01/02/2024 N/A S4867-PWOGEVDG DYSTROPHIC NAILS ANY # 01/02/2024 N/A Encounters Encounter Location Date Provider Diagnosis [address] [address] 10/03/2023 Johnathan Medleyunier Type 2 diabetes mellitus with diabetic peripheral angiopathy without gangrene E11.51 ; Tinea unguium B35.1 ; Pain in right toe(s) M79.674 ; Pain in left toe(s) M79.675 ; Other hammer toe(s) (acquired), right foot M20.41 and Other hammer toe(s) (acquired), left foot M20.[address] [facility] [address] 01/02/2024 Johnathan Medleyunier Type 2 diabetes mellitus [...] Treatment Pending Test Test Name Order Date 60549-GVYNCVV NAIL, 1-5 10/03/2023 32137-HGSBMJZ NAIL, 1-5 01/02/2024 40603-COBV SKIN LESIONS, 2 TO 4 10/03/19 24 96660-RJEG SKIN LESIONS, 2 TO 4 01/02/20 24 Q8746-CLMLVKTB DYSTROPHIC NAILS ANY # R9427-JZQUELJD DYSTROPHIC NAILS ANY # Next Appt Details Provider Name:Johnathan Carmen Saleh , 04/02/2024 12:45:00 PM, [address] [place] [address], [phone], Insurance Providers Payer Name Payer Address Payer Phone Subscriber Number Group Number Insured Name Patient Relationship to Insured Coverage Start Date Coverage End Date [employer] Medicare [id number] [address] [address] [place] [address] [id number] Nasir Ward Self - patient is the insured Medical (General) History Medical History History ICD Code Diabetic Hypertension Replacement Heart Valves Glaucoma COPD Surgical History Surgery Date(Month/Year) Heart Valve
--- OUTSIDE RECORDS SUMMARY | 2024-04-02 09:15 | XMS_ITS ---
Author Organization [facility] Address [address] [facility] [place] [address] Care Team Providers Care Mosaic Worker Name Role Phone Honey NUNN, Connie Primary Care Provider Unavail able Johnathan Saleh Unavailable [phone] Allergies Allergen (clinical drug ingredient) Drug/Non Drug [...] Ordered Date Performed Result Body Sit e 76294-AVVDYCP NAIL, 1-5 01/02/2024 N/A 34192-WBHL SKIN LESIONS, 2 TO 4 01/02/2024 N/A X5503-TVDKTYYY DYSTROPHIC NAILS ANY # 01/02/2024 N/A Encounters Encounter Location Date Provider Diagnosis [facility] [place] [address] [place] [address] 01/02/2024 Johnathan Saleh Type 2 diabetes mellitus [...] days Pending Test Test Name Order Date 75936-GTPMCEQ NAIL, 1-5 01/02/2024 18480-GFYU SKIN LESIONS, 2 TO 4 01/02/20 24 Q2313-ZCLNJGHQ DYSTROPHIC NAILS ANY # Next Appt Details Follow Up: 3 Months, Reason: Provider Name:Johnathan Saleh , 04/02/2024 12:45:00 PM, [address] [place] [address], [phone], Procedure Notes * Category Sub-Category Detail Notes Keratoma Treatment Parring or Cutting o f Benign Hyperkeratotic Lesion(s) (-56) 2-4 Lesions - The Benign hyperkeratotic lesions, ( 2) in total, locations as stated and described in exam, were pared, and/or cut utilizing a sterile 15 blade, tissue nippers, and/or power dremel instrumentation - 27971, Q8 Debride Nails 1-5 Procedure: Performance of this nail treatment by a nonprofessional would put this patients foot and overall health at risk. Therefore, debridement to affected nail(s), as described in exam, was performed extensively to reduce/remove overall nail length, girth, thickness, subungual debris, and necrotic tissue, by manual and/or electrical means through the use of a nail nipper and/or dremel-type floor grinder, to a more viable healthy nail [...] necessary to maintain effective symptomatic relief - 68471 Nail Reduction Nail Reduction (-27) Trimming o f all dystrophic nails, locations as stated and described in exam, was performed to reduce/remove overall nail length and girth, by manual and electrical means with use of a nail nipper and/or dremel, to more viable healthy nail plate or bed tissue - G0127, Q8 Progress Notes * Cj THOMPSONoDOB:[birth year] (78 yo M)Acc No.[id number]:01/02/2024 Progress Note Patient:?Cj THOMPSON Provider:?Johnathan Saleh DPM :1945???Age:78 Y???Sex:Male Eric e:01/02/2024 Address:[address] [place], [place] [id number] Pcp:Connie Méndez MD Subjective: * Chief Complaints: [...] Management (4)??? Plan: * Treatment: 2.?Tinea unguium?Procedure: 84147-MCKUESO NAIL, 1-5 3.?Xerosis of skin? Start Ammonium [...] use of a nail nipper and/or dremel-type floor grinder, to a more viable healthy nail [...] necessary to maintain effective symptomatic relief - 48907.?Keratoma Treatment:?Parring or Cutting of Benign Hyperkeratotic Lesion(s)?(-56) 2-4 Lesions - The Benign hyperkeratotic lesions, ( 2) in total, locations as stated and described in exam, were pared, and/or cut utilizing a sterile 15 blade, tissue nippers, and/or power dremel instrumentation - 64535, Q8.?Nail Reduction:?Nail Reduction?(-27) Trimming of all dystrophic nails, locations as stated and described in exam, was performed to reduce/remove overall nail length and girth, by manual and electrical means with use of a nail nipper and/or dremel, to more viable healthy nail plate or bed tissue - G0127, Q8.? * Procedure Codes:?G0127 TALI ING DYSTROPHIC NAILS ANY #, Modifiers: XS , [id number] DEBRIDE NAIL, 1-5, Modifiers: XS 73837 TRIM SKIN LESIONS, 2 TO 4, Modifiers: [...] Saleh DPM Date:?2023 Generated for Terrence ortez/Gilda/Alejandro on:?04/02/2024 09:15 AM EST History and Physical Notes * [...]
--- OUTSIDE RECORDS SUMMARY | 2024-04-02 09:16 | XMS_ITS ---
Author Organization [facility] Address [address] [facility] [place] [address] Care Team Providers Care Dial Equipment Engineer Name Role Phone Honey NUNN, Connie Primary Care Provider Unavail able Johnathan Saleh Unavailable [phone] Allergies Allergen (clinical drug ingredient) Drug/Non Drug [...] Type 2 diabetes mellitus with peripheral angiopathy (878735753) Type 2 diabetes mellitus with diabetic peripheral angiopathy without gangrene (E11.51) Active confirmed Q7(A), Q8(2B), Q9(1B,2C) Problem Acquired hammer toe of right foot (9543268730034 105) Other hammer toe(s) (acquired), right foot (M20.41) Active confirmed Problem Acquired hammer toe of left foot (5577780722741 103) Other hammer toe(s) (acquired), left foot (M20.42) Active confirmed Vital Signs Height 5 ft 8 in in 10/03/2023 Weight 184 lbs 10/03/2023 BMI 27.97 kg/m2 10/03/2023 Blood pressure systolic 120 mm Hg 10/03/19 24 Blood pressure diastolic 85 mm Hg 024 Procedures Procedure Date Ordered Date Performed Result Body Sit e 41708-GOERHTN NAIL, 1-5 10/03/2023 N/A 99645-OFQL SKIN LESIONS, 2 TO 4 10/03/2023 N/A T1188-SETDUMIT DYSTROPHIC NAILS ANY # 10/03/2023 N/A Encounters Encounter Location Date Provider Diagnosis [facility] [place] [address] [place] [address] 10/03/2023 Johnathan Saleh Type 2 diabetes mellitus [...] INSTRUCTIONS.pdf) Pending Test Test Name Order Date 96288-HEIRKSJ NAIL, 1-5 10/03/2023 94934-KRGG SKIN LESIONS, 2 TO 4 10/03/19 24 N5046-DAGIQSOO DYSTROPHIC NAILS ANY # 08 / Next Appt Details Follow Up: prn, Reason: Provider Name:Johnathan Saleh , 04/02/2024 12:45:00 PM, [address] [place], [phone], Procedure Notes * Category Sub-Category Detail Notes Keratoma Treatment Parring or Cutting o f Benign Hyperkeratotic Lesion(s) 58540 ( 2-4 Lesions ) - The Benign [...] use of a nail nipper and/or dremel-type plate glass grinder, to a more viable healthy nail plate or bed tissue 1-5. Silver nitrate used for any petechial bleeding as necessary. Definitive antifungal treatment options have been reviewed and discussed with the patient. The patient chooses, no pharmaceutical tx (46465) Nail Reduction Nail Reduction Trimming of dyst rophic nails performed to reduce/remove overall nail length and girth, by manual and electrical means with use of a nail nipper and/or dremel, to more viable healthy nail plate or bed tissue, any number (G0127), Q8 Progress Notes * Cj THOMPSONoDOB:[birth year] (78 yo M)Acc No.[id number]:10/03/2023 Progress Notes Patient:?Cj Thompson Provider:?Johnathan Saleh DPM :1945???Age:78 Y???Sex:Male Eric e:10/03/2023 Address:[address] [place], [place] [id number] Pcp:Connie Méndez MD Subjective: * Chief Complaints: [...] mellitus with diabetic peripheral angiopathy without gangrene?Procedure: 25358-UYFH SKIN LESIONS, 2 TO 4 ?Procedure: D4586-AZZGYBLY DYSTROPHIC NAILS ANY # 3.?Other hammer toe(s) [...] use of a nail nipper and/or dremel-type plate glass grinder, to a more viable healthy nail plate or bed tissue 1-5. Silver nitrate used for any petechial bleeding as necessary. Definitive antifungal treatment options have been reviewed and discussed with the patient. The patient chooses, no pharmaceutical tx (19640).?Keratoma Treatment:?Parring or Cutting of Benign Hyperkeratotic Lesion(s)?25016 ( 2-4 Lesions ) - The Benign [...] DYSTROPHIC NAILS ANY #, Modifiers: XS , [id number] DEBRIDE NAIL, 1-5, Modifiers: XS 77433 TRIM SKIN LESIONS, 2 TO 4, Modifiers: [...]
--- OUTSIDE RECORDS SUMMARY | 2024-04-02 09:16 | XMS_ITS ---
Author Organization [facility] Address [address] [facility] [place] [address] Care Team Providers Care Spray Gun Sizer Name Role Phone Honey NUNN, Connie Primary Care Provider Unavail able Johnathan Saleh Unavailable [phone] Allergies Allergen (clinical drug ingredient) Drug/Non Drug [...] Twice a day for 30 days Active Extra Depth Orthopedic Shoes, (1) Pair With (3) Pair Custom Heat Molded Multidensity Innersoles Dx: NIDDM/PVD(E11.51), Hammertoe Foot Deformity(M20.41,M20.42), Preulcerative Skin Lesion(s)(L85.1) Wear Daily for 365 days 10/03/2023 Active Vitamin D Active [...] Active Encounters Encounter Location Date Provider Diagnosis [facility] [address] [address] 04/02/2024 Johnathan Saleh Plan Of Treatment Next Appt Details Provider Name:Johnathan Saleh , 04/02/2024 12:45:00 PM, [address] [place] [address], [phone], Progress Notes * Cj THOMPSONoDOB:[birth year] (78 yo M)Acc No.[id number]:04/02/2024 Progress Note Patient:?Cj THOMPSON Provider:?Johnathan Saleh DPM :1945???Age:78 Y???Sex:Male Eric e:04/02/2024 Address:[address] [place], [place] [id number] Pcp:Connie Méndez MD Subjective: * Chief Complaints: * ??? * Medical History:?Diabetic, H ypertension, Replacement Heart Valves, Glaucoma, COPD. * Medications:?Taking ProAir H FA , Taking Trelegy Ellipta 200-62.5-25 MCG/ACT Aerosol [...] between the toes Twice a day * Allergies:?Contrast Dye. Objective: * Vitals:? Assessment: Plan: * Treatment: * Images: * The named appointment provid er may or may not be the originator of this progress note, and it is not deemed complete until electronically signed by the appointment provider. Sign off status: Pending * Provider:?Johnathan Saleh DPM Date:?2024 Generated for Terrence ortez/Gilda/Alejandro on:?04/02/2024 09:15 AM EST
[2024-04-02 09:23] LABS: Basophils Absolute Auto 0.1 X10*3/uL (0.0-0.2); Eosinophils Absolute Auto 0.2 X10*3/uL (0.0-0.4); Eosinophils Percent Auto 2.5 % (0-4); Hematocrit 42.3 % (42.0-52.0); Hemoglobin 13.7 g/dl (14.0-18.0); Imm Gran Abs Auto 0.07 X10*3/uL (0.00-0.03); Lymphocytes Absolute Auto 1.6 X10*3/uL (1.2-4.9); Lymphocytes Percent Auto 22.3 % (20-40); Mean Corpuscular HGB Conc 32.4 g/dl (31.0-36.0); Mean Corpuscular Hemoglobin 28.5 pg (27.0-33.0); Mean Corpuscular Volume 88.1 fL (80.0-98.0); Mean Platelet Volume 10.9 fL (9.4-12.4); Monocytes Absolute Auto 0.6 X10*3/uL (0.1-1.2); Monocytes Percent Auto 8.4 % (2-11); Neutrophils Absolute Auto 4.7 x10*3/uL (2.0-8.3); Neutrophils Percent Auto 64.8 % (45-73); Platelet Count 173 X10*3/uL (160-400); Red Cell Distribution Width 12.9 % (11.0-16.0); White Blood Count 7.3 X10*3/uL (4.8-10.8)
[2024-04-02 09:51] LABS: Creatinine Urine 140.72 mg/dL
[2024-04-02 10:07] LABS: Alanine Aminotransferase 15 U/L (0-40); Alkaline Phosphatase 59 U/L (39-117); Anion Gap 11 (12-20); Aspartate Amino Transferase 17 U/L (5-37); Bilirubin Total 0.7 mg/dL (0.0-1.0); Blood Urea Nitrogen 17 mg/dL (9-16); Calcium 9.7 mg/dL (8.4-10.2); Carbon Dioxide 22 mmol/L (22-29); Chloride 112 mmol/L (96-108); Cholesterol 120 mg/dL (<200); Estimated Glomerular Filt Rate > 60; Glucose Fasting 110 mg/dL (60-99); HDL Cholesterol 35 mg/dL (>40); Iron 93 mcg/dL (45-160); LDL Cholesterol Calculated 56 mg/dL (<100); Percent Iron Saturation 38 % (15-50); Potassium 4.9 mmol/L (3.3-5.1); Sodium 140 mmol/L (135-145); Total Iron Binding Capacity 248 mcg/dL (228-428); Total Protein 7.8 g/dL (6.5-8.0); Triglycerides 147 mg/dL (<150); Unsaturated Iron Binding 155 ug/dL
[2024-04-02 10:13] LABS: Vitamin D 25-OH Total 41.6 ng/mL (>30)
== END 2024-04-02 08:55 | disposition home or self-care (01) ==
LOC: HO.LAB 08:54
PROVIDERS: PCP Internal Medicine; Visit Provider Internal Medicine
DX: D64.9 Anemia, unspecified (principal); E78.5 Hyperlipidemia, unspecified; E55.9 Vitamin D deficiency, unspecified; R80.9 Proteinuria, unspecified; E11.9 Type 2 diabetes mellitus without complications
CPT/HCPCS: 36415; 80053; 80061; 82043; 82306; 82570; 83540; 85025

== ENCOUNTER 2024-04-08 16:43 | Outpatient (AMB) | payer MEDICARE, MEDICAID, SELFPAY ==
[2024-04-08 16:48] VITALS: BP 104/62; PULSE 85; TEMP 36.3; O2SAT 96; BMI 30.6
--- NOTE | 2024-04-08 16:48 | A.OFFPC_ITS ---
Vital Signs 04/08/24 16:48 Height 5 ft 8 in Weight 201 lb BMI 30.6 BP 104/62 Blood Pressure Location Lt brachial Position Sitting Pulse 85 Pulse Source Pulse Oximeter Temp 97.3 F Temp Source Temporal Artery Scan Pulse Oximetry (%) 96 Oxygen Delivery Method Room Air Intake Visit Reasons: dm Roll Press Operator Required: Yes Roll Press Operator Language: Public Health Doctor Name: Connie Robertson MD Information Interpreted: non-clinical & clinical Accompanied by: Spouse Allergies levofloxacin [From LEVAQUIN] Allergy (Intermediate, Verified 04/08/24 17:22) HIVES Iodinated Contrast Media [IV CONTRAST] Adverse Reaction (Intermediate, Verified 04/08/24 17:22) HIVES Medication List - Last Reconciled 04/08/24 by Connie Robertson MD albuterol sulfate 90 mcg/actuation 2 puffs inhalation Q6H PRN 30 days aspirin 81 mg PO DAILY 90 days atorvastatin 40 mg PO DAILY 90 days brinzolamide-brimonidine 1-0.2 % (Simbrinza) 1 drp ophthalmic (eye) TID bromfenac 0.07% (Prolensa) 1 drp ophthalmic (eye) DAILY cholecalciferol (vitamin D3) 50 mcg PO DAILY 90 days diltiazem HCl CD (Cartia XT) 180 mg PO DAILY finasteride 5 mg PO DAILY 90 days cxyinttgdjd-dfzgvbxtp-zraatcli 200-62.5-25 mcg (Trelegy Ellipta) 1 ea inhalation DAILY lancets (OneTouch Delica Lancets) 1 Lancet to be use twice a day latanoprost 0.005% 1 drp ophthalmic (eye) BEDTIME lisinopril 20 mg PO DAILY 90 days metformin ER 1,000 mg PO BID netarsudil 0.02% (Rhopressa) 1 drp ophthalmic (eye) BEDTIME prednisolone acetate 1% 1 drp ophthalmic (eye) QID terazosin 5 mg PO DAILY Tobacco use date assessed: 04/08/24 Dental Screening Dental Screen Date: 12/01/23 HPI HPI Comments History of Present Illness Details The patient is a 78-year-old male presenting with concerns regarding his chronic conditions, including Essential Hypertension, Chronic Obstructive Pulmonary Disease (COPD), Type 2 Diabetes Mellitus, Visual Impairment, and Hyperlipidemia. His current blood pressure is 104/62 mmHg. His COPD management includes regular use of a prescribed inhaler. Diabetes is well-controlled with an A1c of 5.6% and a recent blood glucose of 110 mg/dL. He experiences visual difficulties, particularly in bright conditions, and routinely uses eyeglasses. His lipid profile indicates an LDL of 56 mg/dL, suggesting effective management, although HDL levels are slightly suboptimal. Dietary advice emphasizes limiting salt and high-fat meats to improve overall well-being. [facility] Medical History Sepsis Acute kidney failure History of TIA (transient ischemic attack) History of DVT (deep vein thrombosis) Grade II diastolic dysfunction Essential hypertension Dyslipidemia Diabetes mellitus COPD (chronic obstructive pulmonary disease) Gross hematuria Microalbuminuria BPH (benign prostatic hyperplasia) Chronic UTI (urinary tract infection) Chronic back pain Glaucoma Surgical History Status post mitral valve repair (~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 Son No problems noted. Daughter No problems noted. Daughter No problems noted. Daughter No problems noted. Social History Household Members: Significant Other Housing: House Are you a primary vision care associate to a significant other at home: No Do you presently have visiting nurse or other home services: No Alcohol intake: current Alcohol intake frequency: a few times a month Alcohol type: beer and wine Patient Tobacco Use Status: Former Tobacco user Years Smoked: 10 e-Cigarette/Vaping Use: Never Used Second Hand Smoke Exposure: No service: No Current occupational status: retired Cognitive needs: No Hearing needs: No Vision needs: Yes Questionnaire PHQ-9 Over the last 2 weeks, how often have you been bothered by any of the following problems? 1. Little interest or pleasure in doing things: not at all 2. Feeling down, depressed, or hopeless: not at all 3. Trouble falling or staying asleep, or sleeping too much: not at all 4. Feeling tired or having little energy: not at all 5. Poor appetite or overeating: not at all 6. Feeling bad about yourself - or that you are a failure or have let yourself or your family down: not at all 7. Trouble concentrating on things, such as reading the newspaper or watching television: not at all 8. Moving or speaking so slowly that other people could have noticed. Or the opposite - being so fidgety or restless that you have been moving around a lot more than usual: not at all 9. Thoughts that you would be better off or of hurting yourself in some way: not at all Total score: 0 Depression Screening Interpretation: Negative Depression Screening Done: Yes 35263 - PHQ-9 Billing: Yes Source: Developed by Drs. Jonathan Escobar, Lianet Michaels, Ford López and colleagues, with an educational harrison from [employer]. Thrive Questionnaire Date Thrive assessed: 04/08/24 I am a: Patient What is your living situation today?: I have a steady place to live Within the past 12 months, did the food you bought not last and you didn't have the money to get more?: Never true Within the past 12 months, did you worry whether your food would run out before you got money to buy more?: Never true Do you have trouble paying for medicines?: No Do you have trouble getting transportation to medical appointments?: No Do you have trouble paying your heating and electricity bill?: No Do you have trouble taking care of your child, family member or friend?: No Do you have trouble with day-to-day activities such as bathing, preparing meals, shopping, managing finances, etc.?: No Are you currently unemployed and looking for a job?: No Are you interested in more education?: No Please select the resources that you would like help with: None Currently or been in a relationship where the following occur: No concerns reported THRIVE Score: 0 AUDIT C Alcohol Use Questionnaire (AUDIT-C) 1. How often do you have a drink containing alcohol?: Monthly or less 2. How many drinks containing alcohol do you have on a typical day when you are drinking?: 1 or 2 3. How often do you have six or more drinks on one occasion?: Less than monthly Total Score: 2 Score Reviewed/Action Taken: No ANNIE-7 AMB Questionnaire ANNIE-7 Date ANNIE - 7 assessed: 04/08/24 Feeling nervous, anxious, or on edge: 0 = Not at all Not being able to stop or control worryin = Not at all Worrying too much about different things: 0 = Not at all Trouble relaxin = Not at all Being so restless that it is hard to sit still: 0 = Not at all Becoming easily annoyed or irritable: 0 = Not at all Feeling afraid as if something awful might happen: 0 = Not at all Total ANNIE-7 score (0-4 normal; 5-9 mild; 10-14 moderate; 15-21 severe): 0 Source: Developed by Drs. Jonahtan Escobar, Lianet Michaels, Ford López and colleagues, with an educational harrison from [employer]. ANNIE-7 Assessment Billing ANNIE-7 Assessment Tool: ANNEI-7 Assessment 86262 Review of Systems Const All systems reviewed & are unremarkable except as noted in HPI and below Card Denies chest pain at rest, Denies chest pain with activity, Denies edema, Denies irregular heart rhythm, Denies claudication, Denies dyspnea, Denies dyspnea on exertion, Denies orthopnea, Denies paroxysmal nocturnal dyspnea and Denies slow heart rate Resp Denies cough, Denies dyspnea and Denies dyspnea on exertion GI Denies abdominal pain, Denies change in bowel habits, Denies excessive flatus, Denies nausea and Denies vomiting Denies urinary hesitancy, Denies urinary incontinence and Denies urinary urgency Musc Denies atrophy, Denies deformity and Denies limited range of motion Skin/Breast Denies bleeding lesions, Denies changing lesions and Denies rash Physical exam (Primary Care) Vital Signs: Last Vital Signs Temp 97.3 F 04/08/24 16:48 Pulse 85 04/08/24 16:48 BP 104/62 04/08/24 16:48 Pulse Ox 96 04/08/24 16:48 Oxygen Delivery Method Room Air 04/08/24 16:48 BMI result Body Mass Index 30.6 BMI Assessment/Plan discussion: High BMI High, discussed plan: lifestyle, weight reduction, dietary and physical activity Tobacco/Smoking Status: Tobacco use Status Tobacco use date assessed 04/08/24 04/08/24 16:56 Patient Tobacco Use Status Former Tobacco user 04/08/24 16:56 Tobacco use type 06/19/22 14:04 e-Cigarette/Vaping Use Never Used 04/08/24 16:56 PHQ-9: PHQ-9 Score PHQ-9: Total score 0 04/08/24 17:26 Depression Screening Interpretation: Negative Thrive Assessment: Date of Thrive Assessment Date Thrive assessed 04/08/24 04/08/24 16:56 Currently or been in a relationship where the following occur: No concerns reported Resp Effort & Inspection: normal respiratory effort Auscultation: clear to auscultation bilaterally Cardio Jugular venous distension: no JVD Rate: regular rate Rhythm: regular rhythm Heart sounds: S1 normal heart sound present and S2 normal heart sound present Extrem General: Yes full ROM Results AMB Hemoglobin A1c AMB Hemoglobin A1c 5.6 % Last Edit by RICA Brooks on 04/08/24 17:15 Results Reviewed Results Reviewed: Laboratory Last Values Hgb A1c (Clinic) 5.6 % (4.0-6.0) 04/08/24 17:10 Coding Level of Care Code Est Pt Level 4 (79174) Complex EM visit Add On G2211 Diagnoses Type 2 diabetes mellitus without complication, without long-term current use of insulin E11.9 Diabetes mellitus type: type 2 Diabetes mellitus long term care phlebotomist insulin use: without assisted use Diabetes mellitus complication status: without complication Chronic obstructive pulmonary disease, unspecified COPD type J44.9 COPD type: unspecified COPD Essential hypertension I10 Dyslipidemia E78.5 Additional Codes ANNIE-7 Assessment Billing - ANNIE-7 Assessment Tool: ANNIE-7 Assessment 96546 ([id number]) PHQ-9 - 09262 - PHQ-9 Billing: Yes ([id number]) Time Spent (min) 22 Assessment & Plan Assessment & Plan (1) Diabetes mellitus: Code(s): E11.9 - Type 2 diabetes mellitus without complications Category: Medical Qualifiers: Diabetes mellitus type: type 2 Diabetes mellitus assisted insulin use: without assisted use Diabetes mellitus complication status: without complication Qualified Code(s): E11.9 - Type 2 diabetes mellitus without complications (2) COPD (chronic obstructive pulmonary disease): Code(s): J44.9 - Chronic obstructive pulmonary disease, unspecified Category: Medical Qualifiers: COPD type: unspecified COPD Qualified Code(s): J44.9 - Chronic obstructive pulmonary disease, unspecified (3) Essential hypertension: Code(s): I10 - Essential (primary) hypertension Category: Medical (4) Dyslipidemia: Code(s): E78.5 - Hyperlipidemia, unspecified Category: Medical Plan The current antihypertensive therapy should be revisited to ensure optimal blood pressure control. Continuation of existing inhaler usage for COPD is advised. Glycemic control is well-maintained; current diabetes management should persist. Visual support through consistent eyeglass use remains crucial, with potential for further ophthalmological evaluation. Dietary adjustments aimed at increasing HDL cholesterol levels complement ongoing statin usage. Long-term management requires regular monitoring of labs and adherence to prescribed medications. Patient was informed and verbally consented to the use of an ambient scribe for clinic note documentation during this visit. I discussed with the patient the importance of continued adherence to his medication regimen to manage his chronic conditions effectively. We reviewed his laboratory results which indicate good control of diabetes and cholesterol lev els, with LDL at 56 mg/dL. Risks and benefits of current lifestyle modifications, such as reducing dietary salt and fatty meats, were highlighted given their impact on his overall health. We emphasized the need for protective measures against photophobia through consistent eyeglass use. The importance of regular follow-up visits was reiterated to monitor his health status and adjust treatment plans as needed. Orders: Orders Lipid Panel 4 Months E78.5 - Hyperlipidemia, unspecified Microalbumin, Random (w Creat) 4 Months R80.9 - Proteinuria, unspecified Comprehensive Marcy. Panel Fast 4 Months E11.9 - Type 2 diabetes mellitus witho ut complications AMB Hemoglobin A1c Today E11.9 - Type 2 diabetes mellitus without complications Vitamin D 25-OH Total 4 Months E55.9 - Vitamin D deficiency, unspecified Patient Instructions: - Continue regular medication adherence for blood pressure, cholesterol, and diabetes. - Use prescribed inhaler daily for COPD; report any increase in respiratory symptoms. - Maintain current dietary restrictions, emphasizing reduced salt and fatty meat intake. - Protect eyes with sunglasses or prescription glasses, especially in bright sunlight. - Schedule follow-up appointments regularly to monitor and reassess ongoing health management.
--- OUTSIDE RECORDS SUMMARY | 2024-04-08 19:31 | XMS_ITS ---
Author Organization [facility] Address [address] [place] [address] Care Team Providers Care Chemistry Research Assistant Name Role Phone Honey NUNN, Connie Primary Care Provider Unavail able Johnathan Saleh Unavailable [phone] Allergies Allergen (clinical drug ingredient) Drug/Non Drug [...] Ordered Date Performed Result Body Sit e 13317-YGHJMIS NAIL, 1-5 01/02/2024 N/A 68086-UJHV SKIN LESIONS, 2 TO 4 01/02/2024 N/A J1772-ZIOOISXD DYSTROPHIC NAILS ANY # 01/02/2024 N/A Encounters Encounter Location Date Provider Diagnosis [facility] [place] [address] [place] [address] 01/02/2024 Johnathan Saleh Type 2 diabetes mellitus [...] days Pending Test Test Name Order Date 35431-QOSPEGP NAIL, 1-5 01/02/2024 14372-VUME SKIN LESIONS, 2 TO 4 01/02/20 24 P1885-SKXAZHRD DYSTROPHIC NAILS ANY # Next Appt Details Follow Up: 3 Months, Reason: Provider Name:Johnathan Saleh , 07/09/2024 10:30:00 AM, [address] [place] [address], [phone], Procedure Notes * Category Sub-Category Detail Notes Keratoma Treatment Parring or Cutting o f Benign Hyperkeratotic Lesion(s) (-56) 2-4 Lesions - The Benign hyperkeratotic lesions, ( 2) in total, locations as stated and described in exam, were pared, and/or cut utilizing a sterile 15 blade, tissue nippers, and/or power dremel instrumentation - 03225, Q8 Debride Nails 1-5 Procedure: Performance of this nail treatment by a nonprofessional would put this patients foot and overall health at risk. Therefore, debridement to affected nail(s), as described in exam, was performed extensively to reduce/remove overall nail length, girth, thickness, subungual debris, and necrotic tissue, by manual and/or electrical means through the use of a nail nipper and/or dremel-type internal grinder set up operator, to a more viable healthy nail [...] necessary to maintain effective symptomatic relief - 27445 Nail Reduction Nail Reduction (-27) Trimming o f all dystrophic nails, locations as stated and described in exam, was performed to reduce/remove overall nail length and girth, by manual and electrical means with use of a nail nipper and/or dremel, to more viable healthy nail plate or bed tissue - G0127, Q8 Progress Notes * Cj THOMPSONoDOB:[birth year] (78 yo M)Acc No.[id number]:01/02/2024 Progress Note Patient:?Cj THOMPSON Provider:?Johnathan Saleh DPM :1945???Age:78 Y???Sex:Male Eric e:01/02/2024 Address:[address] [place], [place] [id number] Pcp:Connie Méndez MD Subjective: * Chief Complaints: [...] Management (4)??? Plan: * Treatment: 2.?Tinea unguium?Procedure: 46376-BBHWNDA NAIL, 1-5 3.?Xerosis of skin? Start Ammonium [...] use of a nail nipper and/or dremel-type internal grinder set up operator, to a more viable healthy nail [...] necessary to maintain effective symptomatic relief - 37227.?Keratoma Treatment:?Parring or Cutting of Benign Hyperkeratotic Lesion(s)?(-56) 2-4 Lesions - The Benign hyperkeratotic lesions, ( 2) in total, locations as stated and described in exam, were pared, and/or cut utilizing a sterile 15 blade, tissue nippers, and/or power dremel instrumentation - 56435, Q8.?Nail Reduction:?Nail Reduction?(-27) Trimming of all dystrophic nails, locations as stated and described in exam, was performed to reduce/remove overall nail length and girth, by manual and electrical means with use of a nail nipper and/or dremel, to more viable healthy nail plate or bed tissue - G0127, Q8.? * Procedure Codes:?G0127 TALI ING DYSTROPHIC NAILS ANY #, Modifiers: XS , [id number] DEBRIDE NAIL, 1-5, Modifiers: XS 97834 TRIM SKIN LESIONS, 2 TO 4, Modifiers: [...] Saleh DPM Date:?2023 Generated for Terrence ortez/Gilda/Alejandro on:?04/08/2024 07:31 PM EST History and Physical Notes * HPI [...]
--- OUTSIDE RECORDS SUMMARY | 2024-04-08 19:31 | XMS_ITS | Patient Health Record ---
Author Organization [facility] Address [address] [facility] [address] Care Team Providers Care Security Site Supervisor Name Role Phone Honey NUNN, Connie Primary Care Provider Unavail able Johnathan Saleh Unavailable [phone] Allergies Allergen (clinical drug ingredient) Drug/Non Drug [...] Problem Acquired hammer toe of right foot ([id number] 105) Other hammer toe(s) (acquired), right foot (M20.41) Active confirmed Problem Acquired hammer toe of left foot (7470267986755 103) Other hammer toe(s) (acquired), left foot (M20.42) Active confirmed Problem Type 2 diabetes mellitus with peripheral angiopathy (316736246) Type 2 diabetes mellitus with diabetic peripheral angiopathy without gangrene (E11.51) Active confirmed Q7(A), Q8(2B), Q9(1B,2C) Vital Signs Blood pressure diastolic 85 mm Hg 01/02/2024 Height 5 ft 8 in in 01/02/2024 Blood pressure systolic 120 mm Hg 01/02/2024 Weight 184 lbs 01/02/2024 BMI 27.97 kg/m2 01/02/2024 Procedures Procedure Date Ordered Date Performed Result Body Sit e 36060-SZMAEEU NAIL, 1-5 10/03/2023 N/A 48173-GBLG SKIN LESIONS, 2 TO 4 10/03/2023 N/A M6703-XOIYPRKY DYSTROPHIC NAILS ANY # 10/03/2023 N/A 45143-GVARIDP NAIL, 1-5 01/02/2024 N/A 14476-FAQP SKIN LESIONS, 2 TO 4 01/02/2024 N/A K3272-BIPNNCYY DYSTROPHIC NAILS ANY # 01/02/2024 N/A Encounters Encounter Location Date Provider Diagnosis [address] [address] 10/03/2023 Johnathan Saleh Type 2 diabetes mellitus with diabetic peripheral angiopathy without gangrene E11.51 ; Tinea unguium B35.1 ; Pain in right toe(s) M79.674 ; Pain in left toe(s) M79.675 ; Other hammer toe(s) (acquired), right foot M20.41 and Other hammer toe(s) (acquired), left foot M20.[address] [address] 01/02/2024 Johnathan Saleh Type 2 diabetes mellitus with diabetic peripheral angiopathy without gangrene E11.51 ; Tinea unguium B35.1 ; Pain in right toe(s) M79.674 ; Pain in left toe(s) M79.675 and Xerosis of skin L85.[address] [address] 04/02/2024 Johnathan Saleh Assessments Encounter Date Diagnosis (ICD Code) Assessment [...] Treatment Pending Test Test Name Order Date 75497-GAIKDGL NAIL, 1-5 10/03/2023 61032-LBSRWKH NAIL, 1-5 01/02/2024 41261-HAFJ SKIN LESIONS, 2 TO 4 10/03/19 24 18755-HKZO SKIN LESIONS, 2 TO 4 01/02/20 24 J6484-OQVLGBIA DYSTROPHIC NAILS ANY # A9364-ADYEKKPZ DYSTROPHIC NAILS ANY # Next Appt Details Provider Name:Johnathan Saleh , 07/09/2024 10:30:00 AM, [address] [place], [phone], Insurance Providers Payer Name Payer Address Payer Phone Subscriber Number Group Number Insured Name Patient Relationship to Insured Coverage Start Date Coverage End Date [employer] Medicare Adv-[id number] [address] [address] [place] [address] [phone] [id number] Nasir Ward Self - patient is the insured Medical (General) History Medical History History ICD Code Diabetic Hypertension Replacement Heart Valves Glaucoma COPD Surgical History Surgery Date(Month/Year) Heart Valve
--- OUTSIDE RECORDS SUMMARY | 2024-04-08 19:32 | XMS_ITS ---
Author Organization [facility] Address [address] [place] [address] Care Team Providers Care Cancer Center Director Name Role Phone Honey NUNN, Connie Primary Care Provider Unavail able Johnathan Saleh Unavailable [phone] Allergies Allergen (clinical drug ingredient) Drug/Non Drug [...] Active Encounters Encounter Location Date Provider Diagnosis [facility] [address] [address] 04/02/2024 Johnathan Saleh Plan Of Treatment Next Appt Details Provider Name:Johnathan Saleh , 07/09/2024 10:30:00 AM, [address] [place] [address], [phone], Progress Notes * Cj THOMPSONoDOB:[birth year] (78 yo M)Acc No.[id number]:04/02/2024 Progress Note Patient:?Cj THOMPSON Provider:?Johnathan Saleh DPM :1945???Age:78 Y???Sex:Male Eric e:04/02/2024 Address:[address] [place], [place] [id number] Pcp:Connie Méndez MD Subjective: * Chief Complaints: [...] Saleh DPM Date:?2024 Generated for Terrence ortez/Gilda/Alejandro on:?04/08/2024 07:31 PM EST
--- OUTSIDE RECORDS SUMMARY | 2024-04-08 19:32 | XMS_ITS ---
Author Organization [facility] Address [address] [place] [address] Care Team Providers Care Operations Assistant Name Role Phone Honey NUNN, Connie Primary Care Provider Unavail able Johnathan Saleh Unavailable [phone] REASON FOR VISIT No Show Encounters Encounter Location Date Provider Diagnosis [address] [address] 04/02/2024 Johnathan Saleh Plan Of Treatment Next Appt Details Provider Name:Johnathan Saleh , 07/09/2024 10:30:00 AM, [address] [place], [address], Progress Notes * Cj THOMPSONoDOB:[birth year] (78 yo M)Acc No.[id number]:04/02/2024 Patient:?Cj THOMPSON :1945???Age:78 Y???Sex:Male Address:[address] [place] [address] * true * Date:? Generated for Printi ng/Fajoeg/eTransmitting on:?04/08/2024 07:31 PM EST
== END 2024-04-08 17:32 | disposition home or self-care (01) ==
PROVIDERS: PCP Internal Medicine; Visit Provider Internal Medicine
DX: E11.9 Type 2 diabetes mellitus without complications (principal); J44.9 Chronic obstructive pulmonary disease, unspecified; I10 Essential (primary) hypertension; E78.5 Hyperlipidemia, unspecified

== ENCOUNTER → 2024-04-08 16:43 | Outpatient (BNVA) | payer MEDICARE, SELFPAY | PROVIDERS: PCP Internal Medicine; Visit Provider Internal Medicine | DX: E11.9 Type 2 diabetes mellitus without complications (principal); E78.5 Hyperlipidemia, unspecified; I10 Essential (primary) hypertension; J44.9 Chronic obstructive pulmonary disease, unspecified | CPT/HCPCS: 83036; 96127; 99212 ==

== ENCOUNTER 2024-04-16 08:37 | Outpatient (AMB) | payer MEDICARE, SELFPAY ==
--- NOTE | 2024-04-16 08:58 | A.OFFVIS_ITS ---
Vital Signs 04/16/24 08:59 Height 5 ft 8 in Weight 200 lb BMI 30.4 BP 112/62 Blood Pressure Location Lt brachial Position Sitting Pulse 87 Pulse Source Doppler Pulse Oximetry (%) 93 Oxygen Delivery Method Room Air Intake Visit Reasons: Pulm Nodules Salesperson Hosiery Required: Yes Salesperson Hosiery Name: Juani NoelTemoLaure Allergies levofloxacin [From LEVAQUIN] Allergy (Intermediate, Verified 04/16/24 09:02) HIVES Iodinated Contrast Media [IV CONTRAST] Adverse Reaction (Intermediate, Verified 04/16/24 09:02) HIVES HPI HPI Pulm Nodules: Details: 78-year-old gentleman, former 40+ pack-year smoker, quit over 20 years prior with underlying at least moderate diastolic dysfunction and history of bioprosthetic aortic valve replacement.? He is followed by Cardiology service. He continues to use Trelegy and albuterol MDI with good control of his symptoms. He denies any recent exacerbations. [facility] Medical History Sepsis Acute kidney failure History of TIA (transient ischemic attack) History of DVT (deep vein thrombosis) Grade II diastolic dysfunction Essential hypertension Dyslipidemia Diabetes mellitus COPD (chronic obstructive pulmonary disease) Gross hematuria Microalbuminuria BPH (benign prostatic hyperplasia) Chronic UTI (urinary tract infection) Chronic back pain Glaucoma Surgical History Status post mitral valve repair (~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 Son No problems noted. Daughter No problems noted. Daughter No problems noted. Daughter No problems noted. Social History Household Members: Significant Other Housing: House Are you a primary hospice home care coordinator to a significant other at home: No Do you presently have visiting nurse or other home services: No Alcohol intake: current Alcohol intake frequency: a few times a month Alcohol type: beer and wine Patient Tobacco Use Status: Former Tobacco user Years Smoked: 10 e-Cigarette/Vaping Use: Never Used Second Hand Smoke Exposure: No service: No Current occupational status: retired Cognitive needs: No Hearing needs: No Vision needs: Yes Review of Systems Const Denies daytime sleepiness, Denies excessive sweating, Denies fatigue, Denies fever(s), Denies lethargy, Denies malaise, Denies night sweats, Denies snoring and Denies weight loss Eyes Denies blurry vision and Denies itchy eyes ENT Denies nasal congestion, Denies post nasal drip, Denies sinus pain, Denies sinus pressure and Denies other ( Thrush) Card Denies chest pain, Denies pedal edema, Denies dyspnea, Denies orthopnea and Denies paroxysmal nocturnal dyspnea Resp Denies cough, Denies hemoptysis, Denies excessive phlegm production, Denies dyspnea, Denies snoring and Denies wheezing GI Denies abdominal pain and Denies heartburn Musc Denies myalgias, Denies arthralgias and Denies joint swelling Skin/Breast Denies rash Neuro Denies memory loss and Denies seizure-like activity Psych Denies abnormal sleep pattern, Denies anxiety and Denies memory loss Endo Denies excessive sweating, Denies fatigue and Denies heat intolerance Bryson/Lymph Denies easy bruising Aller/Immun Denies itchy eyes, Denies seasonal rhinorrhea and Denies wheezing Physical Exam Vital Signs: Last Vital Signs Pulse 87 04/16/24 08:59 BP 112/62 04/16/24 08:59 Pulse Ox 93 04/16/24 08:59 Oxygen Delivery Method Room Air 04/16/24 08:59 BMI result Body Mass Index 30.4 Const General: no acute distress and alert Nutritional Appearance: not obese Orientation/consciousness: Other orientation findings ( oriented) HEENT Head: Yes atraumatic Eyes General: appearance normal, both eyes and all related structures Sclerae: sclerae normal EOM: EOMs intact bilaterally Neck Neck: Yes supple Lymphatic: no lymphadenopathy noted Resp Effort & Inspection: normal respiratory effort and no use of accessory muscles Auscultation: clear to auscultation bilaterally Cardio Rate: regular rate Rhythm: regular rhythm Heart sounds: no gallops, no murmurs and no rubs Skin General skin exam: other ( warm) Extrem General: No clubbing, No cyanosis and No edema Assessment & Plan Assessment & Plan (1) COPD (chronic obstructive pulmonary disease): Code(s): J44.9 - Chronic obstructive pulmonary disease, unspecified Category: Medical Qualifiers: COPD type: unspecified COPD Qualified Code(s): J44.9 - Chronic obstructive pulmonary disease, unspecified Plan: Well controlled on Trelegy and albuterol MDI. Continue current regimen. (2) Pulmonary nodules: Code(s): R91.8 - Other nonspecific abnormal finding of lung field Category: Medical Plan: Results of CT chest reviewed, underlying 5 mm and under pulmonary nodules. Will repeat CT chest in October of 2024, if stable at that time, then no further imaging follow-up would be necessary. Orders: Orders CT chest wo IV con 10/06/24 R91.8 - Other nonspecific abnormal finding of lung field Coding Level of Care Code Est Pt Level 4 (86626) Diagnoses Chronic obstructive pulmonary disease, unspecified COPD type J44.9 COPD type: unspecified COPD Pulmonary nodules R91.8
[2024-04-16 08:59] VITALS: BP 112/62; PULSE 87; O2SAT 93; BMI 30.4
--- OUTSIDE RECORDS SUMMARY | 2024-04-16 09:08 | XMS_ITS ---
Author Organization [facility] Address [address] [place] [address] Care Team Providers Care Color Mixer Name Role Phone Honey NUNN, Connie Primary Care Provider Unavail able Johnathan Saleh Unavailable [phone] Allergies Allergen (clinical drug ingredient) Drug/Non Drug [...] Ordered Date Performed Result Body Sit e 24994-TUKWJBR NAIL, 1-5 01/02/2024 N/A 91801-FOMH SKIN LESIONS, 2 TO 4 01/02/2024 N/A B4454-JQSCFRUM DYSTROPHIC NAILS ANY # 01/02/2024 N/A Encounters Encounter Location Date Provider Diagnosis [facility] [place] [address] [place] [address] 01/02/2024 Johnathan Saleh Type 2 diabetes mellitus [...] days Pending Test Test Name Order Date 43875-AFMRXVH NAIL, 1-5 01/02/2024 23567-YIAA SKIN LESIONS, 2 TO 4 01/02/20 24 B9321-LNYOJQDG DYSTROPHIC NAILS ANY # Next Appt Details Follow Up: 3 Months, Reason: Provider Name:Johnathan Saleh , 07/09/2024 10:30:00 AM, [address] [place] [address], [address], Procedure Notes * Category Sub-Category Detail Notes Keratoma Treatment Parring or Cutting o f Benign Hyperkeratotic Lesion(s) (-56) 2-4 Lesions - The Benign hyperkeratotic lesions, ( 2) in total, locations as stated and described in exam, were pared, and/or cut utilizing a sterile 15 blade, tissue nippers, and/or power dremel instrumentation - 31966, Q8 Debride Nails 1-5 Procedure: Performance of this nail treatment by a nonprofessional would put this patients foot and overall health at risk. Therefore, debridement to affected nail(s), as described in exam, was performed extensively to reduce/remove overall nail length, girth, thickness, subungual debris, and necrotic tissue, by manual and/or electrical means through the use of a nail nipper and/or dremel-type head grinder, to a more viable healthy nail [...] necessary to maintain effective symptomatic relief - 29938 Nail Reduction Nail Reduction (-27) Trimming o f all dystrophic nails, locations as stated and described in exam, was performed to reduce/remove overall nail length and girth, by manual and electrical means with use of a nail nipper and/or dremel, to more viable healthy nail plate or bed tissue - G0127, Q8 Progress Notes * Cj THOMPSONoDOB:[birth year] (78 yo M)Acc No.[id number]:01/02/2024 Progress Note Patient:?Cj THOMPSON Provider:?Johnathan Saleh DPM :1945???Age:78 Y???Sex:Male Eric e:01/02/2024 Address:[address] [place], [place] [id number] Pcp:Connie Méndez MD Subjective: * Chief Complaints: [...] Management (4)??? Plan: * Treatment: 2.?Tinea unguium?Procedure: 42326-MQWVNGD NAIL, 1-5 3.?Xerosis of skin? Start Ammonium [...] use of a nail nipper and/or dremel-type head grinder, to a more viable healthy nail [...] necessary to maintain effective symptomatic relief - 59656.?Keratoma Treatment:?Parring or Cutting of Benign Hyperkeratotic Lesion(s)?(-56) 2-4 Lesions - The Benign hyperkeratotic lesions, ( 2) in total, locations as stated and described in exam, were pared, and/or cut utilizing a sterile 15 blade, tissue nippers, and/or power dremel instrumentation - 53709, Q8.?Nail Reduction:?Nail Reduction?(-27) Trimming of all dystrophic nails, locations as stated and described in exam, was performed to reduce/remove overall nail length and girth, by manual and electrical means with use of a nail nipper and/or dremel, to more viable healthy nail plate or bed tissue - G0127, Q8.? * Procedure Codes:?G0127 TALI ING DYSTROPHIC NAILS ANY #, Modifiers: XS , [id number] DEBRIDE NAIL, 1-5, Modifiers: XS 73171 TRIM SKIN LESIONS, 2 TO 4, Modifiers: [...] Saleh DPM Date:?2023 Generated for Terrence ortez/Gilda/Alejandro on:?04/16/2024 09:07 AM EST History and Physical Notes * [...]
--- OUTSIDE RECORDS SUMMARY | 2024-04-16 09:08 | XMS_ITS ---
Author Organization [facility] Address [address] [place] [address] Care Team Providers Care Dubbing Machine Operator Name Role Phone Honey NUNN, Connie Primary Care Provider Unavail able Johnathan Saleh Unavailable [phone] Allergies Allergen (clinical drug ingredient) Drug/Non Drug [...] Active Encounters Encounter Location Date Provider Diagnosis [facility] [address] [address] 04/02/2024 Johnathan Saleh Plan Of Treatment Next Appt Details Provider Name:Johnathan Saleh , 07/09/2024 10:30:00 AM, [address] [place] [address], [address], Progress Notes * Cj THOMPSONoDOB:[birth year] (78 yo M)Acc No.[id number]:04/02/2024 Progress Note Patient:?Cj THOMPSON Provider:?Johnathan Saleh DPM :1945???Age:78 Y???Sex:Male Eric e:04/02/2024 Address:[address] [place], [place] [id number] Pcp:Connie Méndez MD Subjective: * Chief Complaints: [...] Saleh DPM Date:?2024 Generated for Terrence ortez/Gilda/Alejandro on:?04/16/2024 09:08 AM EST
--- OUTSIDE RECORDS SUMMARY | 2024-04-16 09:08 | XMS_ITS | Patient Health Record ---
Author Organization [facility] Address [address] [facility] [address] Care Team Providers Care Software Configuration Manager Name Role Phone Honey NUNN, Connie Primary Care Provider Unavail able Johnathan Saleh Unavailable [phone] Allergies Allergen (clinical drug ingredient) Drug/Non Drug [...] Problem Acquired hammer toe of right foot (5292320060432 105) Other hammer toe(s) (acquired), right foot (M20.41) Active confirmed Problem Acquired hammer toe of left foot (3695441769880 103) Other hammer toe(s) (acquired), left foot (M20.42) Active confirmed Problem Type 2 diabetes mellitus with peripheral angiopathy (047949576) Type 2 diabetes mellitus with diabetic peripheral angiopathy without gangrene (E11.51) Active confirmed Q7(A), Q8(2B), Q9(1B,2C) Vital Signs Blood pressure diastolic 85 mm Hg 01/02/2024 Height 5 ft 8 in in 01/02/2024 Blood pressure systolic 120 mm Hg 01/02/2024 Weight 184 lbs 01/02/2024 BMI 27.97 kg/m2 01/02/2024 Procedures Procedure Date Ordered Date Performed Result Body Sit e 01785-SUTCUQA NAIL, 1-5 10/03/2023 N/A 19574-YOYE SKIN LESIONS, 2 TO 4 10/03/2023 N/A A9036-LELICSIF DYSTROPHIC NAILS ANY # 10/03/2023 N/A 81478-ANXZAMJ NAIL, 1-5 01/02/2024 N/A 61552-EPQA SKIN LESIONS, 2 TO 4 01/02/2024 N/A T9305-YCWODDBU DYSTROPHIC NAILS ANY # 01/02/2024 N/A Encounters Encounter Location Date Provider Diagnosis [address] [address] 10/03/2023 Johnathan Saleh Type 2 diabetes mellitus with diabetic peripheral angiopathy without gangrene E11.51 ; Tinea unguium B35.1 ; Pain in right toe(s) M79.674 ; Pain in left toe(s) M79.675 ; Other hammer toe(s) (acquired), right foot M20.41 and Other hammer toe(s) (acquired), left foot M20.[address] [address] 01/02/2024 Johnathan Saleh Type 2 diabetes mellitus with diabetic peripheral angiopathy without gangrene E11.51 ; Tinea unguium B35.1 ; Pain in right toe(s) M79.674 ; Pain in left toe(s) M79.675 and Xerosis of skin L85.[address] [address] 04/02/2024 Johnathan Saleh Assessments Encounter Date Diagnosis [...] Treatment Pending Test Test Name Order Date 97276-URKBRPF NAIL, 1-5 10/03/2023 06886-ETEJGXF NAIL, 1-5 01/02/2024 51496-XXPV SKIN LESIONS, 2 TO 4 10/03/19 24 05968-GJSG SKIN LESIONS, 2 TO 4 01/02/20 24 C3878-EDUVQCCJ DYSTROPHIC NAILS ANY # Y2118-HSECIVTL DYSTROPHIC NAILS ANY # Next Appt Details Provider Name:Johnathan Saleh , 07/09/2024 10:30:00 AM, [address] [place], [address], Insurance Providers Payer Name Payer Address Payer Phone Subscriber Number Group Number Insured Name Patient Relationship to Insured Coverage Start Date Coverage End Date [employer] Medicare [id number] [address] [address] [place] [address] [id number] Nasir [place] Self - patient is the insured Medical (General) History Medical History History ICD Code Diabetic Hypertension Replacement Heart Valves Glaucoma COPD Surgical History Surgery Date(Month/Year) Heart Valve
--- OUTSIDE RECORDS SUMMARY | 2024-04-16 09:08 | XMS_ITS ---
Author Organization [facility] Address [address] [place] [address] Care Team Providers Care Brick Machine Operator Name Role Phone Honey NUNN, Connie Primary Care Provider Unavail able Johnathan Saleh Unavailable [phone] REASON FOR VISIT No Show Encounters Encounter Location Date Provider Diagnosis [address] [address] 04/02/2024 Johnathan Saleh Plan Of Treatment Next Appt Details Provider Name:Johnathan Saleh , 07/09/2024 10:30:00 AM, [address] [place], [address], Progress Notes * Cj THOMPSONoDOB:[birth year] (78 yo M)Acc No.[id number]:04/02/2024 Patient:?Cj THOMPSON :1945???Age:78 Y???Sex:Male Address:[address] [place] [address] * true * Date:? Generated for Printi ng/Fajoeg/eTransmitting on:?04/16/2024 09:08 AM EST
== END 2024-04-16 09:17 | disposition home or self-care (01) ==
PROVIDERS: PCP Internal Medicine; Visit Provider Internal Medicine Pulmonary Disease
DX: J44.9 Chronic obstructive pulmonary disease, unspecified (principal); R91.8 Other nonspecific abnormal finding of lung field
CPT/HCPCS: 99214

== ENCOUNTER → 2024-04-16 08:37 | Outpatient (BNVA) | payer MEDICARE, SELFPAY | PROVIDERS: PCP Internal Medicine; Visit Provider Internal Medicine Pulmonary Disease | DX: J44.9 Chronic obstructive pulmonary disease, unspecified (principal); R91.8 Other nonspecific abnormal finding of lung field | CPT/HCPCS: 99212 ==

== ENCOUNTER → 2024-06-25 08:39 | Outpatient (REF) | payer MEDICARE, SELFPAY ==
--- NOTE | 2024-06-25 08:43 | CA_ITS ---
Transthoracic Echocardiogram Patient (Last, First, Middle): Nasir Olvera, Gender: Male Date of : 1945 Age: 78 Procedure Date: 06/25/2024 Procedure Type: Transthoracic Echocardiogram Location: OP Height: 172.72 cm Weight: 90.72 kg BSA: 2.04 m2 Heart Rate: bpm BP: 110 / 58 mmHg Operations Examiner: TO Referring MD: Raul Herrera MD Horse Shoer: Javed Singh MD Symptoms: Z95.3 - Presence of xenogenic heart valve Study Quality: Technically Difficult/Contrast ECG Rhythm: Sinus Conclusions: - 1. Mildly reduced LV ejection fraction 45-50% 2. Mildly dilated left atrium 3. Bioprosthetic aortic valve with a mean gradient of 60 mm Hg which is mildly elevated compared to prior study 4. Mild mitral regurgitation 5. 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 Left Ventricle The left ventricle was not well visualized. Normal left ventricular cavity size. There is normal left ventricular wall thickness. The left ventricular systolic function is mildly decreased. The visually estimated ejection fraction is between 45-50%. Spectral Doppler is indicative of an impaired relaxation filling pattern. Right Ventricle The right ventricle was not well visualized. Atria The left atrium is mildly dilated. Interatrial shunt cannot be excluded. The right atrium was not well visualized. Aortic Valve A bioprosthetic aortic valve is present. The mean gradient is 16 mmHg. The gradients are increased at 16 mm Hg compared to prior study, may suggest early stenosis. Mitral Valve There is moderate anterior and posterior mitral leaflet thickening. There is mild mitral valve regurgitation. There is no mitral valve stenosis. Pulmonic Valve The pulmonic valve was not well visualized. Tricuspid Valve The tricuspid valve was not well visualized. Tricuspid regurgitation envelope is inadequate for calculation of right ventricular systolic pressure. Normal right atrial pressure. Great Vessels The pulmonary artery was not well visualized. There is mild dilatation of the ascending aorta measuring 4.00 cm. Venous The inferior vena cava is normal in size and collapses greater than 50% with inspiration. Pericardium/Pleural The pericardium was not well visualized. Prior Study Comparison Changes noted compared to prior study dated: 06/25/2024. LV systolic function is mildly reduced. Mean gradient across aortic valve is mildly increased. Clinical correlation suggested Measurements 2D Linear Measurements LVOT Diam: 2.30 3.0+(-)1.3 cm 2D Systolic Function EF 4C: 49.20 >55% Mitral Valve MV Pk E: 0.54 MV PK A: 0.46 MV Decel Time: 218.00 E/A: 1.20 E'Lateral: 12.40 E'Medial: 5.77 E/E' Med: 9.30 E/E' Lat: 4.30 PHT: 64.00 MVA PHT: 3.44 Decel [place]: 2.45 Aortic Valve AoV Pk Santos: 2.70 AoV Mn Santos: 1.89 AoV VTI: 0.51 AoV Pk Grad: 29.00 Aov Mn Grad: 16.00 RONALD Cont.VTI: 1.59 LVOT LVOT Pk Santos: 1.03 LVOT Mn Santos: 0.68 LVOT VTI: 0.20 LVOT Pk Grad: 4.00 LVOT Mn Grad: 2.00 LVOT Diam: 2.30 LVOT Area: 4.15 Diastolic Function MV Pk E: 0.54 MV Pk A: 0.46 E/A: 1.20 E'Medial: 5.77 E/E' Med: 9.30 E' Laterial: 12.40 E/E' Lat: 4.30 Right Ventricle TAPSE (mm): 15.60 TVS' Santos: 9.14 Tricuspid Valve RA Press: 3.00 Great Vessels Aorta Ao Asc: 4.00 2.1-3.4 cm Updated in Other Vendor System with Status of Final Javed Singh MD electronically signed on 06/25/2024 4:56:54 PM with status of Final
--- OUTSIDE RECORDS SUMMARY | 2024-06-25 08:51 | XMS_ITS | Patient Health Record ---
[facility] Address [address] [place] [address] Care Team Providers Care Explosives Handler Name Role Phone Honey NUNN, Connie Primary Care Provider Unavail able Johnathan Saleh Unavailable [phone] Allergies Allergen (clinical drug ingredient) Drug/Non Drug [...] Problem Acquired hammer toe of right foot (6539129691340 105) Other hammer toe(s) (acquired), right foot (M20.41) Active confirmed Problem Acquired hammer toe of left foot (8595100014741 103) Other hammer toe(s) (acquired), left foot (M20.42) Active confirmed Problem Type 2 diabetes mellitus with peripheral angiopathy (231609806) Type 2 diabetes mellitus with diabetic peripheral angiopathy without gangrene (E11.51) Active confirmed Q7(A), Q8(2B), Q9(1B,2C) Vital Signs Blood pressure diastolic 85 mm Hg 01/02/2024 Height 5 ft 8 in in 01/02/2024 Blood pressure systolic 120 mm Hg 01/02/2024 Weight 184 lbs 01/02/2024 BMI 27.97 kg/m2 01/02/2024 Procedures Procedure Date Ordered Date Performed Result Body Sit e 43605-TNWZNCS NAIL, 1-5 10/03/2023 N/A 56339-LTMB SKIN LESIONS, 2 TO 4 10/03/2023 N/A H6829-UDOLDLJZ DYSTROPHIC NAILS ANY # 10/03/2023 N/A 42614-LZFRMQG NAIL, 1-5 01/02/2024 N/A 48879-MIDI SKIN LESIONS, 2 TO 4 01/02/2024 N/A C6635-PAXQJCRO DYSTROPHIC NAILS ANY # 01/02/2024 N/A Encounters Encounter Location Date Provider Diagnosis [address] [address] 10/03/2023 Johnathan Saleh Type 2 diabetes mellitus with diabetic peripheral angiopathy without gangrene E11.51 ; Tinea unguium B35.1 ; Pain in right toe(s) M79.674 ; Pain in left toe(s) M79.675 ; Other hammer toe(s) (acquired), right foot M20.41 and Other hammer toe(s) (acquired), left foot M20.[address] [address] 01/02/2024 Johnathan Saleh Type 2 diabetes mellitus with diabetic peripheral angiopathy without gangrene E11.51 ; Tinea unguium B35.1 ; Pain in right toe(s) M79.674 ; Pain in left toe(s) M79.675 and Xerosis of skin L85.[address] [address] 04/02/2024 Johnathan Saleh Assessments Encounter Date Diagnosis [...] Treatment Pending Test Test Name Order Date 81031-XLBNYBB NAIL, 1-5 10/03/2023 69825-QQEDNDI NAIL, 1-5 01/02/2024 28648-ODKT SKIN LESIONS, 2 TO 4 10/03/19 24 00824-PCKR SKIN LESIONS, 2 TO 4 01/02/20 24 O7669-UALITIIO DYSTROPHIC NAILS ANY # D3263-GBANOVAU DYSTROPHIC NAILS ANY # Next Appt Details Provider Name:Johnathan Saleh , 07/09/2024 10:30:00 AM, [address] [place], [address], Insurance Providers Payer Name Payer Address Payer Phone Subscriber Number Group Number Insured Name Patient Relationship to Insured Coverage Start Date Coverage End Date [employer] Medicare [id number] [address] [address] [place] [address] [phone] [id number] Nasir [place] Self - patient is the insured Medical (General) History Medical History History ICD Code Diabetic Hypertension Replacement Heart Valves Glaucoma COPD Surgical History Surgery Date(Month/Year) Heart Valve
--- OUTSIDE RECORDS SUMMARY | 2024-06-25 08:51 | XMS_ITS ---
Author Organization [facility] Address [address] [facility] [place] [address] Care Team Providers Care Harness Maker Name Role Phone Honey NUNN, Connei Primary Care Provider Unavail able Johnathan Saleh Unavailable [phone] Allergies Allergen (clinical drug ingredient) Drug/Non Drug [...] Active Encounters Encounter Location Date Provider Diagnosis [facility] [address] [address] 04/02/2024 Johnathan Saleh Plan Of Treatment Next Appt Details Provider Name:Johnathan Saleh , 07/09/2024 10:30:00 AM, [address] [place] [address], [address], Progress Notes * Cj THOMPSONoDOB:[birth year] (78 yo M)Acc No.[id number]:04/02/2024 Progress Note Patient:?Cj THOMPSON Provider:?Johnathan Saleh DPM :1945???Age:78 Y???Sex:Male Eric e:04/02/2024 Address:[address] [place], [place] [phone] Pcp:Connie Méndez MD Subjective: * Chief Complaints: [...] Saleh DPM Date:?2024 Generated for Terrence ortez/Gilda/Alejandro on:?06/25/2024 08:51 AM EDT
--- OUTSIDE RECORDS SUMMARY | 2024-06-25 08:51 | XMS_ITS ---
Author Organization [facility] Address [address] [place] [address] Care Team Providers Care Property Damage Claims Adjustor Name Role Phone Honey NUNN, Connie Primary Care Provider Unavail able Johnathan Saleh Unavailable [phone] REASON FOR VISIT No Show Encounters Encounter Location Date Provider Diagnosis [address] [address] 04/02/2024 Johnathan Saleh Plan Of Treatment Next Appt Details Provider Name:Johnathan Saleh , 07/09/2024 10:30:00 AM, [address] [place], [address], Progress Notes * Cj THOMPSONoDOB:[birth year] (78 yo M)Acc No.[id number]:04/02/2024 Patient:?Cj THOMPSON :1945???Age:78 Y???Sex:Male Address:[address] [place] [address] * true * Date:? Generated for Printi ng/Faxing/eTransmitting on:?06/25/2024 08:51 AM EDT
--- OUTSIDE RECORDS SUMMARY | 2024-06-25 08:51 | XMS_ITS ---
Author Organization [facility] Address [address] [place] [address] Care Team Providers Care Gas Usage Meter Clerk Name Role Phone Honey NUNN, Connie Primary Care Provider Unavail able Johnathan Saleh Unavailable [phone] Allergies Allergen (clinical drug ingredient) Drug/Non Drug [...] Ordered Date Performed Result Body Sit e 18422-ATCWNUR NAIL, 1-5 01/02/2024 N/A 24744-COMO SKIN LESIONS, 2 TO 4 01/02/2024 N/A H6765-REJLWNKR DYSTROPHIC NAILS ANY # 01/02/2024 N/A Encounters Encounter Location Date Provider Diagnosis [facility] [address] [place] [address] 01/02/2024 Johnathan Saleh Type 2 diabetes mellitus [...] days Pending Test Test Name Order Date 13334-GBNUCOQ NAIL, 1-5 01/02/2024 79923-XEKL SKIN LESIONS, 2 TO 4 01/02/20 24 H2288-MMCWOUUX DYSTROPHIC NAILS ANY # Next Appt Details Follow Up: 3 Months, Reason: Provider Name:Johnathan Saleh , 07/09/2024 10:30:00 AM, [address] [place] [address], [phone], Procedure Notes * Category Sub-Category Detail Notes Keratoma Treatment Parring or Cutting o f Benign Hyperkeratotic Lesion(s) (-56) 2-4 Lesions - The Benign hyperkeratotic lesions, ( 2) in total, locations as stated and described in exam, were pared, and/or cut utilizing a sterile 15 blade, tissue nippers, and/or power dremel instrumentation - 57689, Q8 Debride Nails 1-5 Procedure: Performance of this nail treatment by a nonprofessional would put this patients foot and overall health at risk. Therefore, debridement to affected nail(s), as described in exam, was performed extensively to reduce/remove overall nail length, girth, thickness, subungual debris, and necrotic tissue, by manual and/or electrical means through the use of a nail nipper and/or dremel-type wheel grinder, to a more viable healthy nail [...] necessary to maintain effective symptomatic relief - 93813 Nail Reduction Nail Reduction (-27) Trimming o f all dystrophic nails, locations as stated and described in exam, was performed to reduce/remove overall nail length and girth, by manual and electrical means with use of a nail nipper and/or dremel, to more viable healthy nail plate or bed tissue - G0127, Q8 Progress Notes * Cj THOMPSONoDOB:[birth year] (78 yo M)Acc No.[id number]:01/02/2024 Progress Note Patient:?Cj THOMPSON Provider:?Johnathan Saleh DPM :1945???Age:78 Y???Sex:Male Eric e:01/02/2024 Address:[address] [place], [place] [id number] Pcp:Connie Méndez MD Subjective: * Chief Complaints: [...] Management (4)??? Plan: * Treatment: 2.?Tinea unguium?Procedure: 80094-WBEPRMJ NAIL, 1-5 3.?Xerosis of skin? Start Ammonium [...] use of a nail nipper and/or dremel-type wheel grinder, to a more viable healthy nail [...] necessary to maintain effective symptomatic relief - 11366.?Keratoma Treatment:?Parring or Cutting of Benign Hyperkeratotic Lesion(s)?(-56) 2-4 Lesions - The Benign hyperkeratotic lesions, ( 2) in total, locations as stated and described in exam, were pared, and/or cut utilizing a sterile 15 blade, tissue nippers, and/or power dremel instrumentation - 53100, Q8.?Nail Reduction:?Nail Reduction?(-27) Trimming of all dystrophic nails, locations as stated and described in exam, was performed to reduce/remove overall nail length and girth, by manual and electrical means with use of a nail nipper and/or dremel, to more viable healthy nail plate or bed tissue - G0127, Q8.? * Procedure Codes:?G0127 TALI ING DYSTROPHIC NAILS ANY #, Modifiers: XS , [id number] DEBRIDE NAIL, 1-5, Modifiers: XS 74051 TRIM SKIN LESIONS, 2 TO 4, Modifiers: [...] Saleh DPM Date:?2023 Generated for Terrence ortez/Gilda/Alejandro on:?06/25/2024 08:51 AM EDT History and Physical Notes * HPI (History [...]
== END ==
LOC: HO.CARD 08:39
PROVIDERS: PCP Internal Medicine; Visit Provider Internal Medicine
DX: Z95.3 Presence of xenogenic heart valve (principal); Z98.890 Other specified postprocedural states
CPT/HCPCS: 93306; Q9957

== ENCOUNTER → 2024-06-25 08:43 | Outpatient (BNV) | payer MEDICARE, SELFPAY | PROVIDERS: PCP Internal Medicine; Visit Provider Internal Medicine Cardiovascular Disease | DX: I34.0 Nonrheumatic mitral (valve) insufficiency (principal); Z95.3 Presence of xenogenic heart valve | CPT/HCPCS: 93306 ==

== ENCOUNTER 2024-06-28 14:32 | Outpatient (AMB) | payer MEDICARE, MEDICAID, SELFPAY ==
--- OUTSIDE RECORDS SUMMARY | 2024-06-28 14:35 | XMS_ITS ---
Author Organization [facility] Address [address] [facility] [place] [address] Care Team Providers Care Data Steward Name Role Phone Honey NUNN, Connie Primary Care Provider Unavail able Johnathan Saleh Unavailable [phone] Allergies Allergen (clinical drug ingredient) Drug/Non Drug [...] Active Encounters Encounter Location Date Provider Diagnosis [facility] [address] [address] 04/02/2024 Johnathan Saleh Plan Of Treatment Next Appt Details Provider Name:Johnathan Saleh , 07/09/2024 10:30:00 AM, [address] [place] [address], [phone], Progress Notes * Cj THOMPSONoDOB:[birth year] (78 yo M)Acc No.[id number]:04/02/2024 Progress Note Patient:?Cj THOMPSON Provider:?Johnathan Saleh DPM :1945???Age:78 Y???Sex:Male Eric e:04/02/2024 Address:[address] [place], [place] [id number] Pcp:Connie Méndez MD Subjective: * Chief Complaints: [...] Saleh DPM Date:?2024 Generated for Terrence ortez/Gilda/Alejandro on:?06/28/2024 02:35 PM EDT
--- OUTSIDE RECORDS SUMMARY | 2024-06-28 14:35 | XMS_ITS ---
Author Organization [facility] Address [address] [place] [address] Care Team Providers Care Electrical Manufacturing Engineer Name Role Phone Honey NUNN, Connie Primary Care Provider Unavail able Johnathan Saleh Unavailable [phone] REASON FOR VISIT No Show Encounters Encounter Location Date Provider Diagnosis [address] [address] 04/02/2024 Johnathan Saleh Plan Of Treatment Next Appt Details Provider Name:Johnathan Saleh , 07/09/2024 10:30:00 AM, [address] [place], [address], Progress Notes * Cj THOMPSONoDOB:[birth year] (78 yo M)Acc No.[id number]:04/02/2024 Patient:?Cj THOMPSON :1945???Age:78 Y???Sex:Male Address:[address] [place] [address] * true * Date:? Generated for Printi ng/Faxing/eTransmitting on:?06/28/2024 02:35 PM EDT
--- OUTSIDE RECORDS SUMMARY | 2024-06-28 14:35 | XMS_ITS | Patient Health Record ---
Author [facility] Address [address] [place] [address] Care Team Providers Care Handwriting Expert Name Role Phone Honey NUNN, Connie Primary Care Provider Unavail able Johnathan Saleh Unavailable [phone] Allergies Allergen (clinical drug ingredient) Drug/Non Drug [...] Problem Acquired hammer toe of right foot ([id number] 105) Other hammer toe(s) (acquired), right foot (M20.41) Active confirmed Problem Acquired hammer toe of left foot (6990987445355 103) Other hammer toe(s) (acquired), left foot (M20.42) Active confirmed Problem Type 2 diabetes mellitus with peripheral angiopathy (822228725) Type 2 diabetes mellitus with diabetic peripheral angiopathy without gangrene (E11.51) Active confirmed Q7(A), Q8(2B), Q9(1B,2C) Vital Signs Blood pressure diastolic 85 mm Hg 01/02/2024 Height 5 ft 8 in in 01/02/2024 Blood pressure systolic 120 mm Hg 01/02/2024 Weight 184 lbs 01/02/2024 BMI 27.97 kg/m2 01/02/2024 Procedures Procedure Date Ordered Date Performed Result Body Sit e 73272-VOURQWG NAIL, 1-5 10/03/2023 N/A 30538-GSVE SKIN LESIONS, 2 TO 4 10/03/2023 N/A Q5456-BICKNHKJ DYSTROPHIC NAILS ANY # 10/03/2023 N/A 51755-MHRJMEP NAIL, 1-5 01/02/2024 N/A 76591-GNDX SKIN LESIONS, 2 TO 4 01/02/2024 N/A S5357-IOMBVPLJ DYSTROPHIC NAILS ANY # 01/02/2024 N/A Encounters Encounter Location Date Provider Diagnosis [address] [address] 10/03/2023 Johnathan Saleh Type 2 diabetes mellitus with diabetic peripheral angiopathy without gangrene E11.51 ; Tinea unguium B35.1 ; Pain in right toe(s) M79.674 ; Pain in left toe(s) M79.675 ; Other hammer toe(s) (acquired), right foot M20.41 and Other hammer toe(s) (acquired), left foot M20.[address] [address] 01/02/2024 Johnathan Saleh Type 2 diabetes mellitus with diabetic peripheral angiopathy without gangrene E11.51 ; Tinea unguium B35.1 ; Pain in right toe(s) M79.674 ; Pain in left toe(s) M79.675 and Xerosis of skin L85.[address] [address] 04/02/2024 Johnathan Saleh Assessments Encounter Date Diagnosis [...] Treatment Pending Test Test Name Order Date 40923-HFNRFTM NAIL, 1-5 10/03/2023 99256-KUESEKA NAIL, 1-5 01/02/2024 14550-HTUY SKIN LESIONS, 2 TO 4 10/03/19 24 39512-TZWN SKIN LESIONS, 2 TO 4 01/02/20 24 V8238-QRNZVADD DYSTROPHIC NAILS ANY # S1122-QDKGOCRS DYSTROPHIC NAILS ANY # Next Appt Details Provider Name:Johnathan Saleh , 07/09/2024 10:30:00 AM, [address] [place], [phone], Insurance Providers Payer Name Payer Address Payer Phone Subscriber Number Group Number Insured Name Patient Relationship to Insured Coverage Start Date Coverage End Date [employer] Medicare Adv-[id number] [address] [address] [place] [address] [id number] Nasir Ward Self - patient is the insured Medical (General) History Medical History History ICD Code Diabetic Hypertension Replacement Heart Valves Glaucoma COPD Surgical History Surgery Date(Month/Year) Heart Valve
--- OUTSIDE RECORDS SUMMARY | 2024-06-28 14:35 | XMS_ITS ---
Author Organization [facility] Address [address] [facility] [place] [address] Care Team Providers Care Care Taker Name Role Phone Honey NUNN, oCnnie Primary Care Provider Unavail able Johnathan Saleh Unavailable [phone] Allergies Allergen (clinical drug ingredient) Drug/Non Drug [...] Ordered Date Performed Result Body Sit e 84513-ASZJZTX NAIL, 1-5 01/02/2024 N/A 87971-VLYV SKIN LESIONS, 2 TO 4 01/02/2024 N/A O6616-ABJXXDRJ DYSTROPHIC NAILS ANY # 01/02/2024 N/A Encounters Encounter Location Date Provider Diagnosis [facility] [address] [place] [address] 01/02/2024 Johnathan Saleh Type 2 diabetes mellitus [...] days Pending Test Test Name Order Date 32617-TAVBKWR NAIL, 1-5 01/02/2024 19609-FMWG SKIN LESIONS, 2 TO 4 01/02/20 24 X6896-OBDWUVVG DYSTROPHIC NAILS ANY # Next Appt Details Follow Up: 3 Months, Reason: Provider Name:Johnathan Saleh , 07/09/2024 10:30:00 AM, [address] [place] [address], [phone], Procedure Notes * Category Sub-Category Detail Notes Keratoma Treatment Parring or Cutting o f Benign Hyperkeratotic Lesion(s) (-56) 2-4 Lesions - The Benign hyperkeratotic lesions, ( 2) in total, locations as stated and described in exam, were pared, and/or cut utilizing a sterile 15 blade, tissue nippers, and/or power dremel instrumentation - 33435, Q8 Debride Nails 1-5 Procedure: Performance of this nail treatment by a nonprofessional would put this patients foot and overall health at risk. Therefore, debridement to affected nail(s), as described in exam, was performed extensively to reduce/remove overall nail length, girth, thickness, subungual debris, and necrotic tissue, by manual and/or electrical means through the use of a nail nipper and/or dremel-type centerless grinder, to a more viable healthy nail [...] necessary to maintain effective symptomatic relief - 40636 Nail Reduction Nail Reduction (-27) Trimming o f all dystrophic nails, locations as stated and described in exam, was performed to reduce/remove overall nail length and girth, by manual and electrical means with use of a nail nipper and/or dremel, to more viable healthy nail plate or bed tissue - G0127, Q8 Progress Notes * Cj THOMPSONoDOB:[birth year] (78 yo M)Acc No.[id number]:01/02/2024 Progress Note Patient:?Cj THOMPSON Provider:?Johnathan Saleh DPM :1945???Age:78 Y???Sex:Male Eric e:01/02/2024 Address:[address] [place], [place] [id number] Pcp:Connie Méndez MD Subjective: * Chief Complaints: [...] Management (4)??? Plan: * Treatment: 2.?Tinea unguium?Procedure: 38835-XLSTAGA NAIL, 1-5 3.?Xerosis of skin? Start Ammonium [...] use of a nail nipper and/or dremel-type centerless grinder, to a more viable healthy nail [...] necessary to maintain effective symptomatic relief - 26322.?Keratoma Treatment:?Parring or Cutting of Benign Hyperkeratotic Lesion(s)?(-56) 2-4 Lesions - The Benign hyperkeratotic lesions, ( 2) in total, locations as stated and described in exam, were pared, and/or cut utilizing a sterile 15 blade, tissue nippers, and/or power dremel instrumentation - 25968, Q8.?Nail Reduction:?Nail Reduction?(-27) Trimming of all dystrophic nails, locations as stated and described in exam, was performed to reduce/remove overall nail length and girth, by manual and electrical means with use of a nail nipper and/or dremel, to more viable healthy nail plate or bed tissue - G0127, Q8.? * Procedure Codes:?G0127 TALI ING DYSTROPHIC NAILS ANY #, Modifiers: XS , [id number] DEBRIDE NAIL, 1-5, Modifiers: XS 97170 TRIM SKIN LESIONS, 2 TO 4, Modifiers: [...] Saleh DPM Date:?2023 Generated for Terrence ortez/Gilda/Alejandro on:?06/28/2024 02:35 PM EDT History and Physical Notes * HPI [...]
[2024-06-28 14:44] VITALS: BP 140/70; PULSE 93; BMI 30.5
--- NOTE | 2024-06-28 14:44 | A.OFFVIS_ITS ---
Vital Signs 06/28/24 14:44 Height 5 ft 8 in Weight 200 lb 9.93 oz BMI 30.5 BP 140/70 H Blood Pressure Location Lt brachial Position Sitting Pulse 93 Pulse Source Monitor Intake Visit Reasons: 6m follow up/echo Paper Guillotine Operator Required: Yes Paper Guillotine Operator Name: OWEN [id number] Allergies levofloxacin [From LEVAQUIN] Allergy (Intermediate, Verified 04/16/24 09:02) HIVES Iodinated Contrast Media [IV CONTRAST] Adverse Reaction (Intermediate, Verified 04/16/24 09:02) HIVES Medication List - Last Reviewed 06/28/24 by Dona Tovar albuterol sulfate 90 mcg/actuation 2 puffs inhalation Q6H PRN 30 days aspirin 81 mg PO DAILY 90 days atorvastatin 40 mg PO DAILY 90 days brinzolamide-brimonidine 1-0.2 % (Simbrinza) 1 drp ophthalmic (eye) TID bromfenac 0.07% (Prolensa) 1 drp ophthalmic (eye) DAILY cholecalciferol (vitamin D3) 50 mcg PO DAILY 90 days diltiazem HCl CD (Cartia XT) 180 mg PO DAILY finasteride 5 mg PO DAILY 90 days kmddyptnkmj-zlxylkala-mmxypywq 200-62.5-25 mcg (Trelegy Ellipta) 1 ea inhalation DAILY lancets (Application Craftuch Delica Lancets) 1 Lancet to be use twice a day latanoprost 0.005% 1 drp ophthalmic (eye) BEDTIME lisinopril 20 mg PO DAILY 90 days metformin ER 1,000 mg PO BID netarsudil 0.02% (Rhopressa) 1 drp ophthalmic (eye) BEDTIME prednisolone acetate 1% 1 drp ophthalmic (eye) QID terazosin 5 mg PO DAILY HPI Comments Details: Nasir returns for follow-up. 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 He underwent bioprosthetic aortic valve replacement, mitral valve repair and PFO closure. Overall, he is doing well. No complaints like angina or shortness of breath or in fact any cardiac symptoms. No specific concerns otherwise. [facility] Medical History Sepsis Acute kidney failure History of TIA (transient ischemic attack) History of DVT (deep vein thrombosis) Grade II diastolic dysfunction Essential hypertension Dyslipidemia Diabetes mellitus COPD (chronic obstructive pulmonary disease) Gross hematuria Microalbuminuria BPH (benign prostatic hyperplasia) Chronic UTI (urinary tract infection) Chronic back pain Glaucoma Surgical History Status post mitral valve repair (~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 Son No problems noted. Daughter No problems noted. Daughter No problems noted. Daughter No problems noted. Social History Household Members: Significant Other Housing: House Are you a primary primary health care nurse to a significant other at home: No Do you presently have visiting nurse or other home services: No Alcohol intake: current Alcohol intake frequency: a few times a month Alcohol type: beer and wine Patient Tobacco Use Status: Former Tobacco user Years Smoked: 10 e-Cigarette/Vaping Use: Never Used Second Hand Smoke Exposure: No service: No Current occupational status: retired Cognitive needs: No Hearing needs: No Vision needs: Yes Review of Systems Const Denies weakness ENT Denies dizziness Card Denies chest pain, Denies chest pain with activity, Denies syncope, Denies rapid heart rate, Denies pedal edema, Denies edema, Denies leg edema, Denies lightheadedness, Denies palpitations, Denies dyspnea, Denies dyspnea on exertion and Denies orthopnea Resp Denies cough, Denies dyspnea and Denies dyspnea on exertion GI Denies hematochezia and Denies change in stool character Musc Denies abnormal gait, Denies muscle cramps, Denies muscle weakness, Denies numbness, Denies radiating pain into limb and Denies tingling Neuro Denies abnormal gait, Denies dizziness, Denies syncope, Denies numbness, Denies tingling and Denies weakness Endo Denies palpitations Physical Exam Vital Signs: Last Vital Signs Pulse 93 06/28/24 14:44 BP 140/70 H 06/28/24 14:44 BMI result Body Mass Index 30.5 Const General: comfortable and no acute distress Orientation/consciousness: patient oriented x3 HEENT Other: Unremarkable Head: Yes normal to inspection Neck Neck: Yes normal visual inspection Chest Chest palpation & inspection: normal inspection of the chest Resp Auscultation: clear to auscultation bilaterally Cardio Palpation: normal PMI Heart sounds: S1 normal heart sound present, S2 normal heart sound present, no gallops, Murmur heart sound present systolic II/ and no rubs GI Palpation (GI): Soft to palpation Back/Spine/Pelvis Other: unremarkable Skin General skin exam: no rashes or lesions noted Neuro General: patient oriented x3 Extrem General: Yes normal to inspection Psych Mental Status: mental status grossly normal Office Procedures EKG Details: EKG with underlying sinus rhythm at 93/Min frequent PVCs. Cannot exclude old inferior infarct[place]. [address]-Ljowsimmmlyzjzscx, Complete Assessment & Plan Assessment & Plan (1) Status post aortic valve replacement with bioprosthetic valve: Onset Date: ~2014 Comment: (Aortic valve replaced, Mitrial valve repair, PFO closure - Dr. Joseph, 03/11/2014) Code(s): Z95.3 - Presence of xenogenic heart valve Category: Surgical (2) Status post mitral valve repair: Onset Date: ~2014 Comment: (Aortic valve replaced, Mitrial valve repair, PFO closure - Dr. Joseph, 03/11/2014) Code(s): Z98.890 - Other specified postprocedural states Category: Surgical (3) PVC (premature ventricular contraction): Code(s): I49.3 - Ventricular premature depolarization Category: Medical Plan EKG shows sinus rhythm with frequent PVCs. In the most recent echocardiogram, LVEF is 45-50%. Visually similar to the prior study. Bioprosthetic valve with a mean gradient of 16 mm Hg. Slightly elevated. It has been as much as 20 mm Hg in the past. Overall, normal valve function. In the Holter, PVC burden was 2.6%. Based on operative report from 2014, normal coronary arteries. Overall, he remains asymptomatic from cardiac standpoint. With regard to the prosthetic valve, continue aspirin. In fact endocarditis prophylaxis per protocol. With regard to PVCs, he has got no symptoms. He is on diltiazem. We can add some beta-blockers. Obtain sleep study look for any occult sleep apnea as describes sleep apnea type symptoms. Follow-up in 3 months for sleep study. Discussed with bacon de rinder. Discussed with family. Discussion Notes During the consultation, I discussed with the patient the likely diagnosis of arrhythmia and how the prescribed medication could stabilize heart rhythm and minimize complications. We reviewed the importance of addressing potential obstructive sleep apnea, given its known impact on cardiac health. This necessitates a definitive sleep study; untreated, it could worsen existing cardiovascular issues. The patient acknowledged the plan, including medication, diagnostic evaluations, and future monitoring. We will re-evaluate his cardiac status at the next follow-up in three months, ensuring that the treatment plan remains efficient and targeted. Patient was informed and verbally consented to the use of an ambient scribe for clinic note documentation during this visit. Orders: Orders RT home sleep study Today G47.33 - Obstructive sleep apnea (adult) (pediatric) Medications: New metoprolol succinate ER (Toprol XL) 25 mg PO DAILY 90 tabs 1RF Patient Instructions: - Begin taking the prescribed cardiac medication as directed. - Complete the sleep study to check for sleep apnea. - occupational health and safety adviser your prescription at [facility]. - Return for a follow-up appointment in three months. - Report any symptoms of chest pain, excessive fatigue, or new breathing difficulties immediately. - Keep a log of any abnormal heartbeats or breathing changes. Coding Level of Care Code Est Pt Level 4 (25552) Complex EM visit Add On G2211 Diagnoses Status post aortic valve replacement with bioprosthetic valve Z95.3 Status post mitral valve repair Z98.890 PVC (premature ventricular contraction) I49.3 CPT Codes EKG - CPT: 69038-Ujsxovlinzobmhczt, Complete ([id number])
== END 2024-06-28 15:08 | disposition home or self-care (01) ==
LOC: HO.HCS 14:33
PROVIDERS: PCP Internal Medicine; Visit Provider Internal Medicine
DX: Z95.3 Presence of xenogenic heart valve (principal); Z98.890 Other specified postprocedural states; I49.3 Ventricular premature depolarization
CPT/HCPCS: 93010; 99214; G2211

== ENCOUNTER → 2024-06-28 14:32 | Outpatient (BNVA) | payer MEDICARE, MEDICAID, SELFPAY | PROVIDERS: PCP Internal Medicine; Visit Provider Internal Medicine | DX: I49.3 Ventricular premature depolarization (principal); G47.33 Obstructive sleep apnea (adult) (pediatric); Z95.3 Presence of xenogenic heart valve; Z87.891 Personal history of nicotine dependence; Z98.890 Other specified postprocedural states | CPT/HCPCS: 93005; 99212 ==

== ENCOUNTER 2024-07-23 08:17 | Outpatient (REF) | payer MEDICARE, OTHER, SELFPAY ==
--- OUTSIDE RECORDS SUMMARY | 2024-07-23 08:25 | XMS_ITS | Patient Health Record ---
[facility] Address [address] [address] Care Team Providers Care Child Care Supervisor Name Role Phone Honey NUNN, Connie Primary Care Provider Unavail able Johnathan Saleh Unavailable [phone] Allergies Allergen (clinical drug ingredient) Drug/Non Drug Allergy documented on EMR Reaction Allergy Type Onset Date Status Contrast Dye (uncoded) Unknown Allergy Active Results Component Value Reference Range Notes HEMOGLOBIN A1C (GLYCOHEMOGLO BIN) Reviewed date:07/09/2024 11:14:01 AM Interpretation: Performing Lab: Notes/Report: HEMOGLOBIN A1C % (HH) 5.6 Reason For Referral No Information Medications Medication SIG (Take, Route, Frequency, Duration) Notes Start Date End Date Status ProAir HFA Active Trelegy Ellipta 200-62.5-25 MCG/ACT 1 puff Inhalation Once a day Active prednisoLONE Acetate 1 % 1 drop into aff ected eye Ophthalmic Twice a day Active Rhopressa 0.02 % 1 drop into affected eye in the evening Ophthalmic Once a day Active Simbrinza 1-0.2 % 1 drop into affected eye Ophthalmic Three times a day Active Prolensa 0.07 % 1 drop into affected eye Ophthalmic Once a day Active acetaZOLAMIDE ER 500 MG 1 capsule Orally Twice a day for 30 day(s) Active metFORMIN HCl 500 MG 1 tablet with a robbie l Orally Once a day for 30 day(s) Active Terazosin HCl 5 MG 1 capsule at bedtime Orally Once a day for 30 day(s) Active Aspirin 81 MG 1 tablet Orally Once a day for 30 day(s) Active Metoprolol Succinate Active Lisinopril 20 MG 1 tablet Orally Once a day for 30 day(s) Active Atorvastatin Calcium 40 MG 1 tablet Oral ly Once a day for 30 day(s) Active Extra Depth Orthopedic Shoes, (1) Pair With (3) Pair Custom Heat Molded Multidensity Innersoles Dx: NIDDM/PVD(E11.51), Hammertoe Foot Deformity(M20.41,M20.42), Preulcerative Skin Lesion(s)(L85.1) Wear Daily for 365 days Active dilTIAZem HCl ER 180 MG 1 tablet Orally Once a day for 30 day(s) Active Finasteride 5 MG 1 tablet Orally Once a day for 30 day(s) Active Vitamin D Active Ammonium Lactate 12 % 1 application Exte rnally to affected areas of dry skin to feet except for between the toes Twice a day for 30 days Active Immunizations Vaccine Route Administration Date Status Comme nts Influenza Unknown 10/11/2022 Administered Social History Tobacco Use: Social History Observation Description Date Details (start date - stop date) Never Smoker NA - NA Tobacco use other than smoking: Question Answer Notes Are you an other tobacco user? No Tobacco Control (Standard) Question Answer Notes Tobacco use: Nonsmoker Additional Findings: Tobacco non-user Current no nsmoker AUDIT-C (Standard) Question Answer Notes Did you have a drink containing alcohol in the p ast year? No Points 0 Interpretation Negative Problems Problem Type SNOMED Code ICD Code Onset Dates Problem Status W/U Status Risk Notes Problem Acquired hammer toe of right foot (9590035224173 105) Other hammer toe(s) (acquired), right foot (M20.41) Active confirmed Problem Acquired hammer toe of left foot (7150798752337 103) Other hammer toe(s) (acquired), left foot (M20.42) Active confirmed Problem Type 2 diabetes mellitus with peripheral angiopathy (874380947) Type 2 diabetes mellitus with diabetic peripheral angiopathy without gangrene (E11.51) Active confirmed Q7(A), Q8(2B), Q9(1B,2C) Vital Signs Blood pressure diastolic 65 mm Hg 07/09/2024 Height 5 ft 8 in in 07/09/2024 Blood pressure systolic 128 mm Hg 07/09/2024 Weight 184 lbs 07/09/2024 BMI 27.97 kg/m2 07/09/2024 Procedures Procedure Date Ordered Date Performed Result Body Sit e 54202-QCLFCAR NAIL, 1-5 10/03/2023 N/A 02784-VYZY SKIN LESIONS, 2 TO 4 10/03/2023 N/A O1515-YBJYHCTH DYSTROPHIC NAILS ANY # 10/03/2023 N/A 80973-SDBQNDQ NAIL, 1-5 01/02/2024 N/A 08339-XCTU SKIN LESIONS, 2 TO 4 01/02/2024 N/A R5563-JMNOCHLC DYSTROPHIC NAILS ANY # 01/02/2024 N/A 99758-KMQQMPU NAIL, 1-5 07/09/2024 N/A 13333-RRHI SKIN LESIONS, OVER 4 07/09/2024 N/A I2100-NYSMPYNU DYSTROPHIC NAILS ANY # 07/09/2024 N/A Encounters Encounter Location Date Provider Diagnosis [address] [address] 10/03/2023 Johnathan Saleh Type 2 diabetes mellitus with diabetic peripheral angiopathy without gangrene E11.51 ; Tinea unguium B35.1 ; Pain in right toe(s) M79.674 ; Pain in left toe(s) M79.675 ; Other hammer toe(s) (acquired), right foot M20.41 and Other hammer toe(s) (acquired), left foot M20.42 [facility] [address] [address] 01/02/2024 Johnathan Saleh Type 2 diabetes mellitus with diabetic peripheral angiopathy without gangrene E11.51 ; Tinea unguium B35.1 ; Pain in right toe(s) M79.674 ; Pain in left toe(s) M79.675 and Xerosis of skin L85.3 [facility] [address] [address] 07/09/2024 Johnathan Saleh Type 2 diabetes mellitus with diabetic peripheral angiopathy without gangrene E11.51 ; Tinea unguium B35.1 ; Pain in right toe(s) M79.674 ; Pain in left toe(s) M79.675 ; Other hammer toe(s) (acquired), right foot M20.41 and Other hammer toe(s) (acquired), left foot M20.42 [facility] [address] [address] 04/02/2024 Johnathan Saleh Assessments Encounter Date Diagnosis (ICD Code) Assessment Notes Treatment Notes Treatment Clinical Notes Section Notes 10/03/2023 Tinea unguium (ICD-10 - B35.1) 10/03/2023 Type 2 diabetes mellitus with diabetic peripheral angiopathy without gangrene (ICD-10 - E11.51) 01/02/2024 Tinea unguium (ICD-10 - B35.1) 01/02/2024 Type 2 diabetes mellitus with diabetic peripheral angiopathy without gangrene (ICD-10 - E11.51) Q7(A), Q8(2B), Q9(1B,2C) 07/09/2024 Tinea unguium (ICD-10 - B35.1) 07/09/2024 Type 2 diabetes mellitus with diabetic peripheral angiopathy without gangrene (ICD-10 - E11.51) 07/09/2024 Pain in right toe(s) (ICD-10 - M79.674) 10/03/2023 Pain in right toe(s) (ICD-10 - M79.674) 01/02/2024 Pain in right toe(s) (ICD-10 - M79.674) 01/02/2024 Pain in left toe(s) (ICD-10 - M79.675) 10/03/2023 Pain in left toe(s) (ICD-10 - M79.675) 07/09/2024 Pain in left toe(s) (ICD-10 - M79.675) 01/02/2024 Xerosis of skin (ICD-10 - L85.3) 07/09/2024 Other hammer toe(s) (acquired), right foot (ICD-10 - M20.41) Patient Educated with: DIABETIC FOOT CARE INSTRUCTIONS.p df (DIABETIC FOOT CARE INSTRUCTIONS.p df) 10/03/2023 Other hammer toe(s) (acquired), right foot (ICD-10 - M20.41) Patient Educated with: DIABETIC FOOT CARE INSTRUCTIONS.p df (DIABETIC FOOT CARE INSTRUCTIONS.p df) 10/03/2023 Other hammer toe(s) (acquired), left foot (ICD-10 - M20.42) 07/09/2024 Other hammer toe(s) (acquired), left foot (ICD-10 - M20.42) Plan Of Treatment Pending Test Test Name Order Date 53293-WMPNHSS NAIL, 1-5 10/03/2023 82066-JUBKNSQ NAIL, 1-5 01/02/2024 16403-FKMYXUV NAIL, 1-5 07/09/2024 27012-YLHF SKIN LESIONS, OVER 4 07/10/19 25 74764-VMEI SKIN LESIONS, 2 TO 4 10/03/19 24 84937-HICU SKIN LESIONS, 2 TO 4 01/02/20 24 A9918-THEYWFOI DYSTROPHIC NAILS ANY # Z3042-MSSMRTMF DYSTROPHIC NAILS ANY # X6125-SZFTNHCM DYSTROPHIC NAILS ANY # Next Appt Details Provider Name:Johnathan Saleh , 10/15/2024 09:15:00 AM, [address] [place], [address], Insurance Providers Payer Name Payer Address Payer Phone Subscriber Number Group Number Insured Name Patient Relationship to Insured Coverage Start Date Coverage End Date [employer] Medicare Adv-[id number] [address] [address] [place] [address] [id number] Self - patient is the insured Medical (General) History Medical History History ICD Code Diabetic Hypertension Replacement Heart Valves Glaucoma COPD Surgical History Surgery Date(Month/Year) Heart Valve
[2024-07-23 09:20] LABS: Alanine Aminotransferase 11 U/L (0-40); Alkaline Phosphatase 57 U/L (39-117); Anion Gap 11 (12-20); Aspartate Amino Transferase 20 U/L (5-37); Bilirubin Total 1.1 mg/dL (0.0-1.0); Blood Urea Nitrogen 18 mg/dL (9-16); Calcium 9.9 mg/dL (8.4-10.2); Carbon Dioxide 25 mmol/L (22-29); Chloride 109 mmol/L (96-108); Cholesterol 109 mg/dL (<200); Estimated Glomerular Filt Rate 48; Glucose Fasting 174 mg/dL (60-99); HDL Cholesterol 39 mg/dL (>40); LDL Cholesterol Calculated 54 mg/dL (<100); Potassium 4.8 mmol/L (3.3-5.1); Sodium 140 mmol/L (135-145); Total Protein 7.4 g/dL (6.5-8.0); Triglycerides 81 mg/dL (<150)
[2024-07-23 09:39] LABS: Vitamin D 25-OH Total 31.4 ng/mL (>30)
[2024-07-23 10:49] LABS: Creatinine Urine 156.99 mg/dL; Microalbum/Creatinine Ratio Ur 180.9 ug/mg cr (<30)
== END 2024-07-23 08:18 | disposition home or self-care (01) ==
LOC: HO.LAB 08:17
PROVIDERS: PCP Internal Medicine; Visit Provider Urology
DX: E78.5 Hyperlipidemia, unspecified (principal); E11.9 Type 2 diabetes mellitus without complications; E55.9 Vitamin D deficiency, unspecified; R80.9 Proteinuria, unspecified
CPT/HCPCS: 36415; 80053; 80061; 82043; 82306; 82570

== ENCOUNTER 2024-07-23 11:58 | Inpatient (IN) | payer MEDICARE, OTHER, SELFPAY ==
[2024-07-23] VITALS (19 sets, daily range): BP systolic 98–152; BP diastolic 57–75; PULSE 99–123; RESP 18–30; TEMP 37.6–39.1; O2SAT 92–96; BMI 30.7
--- NOTE | ~2024-07-23 | US_ITS ---
CLINICAL HISTORY: right sided pain, swelling US Scrotum with Doppler Comparison: None Findings: Right testicle normal echotexture, 4.6 x 4.0 x 4.0 cm. Left testicle normal echotexture, 4.9 x 3.4 x 3.5 cm. Possible increased color flow to the bilateral testes. Unremarkable arterial/venous spectral tracings of the bilateral testicles. Epididymides are unremarkable. There are large bilateral hydroceles, right larger than left, Mildly limiting evaluation. There is marked complexity to the right-sided hydrocele. IMPRESSION: 1. Large bilateral hydroceles. The right hydrocele is complex suggesting a possible inflammatory process. 2. There may be a mild degree of hyperemia of the bilateral testes. Orchitis could be considered. This document has been electronically signed by: Stacey Ley MD on 07/23/2024 17:45:13
--- NOTE | ~2024-07-23 | XR_ITS ---
EXAMINATION: XR CHEST CLINICAL INFORMATION: fever COMPARISON: May 23, 2021. TECHNIQUE: Frontal view of the chest was obtained. FINDINGS: Prominence of the interstitial lung markings in the periodontal regions. No gross pleural effusion or pneumothorax. Cardiomediastinal silhouette size is normal. Sternal wires. Metallic prosthesis in the aorta valve region. Multilevel thoracic spondylosis. XR/XR chest 1V IMPRESSION: Consider mild interstitial edema in the correct clinical settings. Electronically signed by: Michele Gastelum MD 07/26/2024 07:56 AM EDT
--- NOTE | ~2024-07-23 | CT_ITS ---
EXAMINATION: CT ABDOMEN AND PELVIS WITHOUT CONTRAST CLINICAL INFORMATION: UTI, rule out obstructive uropathy. COMPARISON: CT abdomen pelvis 01/16/2024. TECHNIQUE: Multidetector volumetric imaging was performed from the superior aspect of the liver through the pubic symphysis. Sagittal and coronal reformatted images were obtained on the technologist's workstation. This CT examination was performed using dose optimization techniques as appropriate, variously including the following: *Automated exposure control *Adjustment of mA and/or kV according to patient size (this includes techniques or standardized protocols for targeted exams where dose is matched to indication/reason for exam; i.e. extremities or head) *Use of iterative reconstruction technique DLP: 754 mGy/cm. FINDINGS: LUNG BASES: There is minimal atelectatic changes right lung base. The heart size is normal. LIVER, GALLBLADDER, AND BILIARY TREE: The liver is normal in size, shape, and attenuation. No focal hepatic lesion or biliary ductal dilatation is present. There is solitary gallstone noted. PANCREAS: Unremarkable. SPLEEN: Unremarkable. ADRENAL GLANDS: Unremarkable. KIDNEYS AND URETERS: The kidneys are normal in size, shape, and attenuation. There is 9 mm radiopaque calculi right UPJ 3 mm radiopaque calculi lower pole calyx right kidney. There is mild caliectasis. There is mild focal dilatation of the right mid ureter with no obstructive etiology seen this could be secondary to spasm, underlying lesion or stricture. Similar findings were seen on the previous exam 01/16/2024 There is 3 cm simple cyst lower pole left kidney. There is bilateral mild perinephric stranding. BLADDER: Unremarkable. GASTROINTESTINAL TRACT: There is scattered stool, gas and atelectasis seen throughout the colon without distention. The small bowel loops are normal caliber. The stomach is nondistended. Appendix is normal caliber.. ABDOMINAL WALL: A small umbilical hernia containing fat is noted. LYMPH NODES: Normal. VASCULAR: Atherosclerotic changes of abdominal aorta are noted. No evidence of aneurysm. PELVIC VISCERA: The prostate gland is moderately enlarged. There is no free air or free fluid OSSEOUS STRUCTURES: Mildly degenerative disc changes with vacuum disc phenomena at L2-3, L3-4, L4-5 and L5-S1 disc levels as noted. CT/CT abdomen pelvis wo IV con IMPRESSION: No change in the right UPJ 9 mm radiopaque calculi and mild pelvic caliectasis. There is mild dilated right mid ureter similar previous study without any obstructive etiology. Question spasm, stricture or underlying lesion. Consider cystoscopy and retrograde ureteroscopy. 3 cm simple cyst lower pole left kidney stable. Colonic diverticulosis with mild constipation. No diverticulitis seen. Moderate prostate enlargement. Degenerative disc changes L2-3 through L5-S1 disc level. Fleischner guidelines were followed. Electronically signed by: Janes Guerrero MD 07/23/2024 05:04 PM EDT RP
--- NOTE | ~2024-07-23 | US_ITS ---
EXAMINATION: US SCROTUM CLINICAL INFORMATION: Orchitis. Bilateral hydroceles and swelling.. COMPARISON: July 23, 2024. TECHNIQUE: A sonogram of the scrotum was performed assessing bhandari-scale appearance and color Doppler flow. Spectral Doppler analysis of the arterial and venous flow were performed in the testes bilaterally. FINDINGS: RIGHT SCROTUM: Right testicle measures 3.4 x 3.7 x 4.3 cm, volume 29 mL. No solid or cystic lesion. Spectral Doppler analysis of the arterial and venous flow is increased in the right testis. Right epididymal head is normal in size. No solid or cystic lesion. Right epididymal Doppler flow is increased. There is a moderate to large volume, septated mixed anechoic and isoechoic abnormality in the scrotal sac (volume: 235 cc). No prominence of the pampiniform plexus. LEFT SCROTUM: Left testicle measures 5.2 x 2.9 x 3.5 cm, volume 28 mL. No solid or cystic lesion Spectral Doppler analysis of the arterial and venous flow is normal in the left testis. Left epididymal head is normal in size. No solid or cystic lesion Left epididymal Doppler flow is increased. There is moderate to large volume of anechoic abnormality in the scrotal sac (volume: 64 cc). There is no prominence of the pampiniform plexus. US/US scrotum IMPRESSION: Complex septated moderate to large volume right hydrocele. Consider blood products. Purulent material among other etiologies cannot be excluded. Left epididymitis. Right orchiepididymitis. Moderate to large volume simple left hydrocele. No testicular torsion. No testicular tumor. No varicocele. Electronically signed by: Michele Gastelum MD 07/27/2024 09:43 AM EDT
--- NOTE | 2024-07-23 12:54 | ECG_ITS ---
Test Reason : sob Blood Pressure : */* mmHG Vent. Rate : 116 BPM Atrial Rate : 116 BPM P-R Int : 190 ms QRS Dur : 98 ms QT Int : 312 ms P-R-T Axes : 68 -57 46 degrees QTcB Int : 433 ms Sinus tachycardia Left axis deviation Inferior-posterior infarct , age undetermined Abnormal ECG When compared with ECG of 20-Dec-2021 11:31, Premature ventricular complexes are no longer Present ST now depressed in Anterior leads Referred By: Eulalia Horne Electronically Signed By: SAIMA WHITAKER MD
--- NOTE | 2024-07-23 12:54 | ED.MALEGU ---
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 He reports today he only has been able to urinate small amounts and more frequently. He denied any blood in his urine. He thinks he had some back pain earlier but he is unsure of what side and states it is better now. He denies any associated nausea, vomiting, diarrhea, constipation. He states his testicles are painful, more in the right side MD Complaint: testicle pain, testicle swelling and dysuria Onset (ago): day(s) (1) Duration: progressively worsening Location: right testicle and left testicle Severity: moderate Quality: aching Relieving factors: none Exacerbating factors: urination Associated symptoms: Reports urinary retention, dysuria and fever Related Data Home Medications ?Medication ?Instructions ?Recorded ?Confirmed brinzolamide 1 %-brimonidine 0.2 % 1 drp ophthalmic (eye) TID 04/15/22 06/28/24 eye drops,suspension (Simbrinza) latanoprost 0.005 % eye drops 1 drp ophthalmic (eye) BEDTIME 12/27/22 04/08/24 prednisolone acetate 1 % eye 1 drp ophthalmic (eye) QID 07/29/23 04/08/24 drops,suspension bromfenac 0.07 % eye drops 1 drp ophthalmic (eye) DAILY 01/16/24 06/28/24 (Prolensa) diltiazem HCl 180 mg 180 mg PO DAILY 01/16/24 04/08/24 capsule,extended release 24 hr (Cartia XT) netarsudil 0.02 % eye drops 1 drp ophthalmic (eye) BEDTIME 01/16/24 04/08/24 (Rhopressa) terazosin 5 mg capsule 5 mg PO DAILY 01/16/24 04/08/24 metformin 500 mg tablet,extended 1,000 mg PO BID 01/23/24 04/08/24 release 24 hr Previous Rx's ?Medication ?Instructions ?Recorded lancets 33 gauge (OneTouch Delica #100 ea 11/25/19 Lancets) albuterol sulfate 90 mcg/actuation 2 puff inhalation Q6H PRN 04/22/22 aerosol inhaler shortness of breath or wheezing 30 days #6.7 grams lisinopril 20 mg tablet 20 mg PO DAILY 90 days #90 tabs 08/15/23 fluticasone fur. 200 mcg-umeclid 1 ea inhalation DAILY #60 ea 10/10/23 62.5 mcg-vilant 25 mcg inhalat.powder (Trelegy Ellipta) finasteride 5 mg tablet 5 mg PO DAILY 90 days #90 tabs 01/02/24 atorvastatin 40 mg tablet 40 mg PO DAILY 90 days #90 tabs 01/27/24 cholecalciferol (vitamin D3) 50 50 mcg PO DAILY 90 days #90 caps 03/24/24 mcg (2,000 unit) capsule metoprolol succinate 25 mg 25 mg PO DAILY #90 tabs 06/28/24 tablet,extended release 24 hr (Toprol XL) aspirin 81 mg tablet,delayed 81 mg PO DAILY 90 days #90 tabs 07/20/24 release Allergies Allergy/AdvReac Type Severity Reaction Status Date / Time levofloxacin [From LEVAQUIN] Allergy Intermediate HIVES Verified 07/23/24 12:49 Iodinated Contrast Media AdvReac Intermediate HIVES Verified 07/23/24 12:49 [IV CONTRAST] Review of Systems Review of Systems: Yes all other systems are reviewed and are negative [facility] Past Medical History Medical History Sepsis Acute kidney failure History of TIA (transient ischemic attack) History of DVT (deep vein thrombosis) Grade II diastolic dysfunction Essential hypertension Dyslipidemia Diabetes mellitus COPD (chronic obstructive pulmonary disease) Gross hematuria Microalbuminuria BPH (benign prostatic hyperplasia) Chronic UTI (urinary tract infection) Chronic back pain Glaucoma Surgical History Status post mitral valve repair (~2014) Status post aortic valve replacement with bioprosthetic valve (~2014) Status post patent foramen ovale closure (~2014) History of epidermal inclusion cyst excision (~2020) Hx of cataract extraction (~2013) Family History Family History Father Medical history unknown Mother Medical history unknown Brother No problems noted. Son No problems noted. Daughter No problems noted. Daughter No problems noted. Daughter No problems noted. Social History Social History Household Members: Significant Other Housing: House Are you a primary hearing care practitioner to a significant other at home: No Do you presently have visiting nurse or other home services: No Alcohol intake: current Alcohol intake frequency: a few times a month Alcohol type: beer and wine Patient Tobacco Use Status: Former Tobacco user Years Smoked: 10 e-Cigarette/Vaping Use: Never Used Second Hand Smoke Exposure: No Advance Directives: No Advance Directives Information Provided: Yes service: No Current occupational status: retired Cognitive needs: No Hearing needs: No Vision needs: Yes Physical Exam Vital Signs: Vital Signs: Last Vital Signs Temp 99.8 F 07/23/24 16:30 Pulse 107 H 07/23/24 16:30 Resp 20 07/23/24 16:30 BP 121/73 07/23/24 16:30 Pulse Ox 95 07/23/24 16:30 O2 Del Method Room Air 07/23/24 16:30 BMI result Body Mass Index 30.7 Appearance: Alert. Oriented X3. No acute distress. Head: normocephalic, atraumatic. Eyes: Pupils equal, round and reactive to light. ENT: Pharynx normal. No tonsillar swelling or exudate. Neck: Normal inspection. Neck supple. CVS: Tachycardic, regular rhythm, Pulses normal. Respiratory: No respiratory distress. Breath sounds normal. Abdomen: Obese, Softly distended and nontender. +BS x4 : moderate scrotal swelling, R>L with erythema and warmth, mild tenderness and induration, no fluctuance. no open wounds, no drainage, no necrotic issue. palpable fluid in the scrotum c/w hydrocele Skin: Skin warm and dry. Normal skin color. Normal skin turgor. No rashes. Extremities: No lower extremity edema. No joint swelling. Neuro/psych: Oriented X 3. strength equal and symmetrical, generalized weakness, CN II-XII intact. Normal speech and cognition. Course Course Course Narrative: This is an RME: Additional HPI, ROS, PE not included below will be deferred to primary provider. RME assessment and note performed by: Eulalia Horne PA-C 78-year-old Bahamian-speaking male with a PMH significant for infective endocarditis in 2014, s/p bioprosthetic aortic valve, mitral valve repair, and PFO closure, COPD, HLD, HTN, hx of TIA, glaucoma, and BPH who presents to the ED with concerns of fevers, chills, right testicular pain,, and only urinating in small amounts. Patient is febrile at 102.3, pulse 110, patient to be brought back. Abdomen is soft, nontender. Plan: Labs, EKG, further ER eval needed Medications Administered Generic Name Dose Route Start Last Admin Trade Name Freq PRN Reason Stop Dose Admin Lactated Ringer's 1,000 mls @ 999 mls/hr 07/23/24 16:30 07/23/24 16:37 Lr IV 07/23/24 17:30 999 mls/hr .Q1H1M RAJAT Administration Discontinued Medications Generic Name Dose Route Start Last Admin Trade Name Freq PRN Reason Stop Dose Admin Acetaminophen 975 mg 07/23/24 14:35 07/23/24 15:02 Acetaminophen 325 Mg Tablet PO 07/23/24 14:36 975 mg ONCE ONE Administration Lactated Ringer's 1,000 mls @ 999 mls/hr 07/23/24 14:45 07/23/24 16:03 Lr IV 07/23/24 15:45 Infused .Q1H1M RAJAT Infusion Magnesium Sulfate 2 gm in 50 mls @ 150 mls/hr 07/23/24 14:46 07/23/24 15:23 Magnesium Sulfate/H2o IV 07/23/24 15:05 Infused ONCE ONE Infusion Cefepime HCl 2 gm in 50 mls @ 100 mls/hr 07/23/24 14:57 07/23/24 15:32 Maxipime IV 07/23/24 15:26 Infused ONCE ONE Infusion Vancomycin HCl 2,000 mg in 500 mls @ 250 mls/hr 07/23/24 14:57 07/23/24 15:59 Vancomycin/Ns IV 07/23/24 16:56 250 mls/hr ONCE ONE Administration Medical Decision Making Medical Decision Making [facility] Narrative: 78 y/o with history of pyelonephritis, obstructing kidney stones and sepsis in the past who is coming in with fever, chills, difficulty urinating and testicular pain. On arrival to the ER he was found to be febrile to 102.3, with heart rates 110. 14:45 - Labs done while patient was in the waiting room reveal a white blood cell count of 14.1 and a lactic acid of 3.0. Urinalysis is positive for infection. Patient was brought back to the ER treatment room where IV was established and IV fluids and IV ordered - broad spectum antibiotics ordered given concern for cellulitis of the scrotum with risk for development of Fourner's gangrene.. His previous urine cultures are contaminated. CT scan abd/pelvis ordered for further evaluation and to r/o obstructive uropathy CT scan did not show any obstructing kidney stones, findings are similar to prior. He has a 9 mm UPJ stone on the right There was some abnormal appearing fluid in the right scrotum on CT scan. Bedside ultrasound with Dr. Loera performed showing complex fluid in the right side w/septations and loculations. Comprehensive ultrasound has been ordered. Case was discussed with Dr. Matthew who is recommending broad spectrum antibiotics. Complex hydroceles are treated with antibiotics and not drainage. If ultrasound shows abscess may require intervention. She will see him tomorrow. Patient will require admission hospital for further management. Differential Diagnosis Differential Diagnoses: The differential diagnosis associated with the presentation includes Lower urinary tract infection, upper urinary tract infection, obstructing kidney stone, cellulitis, Irish's gangrene Admission/Observation Consideration of admission/observation: Escalation of care including admission/observation considered Consult Healthcare Provider Management of the patient was discussed with: Hospitalist and Manufacturing Process Engineer Dr. Matthew consulted - recommending broad spectrum antibiotics for now - if complex hydrocele abx alone, if abscess will likely need drainage. she will see him tomorrow Lab Data [facility] Lab Attestation statement: I reviewed the patient's lab results. Leukocytosis, anemia, hyperglycemia without significant anion gap, elevated lactic acid 07/23/24 13:41 07/23/24 13:41 Labs: Lab Results 07/23/24 07/23/24 07/23/24 Range/Units 13:38 13:41 16:11 WBC 14.1 H (4.8-10.8) X10*3/uL RBC 4.19 L (4.60-5.80) X10*6/uL Hgb 12.3 L (14.0-18.0) g/dl Hct 36.7 L (42.0-52.0) % MCV 87.6 (80.0-98.0) fL MCH 29.4 (27.0-33.0) pg MCHC 33.5 (31.0-36.0) g/dl RDW 12.8 (11.0-16.0) % Plt Count 170 (160-400) X10*3/uL MPV 11.1 (9.4-12.4) fL Immature Gran % (Auto) 1.1 H (0.0-0.4) % Neut % (Auto) 88.5 H (45-73) % Lymph % (Auto) 4.1 L (20-40) % [facility] % (Auto) 6.0 (2-11) % Eos % (Auto) 0.0 (0-4) % Baso % (Auto) 0.3 (0-2) % Lymph # (Auto) 0.6 L (1.2-4.9) X10*3/uL [facility] # (Auto) 0.9 (0.1-1.2) X10*3/uL Eos # (Auto) 0.0 (0.0-0.4) X10*3/uL Baso # (Auto) 0.0 (0.0-0.2) X10*3/uL Abs Immat Gran (auto) 0.15 H (0.00-0.03) X10*3/uL Absolute Neuts (auto) 12.5 H (2.0-8.3) x10*3/uL Absolute Nucleated RBC 0.000 (0.0-0.012) X10*3/uL Nucleated RBC % (auto) 0.0 (0.0-0.2) /100WBC Sodium 137 (135-145) mmol/L Potassium 4.1 (3.3-5.1) mmol/L Chloride 108 (96-108) mmol/L Carbon Dioxide 22 (22-29) mmol/L Anion Gap 11 L (12-20) BUN 20 H (9-16) mg/dL Creatinine 1.35 (0.5-1.4) mg/dL Estim Creat Clear Calc 48.7 Estimated GFR 51 Random Glucose 251 H (60-115) mg/dL Lactic Acid 3.0 H* (0.5-2.0) mmol/L Lactic Acid F/U @ 2Hr 2.1 H* (0.5-2.0) mmol/L Calcium 9.7 (8.4-10.2) mg/dL Magnesium 1.4 L* (1.6-2.6) mg/dL Total Bilirubin 1.0 (0.0-1.0) mg/dL Direct Bilirubin 0.4 (0.0-0.5) mg/dL AST 21 (5-37) U/L ALT 15 (0-40) U/L Alkaline Phosphatase 64 (39-117) U/L Troponin I High Sens 12.5 (<3.5-35.0) ng/L Total Protein 7.5 (6.5-8.0) g/dL Albumin 4.0 (3.5-5.0) g/dL Lipase 23 (8-78) U/L Urine Color Yellow Urine Appearance Cloudy Urine pH 5.0 (5.0-9.0) Ur Specific [place] 1.015 (1.005-1.025) Urine Protein 30 (1+) H (Neg-Trace) mg/dL Urine Glucose (UA) Negative (Negative) mg/dL Urine Ketones Negative (Negative) mg/dL Urine Blood Small (1+) H (Negative) Urine Nitrite Positive H (Negative) Ur Leukocyte Esterase Moderate (2+) H (Negative) Urine RBC 0-2 (0-2) /HPF Urine WBC 11-20 (0-5) /HPF Ur Squamous Epith Cells 0-2 (0-2) /HPF Urine Bacteria 4+ (None Seen) Hyaline Casts 0-2 (0-2) /LPF Influenza Type A (PCR) NEGATIVE (Negative) Influenza Type B (PCR) NEGATIVE (Negative) RSV RNA Qual (PCR) NEGATIVE (Negative) SARS-CoV-2 RNA (RT-PCR) NEGATIVE (Negative) Independent Interpretation I performed an independent interpretation of an: EKG and CT Scan Interpretation: EKG with sinus tachycardia, HR 116 bpm, no ST segment elevations or depressions, twi in V1-V2 CT scan shows complex fluid in the right scrotum Radiology Impression Discussion of test interpretation with radiology: I discussed test interpretation with the radiologist and I have reviewed the radiologist's reading. Radiologist Impression: case c/w Dr. Guerrero who is reporting right sided hydrocele on CT scan. CT/CT abdomen pelvis wo IV con IMPRESSION: No change in the right UPJ 9 mm radiopaque calculi and mild pelvic caliectasis. There is mild dilated right mid ureter similar previous study without any obstructive etiology. Question spasm, stricture or underlying lesion. Consider cystoscopy and retrograde ureteroscopy. 3 cm simple cyst lower pole left kidney stable. Colonic diverticulosis with mild constipation. No diverticulitis seen. Moderate prostate enlargement. Degenerative disc changes L2-3 through L5-S1 disc level. External Record Review External record reviewed: Inpatient record, Outpatient record, Prior outpatient labs and Prior outpatient radiology Tests considered The following testing was considered but not selected: US scrotum Prescription Management I considered prescription management with: Pain Medication and Antibiotic Chronic Conditions Patient?s care impacted by: Diabetes Critical Care Time Critical Care Time Critical Care Time: Yes Total Critical Care Time: 45 Attestation: I have personally provided critical care time exclusive of time spent on separately billable procedures. Time includes review of lab data, radiology results, discussion with consultants, and monitoring for potential decompensation. Intervention performed as documented. Discharge Plan Discharge Clinical Impression: Sepsis, Acute UTI, Bilateral hydrocele Patient Disposition: Admitted As Inpatient Print Language: Bahamian
[2024-07-23 13:49] LABS: MANUAL DIFF FLAG NO
[2024-07-23 13:52] LABS: Appearance Urine Cloudy; Color Urine Yellow; Glucose Urine UA Negative (Negative); Leukocyte Esterase Urine Moderate (2+) (Negative); Nitrite Urine Positive (Negative); Specific Gravity - Urine 1.015 (1.005-1.025); UMIC TRIGGER UACC YES; Urine Blood Small (1+) (Negative); Urine Ketones Negative (Negative); Urine Protein 30 (1+) mg/dL (Neg-Trace)
[2024-07-23 13:52] LABS: Basophils Percent Auto 0.3 % (0-2); Hematocrit 36.7 % (42.0-52.0); Hemoglobin 12.3 g/dl (14.0-18.0); Imm Gran Abs Auto 0.15 X10*3/uL (0.00-0.03); Imm Gran Pct Auto 1.1 % (0.0-0.4); Lymphocytes Absolute Auto 0.6 X10*3/uL (1.2-4.9); Lymphocytes Percent Auto 4.1 % (20-40); Mean Corpuscular HGB Conc 33.5 g/dl (31.0-36.0); Mean Corpuscular Hemoglobin 29.4 pg (27.0-33.0); Mean Corpuscular Volume 87.6 fL (80.0-98.0); Mean Platelet Volume 11.1 fL (9.4-12.4); Monocytes Absolute Auto 0.9 X10*3/uL (0.1-1.2); Neutrophils Absolute Auto 12.5 x10*3/uL (2.0-8.3); Neutrophils Percent Auto 88.5 % (45-73); Platelet Count 170 X10*3/uL (160-400); Red Blood Count 4.19 X10*6/uL (4.60-5.80); Red Cell Distribution Width 12.8 % (11.0-16.0); White Blood Count 14.1 X10*3/uL (4.8-10.8)
[2024-07-23 14:00] LABS: Bacteria Urine 4+ (None Seen); Hyaline Casts Urine 0-2 /LPF (0-2); RBC Urine 0-2 /HPF (0-2); Squamous Epithelial Cell Urine 0-2 /HPF (0-2); UACC Culture Trigger YES
[2024-07-23 14:11] LABS: Alanine Aminotransferase 15 U/L (0-40); Alkaline Phosphatase 64 U/L (39-117); Anion Gap 11 (12-20); Aspartate Amino Transferase 21 U/L (5-37); Bilirubin Direct 0.4 mg/dL (0.0-0.5); Blood Urea Nitrogen 20 mg/dL (9-16); Calcium 9.7 mg/dL (8.4-10.2); Carbon Dioxide 22 mmol/L (22-29); Chloride 108 mmol/L (96-108); Creatinine Clr Calc Pharmacy 48.7; Estimated Glomerular Filt Rate 51; Glucose Random 251 mg/dL (60-115); Lipase 23 U/L (8-78); Magnesium 1.4 mg/dL (1.6-2.6); Potassium 4.1 mmol/L (3.3-5.1); Sodium 137 mmol/L (135-145); Total Protein 7.5 g/dL (6.5-8.0)
[2024-07-23 14:17] LABS: Troponin-I High Sensitivity 12.5 ng/L (<3.5-35.0)
--- NOTE | 2024-07-23 14:46 | PC.NURSE ---
Patient arrived to ED bed 10 at this time. Initiated sepsis protocol while he was in waiting room. Attempting labs & IV access at this time. Urinated on himself.
[2024-07-23] MEDS: Lactated Ringers 1,000 ML 999 ML IV ×2 (15:02→16:37)
[2024-07-23] MEDS: cefEPime HCl/D5W 2 GM/50 ML PIGGYBACK IV (15:02)
[2024-07-23] MEDS: Acetaminophen 325 MG TABLET 975 MG PO ×2 (15:02→19:14)
[2024-07-23] MEDS: Magnesium Sulfate/H2O 2 GM/50 ML PIGGYBACK IV (15:03)
[2024-07-23 15:44] LABS: Influenza A PCR NEGATIVE (Negative); Influenza B PCR NEGATIVE (Negative); Resp Syncy Virus RNA Qual PCR NEGATIVE (Negative); SARS COV2 PCR INHOUSE NEGATIVE (Negative)
[2024-07-23 15:48] LABS: Reflex Lactate? Lactic Acid Added
--- NOTE | 2024-07-23 15:51 | PC.NURSE ---
Patient away for imaging. 20g IV access to right AC, 22g IV access to left hand. 22g IV is positional, but flushes well.
[2024-07-23] MEDS: vancomycin/NS 2,000 MG/500 ML PLAST..BAG 250 MG IV (15:59)
[2024-07-23 16:38] LABS: ~Lactic Acid-LAB USE ONLY 2.1 mmol/L (0.5-2.0)
--- NOTE | 2024-07-23 17:27 | P.CNUR_ITS ---
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 He denies right flank pain. Labs: UA - nitrite positive, lactic acid 3.0, 2.1, WBC 14 K Review of Systems 2 Review of Systems: Yes all other systems are reviewed and are negative Constitutional: Constitutional: Reports no additional constitutional complaints Eyes: Eyes: Reports no additional eye complaints ENT: Reports system reviewed and no additional complaints, except as documented Cardiovascular: Cardiovascular: Reports no additional cardiovascular complaints Respiratory: Respiratory: Reports no additional respiratory complaints Gastrointestinal: Gastrointestinal: Reports no additional gastrointestinal complaints Genitourinary: Genitourinary: Reports as per HPI Musculoskeletal: Musculoskeletal: Reports no additional musculoskeletal complaints Integumentary/Breasts: Skin/Breast: Reports system reviewed and no additional complaints, except as docu Neurologic: Reports system reviewed and no additional complaints, except as documented Psychiatric: Psychiatric: Reports no additional psychiatric complaints Endocrine: Endocrine: Reports no additional endocrine complaints Hematologic/Lymphatic: Hematologic/Lymphatic: Reports no additional hematologic/lymphatic complaints Allergic/Immunologic: Allergic/Immunologic: Reports no additional allergic/immunologic complaints [facility] Past Medical History Medical History Sepsis Acute kidney failure History of TIA (transient ischemic attack) History of DVT (deep vein thrombosis) Grade II diastolic dysfunction Essential hypertension Dyslipidemia Diabetes mellitus COPD (chronic obstructive pulmonary disease) Gross hematuria Microalbuminuria BPH (benign prostatic hyperplasia) Chronic UTI (urinary tract infection) Chronic back pain Glaucoma Family History Family History Father Medical history unknown Mother Medical history unknown Brother No problems noted. Son No problems noted. Daughter No problems noted. Daughter No problems noted. Daughter No problems noted. Surgical History Surgical History Status post mitral valve repair (~2014) Status post aortic valve replacement with bioprosthetic valve (~2014) Status post patent foramen ovale closure (~2014) History of epidermal inclusion cyst excision (~2020) Hx of cataract extraction (~2013) Social History Social History Household Members: Significant Other Housing: House Are you a primary daycare manager to a significant other at home: No Do you presently have visiting nurse or other home services: No Alcohol intake: current Alcohol intake frequency: a few times a month Alcohol type: beer and wine Patient Tobacco Use Status: Former Tobacco user Years Smoked: 10 e-Cigarette/Vaping Use: Never Used Second Hand Smoke Exposure: No Advance Directives: No Advance Directives Information Provided: Yes service: No Current occupational status: retired Cognitive needs: No Hearing needs: No Vision needs: Yes Meds Allergies Allergy/AdvReac Type Severity Reaction Status Date / Time levofloxacin [From LEVAQUIN] Allergy Intermediate HIVES Verified 07/23/24 12:49 Iodinated Contrast Media AdvReac Intermediate HIVES Verified 07/23/24 12:49 [IV CONTRAST] Active Medications: Current Medications Lactated Ringer's (Lr) 1,000 mls @ 999 mls/hr IV .Q1H1M RAJAT Stop: 07/23/24 17:30 Last Admin: 07/23/24 16:37 Dose: 999 mls/hr Home Medications ?Medication ?Instructions ?Recorded ?Confirmed ?Last Taken ?Type brinzolamide 1 %-brimonidine 0.2 % 1 drp ophthalmic (eye) TID 04/15/22 06/28/24 01/15/24 History eye drops,suspension (Simbrinza) latanoprost 0.005 % eye drops 1 drp ophthalmic (eye) BEDTIME 12/27/22 04/08/24 01/15/24 History prednisolone acetate 1 % eye 1 drp ophthalmic (eye) QID 07/29/23 04/08/24 01/15/24 History drops,suspension bromfenac 0.07 % eye drops 1 drp ophthalmic (eye) DAILY 01/16/24 06/28/24 01/15/24 History (Prolensa) diltiazem HCl 180 mg 180 mg PO DAILY 01/16/24 04/08/24 01/15/24 History capsule,extended release 24 hr (Cartia XT) netarsudil 0.02 % eye drops 1 drp ophthalmic (eye) BEDTIME 01/16/24 04/08/24 01/15/24 History (Rhopressa) terazosin 5 mg capsule 5 mg PO DAILY 01/16/24 04/08/24 01/15/24 History metformin 500 mg tablet,extended 1,000 mg PO BID 01/23/24 04/08/24 Unknown History release 24 hr Physical Exam 2 Vital Signs: Vital Signs: Last Vital Signs Temp 99.8 F 07/23/24 16:30 Pulse 107 H 07/23/24 16:30 Resp 20 07/23/24 16:30 BP 121/73 07/23/24 16:30 Pulse Ox 95 07/23/24 16:30 O2 Del Method Room Air 07/23/24 16:30 BMI result Body Mass Index 30.7 Const: General: healthy appearing and well developed O rientation/consciousness: patient oriented x3 HEENT: Head: Yes normocephalic and Yes atraumatic Eyes: Conjunctivae: conjunctivae normal Neck: Neck: Yes normal visual inspection Chest: Chest palpation & inspection: normal inspection of the chest Resp: Effort & Inspection: normal respiratory effort Cardio: Rate: regular rate GI: Inspection: Yes normal to inspection : Other: right hemiscrotal induration, tenderness and mild cellulitis, scrotal swelling secondary to bilateral hydroceles, Penis: normal penis Scrotum: other (right hemiscrotal induration and mild cellulitis, ) Neuro: General: patient oriented x3 Psych: Appearance: grossly normal Affect: normal affect Results Labs 07/23/24 13:41 07/23/24 13:41 Labs: Abnormal lab results 07/23/24 07/23/24 07/23/24 Range/Units 13:38 13:41 16:11 WBC 14.1 H (4.8-10.8) X10*3/uL RBC 4.19 L (4.60-5.80) X10*6/uL Hgb 12.3 L (14.0-18.0) g/dl Hct 36.7 L (42.0-52.0) % Immature Gran % (Auto) 1.1 H (0.0-0.4) % Neut % (Auto) 88.5 H (45-73) % Lymph % (Auto) 4.1 L (20-40) % Lymph # (Auto) 0.6 L (1.2-4.9) X10*3/uL Abs Immat Gran (auto) 0.15 H (0.00-0.03) X10*3/uL Absolute Neuts (auto) 12.5 H (2.0-8.3) x10*3/uL Anion Gap 11 L (12-20) BUN 20 H (9-16) mg/dL Random Glucose 251 H (60-115) mg/dL Lactic Acid 3.0 H* (0.5-2.0) mmol/L Lactic Acid F/U @ 2Hr 2.1 H* (0.5-2.0) mmol/L Magnesium 1.4 L* (1.6-2.6) mg/dL Urine Protein 30 (1+) H (Neg-Trace) mg/dL Urine Blood Small (1+) H (Negative) Urine Nitrite Positive H (Negative) Ur Leukocyte Esterase Moderate (2+) H (Negative) Short CBC 07/23/24 Range/Units 13:41 WBC 14.1 H (4.8-10.8) X10*3/uL Hgb 12.3 L (14.0-18.0) g/dl Hct 36.7 L (42.0-52.0) % Plt Count 170 (160-400) X10*3/uL BMP 07/23/24 13:41 Sodium 137 Potassium 4.1 Chloride 108 Carbon Dioxide 22 BUN 20 H Creatinine 1.35 Calcium 9.7 Liver Function 07/23/24 Range/Units 13:41 Total Bilirubin 1.0 (0.0-1.0) mg/dL Direct Bilirubin 0.4 (0.0-0.5) mg/dL AST 21 (5-37) U/L ALT 15 (0-40) U/L Alkaline Phosphatase 64 (39-117) U/L Albumin 4.0 (3.5-5.0) g/dL Urine 07/23/24 Range/Units 13:38 Urine Color Yellow Urine Appearance Cloudy Urine pH 5.0 (5.0-9.0) Ur Specific [place] 1.015 (1.005-1.025) Urine Protein 30 (1+) H (Neg-Trace) mg/dL Urine Glucose (UA) Negative (Negative) mg/dL Imaging Abdomen CT scan report/results: report reviewed and image reviewed CT scan - pelvis: report reviewed and image reviewed Additional studies: Date of Service: 07/23/24 CLINICAL HISTORY: right sided pain, swelling US Scrotum with Doppler Comparison: None Findings: Right testicle normal echotexture, 4.6 x 4.0 x 4.0 cm. Left testicle normal echotexture, 4.9 x 3.4 x 3.5 cm. Possible increased color flow to the bilateral testes. Unremarkable arterial/venous spectral tracings of the bilateral testicles. Epididymides are unremarkable. There are large bilateral hydroceles, right larger than left, Mildly limiting evaluation. There is marked complexity to the right-sided hydrocele. IMPRESSION: 1. Large bilateral hydroceles. The right hydrocele is complex suggesting a possible inflammatory process. 2. There may be a mild degree of hyperemia of the bilateral testes. Orchitis could be considered. Date of Service: 07/23/24 Report Number: [id number]: Total DLP = 754.00 mGy-cm EXAMINATION: CT ABDOMEN AND PELVIS WITHOUT CONTRAST CLINICAL INFORMATION: UTI, rule out obstructive uropathy. COMPARISON: CT abdomen pelvis 01/16/2024. TECHNIQUE: Multidetector volumetric imaging was performed from the superior aspect of the liver through the pubic symphysis. Sagittal and coronal reformatted images were obtained on the technologist's workstation. This CT examination was performed using dose optimization techniques as appropriate, variously including the following: *Automated exposure control *Adjustment of mA and/or kV according to patient size (this includes techniques or standardized protocols for targeted exams where dose is matched to indication/reason for exam; i.e. extremities or head) *Use of iterative reconstruction technique DLP: 754 mGy/cm. FINDINGS: LUNG BASES: There is minimal atelectatic changes right lung base. The heart size is normal. LIVER, GALLBLADDER, AND BILIARY TREE: The liver is normal in size, shape, and attenuation. No focal hepatic lesion or biliary ductal dilatation is present. There is solitary gallstone noted. PANCREAS: Unremarkable. SPLEEN: Unremarkable. ADRENAL GLANDS: Unremarkable. KIDNEYS AND URETERS: The kidneys are normal in size, shape, and attenuation. There is 9 mm radiopaque calculi right UPJ 3 mm radiopaque calculi lower pole calyx right kidney. There is mild caliectasis. There is mild focal dilatation of the right mid ureter with no obstructive etiology seen this could be secondary to spasm, underlying lesion or stricture. Similar findings were seen on the previous exam 01/16/2024 There is 3 cm simple cyst lower pole left kidney. There is bilateral mild perinephric stranding. BLADDER: Unremarkable. GASTROINTESTINAL TRACT: There is scattered stool, gas and atelectasis seen throughout the colon without distention. The small bowel loops are normal caliber. The stomach is nondistended. Appendix is normal caliber.. ABDOMINAL WALL: A small umbilical hernia containing fat is noted. LYMPH NODES: Normal. VASCULAR: Atherosclerotic changes of abdominal aorta are noted. No evidence of aneurysm. PELVIC VISCERA: The prostate gland is moderately enlarged. There is no free air or free fluid OSSEOUS STRUCTURES: Mildly degenerative disc changes with vacuum disc phenomena at L2-3, L3-4, L4-5 and L5-S1 disc levels as noted. IMPRESSION: No change in the right UPJ 9 mm radiopaque calculi and mild pelvic caliectasis. There is mild dilated right mid ureter similar previous study without any obstructive etiology. Question spasm, stricture or underlying lesion. Consider cystoscopy and retrograde ureteroscopy. 3 cm simple cyst lower pole left kidney stable. Moderate prostate enlargement. Other findings as above. Assessment and Plan (1) Acute UTI: Status: Acute (2) Bilateral hydrocele: Status: Acute Date of Service: 07/23/24 US Scrotum with Doppler IMPRESSION: 1. Large bilateral hydroceles. The right hydrocele is complex suggesting a possible inflammatory process. (3) Kidney stone: Status: Acute (4) Cellulitis, scrotum: Status: Acute (5) Orchitis: Status: Acute Right Plan The patient is on broad spectrum IV Abx coverage. Follow c/s's Patient is voiding, monitor voiding, if PVR's greater than 350 mL x 2 - then recommend ocasio insertion. Cont BPH meds, may alternate flomax for the terazosin. Procedures Date of Service Date of Service: 07/23/24
[2024-07-23 18:15] LABS: Cancel Lactic Acid Canceled
[2024-07-23] MEDS: Lactated Ringers 1,000 ML 80 ML IVCONT (19:11)
--- NOTE | 2024-07-23 19:32 | PM.IMHP ---
History of Present Illness Date of Service: 07/23/24 Attending physician on admission: Khurram Canseco Chief Complaint: Right testicle pain Nasir Olvera is a 78 years old man past medical history significant for type 2 diabetes mellitus, BPH, nephrolithiasis, mitral valve repair, dyslipidemia, essential hypertension, DVT, TIA, chronic and systolic CHF, COPD and obesity presents to the ED complaining of right testicular pain that started yesterday associated with fever and chills. He reported mild discomfort when urinating. Denied bloody urine. He denied any trauma to the testicle. He denied any headache, palpitations, dizziness, chest pain, shortness of breath, abdominal pain, nausea or vomiting. He is a former tobacco smoker, alcohol abuse or illicit drug use. In the ED, he was initially found to have temperature of 102.3 degrees, tachycardia and tachypnea. There is no hypotension as his O2 sats are are normal on room air. Blood workup is remarkable for leukocytosis of 14.1. Hemoglobin is 12.3 and platelets 170. There are no electrolyte imbalances except for hypomagnesemia 0.4. BUN is 20 and creatinine 1.35. Last glucose check is 251. There is lactic acidosis that is improving (3.0-->2.1). LFTs and lipase are normal. Troponin is 2.5. Urinalysis is consistent with UTI and there is proteinuria 1+. Viral testing for COVID-19, influenza and RSV is negative. Scrotal ultrasound showed large bilateral hydroceles, the right hydrocele is complex suggesting possible inflammatory process and mild degree of hyperemia of bilateral testes; orchitis could be consider. Abdomen pelvis CT scan showed no changes in the right UPJ 9 mm radiopaque calculi and mild pelvic caliectasis. It also showed mild dilated right mid ureter similar previous study without any obstructive etiolog. ? Spasm, stricture or underlying lesion. In addition, there is colonic diverticulitis with mild constipation, no diverticulitis and moderate prostate enlargement. ECG showed sinus tachycardia, [address] changes in the anterior leads. ED tx: Ceftriaxone 2 g IV, vancomycin 2 g IV, acetaminophen 975 mg PO, LR 1L bolus, magnesium sulfate 2 g IV Review of Systems Review of Systems: All 12 systems were reviewed and normal except as noted in HPI. [facility] Medical History Sepsis Acute kidney failure History of TIA (transient ischemic attack) History of DVT (deep vein thrombosis) Grade II diastolic dysfunction Essential hypertension Dyslipidemia Diabetes mellitus COPD (chronic obstructive pulmonary disease) Gross hematuria Microalbuminuria BPH (benign prostatic hyperplasia) Chronic UTI (urinary tract infection) Chronic back pain Glaucoma Family History Father Medical history unknown Mother Medical history unknown Brother No problems noted. Son No problems noted. Daughter No problems noted. Daughter No problems noted. Daughter No problems noted. Surgical History Status post mitral valve repair (~2014) Status post aortic valve replacement with bioprosthetic valve (~2014) Status post patent foramen ovale closure (~2014) History of epidermal inclusion cyst excision (~2020) Hx of cataract extraction (~2013) Social History Household Members: Significant Other Housing: House Are you a primary transitional care liaison to a significant other at home: No Do you presently have visiting nurse or other home services: No Alcohol intake: current Alcohol intake frequency: a few times a month Alcohol type: beer and wine Comment: RN Patient Tobacco Use Status: Former Tobacco user Years Smoked: 10 e-Cigarette/Vaping Use: Never Used Second Hand Smoke Exposure: No service: No Current occupational status: retired Cognitive needs: No Hearing needs: No Vision needs: Yes Meds Allergies Allergy/AdvReac Type Severity Reaction Status Date / Time levofloxacin [From LEVAQUIN] Allergy Intermediate HIVES Verified 07/23/24 12:49 Iodinated Contrast Media AdvReac Intermediate HIVES Verified 07/23/24 12:49 [IV CONTRAST] Active Medications: Current Medications Acetaminophen (Acetaminophen 325 Mg Tablet) 975 mg PO Q6H PRN PRN Reason: Pain, Mild 1-3,fever,headache Last Admin: 07/23/24 19:14 Dose: 975 mg Calcium Carbonate (Calcium Carbonate 750 Mg Tab.Chew) 750 mg PO Q4H PRN PRN Reason: Heartburn Dextrose (Dextrose 50 % 25 Gm/50 Ml Syringe) 25 gm IVPUSH Q15M PRN; Protocol PRN Reason: per Hypoglycemia Standing Ord. Glucose (Glucose Gel 15 Gm Gel..Gram.) 15 gm PO Q15M PRN; Protocol PRN Reason: per Hypoglycemia Standing Ord. Heparin Sodium (Porcine) (Heparin Sodium,Porcine 5,000 Unit/Ml Vial) 5,000 unit SUBCUT Q12H [facility] Hydromorphone HCl (Hydromorphone Hcl 1 Mg/Ml Syringe) 0.5 mg IVPUSH Q4H PRN; Protocol PRN Reason: Pain, Severe (Pain Scale 7-10) Lactated Ringer's (Lr) 1,000 mls @ 80 mls/hr IVCONT .[id number] [facility] Stop: 07/24/24 06:44 Last Admin: 07/23/24 19:11 Dose: 80 mls/hr Cefepime HCl (Maxipime) 2 gm in 50 mls @ 100 mls/hr IV Q12H [facility] Vancomycin HCl 1,250 mg/ (Sodium Chloride) 250 mls @ 166.667 mls/hr IV Q24H [facility] Insulin Human Lispro (Insulin Lispro 100 Unit/Ml 3 Ml Vial) 0 unit SUBCUT QIDACHS [facility]; Protocol Magnesium Hydroxide (Milk Of Magnesia 30 Ml Oral.Susp) 30 ml PO DAILY PRN PRN Reason: Constipation Melatonin (Melatonin 3 Mg Tablet) 6 mg PO BEDTIME PRN PRN Reason: Insomnia Ondansetron HCl (Ondansetron Hcl 4 Mg/2 Ml Vial) 4 mg IVPUSH Q8H PRN PRN Reason: Nausea and Vomiting Oxycodone HCl (Oxycodone Hcl Immed Release 5 Mg Tablet) 5 mg PO Q6H PRN PRN Reason: Pain, Moderate(Pain Scale 4-6) Pharmacy Consult (Consult Rx Vancomycin Dosing) 1 each MISCELLANE DAILY PRN PRN Reason: Consult order Sodium Chloride (0.9 % Sodium Chloride Flush 3 Ml Syringe) [facility] Medications ?Medication ?Instructions ?Recorded ?Confirmed ?Last Taken ?Type latanoprost 0.005 % eye drops 1 drp ophthalmic (eye) BEDTIME 12/27/22 07/23/24 07/22/24 History prednisolone acetate 1 % eye 1 drp ophthalmic (eye) QID 07/29/23 07/23/24 07/22/24 History drops,suspension bromfenac 0.07 % eye drops 1 drp ophthalmic (eye) DAILY 01/16/24 07/23/24 07/22/24 History (Prolensa) diltiazem HCl 180 mg 180 mg PO DAILY 01/16/24 07/23/24 07/22/24 History capsule,extended release 24 hr (Cartia XT) netarsudil 0.02 % eye drops 1 drp ophthalmic (eye) BEDTIME 01/16/24 07/23/24 07/22/24 History (Rhopressa) terazosin 5 mg capsule 5 mg PO DAILY 01/16/24 07/23/24 07/22/24 History brinzolamide 1 %-brimonidine 0.2 % 1 drp ophthalmic (eye) BID 07/23/24 07/23/24 07/22/24 History eye drops,suspension (Simbrinza) cholecalciferol (vitamin D3) 50 50 mcg PO DAILY 07/23/24 07/23/24 07/22/24 History mcg (2,000 unit) capsule (Vitamin D3) fluticasone fur. 200 mcg-umeclid 1 ea inhalation DAILY 07/23/24 07/23/24 07/22/24 History 62.5 mcg-vilant 25 mcg inhalat.powder (Trelegy Ellipta) metformin 500 mg tablet,extended 2,000 mg PO BEDTIME 07/23/24 07/23/24 07/22/24 History release 24 hr Physical Exam Vital Signs and Narrative: Vital Signs: Last Vital Signs Temp 100.2 F 07/23/24 19:10 Pulse 105 H 07/23/24 18:45 Resp 26 H 07/23/24 18:45 BP 129/66 07/23/24 18:45 Pulse Ox 95 07/23/24 18:45 O2 Del Method Room Air 07/23/24 18:45 BMI result Body Mass Index 30.7 Constitutional - Awake and Alert, No apparent distress. Pleasant. Cooperative. HEENT - PER, EOMI Heart - S1S2, RRR, No murmurs. Lungs - Normal lung expansion, Normal respiratory effort, No respiratory distress, CTA bilaterally Abdomen - NT / ND; +BS; No rebound or guarding - Enlarged scrotum (R>L) associated with erythema and induration. Extremities - no calf tenderness bilaterally, no swelling Musculoskeletal - Normal inspection, normal ROM Skin - Warm/Dry. No pallor. No jaundice. Neurological - Alert & oriented x3. No focal weakness. Normal speech. Psychological - Appropriate affect Results Labs 07/23/24 13:41 07/23/24 13:41 Labs: Laboratory Results - last 24 hr 07/23/24 07/23/24 07/23/24 13:38 13:41 16:11 MCV 87.6 MCH 29.4 MCHC 33.5 RDW 12.8 Plt Count 170 MPV 11.1 Immature Gran % (Auto) 1.1 H Neut % (Auto) 88.5 H Lymph % (Auto) 4.1 L Walker % (Auto) 6.0 Eos % (Auto) 0.0 Baso % (Auto) 0.3 Lymph # (Auto) 0.6 L [place] # (Auto) 0.9 Eos # (Auto) 0.0 Baso # (Auto) 0.0 Abs Immat Gran (auto) 0.15 H Absolute Neuts (auto) 12.5 H Absolute Nucleated RBC 0.000 Nucleated RBC % (auto) 0.0 Anion Gap 11 L Estim Creat Clear Calc 48.7 Estimated GFR 51 Random Glucose 251 H Lactic Acid 3.0 H* Lactic Acid F/U @ 2Hr 2.1 H* Calcium 9.7 Magnesium 1.4 L* Total Bilirubin 1.0 Direct Bilirubin 0.4 AST 21 ALT 15 Alkaline Phosphatase 64 Troponin I High Sens 12.5 Total Protein 7.5 Albumin 4.0 Lipase 23 Urine Color Yellow Urine Appearance Cloudy Urine pH 5.0 Ur Specific [place] 1.015 Urine Protein 30 (1+) H Urine Glucose (UA) Negative Urine Ketones Negative Urine Blood Small (1+) H Urine Nitrite Positive H Ur Leukocyte Esterase Moderate (2+) H Urine RBC 0-2 Urine WBC 11-20 Ur Squamous Epith Cells 0-2 Urine Bacteria 4+ Hyaline Casts 0-2 Influenza Type A (PCR) NEGATIVE Influenza Type B (PCR) NEGATIVE RSV RNA Qual (PCR) NEGATIVE SARS-CoV-2 RNA (RT-PCR) NEGATIVE Imaging Radiologist's Impressions: Impressions Abdomen/Pelvis CT 07/23/24 14:42 IMPRESSION: No change in the right UPJ 9 mm radiopaque calculi and mild pelvic caliectasis. There is mild dilated right mid ureter similar previous study without any obstructive etiology. Question spasm, stricture or underlying lesion. Consider cystoscopy and retrograde ureteroscopy. 3 cm simple cyst lower pole left kidney stable. Colonic diverticulosis with mild constipation. No diverticulitis seen. Moderate prostate enlargement. Degenerative disc changes L2-3 through L5-S1 disc level. Fleischner guidelines were followed. Electronically signed by: Janes Guerrero MD 07/23/2024 05:04 PM EDT RP Assessment and Plan (1) Cellulitis, scrotum: Status: Acute (2) Bilateral hydrocele: Status: Acute (3) Orchitis: Status: Acute (4) Acute UTI: Status: Acute Plan Nasir Olvera is a 78 y/o man admitted with: Large bilateral hydrocele (right is complex with possible inflammatory process/scrotal cellulitis + orchitis). Admit to hospitalist service. Continue empiric IV antibiotic therapy with cefepime and vancomycin. Evaluated by urologist and recommended IV antibiotic therapy and insertion of indwelling urinary catheter if needed resident urine > 350 mL. Bladder scan with every shift. SIRS criteria but no severe sepsis secondary to above and UTI. Tachycardic, tachypnea, fever and leukocytosis. Telemetry. Blood culture obtained -will follow results. Recheck lactic acid. Continue IV fluids. Presumed UTI. Urine culture obtained -will follow results. Continue cefepime. Nephrolithiasis. No abdominal pain. BPH. Continue terazosin and finasteride. Type 2 diabetes mellitus. BG checks before meals and bedtime. Insulin sliding scale. Metformin on hold due to lactic acidosis. Diabetic diet. Essential hypertension. Continue diltiazem CD (per pt takes it bid) and lisinopril. Hyperlipidemia. Continue atorvastatin. COPD. Continue Trelegy albuterol as needed. History of DVT. Not currently on anticoagulation. TIA. Continue aspirin and statin. Chronic diastolic and systoli CHF. No acute symptoms. History of mitral valve repair. Obesity, class 1. BMI 30.7 kg/m2. Glaucoma. Continue eyedrops. Scheduled as an outpatient for surgery this Friday. DVT prophylaxis: Heparin Code status: Full Patient will need hospitalization for at least 2 midnights for bilateral hydroceles associated with possible infection and UTI treatment with IV antibiotic, IV fluids and evaluation by Urological Service. Quality Stroke Does the patient have a stroke diagnosis?: No VTE Prior VTE?: No VTE Risk Level:: Medical - moderate - high VTE Device Contraindication: Treatment Not Indicated VTE Drug Contraindication: N/A - Med Ordered
--- NOTE | 2024-07-23 19:43 | PHA.MEDREC ---
Addendum entered by Anjel Sanabria RPh 07/23/24 20:02: MED REC CHECKED BY [facility] Original Note: Pharmacy Consult ? Medication Reconciliation Pharmacy has completed the medication reconciliation. Spoke to Patient at bedside to confirm med list. could confirm all of patients medications. states patient takes Diltiazem (Cartia XT) 180 mg Bid , however claims has Diltiazem ER 180 mg Daily. Left on what claims has and will notify the provider.
[2024-07-23 21:45] LABS: Troponin-I High Sensitivity 62.4 ng/L (<3.5-35.0)
[2024-07-23 21:47] LABS: Glucose, Whole Blood 158 mg/dL (60-115)
[2024-07-23] MEDS: Latanoprost 0.005 % Ophth Sol 2.5 ML DROPS 1 DROP EYE-BOTH (22:17)
[2024-07-23] MEDS: Insulin Lispro 100 UNIT/ML 3 ML VIAL SUBCUT (22:18)
[2024-07-23] MEDS: prednisoLONE Acetate 1 % Oph Susp 5 ML DRPBTL 1 DROP EYE-BOTH (22:18)
[2024-07-24] VITALS (9 sets, daily range): BP systolic 101–130; BP diastolic 61–84; PULSE 72–99; RESP 16–20; TEMP 36–38.2; O2SAT 90–97; BMI 30.9
[2024-07-24] MEDS: cefEPime HCl/D5W 2 GM/50 ML PIGGYBACK IV ×2 (01:48→17:36)
[2024-07-24] MEDS: Acetaminophen 325 MG TABLET 975 MG PO (04:17)
[2024-07-24 07:43] LABS: Hematocrit 31.8 % (42.0-52.0); Hemoglobin 10.5 g/dl (14.0-18.0); Mean Corpuscular Hemoglobin 28.7 pg (27.0-33.0); Mean Corpuscular Volume 86.9 fL (80.0-98.0); Platelet Count 143 X10*3/uL (160-400); Red Blood Count 3.66 X10*6/uL (4.60-5.80); White Blood Count 16.1 X10*3/uL (4.8-10.8)
[2024-07-24 07:44] LABS: Glucose, Whole Blood 124 mg/dL (60-115)
[2024-07-24 07:49] LABS: Anion Gap 11 (12-20); Blood Urea Nitrogen 17 mg/dL (9-16); Calcium 8.8 mg/dL (8.4-10.2); Carbon Dioxide 24 mmol/L (22-29); Chloride 113 mmol/L (96-108); Creatinine Clr Calc Pharmacy 57.8; Estimated Glomerular Filt Rate > 60; Glucose Random 134 mg/dL (60-115); Potassium 3.6 mmol/L (3.3-5.1); Sodium 144 mmol/L (135-145)
[2024-07-24] MEDS: Aspirin Enteric Coated 81 MG TABLET.DR PO (07:49)
[2024-07-24] MEDS: Cholecalciferol (Vitamin D3) 25 MCG TABLET 50 MCG PO (07:49)
[2024-07-24] MEDS: Finasteride 5 MG TABLET PO (07:49)
[2024-07-24] MEDS: 0.9 % Sodium Chloride Flush 3 ML SYRINGE IVFLUSH ×3 (07:49→23:50)
[2024-07-24] MEDS: Heparin Sodium,Porcine 5,000 UNIT/ML VIAL 5000 UNIT SUBCUT ×2 (07:50→19:56)
[2024-07-24] MEDS: Atorvastatin Calcium 40 MG TABLET PO (07:50)
[2024-07-24] MEDS: prednisoLONE Acetate 1 % Oph Susp 5 ML DRPBTL 1 DROP EYE-BOTH ×3 (07:50→19:56)
[2024-07-24] MEDS: Doxazosin Mesylate 2 MG TABLET 4 MG PO (07:50)
[2024-07-24] MEDS: Fluticasone/Umeclidinium/Vilanterol 200/62.5/25 BLST.W.DEV 1 PUFF INHALE (08:03)
[2024-07-24 08:05] LABS: Band Neutrophils Percent 17 % (3-5); Lymphocytes Percent Manual 6 % (20-40); Monocytes Absolute Manual 1.3 X10*3/uL (0.1-1.2); Monocytes Percent Manual 8 % (2-11); Neutrophils Absolute Manual 13.8 X10*3/uL (2.0-8.3); Neutrophils Percent Manual 69 % (45-73)
[2024-07-24 08:07] LABS: Acanthocytes 2+ (3-5) /OIF; Ovalocytes 1+ (5-14) /OIF; RBC Morphology NORMAL
[2024-07-24 08:08] LABS: Dohle Bodies PRESENT
[2024-07-24 08:09] LABS: Large Platelet PRESENT; Platelet Estimate SLIGHTLY DECREASED (NORMAL); Platelet Morphology Comment NOTED
[2024-07-24 11:10] LABS: Glucose, Whole Blood 163 mg/dL (60-115)
[2024-07-24] MEDS: Insulin Lispro 100 UNIT/ML 3 ML VIAL SUBCUT (11:57)
--- NOTE | 2024-07-24 15:19 | MHC.CM.PN ---
IMM 07/24/24, EMR REVIEWED, PT W/PYELONEPHRITIS, CM MET W/PT VIA METER ENGINEER, PT REPORTS HE LIVES W/S.O. [place], PT REPORTS HE IS INDEP W/CARE AND USES GLUCOMETER FOR DME, NOT INSULIN DEPENDANT, PT DENIES HOME SERVICES. PT'S GOAL FOR DC IS HOME, DENIES NEED FOR SERVICES AT THIS TIME. HCP/PCP VERIFIED, PT MAY CHANGE HCP AND CM WILL REVISIT W/PT 07/25.
--- NOTE | 2024-07-24 16:08 | P.PNIM_ITS ---
Subjective Subjective Date of Service: 07/24/24 Interval History: Scrotal pain/erythema Review of Systems Swelling and erythema somewhat improving. Review of Systems: Yes all other systems are reviewed and are negative Physical Exam 2 Vital Signs: Vital Signs: Last Vital Signs Temp 98.0 F 07/24/24 15:15 Pulse 88 07/24/24 15:15 Resp 20 07/24/24 15:15 BP 105/69 07/24/24 15:15 Pulse Ox 96 07/24/24 15:15 O2 Del Method Room Air 07/24/24 15:15 BMI result Body Mass Index 30.9 Appearance: Alert.? Oriented X3. cvs: rrr, [id number] , no murmur res: clear to auscultation ,no rhonchii or wheezing abd: no rebound or guarding ,nt, bs present. :scrotal swelling/erythema improving ext pulses present , no cyanosis . neuro: axo3 , nonfocal. Objective Data Active Medications Acetaminophen (Acetaminophen 325 Mg Tablet) 975 mg PO Q6H PRN PRN Reason: Pain, Mild 1-3,fever,headache Last Admin: 07/24/24 04:17 Dose: 975 mg Documented By: SHALINI Albuterol Sulfate (Albuterol Sulfate 90 Mcg 8 Gm Inhaler) 2 puff INHALE Q6H PRN PRN Reason: shortness of breath or wheezin Aspirin (Aspirin Enteric Coated 81 Mg Tablet.) 81 mg PO DAILY [facility] Last Admin: 07/24/24 07:49 Dose: 81 mg Documented By: JOSE EDUARDO Atorvastatin Calcium (Atorvastatin Calcium 40 Mg Tablet) 40 mg PO DAILY [facility] Last Admin: 07/24/24 07:50 Dose: 40 mg Documented By: JOSE EDUARDO Calcium Carbonate (Calcium Carbonate 750 Mg Tab.Chew) 750 mg PO Q4H PRN PRN Reason: Heartburn Dextrose (Dextrose 50 % 25 Gm/50 Ml Syringe) 25 gm IVPUSH Q15M PRN; Protocol PRN Reason: per Hypoglycemia Standing Ord. Diltiazem HCl (Diltiazem Hcl Cd 180 Mg Cap.Er.24h) 180 mg PO DAILY [facility]; Protocol Last Admin: 07/24/24 07:54 Dose: Not Given Documented By: JOSE EDUARDO Non-Admin Reason: Decreased Blood Pressure Doxazosin Mesylate (Doxazosin Mesylate 2 Mg Tablet) 4 mg PO DAILY [facility] Last Admin: 07/24/24 07:50 Dose: 4 mg Documented By: JOSE EDUARDO Finasteride (Finasteride 5 Mg Tablet) 5 mg PO DAILY [facility] Last Admin: 07/24/24 07:49 Dose: 5 mg Documented By: JOSE EDUARDO Fluticasone/Umeclidinium/Vilanterol (Fluticasone/Umeclidinium/Vilanterol 200/62.5/25 Blst.W.Dev) 1 puff INHALE RDAILY [facility] Last Admin: 07/24/24 08:03 Dose: 1 puff Documented By: MARY Glucose (Glucose Gel 15 Gm Gel..Gram.) 15 gm PO Q15M PRN; Protocol PRN Reason: per Hypoglycemia Standing Ord. Heparin Sodium (Porcine) (Heparin Sodium,Porcine 5,000 Unit/Ml Vial) 5,000 unit SUBCUT Q12H [facility] Last Admin: 07/24/24 07:50 Dose: 5,000 unit Documented By: JOSE EDUARDO Hydromorphone HCl (Hydromorphone Hcl 1 Mg/Ml Syringe) 0.5 mg IVPUSH Q4H PRN; Protocol PRN Reason: Pain, Severe (Pain Scale 7-10) Cefepime HCl (Maxipime) 2 gm in 50 mls @ 100 mls/hr IV Q12H [facility] Last Infusion: 07/24/24 02:56 Dose: Infused Documented By: SHALINI Vancomycin HCl 1,250 mg/ (Sodium Chloride) 250 mls @ 166.667 mls/hr IV Q24H [facility] Insulin Human Lispro (Insulin Lispro 100 Unit/Ml 3 Ml Vial) 0 unit SUBCUT QIDACHS [facility]; Protocol Last Admin: 07/24/24 11:57 Dose: 2 unit Documented By: JOSE EDUARDO Latanoprost (Latanoprost 0.005 % Ophth Celena 2.5 Ml Drops) 1 drop EYE-BOTH BEDTIME [facility] Last Admin: 07/23/24 22:17 Dose: 1 drop Documented By: SHALINI Lisinopril (Lisinopril 20 Mg Tablet) 20 mg PO DAILY [facility]; Protocol Last Admin: 07/24/24 07:54 Dose: Not Given Documented By: JOSE EDUARDO Non-Admin Reason: Decreased Blood Pressure Magnesium Hydroxide (Milk Of Magnesia 30 Ml Oral.Susp) 30 ml PO DAILY PRN PRN Reason: Constipation Melatonin (Melatonin 3 Mg Tablet) 6 mg PO BEDTIME PRN PRN Reason: Insomnia Metoprolol Succinate (Metoprolol Succinate Er 25 Mg Tab.Er.24h) 25 mg PO DAILY [facility]; Protocol Last Admin: 07/24/24 07:54 Dose: Not Given Documented By: JOSE EDUARDO Non-Admin Reason: Decreased Blood Pressure Non-Formulary Medication (Brinzolamide-Brimonidine [Simbrinza]) 1 drop EYE-BOTH BID [facility] Non-Formulary Medication (Bromfenac [Prolensa]) 1 drop EYE-BOTH DAILY [facility] Non-Formulary Medication (Netarsudil [Rhopressa]) 1 drop EYE-BOTH BEDTIME [facility] Ondansetron HCl (Ondansetron Hcl 4 Mg/2 Ml Vial) 4 mg IVPUSH Q8H PRN PRN Reason: Nausea and Vomiting Oxycodone HCl (Oxycodone Hcl Immed Release 5 Mg Tablet) 5 mg PO Q6H PRN PRN Reason: Pain, Moderate(Pain Scale 4-6) Pharmacy Consult (Consult Rx Vancomycin Dosing) 1 each MISCELLANE DAILY PRN PRN Reason: Consult order Prednisolone Acetate (Prednisolone Acetate 1 % Oph Susp 5 Ml Drpbtl) 1 drop EYE-BOTH QID [facility] Last Admin: 07/24/24 11:56 Dose: Not Given Documented By: JOSE EDUARDO Non-Admin Reason: Patient Refused Sodium Chloride (0.9 % Sodium Chloride Flush 3 Ml Syringe) 3 ml IVFLUSH QSHIFT [facility] Last Admin: 07/24/24 07:49 Dose: 3 ml Documented By: JOSE EDUARDO Vitamin D (Cholecalciferol (Vitamin D3) 25 Mcg Tablet) 50 mcg PO DAILY [facility] Last Admin: 07/24/24 07:49 Dose: 50 mcg Documented By: JOSE EDUARDO Labs 07/24/24 07:21 07/24/24 07:21 Labs: Laboratory Results - last 24 hr 07/23/24 07/23/24 07/23/24 16:11 21:21 21:44 MCV MCH MCHC RDW Plt Count MPV Immature Gran % (Auto) Neut % (Auto) Lymph % (Auto) Candler % (Auto) Eos % (Auto) Baso % (Auto) Lymph # (Auto) Candler # (Auto) Eos # (Auto) Baso # (Auto) Abs Immat Gran (auto) Absolute Neuts (auto) Absolute Nucleated RBC Nucleated RBC % (auto) Neutrophils % (Manual) Band Neutrophils % Lymphocytes % (Manual) Monocytes % (Manual) Abs Neuts (Manual) Lymphocytes # (Manual) Monocytes # (Manual) Dohle Bodies Platelet Estimate Large Platelets Plt Morphology Comment RBC Morphology Ovalocytes Acanthocytes (Spur) Anion Gap Estim Creat Clear Calc Estimated GFR POC Glucose 158 H Random Glucose Lactic Acid F/U @ 2Hr 2.1 H* Calcium Troponin I High Sens 62.4 H D 07/24/24 07/24/24 07/24/24 07:21 07:39 11:06 MCV 86.9 MCH 28.7 MCHC 33.0 RDW 13.0 Plt Count 143 L MPV 11.0 Immature Gran % (Auto) Cancelled Neut % (Auto) Cancelled Lymph % (Auto) Cancelled Candler % (Auto) Cancelled Eos % (Auto) Cancelled Baso % (Auto) Cancelled Lymph # (Auto) Cancelled Candler # (Auto) Cancelled Eos # (Auto) Cancelled Baso # (Auto) Cancelled Abs Immat Gran (auto) Cancelled Absolute Neuts (auto) Cancelled Absolute Nucleated RBC 0.000 Nucleated RBC % (auto) 0.0 Neutrophils % (Manual) 69 Band Neutrophils % 17 H Lymphocytes % (Manual) 6 L Monocytes % (Manual) 8 Abs Neuts (Manual) 13.8 H Lymphocytes # (Manual) 1.0 L Monocytes # (Manual) 1.3 H Dohle Bodies PRESENT Platelet Estimate SLIGHTLY DECREASED Large Platelets PRESENT Plt Morphology Comment NOTED RBC Morphology NORMAL Ovalocytes 1+ (5-14) Acanthocytes (Spur) 2+ (3-5) Anion Gap 11 L Estim Creat Clear Calc 57.8 Estimated GFR > 60 POC Glucose 124 H 163 H Random Glucose 134 H Lactic Acid F/U @ 2Hr Calcium 8.8 D Troponin I High Sens Microbiology Microbiology Results: Microbiology 07/23/24 Unknown Urine Culture - Preliminary Urine Catheterized - Straight Catheter Gram negative kristi Assessment and Plan (1) Orchitis: Status: Acute (2) Cellulitis, scrotum: Status: Acute Assessment and Plan: 78 y/o man admitted with: Large bilateral hydrocele (right is complex with possible inflammatory process/scrotal cellulitis + orchitis). Admit to hospitalist service. Continue empiric IV antibiotic therapy with cefepime and vancomycin. Evaluated by urologist and recommended IV antibiotic therapy and insertion of indwelling urinary catheter if needed resident urine > 350 mL. Bladder scan with every shift. SIRS criteria but no severe sepsis secondary to above and UTI. Tachycardic, tachypnea and fever resolved leukocytosis presnent -going up. Blood culture pending, urine culture growing Gram-negative kristi. Acute lactic acidosis improving, no further trending. Presumed UTI. Urine culture obtained -will follow results. Continue cefepime. Nephrolithiasis. No abdominal pain. BPH. Continue terazosin and finasteride. Type 2 diabetes mellitus. BG checks before meals and bedtime. Insulin sliding scale. Metformin on hold due to lactic acidosis. Diabetic diet. Essential hypertension. Continue diltiazem CDand lisinopril. Hyperlipidemia. Continue atorvastatin. COPD. Continue Trelegy albuterol as needed. History of DVT. Not currently on anticoagulation. TIA. Continue aspirin and statin. Chronic diastolic and systoli CHF. No acute symptoms. History of mitral valve repair. Obesity, class 1. BMI 30.7 kg/m2. Glaucoma. Continue eyedrops. Scheduled as an outpatient for surgery this Friday. DVT prophylaxis: Heparin ongoing hospitalization for bilateral hydroceles associated with possible infection and UTI treatment with IV antibiotic, IV fluids and evaluation by Urological Service. Quality Stroke Does the patient have a stroke diagnosis?: No VTE Prior VTE?: No VTE Risk Level:: Medical - moderate - high VTE Device Contraindication: Treatment Not Indicated VTE Drug Contraindication: N/A - Med Ordered
[2024-07-24 16:45] LABS: Glucose, Whole Blood 117 mg/dL (60-115)
[2024-07-24] MEDS: vancomycin HCL 1,250 MG in 0.9 % Sodium Chloride 250 ML 166.67 MG IV (17:36)
[2024-07-24] MEDS: Latanoprost 0.005 % Ophth Sol 2.5 ML DROPS 1 DROP EYE-BOTH (19:56)
[2024-07-24 20:36] LABS: Glucose, Whole Blood 128 mg/dL (60-115)
[2024-07-25] VITALS (9 sets, daily range): BP systolic 97–124; BP diastolic 57–78; PULSE 60–104; RESP 15–20; TEMP 36.4–37.9; O2SAT 92–98
--- NOTE | 2024-07-25 00:13 | P.CNID_ITS ---
History of Present Illness Data of Consult Service Date: 07/24/24 Requesting physician: Cesar Chapin Primary Care Provider: Connie Robertson MD HPI Reason for consult: inflammatory scrotal process,gram negative urine He presents with swollen testicles last 3-4 days with only minimal redness. He has no fever or chills. He has no bacteremia or abdominal pain ,but had dysuria. [facility] Past Medical History Medical History Sepsis Acute kidney failure History of TIA (transient ischemic attack) History of DVT (deep vein thrombosis) Grade II diastolic dysfunction Essential hypertension Dyslipidemia Diabetes mellitus COPD (chronic obstructive pulmonary disease) Gross hematuria Microalbuminuria BPH (benign prostatic hyperplasia) Chronic UTI (urinary tract infection) Chronic back pain Glaucoma Family History Family History Father Medical history unknown Mother Medical history unknown Brother No problems noted. Son No problems noted. Daughter No problems noted. Daughter No problems noted. Daughter No problems noted. Family history: reviewed and not pertinent Surgical History Surgical History Status post mitral valve repair (~2014) Status post aortic valve replacement with bioprosthetic valve (~2014) Status post patent foramen ovale closure (~2014) History of epidermal inclusion cyst excision (~2020) Hx of cataract extraction (~2013) Social History Social History Household Members: Significant Other Housing: House Are you a primary careers counsellor to a significant other at home: No Do you presently have visiting nurse or other home services: No Alcohol intake: current Alcohol intake frequency: a few times a month Alcohol type: beer and wine Comment: RN Patient Tobacco Use Status: Former Tobacco user Years Smoked: 10 e-Cigarette/Vaping Use: Never Used Second Hand Smoke Exposure: No service: No Current occupational status: retired Cognitive needs: No Hearing needs: No Vision needs: Yes Meds Allergies Allergy/AdvReac Type Severity Reaction Status Date / Time levofloxacin [From LEVAQUIN] Allergy Intermediate HIVES Verified 07/23/24 12:49 Iodinated Contrast Media AdvReac Intermediate HIVES Verified 07/23/24 12:49 [IV CONTRAST] Active Medications: Current Medications Acetaminophen (Acetaminophen 325 Mg Tablet) 975 mg PO Q6H PRN PRN Reason: Pain, Mild 1-3,fever,headache Last Admin: 07/24/24 04:17 Dose: 975 mg Albuterol Sulfate (Albuterol Sulfate 90 Mcg 8 Gm Inhaler) 2 puff INHALE Q6H PRN PRN Reason: shortness of breath or wheezin Aspirin (Aspirin Enteric Coated 81 Mg Tablet.Dr) 81 mg PO DAILY [facility] Last Admin: 07/24/24 07:49 Dose: 81 mg Atorvastatin Calcium (Atorvastatin Calcium 40 Mg Tablet) 40 mg PO DAILY [facility] Last Admin: 07/24/24 07:50 Dose: 40 mg Calcium Carbonate (Calcium Carbonate 750 Mg Tab.Chew) 750 mg PO Q4H PRN PRN Reason: Heartburn Dextrose (Dextrose 50 % 25 Gm/50 Ml Syringe) 25 gm IVPUSH Q15M PRN; Protocol PRN Reason: per Hypoglycemia Standing Ord. Diltiazem HCl (Diltiazem Hcl Cd 180 Mg Cap.Er.24h) 180 mg PO DAILY [facility]; Protocol Last Admin: 07/24/24 07:54 Dose: Not Given Doxazosin Mesylate (Doxazosin Mesylate 2 Mg Tablet) 4 mg PO DAILY [facility] Last Admin: 07/24/24 07:50 Dose: 4 mg Finasteride (Finasteride 5 Mg Tablet) 5 mg PO DAILY [facility] Last Admin: 07/24/24 07:49 Dose: 5 mg Fluticasone/Umeclidinium/Vilanterol (Fluticasone/Umeclidinium/Vilanterol 200/62.5/25 Blst.W.Dev) 1 puff INHALE RDAILY [facility] Last Admin: 07/24/24 08:03 Dose: 1 puff Glucose (Glucose Gel 15 Gm Gel..Gram.) 15 gm PO Q15M PRN; Protocol PRN Reason: per Hypoglycemia Standing Ord. Heparin Sodium (Porcine) (Heparin Sodium,Porcine 5,000 Unit/Ml Vial) 5,000 unit SUBCUT Q12H [facility] Last Admin: 07/24/24 19:56 Dose: 5,000 unit Hydromorphone HCl (Hydromorphone Hcl 1 Mg/Ml Syringe) 0.5 mg IVPUSH Q4H PRN; Protocol PRN Reason: Pain, Severe (Pain Scale 7-10) Cefepime HCl (Maxipime) 2 gm in 50 mls @ 100 mls/hr IV Q12H [facility] Last Infusion: 07/24/24 18:16 Dose: Infused Vancomycin HCl 1,250 mg/ (Sodium Chloride) 250 mls @ 166.667 mls/hr IV Q24H [facility] Last Infusion: 07/24/24 21:45 Dose: Infused Insulin Human Lispro (Insulin Lispro 100 Unit/Ml 3 Ml Vial) 0 unit SUBCUT QIDACHS [facility]; Protocol Last Admin: 07/24/24 20:38 Dose: Not Given Latanoprost (Latanoprost 0.005 % Ophth Celena 2.5 Ml Drops) 1 drop EYE-BOTH BEDTIME [facility] Last Admin: 07/24/24 19:56 Dose: 1 drop Lisinopril (Lisinopril 20 Mg Tablet) 20 mg PO DAILY [facility]; Protocol Last Admin: 07/24/24 07:54 Dose: Not Given Magnesium Hydroxide (Milk Of Magnesia 30 Ml Oral.Susp) 30 ml PO DAILY PRN PRN Reason: Constipation Melatonin (Melatonin 3 Mg Tablet) 6 mg PO BEDTIME PRN PRN Reason: Insomnia Metoprolol Succinate (Metoprolol Succinate Er 25 Mg Tab.Er.24h) 25 mg PO DAILY [facility]; Protocol Last Admin: 07/24/24 07:54 Dose: Not Given Non-Formulary Medication (Brinzolamide-Brimonidine [Simbrinza]) 1 drop EYE-BOTH BID [facility] Non-Formulary Medication (Bromfenac [Prolensa]) 1 drop EYE-BOTH DAILY [facility] Non-Formulary Medication (Netarsudil [Rhopressa]) 1 drop EYE-BOTH BEDTIME [facility] Ondansetron HCl (Ondansetron Hcl 4 Mg/2 Ml Vial) 4 mg IVPUSH Q8H PRN PRN Reason: Nausea and Vomiting Oxycodone HCl (Oxycodone Hcl Immed Release 5 Mg Tablet) 5 mg PO Q6H PRN PRN Reason: Pain, Moderate(Pain Scale 4-6) Pharmacy Consult (Consult Rx Vancomycin Dosing) 1 each MISCELLANE DAILY PRN PRN Reason: Consult order Prednisolone Acetate (Prednisolone Acetate 1 % Oph Susp 5 Ml Drpbtl) 1 drop EYE-BOTH QID [facility] Last Admin: 07/24/24 19:56 Dose: 1 drop Sodium Chloride (0.9 % Sodium Chloride Flush 3 Ml Syringe) 3 ml IVFLUSH QSHIFT [facility] Last Admin: 07/24/24 23:50 Dose: 3 ml Vitamin D (Cholecalciferol (Vitamin D3) 25 Mcg Tablet) 50 mcg PO DAILY [facility] Last Admin: 07/24/24 07:49 Dose: 50 mcg Home Medications ?Medication ?Instructions ?Recorded ?Confirmed ?Last Taken ?Type latanoprost 0.005 % eye drops 1 drp ophthalmic (eye) BEDTIME 12/27/22 07/23/24 07/22/24 History prednisolone acetate 1 % eye 1 drp ophthalmic (eye) QID 07/29/23 07/23/24 07/22/24 History drops,suspension bromfenac 0.07 % eye drops 1 drp ophthalmic (eye) DAILY 01/16/24 07/23/24 07/22/24 History (Prolensa) diltiazem HCl 180 mg 180 mg PO DAILY 01/16/24 07/23/24 07/22/24 History capsule,extended release 24 hr (Cartia XT) netarsudil 0.02 % eye drops 1 drp ophthalmic (eye) BEDTIME 01/16/24 07/23/24 07/22/24 History (Rhopressa) terazosin 5 mg capsule 5 mg PO DAILY 01/16/24 07/23/24 07/22/24 History brinzolamide 1 %-brimonidine 0.2 % 1 drp ophthalmic (eye) BID 07/23/24 07/23/24 07/22/24 History eye drops,suspension (Simbrinza) cholecalciferol (vitamin D3) 50 50 mcg PO DAILY 07/23/24 07/23/24 07/22/24 History mcg (2,000 unit) capsule (Vitamin D3) fluticasone fur. 200 mcg-umeclid 1 ea inhalation DAILY 07/23/24 07/23/24 07/22/24 History 62.5 mcg-vilant 25 mcg inhalat.powder (Trelegy Ellipta) metformin 500 mg tablet,extended 2,000 mg PO BEDTIME 07/23/24 07/23/24 07/22/24 History release 24 hr Physical Exam 2 Vital Signs: Vital Signs: Last Vital Signs Temp 100.4 F 07/24/24 23:55 Pulse 86 07/24/24 23:55 Resp 16 07/24/24 23:55 BP 118/65 07/24/24 23:55 Pulse Ox 94 07/24/24 23:55 O2 Del Method Room Air 07/24/24 23:55 BMI result Body Mass Index 30.9 Const: General: cooperative HEENT: Head: Yes normal to inspection Face and sinus: Yes normal facial exam Mouth: Normal oral and palatal mucosa present Teeth and gingiva: d entition normal Eyes: General: appearance normal, both eyes and all related structures P upils: Equal, round and reactive pupils present Resp: Effort & Inspection: normal respiratory effort Cardio: Rate: regular rate Rhythm: regular rhythm GI: Palpation (GI): Soft to palpation and nontender : Other: swollen bilateral testicles,no erythema General: Yes no CVA tenderness Back/Spine/Pelvis: Back: no CVA tenderness Skin: General skin exam: no rashes or lesions noted Neuro: General: moves all extremities Cranial nerves: Yes Equal, round and reactive pupils present Extrem: General: Yes normal to inspection Psych: Appearance: grossly normal Results Labs 07/24/24 07:21 07/24/24 07:21 Labs: Short CBC 07/24/24 Range/Units 07:21 WBC 16.1 H (4.8-10.8) X10*3/uL Hgb 10.5 L (14.0-18.0) g/dl Hct 31.8 L (42.0-52.0) % Plt Count 143 L (160-400) X10*3/uL BMP 07/24/24 07:21 Sodium 144 Potassium 3.6 Chloride 113 H Carbon Dioxide 24 BUN 17 H Creatinine 1.14 Calcium 8.8 D Microbiology Microbiology Results: Microbiology 07/23/24 14:58 Blood - Venous Blood Culture - Preliminary No growth after 24 hours. 07/23/24 14:58 Blood - Venous Blood Culture - Preliminary No growth after 24 hours. 07/23/24 Unknown Urine Catheterized - Straight Catheter Urine Culture - Preliminary Gram negative kristi Assessment and Plan (1) Orchitis: Status: Acute (2) Cellulitis, scrotum: Status: Acute (3) Bilateral hydrocele: Status: Acute (4) Acute UTI: Status: Acute Plan Await urine culture. Continue Cefepime Stop Vancomycin if blood cultures negative tomorrow. Adjust antibiotics per urine culture.
[2024-07-25] MEDS: cefEPime HCl/D5W 2 GM/50 ML PIGGYBACK IV ×2 (01:43→14:49)
[2024-07-25] MEDS: Albuterol Sulfate 90 MCG 8 GM INHALER 2 PUFF INHALE (02:41)
[2024-07-25 07:30] LABS: Glucose, Whole Blood 86 mg/dL (60-115)
[2024-07-25] MEDS: Fluticasone/Umeclidinium/Vilanterol 200/62.5/25 BLST.W.DEV 1 PUFF INHALE (08:29)
[2024-07-25] MEDS: Finasteride 5 MG TABLET PO (10:30)
[2024-07-25] MEDS: Doxazosin Mesylate 2 MG TABLET 4 MG PO (10:30)
[2024-07-25] MEDS: lisinopriL 20 MG TABLET PO (10:30)
[2024-07-25] MEDS: dilTIAZem HCL CD 180 MG CAP.ER.24H PO (10:30)
[2024-07-25] MEDS: Cholecalciferol (Vitamin D3) 25 MCG TABLET 50 MCG PO (10:30)
[2024-07-25] MEDS: Atorvastatin Calcium 40 MG TABLET PO (10:30)
[2024-07-25] MEDS: Heparin Sodium,Porcine 5,000 UNIT/ML VIAL 5000 UNIT SUBCUT ×2 (10:31→20:44)
[2024-07-25] MEDS: 0.9 % Sodium Chloride Flush 3 ML SYRINGE IVFLUSH ×3 (10:31→20:44)
[2024-07-25] MEDS: Metoprolol Succinate ER 25 MG TAB.ER.24H PO (10:31)
[2024-07-25] MEDS: Aspirin Enteric Coated 81 MG TABLET.DR PO (10:31)
[2024-07-25] MEDS: prednisoLONE Acetate 1 % Oph Susp 5 ML DRPBTL 1 DROP EYE-BOTH ×4 (10:31→20:44)
[2024-07-25 11:48] LABS: Creatinine Clr Calc Pharmacy 60.5; Estimated Glomerular Filt Rate > 60
[2024-07-25 11:54] LABS: Glucose, Whole Blood 136 mg/dL (60-115)
[2024-07-25 14:17] LABS: Vancomycin Random 7.6 mcg/mL (15-20)
--- NOTE | 2024-07-25 14:31 | HE.PHANOTE ---
RE [facility] patients level came back this afternoon at 7.6 which is low for patients indication. will increase dose to 1000 mg Q12H. next level 07/26 @1400 predicted AUC 489
[2024-07-25 15:55] LABS: Glucose, Whole Blood 177 mg/dL (60-115)
--- NOTE | 2024-07-25 16:56 | P.PNIM_ITS ---
Subjective Subjective Date of Service: 07/25/24 Interval History: scrotal edema/erythema Review of Systems pain /swelling slightly improving no fevers Review of Systems: Yes all other systems are reviewed and are negative Physical Exam 2 Vital Signs: Vital Signs: Last Vital Signs Temp 98.5 F 07/25/24 16:00 Pulse 85 07/25/24 16:00 Resp 17 07/25/24 16:00 BP 97/57 L 07/25/24 16:00 Pulse Ox 93 07/25/24 16:00 O2 Del Method Room Air 07/25/24 16:00 BMI result Body Mass Index 30.9 Appearance: Alert.? Oriented X3. cvs: rrr, [id number] , no murmur res: clear to auscultation ,no rhonchii or wheezing abd: no rebound or guarding ,nt, bs present. :scrotal swelling/erythema improving ext pulses present , no cyanosis . neuro: axo3 , nonfocal. Objective Data Active Medications Acetaminophen (Acetaminophen 325 Mg Tablet) 975 mg PO Q6H PRN PRN Reason: Pain, Mild 1-3,fever,headache Last Admin: 07/24/24 04:17 Dose: 975 mg Documented By: SHALINI Albuterol Sulfate (Albuterol Sulfate 90 Mcg 8 Gm Inhaler) 2 puff INHALE Q6H PRN PRN Reason: shortness of breath or wheezin Last Admin: 07/25/24 02:41 Dose: 2 puff Documented By: CRUZ Aspirin (Aspirin Enteric Coated 81 Mg Tablet.) 81 mg PO DAILY [facility] Last Admin: 07/25/24 10:31 Dose: 81 mg Documented By: JOSE EDUARDO Atorvastatin Calcium (Atorvastatin Calcium 40 Mg Tablet) 40 mg PO DAILY [facility] Last Admin: 07/25/24 10:30 Dose: 40 mg Documented By: JOSE EDUARDO Calcium Carbonate (Calcium Carbonate 750 Mg Tab.Chew) 750 mg PO Q4H PRN PRN Reason: Heartburn Dextrose (Dextrose 50 % 25 Gm/50 Ml Syringe) 25 gm IVPUSH Q15M PRN; Protocol PRN Reason: per Hypoglycemia Standing Ord. Diltiazem HCl (Diltiazem Hcl Cd 180 Mg Cap.Er.24h) 180 mg PO DAILY [facility]; Protocol Last Admin: 07/25/24 10:30 Dose: 180 mg Documented By: JOSE EDUARDO Doxazosin Mesylate (Doxazosin Mesylate 2 Mg Tablet) 4 mg PO DAILY [facility] Last Admin: 07/25/24 10:30 Dose: 4 mg Documented By: JOSE EDUARDO Finasteride (Finasteride 5 Mg Tablet) 5 mg PO DAILY [facility] Last Admin: 07/25/24 10:30 Dose: 5 mg Documented By: JOSE EDUARDO Fluticasone/Umeclidinium/Vilanterol (Fluticasone/Umeclidinium/Vilanterol 200/62.5/25 Blst.W.Dev) 1 puff INHALE RDAILY [facility] Last Admin: 07/25/24 08:29 Dose: 1 puff Documented By: MARY Glucose (Glucose Gel 15 Gm Gel..Gram.) 15 gm PO Q15M PRN; Protocol PRN Reason: per Hypoglycemia Standing Ord. Heparin Sodium (Porcine) (Heparin Sodium,Porcine 5,000 Unit/Ml Vial) 5,000 unit SUBCUT Q12H [facility] Last Admin: 07/25/24 10:31 Dose: 5,000 unit Documented By: JOSE EDUARDO Hydromorphone HCl (Hydromorphone Hcl 1 Mg/Ml Syringe) 0.5 mg IVPUSH Q4H PRN; Protocol PRN Reason: Pain, Severe (Pain Scale 7-10) Cefepime HCl (Maxipime) 2 gm in 50 mls @ 100 mls/hr IV Q12H [facility] Last Infusion: 07/25/24 15:48 Dose: Infused Documented By: JOSE EDUARDO Vancomycin HCl 1,000 mg/ (Sodium Chloride) 270 mls @ 270 mls/hr IV Q12H [facility] Insulin Human Lispro (Insulin Lispro 100 Unit/Ml 3 Ml Vial) 0 unit SUBCUT QIDACHS [facility]; Protocol Last Admin: 07/25/24 12:18 Dose: Not Given Documented By: JOSE EDUARDO Non-Admin Reason: No Insulin Coverage Latanoprost (Latanoprost 0.005 % Ophth Celena 2.5 Ml Drops) 1 drop EYE-BOTH BEDTIME [facility] Last Admin: 07/24/24 19:56 Dose: 1 drop Documented By: JAIRO Lisinopril (Lisinopril 20 Mg Tablet) 20 mg PO DAILY [facility]; Protocol Last Admin: 07/25/24 10:30 Dose: 20 mg Documented By: JOSE EDUARDO Magnesium Hydroxide (Milk Of Magnesia 30 Ml Oral.Susp) 30 ml PO DAILY PRN PRN Reason: Constipation Melatonin (Melatonin 3 Mg Tablet) 6 mg PO BEDTIME PRN PRN Reason: Insomnia Metoprolol Succinate (Metoprolol Succinate Er 25 Mg Tab.Er.24h) 25 mg PO DAILY [facility]; Protocol Last Admin: 07/25/24 10:31 Dose: 25 mg Documented By: JOSE EDUARDO Non-Formulary Medication (Brinzolamide-Brimonidine [Simbrinza]) 1 drop EYE-BOTH BID [facility] Non-Formulary Medication (Bromfenac [Prolensa]) 1 drop EYE-BOTH DAILY [facility] Non-Formulary Medication (Netarsudil [Rhopressa]) 1 drop EYE-BOTH BEDTIME [facility] Ondansetron HCl (Ondansetron Hcl 4 Mg/2 Ml Vial) 4 mg IVPUSH Q8H PRN PRN Reason: Nausea and Vomiting Oxycodone HCl (Oxycodone Hcl Immed Release 5 Mg Tablet) 5 mg PO Q6H PRN PRN Reason: Pain, Moderate(Pain Scale 4-6) Pharmacy Consult (Consult Rx Vancomycin Dosing) 1 each MISCELLANE DAILY PRN PRN Reason: Consult order Prednisolone Acetate (Prednisolone Acetate 1 % Oph Susp 5 Ml Drpbtl) 1 drop EYE-BOTH QID [facility] Last Admin: 07/25/24 14:49 Dose: 1 drop Documented By: JOSE EDUARDO Sodium Chloride (0.9 % Sodium Chloride Flush 3 Ml Syringe) 3 ml IVFLUSH QSHIFT [facility] Last Admin: 07/25/24 10:31 Dose: 3 ml Documented By: JOSE EDUARDO Vitamin D (Cholecalciferol (Vitamin D3) 25 Mcg Tablet) 50 mcg PO DAILY [facility] Last Admin: 07/25/24 10:30 Dose: 50 mcg Documented By: JOSE EDUARDO Labs 07/24/24 07:21 07/25/24 11:06 Labs: Laboratory Results - last 24 hr 07/24/24 07/25/24 07/25/24 20:28 07:22 11:06 Estim Creat Clear Calc 60.5 Estimated GFR > 60 POC Glucose 128 H 86 Random Vancomycin 0607/25/24 07/25/24 11:33 13:51 15:40 Estim Creat Clear Calc Estimated GFR POC Glucose 136 H 177 H Random Vancomycin 7.6 L Microbiology Microbiology Results: Microbiology 07/23/24 Unknown Urine Culture - Final Urine Catheterized - Straight Catheter Escherichia coli 07/23/24 14:58 Blood Culture - Preliminary Blood - Venous No growth after 24 hours. 07/23/24 14:58 Blood Culture - Preliminary Blood - Venous No growth after 24 hours. Assessment and Plan (1) Orchitis: Status: Acute (2) Cellulitis, scrotum: Status: Acute Assessment and Plan: 78 y/o man admitted with: Large bilateral hydrocele (right is complex with possible inflammatory process/scrotal cellulitis + orchitis). Admit to hospitalist service. Continue empiric IV antibiotic therapy with cefepime and vancomycin. Evaluated by urologist and recommended IV antibiotic therapy and insertion of indwelling urinary catheter if needed resident urine > 350 mL. Bladder scan with every shift. SIRS criteria but no severe sepsis secondary to above and UTI. Tachycardic, tachypnea and fever resolved leukocytosis presnent -going up. Blood culture pending, urine culture growing Gram-negative kristi. Acute lactic acidosis improving, no further trending. Presumed UTI. Urine culture obtained -will follow results. Continue cefepime. Nephrolithiasis. No abdominal pain. BPH. Continue terazosin and finasteride. Type 2 diabetes mellitus. BG checks before meals and bedtime. Insulin sliding scale. Metformin on hold due to lactic acidosis. Diabetic diet. Essential hypertension. Continue diltiazem CDand lisinopril. Hyperlipidemia. Continue atorvastatin. COPD. Continue Trelegy albuterol as needed. History of DVT. Not currently on anticoagulation. TIA. Continue aspirin and statin. Chronic diastolic and systoli CHF. No acute symptoms. History of mitral valve repair. Obesity, class 1. BMI 30.7 kg/m2. Glaucoma. Continue eyedrops. Scheduled as an outpatient for surgery this Friday. DVT prophylaxis: Heparin ongoing hospitalization for bilateral hydroceles associated with possible infection and UTI treatment with IV antibiotic, IV fluids and evaluation by Urological Service. Quality Stroke Does the patient have a stroke diagnosis?: No VTE Prior VTE?: No VTE Risk Level:: Medical - moderate - high VTE Device Contraindication: Treatment Not Indicated VTE Drug Contraindication: N/A - Med Ordered
[2024-07-25] MEDS: Insulin Lispro 100 UNIT/ML 3 ML VIAL SUBCUT (18:27)
[2024-07-25] MEDS: vancomycin HCL 1,000 MG in 0.9 % Sodium Chloride 250 ML 270 MG IV (18:27)
[2024-07-25 20:28] LABS: Glucose, Whole Blood 136 mg/dL (60-115)
[2024-07-25] MEDS: Latanoprost 0.005 % Ophth Sol 2.5 ML DROPS 1 DROP EYE-BOTH (20:44)
[2024-07-26 03:19] VITALS: BP 120/66; PULSE 88; RESP 16; TEMP 37.9; O2SAT 95
[2024-07-26] MEDS: vancomycin HCL 1,000 MG in 0.9 % Sodium Chloride 250 ML 270 MG IV (03:35)
[2024-07-26] MEDS: cefEPime HCl/D5W 2 GM/50 ML PIGGYBACK IV ×2 (03:35→14:43)
[2024-07-26 06:58] LABS: Hematocrit 33.9 % (42.0-52.0); Hemoglobin 10.9 g/dl (14.0-18.0); Mean Corpuscular HGB Conc 32.2 g/dl (31.0-36.0); Mean Corpuscular Hemoglobin 28.8 pg (27.0-33.0); Mean Corpuscular Volume 89.7 fL (80.0-98.0); Mean Platelet Volume 11.5 fL (9.4-12.4); Platelet Count 202 X10*3/uL (160-400); Red Blood Count 3.78 X10*6/uL (4.60-5.80)
[2024-07-26 07:02] VITALS: BP 129/65; PULSE 82; RESP 18; TEMP 36.8; O2SAT 95
[2024-07-26 07:06] LABS: Creatinine Clr Calc Pharmacy 57.8; Estimated Glomerular Filt Rate > 60
[2024-07-26 07:08] LABS: Glucose, Whole Blood 161 mg/dL (60-115)
[2024-07-26] MEDS: lisinopriL 20 MG TABLET PO (07:53)
[2024-07-26] MEDS: Doxazosin Mesylate 2 MG TABLET 4 MG PO (07:54)
[2024-07-26] MEDS: Fluticasone/Umeclidinium/Vilanterol 200/62.5/25 BLST.W.DEV 1 PUFF INHALE (07:54)
[2024-07-26] MEDS: Finasteride 5 MG TABLET PO (07:54)
[2024-07-26] MEDS: Aspirin Enteric Coated 81 MG TABLET.DR PO (07:55)
[2024-07-26] MEDS: Insulin Lispro 100 UNIT/ML 3 ML VIAL SUBCUT ×2 (07:55→20:46)
[2024-07-26] MEDS: Cholecalciferol (Vitamin D3) 25 MCG TABLET 50 MCG PO (07:56)
[2024-07-26] MEDS: Heparin Sodium,Porcine 5,000 UNIT/ML VIAL 5000 UNIT SUBCUT ×2 (07:56→20:46)
[2024-07-26] MEDS: Atorvastatin Calcium 40 MG TABLET PO (07:56)
[2024-07-26] MEDS: dilTIAZem HCL CD 180 MG CAP.ER.24H PO (07:57)
[2024-07-26] MEDS: Metoprolol Succinate ER 25 MG TAB.ER.24H PO (07:57)
[2024-07-26] MEDS: prednisoLONE Acetate 1 % Oph Susp 5 ML DRPBTL 1 DROP EYE-BOTH ×4 (08:04→20:46)
[2024-07-26 11:02] VITALS: BP 122/65; PULSE 81; RESP 18; TEMP 36.7; O2SAT 95
--- NOTE | 2024-07-26 11:07 | MHC.CM.PN ---
Per ROUNDS discussion, Patient is not yet medically cleared for dc (IV ABT & IVF); home is the goal and CM will continue to follow.
[2024-07-26] MEDS: 0.9 % Sodium Chloride Flush 3 ML SYRINGE IVFLUSH ×3 (11:08→20:47)
[2024-07-26 11:09] LABS: Glucose, Whole Blood 140 mg/dL (60-115)
[2024-07-26 15:06] VITALS: BP 119/69; PULSE 88; RESP 17; TEMP 36.8; O2SAT 95
[2024-07-26 16:05] LABS: Glucose, Whole Blood 125 mg/dL (60-115)
--- NOTE | 2024-07-26 17:17 | HO.PM.IMPN ---
Subjective Subjective Date of Service: 07/26/24 Interval History: scrotal edema/erythema Review of Systems pain /swelling slightly improving no fevers Review of Systems: Yes all other systems are reviewed and are negative Review of Systems: Yes all other systems are reviewed and are negative Physical Exam Vital Signs: Vital Signs: Last Vital Signs Temp 98.2 F 07/26/24 15:06 Pulse 88 07/26/24 15:06 Resp 17 07/26/24 15:06 BP 119/69 07/26/24 15:06 Pulse Ox 95 07/26/24 15:06 O2 Del Method Room Air 07/26/24 15:06 BMI result Body Mass Index 30.9 Appearance: Alert.? Oriented X3. cvs: [id number], [id number] , no murmur res: clear to auscultation ,no rhonchii or wheezing abd: no rebound or guarding ,nt, bs present. :scrotal swelling/erythema improving ext pulses present , no cyanosis . neuro: axo3 , nonfocal. Objective Data Active Medications Acetaminophen (Acetaminophen 325 Mg Tablet) 975 mg PO Q6H PRN PRN Reason: Pain, Mild 1-3,fever,headache Last Admin: 07/24/24 04:17 Dose: 975 mg Documented By: SHALINI Albuterol Sulfate (Albuterol Sulfate 90 Mcg 8 Gm Inhaler) 2 puff INHALE Q6H PRN PRN Reason: shortness of breath or wheezin Last Admin: 07/25/24 02:41 Dose: 2 puff Documented By: CRUZ Aspirin (Aspirin Enteric Coated 81 Mg Tablet.) 81 mg PO DAILY [facility] Last Admin: 07/26/24 07:55 Dose: 81 mg Documented By: SOTO Atorvastatin Calcium (Atorvastatin Calcium 40 Mg Tablet) 40 mg PO DAILY [facility] Last Admin: 07/26/24 07:56 Dose: 40 mg Documented By: SOTO Calcium Carbonate (Calcium Carbonate 750 Mg Tab.Chew) 750 mg PO Q4H PRN PRN Reason: Heartburn Dextrose (Dextrose 50 % 25 Gm/50 Ml Syringe) 25 gm IVPUSH Q15M PRN; Protocol PRN Reason: per Hypoglycemia Standing Ord. Diltiazem HCl (Diltiazem Hcl Cd 180 Mg Cap.Er.24h) 180 mg PO DAILY [facility]; Protocol Last Admin: 07/26/24 07:57 Dose: 180 mg Documented By: SOTO Doxazosin Mesylate (Doxazosin Mesylate 2 Mg Tablet) 4 mg PO DAILY [facility] Last Admin: 07/26/24 07:54 Dose: 4 mg Documented By: SOTO Finasteride (Finasteride 5 Mg Tablet) 5 mg PO DAILY [facility] Last Admin: 07/26/24 07:54 Dose: 5 mg Documented By: SOTO Fluticasone/Umeclidinium/Vilanterol (Fluticasone/Umeclidinium/Vilanterol 200/62.5 Blst.W.Dev) 1 puff INHALE RDAILY [facility] Last Admin: 07/26/24 07:54 Dose: 1 puff Documented By: SOTO Glucose (Glucose Gel 15 Gm Gel..Gram.) 15 gm PO Q15M PRN; Protocol PRN Reason: per Hypoglycemia Standing Ord. Heparin Sodium (Porcine) (Heparin Sodium,Porcine 5,000 Unit/Ml Vial) 5,000 unit SUBCUT Q12H [facility] Last Admin: 07/26/24 07:56 Dose: 5,000 unit Documented By: SOTO Hydromorphone HCl (Hydromorphone Hcl 1 Mg/Ml Syringe) 0.5 mg IVPUSH Q4H PRN; Protocol PRN Reason: Pain, Severe (Pain Scale 7-10) Cefepime HCl (Maxipime) 2 gm in 50 mls @ 100 mls/hr IV Q12H [facility] Last Admin: 07/26/24 14:43 Dose: 100 mls/hr Documented By: SOTO Insulin Human Lispro (Insulin Lispro 100 Unit/Ml 3 Ml Vial) 0 unit SUBCUT QIDACHS [facility]; Protocol Last Admin: 07/26/24 11:15 Dose: Not Given Documented By: SOTO Non-Admin Reason: No Insulin Coverage Latanoprost (Latanoprost 0.005 % Ophth Celena 2.5 Ml Drops) 1 drop EYE-BOTH BEDTIME [facility] Last Admin: 07/25/24 20:44 Dose: 1 drop Documented By: ALISE Lisinopril (Lisinopril 20 Mg Tablet) 20 mg PO DAILY [facility]; Protocol Last Admin: 07/26/24 07:53 Dose: 20 mg Documented By: SOTO Magnesium Hydroxide (Milk Of Magnesia 30 Ml Oral.Susp) 30 ml PO DAILY PRN PRN Reason: Constipation Melatonin (Melatonin 3 Mg Tablet) 6 mg PO BEDTIME PRN PRN Reason: Insomnia Metoprolol Succinate (Metoprolol Succinate Er 25 Mg Tab.Er.24h) 25 mg PO DAILY [facility]; Protocol Last Admin: 07/26/24 07:57 Dose: 25 mg Documented By: SOTO Non-Formulary Medication (Brinzolamide-Brimonidine [Simbrinza]) 1 drop EYE-BOTH BID [facility] Non-Formulary Medication (Bromfenac [Prolensa]) 1 drop EYE-BOTH DAILY [facility] Non-Formulary Medication (Netarsudil [Rhopressa]) 1 drop EYE-BOTH BEDTIME [facility] Ondansetron HCl (Ondansetron Hcl 4 Mg/2 Ml Vial) 4 mg IVPUSH Q8H PRN PRN Reason: Nausea and Vomiting Oxycodone HCl (Oxycodone Hcl Immed Release 5 Mg Tablet) 5 mg PO Q6H PRN PRN Reason: Pain, Moderate(Pain Scale 4-6) Prednisolone Acetate (Prednisolone Acetate 1 % Oph Susp 5 Ml Drpbtl) 1 drop EYE-BOTH QID [facility] Last Admin: 07/26/24 14:43 Dose: 1 drop Documented By: SOTO Sodium Chloride (0.9 % Sodium Chloride Flush 3 Ml Syringe) 3 ml IVFLUSH QSHIFT [facility] Last Admin: 07/26/24 11:08 Dose: 3 ml Documented By: SOTO Vitamin D (Cholecalciferol (Vitamin D3) 25 Mcg Tablet) 50 mcg PO DAILY [facility] Last Admin: 07/26/24 07:56 Dose: 50 mcg Documented By: SOTO Labs 07/26/24 06:08 07/26/24 06:08 Labs: Laboratory Results - last 24 hr 07/25/24 07/26/24 07/26/24 20:14 06:08 07:05 MCV 89.7 MCH 28.8 MCHC 32.2 RDW 13.0 Plt Count 202 D MPV 11.5 Absolute Nucleated RBC 0.000 Nucleated RBC % (auto) 0.0 Estim Creat Clear Calc 57.8 Estimated GFR > 60 POC Glucose 136 H 161 H 07/26/24 07/26/24 11:05 16:02 MCV MCH MCHC RDW Plt Count MPV Absolute Nucleated RBC Nucleated RBC % (auto) Estim Creat Clear Calc Estimated GFR POC Glucose 140 H 125 H Microbiology Microbiology Results: Microbiology 07/23/24 14:58 Blood Culture - Preliminary Blood - Venous No growth after 48 hours. 07/23/24 14:58 Blood Culture - Preliminary Blood - Venous No growth after 48 hours. Assessment and Plan (1) Orchitis: Status: Acute (2) Cellulitis, scrotum: Status: Acute Assessment and Plan: 78 y/o man admitted with: Large bilateral hydrocele (right is complex with possible inflammatory process/scrotal cellulitis + orchitis). Admit to hospitalist service. Continue empiric IV antibiotic therapy with cefepime and vancomycin. Evaluated by urologist and recommended IV antibiotic therapy and insertion of indwelling urinary catheter if needed resident urine > 350 mL. Bladder scan with every shift. urology followup. SIRS criteria but no severe sepsis secondary to above and UTI. Tachycardic, tachypnea and fever resolved leukocytosis presnent -going up. Blood culture pending, urine culture growing Gram-negative kristi. Acute lactic acidosis improving, no further trending. Presumed UTI. Urine culture obtained -will follow results. Continue cefepime. Nephrolithiasis. No abdominal pain. BPH. Continue terazosin and finasteride. Type 2 diabetes mellitus. BG checks before meals and bedtime. Insulin sliding scale. Metformin on hold due to lactic acidosis. Diabetic diet. Essential hypertension. Continue diltiazem CDand lisinopril. Hyperlipidemia. Continue atorvastatin. COPD. Continue Trelegy albuterol as needed. History of DVT. Not currently on anticoagulation. TIA. Continue aspirin and statin. Chronic diastolic and systoli CHF. No acute symptoms. History of mitral valve repair. Obesity, class 1. BMI 30.7 kg/m2. Glaucoma. Continue eyedrops. Scheduled as an outpatient for surgery this Friday. DVT prophylaxis: Heparin ongoing hospitalization for bilateral hydroceles associated with possible infection and UTI treatment with IV antibiotic, IV fluids and evaluation by Urological Service. Quality Stroke Does the patient have a stroke diagnosis?: No VTE Prior VTE?: No VTE Risk Level:: Medical - moderate - high VTE Device Contraindication: Treatment Not Indicated VTE Drug Contraindication: N/A - Med Ordered
[2024-07-26 19:39] VITALS: BP 126/65; PULSE 77; RESP 18; TEMP 37.9; O2SAT 95
[2024-07-26 20:05] LABS: Glucose, Whole Blood 173 mg/dL (60-115)
[2024-07-26] MEDS: Latanoprost 0.005 % Ophth Sol 2.5 ML DROPS 1 DROP EYE-BOTH (20:47)
[2024-07-26] MEDS: Albuterol Sulfate 90 MCG 8 GM INHALER 2 PUFF INHALE (20:47)
[2024-07-26 23:22] VITALS: BP 126/69; PULSE 73; RESP 16; TEMP 37.5; O2SAT 96
[2024-07-27] VITALS (7 sets, daily range): BP systolic 110–151; BP diastolic 65–85; PULSE 54–82; RESP 16–18; TEMP 36.3–37.2; O2SAT 95–97
[2024-07-27] MEDS: cefEPime HCl/D5W 2 GM/50 ML PIGGYBACK IV ×2 (04:55→18:13)
[2024-07-27 07:26] LABS: Glucose, Whole Blood 101 mg/dL (60-115)
[2024-07-27 07:36] LABS: Creatinine Clr Calc Pharmacy 78.5; Estimated Glomerular Filt Rate > 60
[2024-07-27] MEDS: Fluticasone/Umeclidinium/Vilanterol 200/62.5/25 BLST.W.DEV 1 PUFF INHALE (07:37)
--- NOTE | 2024-07-27 08:37 | P.PNUR_ITS ---
Subjective Subjective Date of Service: 07/27/24 Patient reports: pain is less Interval history: Scrotal edema, less erythema, keep scrotum elevated. Physical Exam 2 Vital Signs: Vital Signs: Last Vital Signs Temp 98.1 F 07/27/24 07:16 Pulse 80 07/27/24 07:38 Resp 18 07/27/24 07:16 BP 130/71 07/27/24 07:16 Pulse Ox 96 07/27/24 07:16 O2 Del Method Room Air 07/27/24 07:16 BMI result Body Mass Index 30.9 Urology Results Labs 07/26/24 06:08 07/27/24 06:53 Labs: Laboratory Results - last 24 hr 07/26/24 07/26/24 07/26/24 11:05 16:02 20:01 Hold Purple Top Creatinine Estim Creat Clear Calc Estimated GFR POC Glucose 140 H 125 H 173 H 07/27/24 07/27/24 06:53 07:19 Hold Purple Top SEE NOTE Creatinine 0.84 Estim Creat Clear Calc 78.5 Estimated GFR > 60 POC Glucose 101 Progress Note: A&P Assessment and plan (1) Orchitis: Status: Acute (2) Cellulitis, scrotum: Status: Acute (3) Bilateral hydrocele: Status: Acute (4) Acute UTI: Status: Acute Plan Patient reports less pain, there is new penile swelling likely due to dependent edema, Will repeat a scrotal US. Time Spent With Patient Time: Total time managing care of this patient today ____ minutes. Progress Note: Quality Stroke Does the patient have a stroke diagnosis?: No
[2024-07-27] MEDS: Aspirin Enteric Coated 81 MG TABLET.DR PO (08:53)
[2024-07-27] MEDS: Doxazosin Mesylate 2 MG TABLET 4 MG PO (08:53)
[2024-07-27] MEDS: prednisoLONE Acetate 1 % Oph Susp 5 ML DRPBTL 1 DROP EYE-BOTH ×4 (08:53→19:45)
[2024-07-27] MEDS: Finasteride 5 MG TABLET PO (08:53)
[2024-07-27] MEDS: lisinopriL 20 MG TABLET PO (08:54)
[2024-07-27] MEDS: Cholecalciferol (Vitamin D3) 25 MCG TABLET 50 MCG PO (08:54)
[2024-07-27] MEDS: Atorvastatin Calcium 40 MG TABLET PO (08:54)
[2024-07-27] MEDS: dilTIAZem HCL CD 180 MG CAP.ER.24H PO (08:54)
[2024-07-27] MEDS: Heparin Sodium,Porcine 5,000 UNIT/ML VIAL 5000 UNIT SUBCUT ×2 (08:54→19:44)
[2024-07-27] MEDS: Metoprolol Succinate ER 25 MG TAB.ER.24H PO (08:55)
[2024-07-27] MEDS: 0.9 % Sodium Chloride Flush 3 ML SYRINGE IVFLUSH ×3 (09:00→19:45)
[2024-07-27] MEDS: Albuterol Sulfate 90 MCG 8 GM INHALER 2 PUFF INHALE (09:35)
[2024-07-27 10:30] LABS: MANUAL DIFF FLAG NO
[2024-07-27 10:36] LABS: Basophils Absolute Auto 0.1 X10*3/uL (0.0-0.2); Basophils Percent Auto 0.9 % (0-2); Eosinophils Absolute Auto 0.2 X10*3/uL (0.0-0.4); Eosinophils Percent Auto 2.6 % (0-4); Hematocrit 32.2 % (42.0-52.0); Hemoglobin 10.4 g/dl (14.0-18.0); Imm Gran Abs Auto 0.22 X10*3/uL (0.00-0.03); Imm Gran Pct Auto 2.7 % (0.0-0.4); Lymphocytes Absolute Auto 1.4 X10*3/uL (1.2-4.9); Lymphocytes Percent Auto 16.7 % (20-40); Mean Corpuscular HGB Conc 32.3 g/dl (31.0-36.0); Mean Corpuscular Hemoglobin 28.6 pg (27.0-33.0); Mean Corpuscular Volume 88.5 fL (80.0-98.0); Mean Platelet Volume 11.3 fL (9.4-12.4); Monocytes Absolute Auto 1.1 X10*3/uL (0.1-1.2); Monocytes Percent Auto 13.2 % (2-11); Neutrophils Absolute Auto 5.2 x10*3/uL (2.0-8.3); Neutrophils Percent Auto 63.9 % (45-73); Platelet Count 213 X10*3/uL (160-400); Red Blood Count 3.64 X10*6/uL (4.60-5.80); Red Cell Distribution Width 13.1 % (11.0-16.0); White Blood Count 8.1 X10*3/uL (4.8-10.8)
[2024-07-27 10:42] LABS: Anion Gap 11 (12-20); Carbon Dioxide 28 mmol/L (22-29); Chloride 110 mmol/L (96-108); Potassium 3.9 mmol/L (3.3-5.1); Sodium 145 mmol/L (135-145)
[2024-07-27 11:19] LABS: Glucose, Whole Blood 120 mg/dL (60-115)
--- NOTE | 2024-07-27 14:50 | P.PNIM_ITS ---
Subjective Subjective Date of Service: 07/27/24 Interval History: scrotal edema/erythema Physical Exam 2 Vital Signs: Vital Signs: Last Vital Signs Temp 97.4 F 07/27/24 11:27 Pulse 82 07/27/24 11:27 Resp 18 07/27/24 11:27 BP 119/65 07/27/24 11:27 Pulse Ox 95 07/27/24 11:27 O2 Del Method Room Air 07/27/24 11:27 BMI result Body Mass Index 30.9 Appearance: Alert.? Oriented X3. cvs: [id number], [id number] , no murmur res: clear to auscultation ,no rhonchii or wheezing abd: no rebound or guarding ,nt, bs present. :scrotal/penile swelling/erythema improving ext pulses present , no cyanosis . neuro: axo3 , nonfocal. Objective Data Active Medications Acetaminophen (Acetaminophen 325 Mg Tablet) 975 mg PO Q6H PRN PRN Reason: Pain, Mild 1-3,fever,headache Last Admin: 07/24/24 04:17 Dose: 975 mg Documented By: SHALINI Albuterol Sulfate (Albuterol Sulfate 90 Mcg 8 Gm Inhaler) 2 puff INHALE Q6H PRN PRN Reason: shortness of breath or wheezin Last Admin: 07/27/24 09:35 Dose: 2 puff Documented By: SOTO Aspirin (Aspirin Enteric Coated 81 Mg Tablet.) 81 mg PO DAILY [facility] Last Admin: 07/27/24 08:53 Dose: 81 mg Documented By: SOTO Atorvastatin Calcium (Atorvastatin Calcium 40 Mg Tablet) 40 mg PO DAILY [facility] Last Admin: 07/27/24 08:54 Dose: 40 mg Documented By: SOTO Calcium Carbonate (Calcium Carbonate 750 Mg Tab.Chew) 750 mg PO Q4H PRN PRN Reason: Heartburn Dextrose (Dextrose 50 % 25 Gm/50 Ml Syringe) 25 gm IVPUSH Q15M PRN; Protocol PRN Reason: per Hypoglycemia Standing Ord. Diltiazem HCl (Diltiazem Hcl Cd 180 Mg Cap.Er.24h) 180 mg PO DAILY [facility]; Protocol Last Admin: 07/27/24 08:54 Dose: 180 mg Documented By: SOTO Doxazosin Mesylate (Doxazosin Mesylate 2 Mg Tablet) 4 mg PO DAILY [facility] Last Admin: 07/27/24 08:53 Dose: 4 mg Documented By: SOTO Finasteride (Finasteride 5 Mg Tablet) 5 mg PO DAILY [facility] Last Admin: 07/27/24 08:53 Dose: 5 mg Documented By: SOTO Fluticasone/Umeclidinium/Vilanterol (Fluticasone/Umeclidinium/Vilanterol 200/62.5/25 Blst.W.Dev) 1 puff INHALE RDAILY [facility] Last Admin: 07/27/24 07:37 Dose: 1 puff Documented By: KIMBERLY Glucose (Glucose Gel 15 Gm Gel..Gram.) 15 gm PO Q15M PRN; Protocol PRN Reason: per Hypoglycemia Standing Ord. Heparin Sodium (Porcine) (Heparin Sodium,Porcine 5,000 Unit/Ml Vial) 5,000 unit SUBCUT Q12H [facility] Last Admin: 07/27/24 08:54 Dose: 5,000 unit Documented By: SOTO Hydromorphone HCl (Hydromorphone Hcl 1 Mg/Ml Syringe) 0.5 mg IVPUSH Q4H PRN; Protocol PRN Reason: Pain, Severe (Pain Scale 7-10) Cefepime HCl (Maxipime) 2 gm in 50 mls @ 100 mls/hr IV Q12H [facility] Insulin Human Lispro (Insulin Lispro 100 Unit/Ml 3 Ml Vial) 0 unit SUBCUT QIDACHS [facility]; Protocol Last Admin: 07/27/24 09:05 Dose: Not Given Documented By: SOTO Non-Admin Reason: No Insulin Coverage Latanoprost (Latanoprost 0.005 % Ophth Celena 2.5 Ml Drops) 1 drop EYE-BOTH BEDTIME [facility] Last Admin: 07/26/24 20:47 Dose: 1 drop Documented By: ALISE Lisinopril (Lisinopril 20 Mg Tablet) 20 mg PO DAILY [facility]; Protocol Last Admin: 07/27/24 08:54 Dose: 20 mg Documented By: SOTO Magnesium Hydroxide (Milk Of Magnesia 30 Ml Oral.Susp) 30 ml PO DAILY PRN PRN Reason: Constipation Melatonin (Melatonin 3 Mg Tablet) 6 mg PO BEDTIME PRN PRN Reason: Insomnia Metoprolol Succinate (Metoprolol Succinate Er 25 Mg Tab.Er.24h) 25 mg PO DAILY [facility]; Protocol Last Admin: 07/27/24 08:55 Dose: 25 mg Documented By: SOTO Non-Formulary Medication (Brinzolamide-Brimonidine [Simbrinza]) 1 drop EYE-BOTH BID [facility] Non-Formulary Medication (Bromfenac [Prolensa]) 1 drop EYE-BOTH DAILY [facility] Non-Formulary Medication (Netarsudil [Rhopressa]) 1 drop EYE-BOTH BEDTIME [facility] Ondansetron HCl (Ondansetron Hcl 4 Mg/2 Ml Vial) 4 mg IVPUSH Q8H PRN PRN Reason: Nausea and Vomiting Oxycodone HCl (Oxycodone Hcl Immed Release 5 Mg Tablet) 5 mg PO Q6H PRN PRN Reason: Pain, Moderate(Pain Scale 4-6) Prednisolone Acetate (Prednisolone Acetate 1 % Oph Susp 5 Ml Drpbtl) 1 drop EYE-BOTH QID [facility] Last Admin: 07/27/24 08:53 Dose: 1 drop Documented By: SOTO Sodium Chloride (0.9 % Sodium Chloride Flush 3 Ml Syringe) 3 ml IVFLUSH QSHIFT [facility] Last Admin: 07/27/24 09:00 Dose: 3 ml Documented By: SOTO Vitamin D (Cholecalciferol (Vitamin D3) 25 Mcg Tablet) 50 mcg PO DAILY [facility] Last Admin: 07/27/24 08:54 Dose: 50 mcg Documented By: SOTO Labs 07/27/24 06:53 07/27/24 06:53 Labs: Laboratory Results - last 24 hr 07/26/24 07/26/24 07/27/24 16:02 20:01 06:53 MCV 88.5 MCH 28.6 MCHC 32.3 RDW 13.1 Plt Count 213 MPV 11.3 Immature Gran % (Auto) 2.7 H Neut % (Auto) 63.9 Lymph % (Auto) 16.7 L Storey % (Auto) 13.2 H Eos % (Auto) 2.6 Baso % (Auto) 0.9 Lymph # (Auto) 1.4 Storey # (Auto) 1.1 Eos # (Auto) 0.2 Baso # (Auto) 0.1 Abs Immat Gran (auto) 0.22 H Absolute Neuts (auto) 5.2 Absolute Nucleated RBC 0.000 Nucleated RBC % (auto) 0.0 Hold Purple Top SEE NOTE Anion Gap 11 L Estim Creat Clear Calc 78.5 Estimated GFR > 60 POC Glucose 125 H 173 H 07/27/24 07/27/24 07:19 11:13 MCV MCH MCHC RDW Plt Count MPV Immature Gran % (Auto) Neut % (Auto) Lymph % (Auto) Storey % (Auto) Eos % (Auto) Baso % (Auto) Lymph # (Auto) Storey # (Auto) Eos # (Auto) Baso # (Auto) Abs Immat Gran (auto) Absolute Neuts (auto) Absolute Nucleated RBC Nucleated RBC % (auto) Hold Purple Top Anion Gap Estim Creat Clear Calc Estimated GFR POC Glucose 101 120 H Assessment and Plan (1) Orchitis: Status: Acute (2) Cellulitis, scrotum: Status: Acute Assessment and Plan: 78 y/o man admitted with: Large bilateral hydrocele (right is complex with possible inflammatory process/scrotal cellulitis + orchitis) US today: Complex septated moderate to large volume right hydrocele. Consider blood products. Purulent material among other etiologies cannot be excluded. Left epididymitis. Right orchiepididymitis. Moderate to large volume simple left hydrocele. No testicular torsion. No testicular tumor. No varicocele. Continue Cefepime Urology following Presumed UTI. culture = E.coli Nephrolithiasis. No abdominal pain. BPH. Continue terazosin and finasteride. Type 2 diabetes mellitus. BG checks before meals and bedtime. Insulin sliding scale. Metformin on hold due to lactic acidosis. Diabetic diet. Essential hypertension. Continue diltiazem CDand lisinopril. Hyperlipidemia. Continue atorvastatin. COPD. Continue Trelegy albuterol as needed. History of DVT. Not currently on anticoagulation. TIA. Continue aspirin and statin. Chronic diastolic and systoli CHF. No acute symptoms. History of mitral valve repair. Obesity, class 1. BMI 30.7 kg/m2. Glaucoma. Continue eyedrops. Scheduled as an outpatient for surgery this Friday. DVT prophylaxis: Heparin ongoing hospitalization for bilateral hydroceles associated with possible infection and UTI treatment with IV antibiotic, IV fluids and evaluation by Urological Service. Quality Stroke Does the patient have a stroke diagnosis?: No VTE Prior VTE?: No VTE Risk Level:: Medical - moderate - high VTE Device Contraindication: Treatment Not Indicated VTE Drug Contraindication: N/A - Med Ordered
[2024-07-27] MEDS: oxyCODONE HCl Immed Release 5 MG TABLET PO (15:45)
[2024-07-27 16:47] LABS: Glucose, Whole Blood 128 mg/dL (60-115)
[2024-07-27] MEDS: Latanoprost 0.005 % Ophth Sol 2.5 ML DROPS 1 DROP EYE-BOTH (19:44)
[2024-07-27 20:28] LABS: Glucose, Whole Blood 180 mg/dL (60-115)
[2024-07-27] MEDS: Insulin Lispro 100 UNIT/ML 3 ML VIAL SUBCUT (20:41)
[2024-07-28] VITALS (8 sets, daily range): BP systolic 110–148; BP diastolic 65–82; PULSE 52–77; RESP 16–18; TEMP 36.3–36.8; O2SAT 94–99
[2024-07-28] MEDS: cefEPime HCl/D5W 2 GM/50 ML PIGGYBACK IV ×2 (05:20→17:43)
[2024-07-28 06:43] LABS: Creatinine Clr Calc Pharmacy 86.8; Estimated Glomerular Filt Rate > 60
[2024-07-28 07:17] LABS: Glucose, Whole Blood 109 mg/dL (60-115)
[2024-07-28] MEDS: Fluticasone/Umeclidinium/Vilanterol 200/62.5/25 BLST.W.DEV 1 PUFF INHALE (07:47)
[2024-07-28] MEDS: 0.9 % Sodium Chloride Flush 3 ML SYRINGE IVFLUSH ×3 (10:30→19:37)
[2024-07-28] MEDS: Heparin Sodium,Porcine 5,000 UNIT/ML VIAL 5000 UNIT SUBCUT ×2 (10:31→19:30)
[2024-07-28] MEDS: Cholecalciferol (Vitamin D3) 25 MCG TABLET 50 MCG PO (10:31)
[2024-07-28] MEDS: Metoprolol Succinate ER 25 MG TAB.ER.24H PO (10:31)
[2024-07-28] MEDS: Atorvastatin Calcium 40 MG TABLET PO (10:35)
[2024-07-28] MEDS: Aspirin Enteric Coated 81 MG TABLET.DR PO (10:35)
[2024-07-28] MEDS: dilTIAZem HCL CD 180 MG CAP.ER.24H PO (10:35)
[2024-07-28] MEDS: lisinopriL 20 MG TABLET PO (10:35)
[2024-07-28] MEDS: Finasteride 5 MG TABLET PO (10:36)
[2024-07-28] MEDS: Doxazosin Mesylate 2 MG TABLET 4 MG PO (10:36)
[2024-07-28] MEDS: prednisoLONE Acetate 1 % Oph Susp 5 ML DRPBTL 1 DROP EYE-BOTH ×4 (10:40→19:29)
[2024-07-28] MEDS: Dorzolamide HCl 2 % Ophth Sol 10 ML DRPBTL 1 DROP EYE-BOTH ×2 (10:43→19:29)
[2024-07-28] MEDS: Brimonidine Tartrate 0.2% Oph 5 ML BOTTLE 1 DROP EYE-BOTH ×2 (10:46→19:29)
[2024-07-28 11:35] LABS: Glucose, Whole Blood 146 mg/dL (60-115)
[2024-07-28 16:25] LABS: Glucose, Whole Blood 123 mg/dL (60-115)
--- NOTE | 2024-07-28 16:53 | P.PNIM_ITS ---
Subjective Subjective Date of Service: 07/29/24 Interval History: scrotal edema/erythema swelling and redness is better Physical Exam 2 Vital Signs: Vital Signs: Last Vital Signs Temp 98.1 F 07/28/24 15:12 Pulse 70 07/28/24 15:12 Resp 18 07/28/24 15:12 BP 110/69 07/28/24 15:12 Pulse Ox 96 07/28/24 15:12 O2 Del Method Room Air 07/28/24 15:12 BMI result Body Mass Index 30.9 Appearance: Alert.? Oriented X3. cvs: [id number], [id number] , no murmur res: clear to auscultation ,no rhonchii or wheezing abd: no rebound or guarding ,nt, bs present. :scrotal/penile swelling/erythema improving ext pulses present , no cyanosis . neuro: axo3 , nonfocal. Objective Data Active Medications Acetaminophen (Acetaminophen 325 Mg Tablet) 975 mg PO Q6H PRN PRN Reason: Pain, Mild 1-3,fever,headache Last Admin: 07/24/24 04:17 Dose: 975 mg Documented By: SHALINI Albuterol Sulfate (Albuterol Sulfate 90 Mcg 8 Gm Inhaler) 2 puff INHALE Q6H PRN PRN Reason: shortness of breath or wheezin Last Admin: 07/27/24 09:35 Dose: 2 puff Documented By: SOTO Aspirin (Aspirin Enteric Coated 81 Mg Tablet.) 81 mg PO DAILY [facility] Last Admin: 07/28/24 10:35 Dose: 81 mg Documented By: RADHA Atorvastatin Calcium (Atorvastatin Calcium 40 Mg Tablet) 40 mg PO DAILY [facility] Last Admin: 07/28/24 10:35 Dose: 40 mg Documented By: RADHA Brimonidine Tartrate (Brimonidine Tartrate 0.2% Oph 5 Ml Bottle) 1 drop EYE- BOTH BID [facility] Last Admin: 07/28/24 10:46 Dose: 1 drop Documented By: RADHA Calcium Carbonate (Calcium Carbonate 750 Mg Tab.Chew) 750 mg PO Q4H PRN PRN Reason: Heartburn Dextrose (Dextrose 50 % 25 Gm/50 Ml Syringe) 25 gm IVPUSH Q15M PRN; Protocol PRN Reason: per Hypoglycemia Standing Ord. Diltiazem HCl (Diltiazem Hcl Cd 180 Mg Cap.Er.24h) 180 mg PO DAILY [facility]; Protocol Last Admin: 07/28/24 10:35 Dose: 180 mg Documented By: RADHA Dorzolamide HCl (Dorzolamide Hcl 2 % Ophth Celena 10 Ml Drpbtl) 1 drop EYE-BOTH BID [facility] Last Admin: 07/28/24 10:43 Dose: 1 drop Documented By: RADHA Doxazosin Mesylate (Doxazosin Mesylate 2 Mg Tablet) 4 mg PO DAILY [facility] Last Admin: 07/28/24 10:36 Dose: 4 mg Documented By: RADHA Finasteride (Finasteride 5 Mg Tablet) 5 mg PO DAILY [facility] Last Admin: 07/28/24 10:36 Dose: 5 mg Documented By: RADHA Fluticasone/Umeclidinium/Vilanterol (Fluticasone/Umeclidinium/Vilanterol 200/62.5/25 Blst.W.Dev) 1 puff INHALE RDAILY [facility] Last Admin: 07/28/24 07:47 Dose: 1 puff Documented By: ALDO Glucose (Glucose Gel 15 Gm Gel..Gram.) 15 gm PO Q15M PRN; Protocol PRN Reason: per Hypoglycemia Standing Ord. Heparin Sodium (Porcine) (Heparin Sodium,Porcine 5,000 Unit/Ml Vial) 5,000 unit SUBCUT Q12H [facility] Last Admin: 07/28/24 10:31 Dose: 5,000 unit Documented By: RADHA Hydromorphone HCl (Hydromorphone Hcl 1 Mg/Ml Syringe) 0.5 mg IVPUSH Q4H PRN; Protocol PRN Reason: Pain, Severe (Pain Scale 7-10) Cefepime HCl (Maxipime) 2 gm in 50 mls @ 100 mls/hr IV Q12H [facility] Last Infusion: 07/28/24 06:07 Dose: Infused Documented By: BACILIO Insulin Human Lispro (Insulin Lispro 100 Unit/Ml 3 Ml Vial) 0 unit SUBCUT QIDACHS [facility]; Protocol Last Admin: 07/28/24 16:33 Dose: Not Given Documented By: RADHA Non-Admin Reason: No Insulin Coverage Latanoprost (Latanoprost 0.005 % Ophth Celena 2.5 Ml Drops) 1 drop EYE-BOTH BEDTIME [facility] Last Admin: 07/27/24 19:44 Dose: 1 drop Documented By: BACILIO Lisinopril (Lisinopril 20 Mg Tablet) 20 mg PO DAILY [facility]; Protocol Last Admin: 07/28/24 10:35 Dose: 20 mg Documented By: RADHA Magnesium Hydroxide (Milk Of Magnesia 30 Ml Oral.Susp) 30 ml PO DAILY PRN PRN Reason: Constipation Melatonin (Melatonin 3 Mg Tablet) 6 mg PO BEDTIME PRN PRN Reason: Insomnia Metoprolol Succinate (Metoprolol Succinate Er 25 Mg Tab.Er.24h) 25 mg PO DAILY [facility]; Protocol Last Admin: 07/28/24 10:31 Dose: 25 mg Documented By: RADHA Ondansetron HCl (Ondansetron Hcl 4 Mg/2 Ml Vial) 4 mg IVPUSH Q8H PRN PRN Reason: Nausea and Vomiting Oxycodone HCl (Oxycodone Hcl Immed Release 5 Mg Tablet) 5 mg PO Q6H PRN PRN Reason: Pain, Moderate(Pain Scale 4-6) Last Admin: 07/27/24 15:45 Dose: 5 mg Documented By: SOTO Prednisolone Acetate (Prednisolone Acetate 1 % Oph Susp 5 Ml Drpbtl) 1 drop EYE-BOTH QID [facility] Last Admin: 07/28/24 13:00 Dose: 1 drop Documented By: RADHA Sodium Chloride (0.9 % Sodium Chloride Flush 3 Ml Syringe) 3 ml IVFLUSH QSHIFT [facility] Last Admin: 07/28/24 10:30 Dose: 3 ml Documented By: RADHA Vitamin D (Cholecalciferol (Vitamin D3) 25 Mcg Tablet) 50 mcg PO DAILY [facility] Last Admin: 07/28/24 10:31 Dose: 50 mcg Documented By: RADHA Labs 07/27/24 06:53 07/29/24 06:46 Labs: Laboratory Results - last 24 hr 07/27/24 07/28/24 07/28/24 20:21 05:58 07:14 Hold Purple Top SEE NOTE Estim Creat Clear Calc 86.8 Estimated GFR > 60 POC Glucose 180 H 109 07/28/24 07/28/24 11:28 16:16 Hold Purple Top Estim Creat Clear Calc Estimated GFR POC Glucose 146 H 123 H Assessment and Plan (1) Orchitis: Status: Acute (2) Cellulitis, scrotum: Status: Acute Assessment and Plan: 78 y/o man admitted with: Large bilateral hydrocele (right is complex with possible inflammatory process/scrotal cellulitis + orchitis) US today: Complex septated moderate to large volume right hydrocele. Consider blood products. Purulent material among other etiologies cannot be excluded. Left epididymitis. Right orchiepididymitis. Moderate to large volume simple left hydrocele. No testicular torsion. No testicular tumor. No varicocele. Continue Cefepime Urology following Presumed UTI. culture = E.coli Nephrolithiasis. No abdominal pain. BPH. Continue terazosin and finasteride. Type 2 diabetes mellitus. BG checks before meals and bedtime. Insulin sliding scale. Metformin on hold due to lactic acidosis. Diabetic diet. Essential hypertension. Continue diltiazem CDand lisinopril. Hyperlipidemia. Continue atorvastatin. COPD. Continue Trelegy albuterol as needed. History of DVT. Not currently on anticoagulation. TIA. Continue aspirin and statin. Chronic diastolic and systoli CHF. No acute symptoms. History of mitral valve repair. Obesity, class 1. BMI 30.7 kg/m2. Glaucoma. Continue eyedrops. Scheduled as an outpatient for surgery this Friday. DVT prophylaxis: Heparin ongoing hospitalization for bilateral hydroceles associated with possible infection and UTI treatment with IV antibiotic, IV fluids and evaluation by Urological Service. Quality Stroke Does the patient have a stroke diagnosis?: No VTE Prior VTE?: No VTE Risk Level:: Medical - moderate - high VTE Device Contraindication: Treatment Not Indicated VTE Drug Contraindication: N/A - Med Ordered
[2024-07-28] MEDS: Latanoprost 0.005 % Ophth Sol 2.5 ML DROPS 1 DROP EYE-BOTH (19:29)
[2024-07-28 20:37] LABS: Glucose, Whole Blood 158 mg/dL (60-115)
[2024-07-28] MEDS: Insulin Lispro 100 UNIT/ML 3 ML VIAL SUBCUT (20:45)
--- NOTE | 2024-07-29 03:15 | PC.NURSE ---
Pt had 5 beat of vtach around 0300. Pt slept through it. Provider notified. No new orders.
[2024-07-29 03:36] VITALS: BP 129/68; PULSE 64; RESP 16; TEMP 36.2; O2SAT 95
[2024-07-29] MEDS: cefEPime HCl/D5W 2 GM/50 ML PIGGYBACK IV (05:13)
[2024-07-29 07:11] LABS: Glucose, Whole Blood 100 mg/dL (60-115)
[2024-07-29 07:22] LABS: Creatinine Clr Calc Pharmacy 82.4; Estimated Glomerular Filt Rate > 60
[2024-07-29 07:26] VITALS: BP 125/75; PULSE 65; RESP 20; TEMP 36.8; O2SAT 95
[2024-07-29] MEDS: Fluticasone/Umeclidinium/Vilanterol 200/62.5/25 BLST.W.DEV 1 PUFF INHALE (07:48)
[2024-07-29 07:50] VITALS: PULSE 66; RESP 16
[2024-07-29] MEDS: Finasteride 5 MG TABLET PO (08:59)
[2024-07-29] MEDS: Heparin Sodium,Porcine 5,000 UNIT/ML VIAL 5000 UNIT SUBCUT (08:59)
[2024-07-29] MEDS: lisinopriL 20 MG TABLET PO (08:59)
[2024-07-29] MEDS: Metoprolol Succinate ER 25 MG TAB.ER.24H PO (09:00)
[2024-07-29] MEDS: Atorvastatin Calcium 40 MG TABLET PO (09:00)
[2024-07-29] MEDS: Aspirin Enteric Coated 81 MG TABLET.DR PO (09:00)
[2024-07-29] MEDS: Doxazosin Mesylate 2 MG TABLET 4 MG PO (09:00)
[2024-07-29] MEDS: Cholecalciferol (Vitamin D3) 25 MCG TABLET 50 MCG PO (09:00)
[2024-07-29] MEDS: dilTIAZem HCL CD 180 MG CAP.ER.24H PO (09:00)
[2024-07-29] MEDS: 0.9 % Sodium Chloride Flush 3 ML SYRINGE IVFLUSH (09:01)
[2024-07-29] MEDS: Brimonidine Tartrate 0.2% Oph 5 ML BOTTLE 1 DROP EYE-BOTH (09:01)
[2024-07-29] MEDS: Dorzolamide HCl 2 % Ophth Sol 10 ML DRPBTL 1 DROP EYE-BOTH (09:01)
[2024-07-29] MEDS: prednisoLONE Acetate 1 % Oph Susp 5 ML DRPBTL 1 DROP EYE-BOTH ×2 (09:02→13:16)
[2024-07-29 10:39] VITALS: BP 114/57; PULSE 62; RESP 17; TEMP 36.4; O2SAT 96
[2024-07-29 10:59] LABS: Glucose, Whole Blood 202 mg/dL (60-115)
[2024-07-29] MEDS: Insulin Lispro 100 UNIT/ML 3 ML VIAL SUBCUT (12:04)
--- NOTE | 2024-07-29 13:51 | PM.DS ---
DS: Providers Provider Date of Service: 07/29/24 Date of admission: 07/23/24 17:17 Date of discharge: 07/29/24 Primary care physician: Connie Robertson MD Consults: 07/23/24 16:55 Consult to Urology Stat Consulting Provider: [facility] Reason for consultation: concern for scrotal abscess Has provider been notified: Yes 07/24/24 08:10 Consult to Infectious Diseases Routine Consulting Provider: [facility] Reason for consultation: uti,b/l hydrocele Has provider been notified: No Consult to Urology Routine Consulting Provider: [facility] Reason for consultation: uti/Bilateral hydrocele DS: Diagnosis Discharge Diagnosis (1) Orchitis: Status: Acute (2) Cellulitis, scrotum: Status: Acute DS: Summary Hospital Course Hospital Course: admission hpi Chief Complaint: Right testicle pain Nasir Olvera is a 78 years old man past medical history significant for type 2 diabetes mellitus, BPH, nephrolithiasis, mitral valve repair, dyslipidemia, essential hypertension, DVT, TIA, chronic and systolic CHF, COPD and obesity presents to the ED complaining of right testicular pain that started yesterday associated with fever and chills. He reported mild discomfort when urinating. Denied bloody urine. He denied any trauma to the testicle. He denied any headache, palpitations, dizziness, chest pain, shortness of breath, abdominal pain, nausea or vomiting. He is a former tobacco smoker, alcohol abuse or illicit drug use. In the ED, he was initially found to have temperature of 102.3 degrees, tachycardia and tachypnea. There is no hypotension as his O2 sats are are normal on room air. Blood workup is remarkable for leukocytosis of 14.1. Hemoglobin is 12.3 and platelets 170. There are no electrolyte imbalances except for hypomagnesemia 0.4. BUN is 20 and creatinine 1.35. Last glucose check is 251. There is lactic acidosis that is improving (3.0-->2.1). LFTs and lipase are normal. Troponin is 2.5. Urinalysis is consistent with UTI and there is proteinuria 1+. Viral testing for COVID-19, influenza and RSV is negative. Scrotal ultrasound showed large bilateral hydroceles, the right hydrocele is complex suggesting possible inflammatory process and mild degree of hyperemia of bilateral testes; orchitis could be consider. Abdomen pelvis CT scan showed no changes in the right UPJ 9 mm radiopaque calculi and mild pelvic caliectasis. It also showed mild dilated right mid ureter similar previous study without any obstructive etiolog. ? Spasm, stricture or underlying lesion. In addition, there is colonic diverticulitis with mild constipation, no diverticulitis and moderate prostate enlargement. ECG showed sinus tachycardia, [address] changes in the anterior leads. ED tx: Ceftriaxone 2 g IV, vancomycin 2 g IV, acetaminophen 975 mg PO, LR 1L bolus, magnesium sulfate 2 g IV hospital course: Patient presented with testicular swelling and some redness and found to have to have E. coli UTI and US demonstrating orchitis, hydrocel and possible epidydmitis. He has been treated with Cefepime and seen by Urology with no intervention indicated, The swelling has been going down . Given e. coli in the urine will transiton to Ceftin and treat for 14 days and to follow up with urology Presumed UTI. culture = E.coli Nephrolithiasis. No abdominal pain. BPH. Continue terazosin and finasteride. Type 2 diabetes mellitus. BG checks before meals and bedtime. Insulin sliding scale. Metformin on hold due to lactic acidosis. Diabetic diet. Essential hypertension. Continue diltiazem CDand lisinopril. Hyperlipidemia. Continue atorvastatin. COPD. Continue Trelegy albuterol as needed. History of DVT. Not currently on anticoagulation. TIA. Continue aspirin and statin. Chronic diastolic and systoli CHF. No acute symptoms. History of mitral valve repair. Obesity, class 1. BMI 30.7 kg/m2. Time Attestation Discharge Coordination Time (in mins): 40 Quality: Safe Use of Opioids Does Pt have an Active Cancer Diagnosis on the Problem List?: No Quality: Stroke Does the patient have a stroke diagnosis?: No Physical Exam Vital Signs: Vital Signs: Last Vital Signs Temp 97.5 F 07/29/24 10:39 Pulse 62 07/29/24 10:39 Resp 17 07/29/24 10:39 BP 114/57 L 07/29/24 10:39 Pulse Ox 96 07/29/24 10:39 O2 Del Method Room Air 07/29/24 10:39 BMI result Body Mass Index 30.9 DS: Data Data Completed and Pending Labs on day of discharge: Laboratory Results - last 24 hr 07/28/24 07/28/24 07/29/24 16:16 20:24 06:46 Creatinine 0.80 Estim Creat Clear Calc 82.4 Estimated GFR > 60 POC Glucose 123 H 158 H 07/29/24 07/29/24 07:05 10:48 Creatinine Estim Creat Clear Calc Estimated GFR POC Glucose 100 202 H Discharge Plan Discharge Anticipated Discharge Date/Time: 07/29/24 14:09 Patient Disposition: Home, Self-Care Discharge Diagnosis: Scrotal cellulitis, orchitis, Referrals: Connie Cummings MD [Primary Care Provider, Internal Medicine] - 1 Week Discharge Medications: Continued (DME) lancets [OneTouch Delica Lancets] 33 gauge misc See Rx Instructions .ROUTE .MEDSUPPLY Qty: 100 11RF Rx Instructions: 1 Lancet to be use twice a day albuterol sulfate 90 mcg/actuation HFA aerosol inhaler 2 puff inhalation Q6H PRN (Reason: shortness of breath or wheezing) 30 Days Qty: 6.7 6RF lisinopril 20 mg tablet 20 mg PO DAILY 90 Days Qty: 90 3RF aspirin 81 mg tablet,delayed release (DR/EC) 81 mg PO DAILY 90 Days Qty: 90 3RF cholecalciferol (vitamin D3) [Vitamin D3] 50 mcg (2,000 unit) capsule 50 mcg PO DAILY Simbrinza 1-0.2 % drops,suspension 1 drp ophthalmic (eye) BID Rx Instructions: Both eyes Trelegy Ellipta 200-62.5-25 mcg blister with device 1 ea INHALATION DAILY diltiazem HCl [Cartia XT] 180 mg capsule,extended release 24hr 180 mg PO DAILY bromfenac [Prolensa] 0.07 % drops 1 drp ophthalmic (eye) DAILY Rx Instructions: right eye Rhopressa 0.02 % drops 1 drp ophthalmic (eye) BEDTIME terazosin 5 mg capsule 5 mg PO DAILY prednisolone acetate 1 % drops,suspension 1 drp ophthalmic (eye) QID Rx Instructions: Both Eyes latanoprost 0.005 % drops 1 drp ophthalmic (eye) BEDTIME Rx Instructions: both eyes metoprolol succinate [Toprol XL] 25 mg tablet extended release 24 hr 25 mg PO DAILY Qty: 90 1RF finasteride 5 mg tablet 5 mg PO DAILY 90 Days Qty: 90 3RF No Action metformin 500 mg tablet extended release 24 hr 2,000 mg PO BEDTIME Qty: 360 0RF atorvastatin 40 mg tablet 40 mg PO DAILY 90 Days Qty: 90 1RF cefuroxime axetil 500 mg tablet 500 mg PO BID 14 Days Qty: 28 0RF prednisone 10 mg tablet 10 mg PO DIRECTED 6 Days Qty: 12 0RF Rx Instructions: see taper instructions Discharge Orders: Discharge Order (Routine); Ordered 07/29/24 Ordered By: Wander Mandujano Diet: Advance to usual diet Activity on Discharge: As tolerated Stand Alone Forms: Patient Portal Discharge page Print Language: Thai Care Plan Goals: recovery from scrotal cellulitis and orchitis, Health Concerns: scrotal cellulitis orthitis hydrocele Plan of Treatment: Take Cefuroxime as directed follow up with Dr. Matthew, urologist Follow up with your own doctor in a week, call for appointment Assessment: see above Discharge Date/Time: 07/29/24 16:20
--- NOTE | 2024-07-29 14:38 | MHC.CM.PN ---
Patient has been medically cleared for dc to home today, self care. CM met with Patient at bedside and addressed IMM with him verbally (patient felt he could not sign d/t his poor eye sight, but he is pleased to be going home).
== END 2024-07-29 16:20 | disposition home or self-care (01) | DRG 728 ==
LOC: HO.ED 14:56 → HO.EDOVER 17:31 → HO.IMC 19:22
PROVIDERS: Internal Medicine; Physician Assistant Medical; Admitting Provider Internal Medicine; Emergency Provider Emergency Medicine Emergency Medical Services; PCP Internal Medicine; Visit Provider Internal Medicine
DX: N45.3 Epididymo-orchitis (principal); N43.3 Hydrocele, unspecified; I11.0 Hypertensive heart disease with heart failure; J44.9 Chronic obstructive pulmonary disease, unspecified; N40.0 Benign prostatic hyperplasia without lower urinary tract symptoms; E11.9 Type 2 diabetes mellitus without complications; H40.9 Unspecified glaucoma; E78.5 Hyperlipidemia, unspecified; E66.811 Obesity, class 1; N20.0 Calculus of kidney; B96.20 Unspecified Escherichia coli [E. coli] as the cause of diseases classified elsewhere; Z71.3 Dietary counseling and surveillance; Z68.30 Body mass index [BMI] 30.0-30.9, adult; Z20.822 Contact with and (suspected) exposure to COVID-19; Z95.2 Presence of prosthetic heart valve; Z87.74 Personal history of (corrected) congenital malformations of heart and circulatory system; Z86.73 Personal history of transient ischemic attack (TIA), and cerebral infarction without residual deficits; Z79.82 Long term (current) use of aspirin; Z79.84 Long term (current) use of oral hypoglycemic drugs; Z79.899 Other long term (current) drug therapy
CPT/HCPCS: 0241U; 36415; 71045; 74176; 76870; 80048; 80051; 80076; 80202; 81001; 82565; 82947; 83605; 83690; 83735; 84484; 85007; 85025; 85027; 87040; 87086; 87088; 87186; 93005; 93975; 99285; J0692; J1644; J3370; J3371; J3475; J7120

== ENCOUNTER → 2024-07-23 12:54 | Outpatient (BNV) | payer MEDICARE, MEDICAID, SELFPAY | PROVIDERS: Emergency Provider Emergency Medicine Emergency Medical Services; PCP Internal Medicine; Visit Provider Internal Medicine Cardiovascular Disease | DX: R00.0 Tachycardia, unspecified (principal) | CPT/HCPCS: 93010 ==

== ENCOUNTER → 2024-07-23 14:37 | Outpatient (BNV) | payer MEDICARE, MEDICAID, SELFPAY | PROVIDERS: Admitting Provider Internal Medicine; Emergency Provider Emergency Medicine Emergency Medical Services; PCP Internal Medicine; Visit Provider Radiology Diagnostic Radiology | DX: N28.1 Cyst of kidney, acquired (principal); N43.3 Hydrocele, unspecified | CPT/HCPCS: 74176; 93975 ==

== ENCOUNTER 2024-07-23 17:17 | Outpatient (BNV) | payer MEDICARE, MEDICAID, SELFPAY | END 2024-07-27 08:06 | PROVIDERS: Admitting Provider Internal Medicine; Emergency Provider Emergency Medicine Emergency Medical Services; PCP Internal Medicine; Visit Provider Radiology Diagnostic Radiology | DX: R93.813 Abnormal radiologic findings on diagnostic imaging of testicles, bilateral (principal) | CPT/HCPCS: 76870; 93975 ==

== ENCOUNTER → 2024-07-23 17:17 | Outpatient (BNV) | payer MEDICARE, MEDICAID, SELFPAY | PROVIDERS: Admitting Provider Internal Medicine; Emergency Provider Emergency Medicine Emergency Medical Services; PCP Internal Medicine; Visit Provider Urology | DX: N39.0 Urinary tract infection, site not specified (principal); N43.3 Hydrocele, unspecified; N20.0 Calculus of kidney; N49.2 Inflammatory disorders of scrotum; N45.2 Orchitis | CPT/HCPCS: 99222 ==

== ENCOUNTER → 2024-07-23 17:17 | Outpatient (BNV) | payer MEDICARE, MEDICAID, SELFPAY | PROVIDERS: Admitting Provider Internal Medicine; Emergency Provider Emergency Medicine Emergency Medical Services; PCP Internal Medicine; Visit Provider Internal Medicine | DX: N45.2 Orchitis (principal); N43.3 Hydrocele, unspecified; N39.0 Urinary tract infection, site not specified | CPT/HCPCS: 99223; 99231; 99232 ==

== ENCOUNTER → 2024-07-23 17:17 | Outpatient (BNV) | payer MEDICARE, MEDICAID, SELFPAY | PROVIDERS: Admitting Provider Internal Medicine; Emergency Provider Emergency Medicine Emergency Medical Services; PCP Internal Medicine; Visit Provider Internal Medicine | DX: N45.2 Orchitis (principal); N43.3 Hydrocele, unspecified; N39.0 Urinary tract infection, site not specified | CPT/HCPCS: 99232 ==

== ENCOUNTER 2024-08-03 05:59 | Outpatient (REF) | payer MEDICARE, OTHER, SELFPAY ==
[2024-08-03 08:02] LABS: Prostate Specific Antigen 10.55 ng/mL (<0.05-4.0)
== END 2024-08-03 06:00 | disposition home or self-care (01) ==
LOC: HO.LAB 05:59
PROVIDERS: PCP Internal Medicine; Visit Provider Urology
DX: N32.0 Bladder-neck obstruction (principal); Z12.5 Encounter for screening for malignant neoplasm of prostate
CPT/HCPCS: 36415; 84153

== ENCOUNTER 2024-08-06 10:59 | Outpatient (AMB) | payer MEDICARE, MEDICAID, SELFPAY ==
--- NOTE | 2024-08-06 11:05 | MHC.OFFVIS ---
Intake Visit Reasons: 6m/PSA(psa?) Intake Note: Patient is present for PSA/PVR/UA Follow up Urology Med: Finasteride, Terazosin Antibiotic Allergy: Levofloxacin Blood Thinner: Aspirin Last PVR: 81 ml's Imaging :07/27/24 PSA: 08/03/24- 10.55 Co Founder And President Required: Yes Co Founder And President Language: Human Resources Communications Manager Services: Co Founder And President Present Data Processing Control Clerk: Data Processing Control Clerk Present Accompanied by: Spouse Allergies levofloxacin (From LEVAQUIN) Allergy (Intermediate, Verified 07/23/24 12:49) HIVES Iodinated Contrast Media (IV CONTRAST) Adverse Reaction (Intermediate, Verified 07/23/24 12:49) HIVES HPI Comments Details: Nasir is a pleasant [place] male. He is a patient of Dr. Robertson. He seen for the following urologic conditions - gross hematuria with blood in stone - BPH [place] translation provided in office by qualified medical administrative technician Recurrent urinary tract infection Bilateral hydroceles Elevated PSA 2 week antibiotics 4 month follow-up repeat PSA Lower urinary tract symptoms/Bladder stones weakness of stream nocturia times 2-3 current therapy finasteride prior therapy - cystoscopy with removal of bladder stone June 2020 PSA 01/31 2.8, 07/03 4.6 17%, 01/03 4.4, 08/04 10.5 Seen in ER last month for blood in urine Review in six-month [facility] Medical History Sepsis Acute kidney failure History of TIA (transient ischemic attack) History of DVT (deep vein thrombosis) Grade II diastolic dysfunction Essential hypertension Dyslipidemia Diabetes mellitus COPD (chronic obstructive pulmonary disease) Gross hematuria Microalbuminuria BPH (benign prostatic hyperplasia) Chronic UTI (urinary tract infection) Chronic back pain Glaucoma Surgical History Status post mitral valve repair (~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 Son No problems noted. Daughter No problems noted. Daughter No problems noted. Daughter No problems noted. Social History Household Members: Significant Other Housing: House Are you a primary critical care physician assistant to a significant other at home: No Do you presently have visiting nurse or other home services: No Alcohol intake: current Alcohol intake frequency: a few times a month Alcohol type: beer and wine Comment: RN Patient Tobacco Use Status: Former Tobacco user Years Smoked: 10 e-Cigarette/Vaping Use: Never Used Second Hand Smoke Exposure: No service: No Current occupational status: retired Cognitive needs: No Hearing needs: No Vision needs: Yes Results AMB Urinalysis, Automated UA Leukoctes 500 Nacho/uL Last Edit by Demetria Hernandez MA on 08/06/24 15:45 UA Nitrite Negative Last Edit by Demetria Hernandez MA on 08/06/24 15:45 UA Urobilinogen 3.5 mg/dL Last Edit by Demetria Hernandez MA on 08/06/24 15:45 UA Protein 15 mg/dL Last Edit by Demetria Hernandez MA on 08/06/24 15:45 UA pH 6.0 Last Edit by Demetria Hernandez MA on 08/06/24 15:45 UA Blood 10 David/uL Last Edit by Demetria Hernandez MA on 08/06/24 15:45 UA Specific [place] 1.015 Last Edit by Demetria Hernandez MA on 08/06/24 15:45 UA Ketone Negative Last Edit by Demetria Hernandez MA on 08/06/24 15:45 UA Bilirubin 0 mg/dL Last Edit by Demetria Hernandez MA on 08/06/24 15:45 UA Glucose 0 mg/dL Last Edit by Demetria Hernandez MA on 08/06/24 15:45 Results Reviewed Results Reviewed: Laboratory Last Values Urine pH (Auto) 6.0 08/06/24 14:22 Specific [place] (Auto) 1.015 08/06/24 14:22 Urine Protein (Auto) 15 mg/dL 08/06/24 14:22 Glucose (UA)(Auto) 0 mg/dL 08/06/24 14:22 Urine Ketones (Auto) Negative 08/06/24 14:22 Urine Blood (Auto) 10 David/uL 08/06/24 14:22 Urine Nitrite (Auto) Negative 08/06/24 14:22 Urine Bilirubin (Auto) 0 mg/dL 08/06/24 14:22 Urine Urobilinogen (Auto) 3.5 mg/dL 08/06/24 14:22 Leukocyte Esterase (Auto) 500 Nacho/uL 08/06/24 14:22 Assessment & Plan Assessment & Plan Orders: Orders Prostate Specific Antigen 4 Months N39.0 - Urinary tract infection, site not specified AMB Urinalysis Automated Today Z13.9 - Encounter for screening, unspecified Medications: Changed From cefuroxime axetil 500 mg PO BID 9 days 18 tabs 0RF N39.0 - Urinary tract infection, site not specified To cefuroxime axetil 500 mg PO BID 28 tabs 0RF 14 days N39.0 - Urinary tract infection, site not specified Coding
--- OUTSIDE RECORDS SUMMARY | 2024-08-06 12:12 | XMS_ITS | Patient Health Record ---
[facility] Address [address] [place] [address] Care Team Providers Care Dietetics Teacher Name Role Phone Honey NUNN, Connie Primary Care Provider Unavail able Johnathan Saleh Unavailable [phone] Allergies Allergen (clinical drug ingredient) Drug/Non Drug [...] Twice a day; Duration: 30 day(s) Active metFORMIN HCl 500 MG 1 tablet with a robbie l Orally Once a day; Duration: 30 day(s) Active Terazosin HCl 5 MG 1 capsule at bedtime Orally Once a day; Duration: 30 day(s) Active Aspirin 81 MG 1 tablet Orally Once a day; Duration: 30 day(s) Active Metoprolol Succinate Active Lisinopril 20 MG 1 tablet Orally Once a day; Duration: 30 day(s) Active Atorvastatin Calcium 40 MG 1 tablet Oral ly Once a day; Duration: 30 day(s) Active Extra Depth Orthopedic Shoes, (1) Pair With (3) Pair Custom Heat Molded Multidensity Innersoles Dx: NIDDM/PVD(E11.51), Hammertoe Foot Deformity(M20.41,M20.42), Preulcerative Skin Lesion(s)(L85.1) Wear Daily; Duration: 365 days Active dilTIAZem HCl ER 180 MG 1 tablet Orally Once a day; Duration: 30 day(s) Active Finasteride 5 MG 1 tablet Orally Once a day; Duration: 30 day(s) Active Vitamin D Active Ammonium Lactate 12 % 1 application Exte rnally to affected areas of dry skin to feet except for between the toes Twice a day; Duration: 30 days Active Immunizations Vaccine Route Administration [...] Problem Acquired hammer toe of right foot ([id number] 9105) Other hammer toe(s) (acquired), right foot (M20.41) Active confirmed Problem Acquired hammer toe of left foot ([id number] 9103) Other hammer toe(s) (acquired), left foot (M20.42) Active confirmed Problem Type 2 diabetes mellitus with diabetic peripheral angiopathy without gangrene (E11.51) Active confirmed Q7(A), Q8(2B), Q9(1B,2C) Vital Signs Blood pressure diastolic 65 mm Hg 07/09/2024 Height 5 ft 8 in in 07/09/2024 Blood pressure systolic 128 mm Hg 07/09/2024 Weight 184 lbs 07/09/2024 BMI 27.97 kg/m2 07/09/2024 Procedures Procedure Date Ordered Date Performed Result Body Sit e 70223-XBRZCWH NAIL, 1-5 10/03/2023 N/A 65833-GOQD SKIN LESIONS, 2 TO 4 10/03/2023 N/A K0793-HVNNGRMU DYSTROPHIC NAILS ANY # 10/03/2023 N/A 85801-LCAQUOE NAIL, 1-5 01/02/2024 N/A 82806-FTSY SKIN LESIONS, 2 TO 4 01/02/2024 N/A U0051-HHRAZQGD DYSTROPHIC NAILS ANY # 01/02/2024 N/A 23301-YNMXWRN NAIL, 1-5 07/09/2024 N/A 59054-WGSS SKIN LESIONS, OVER 4 07/09/2024 N/A S2442-GFAMVNTQ DYSTROPHIC NAILS ANY # 07/09/2024 N/A Encounters Encounter Location Date Provider Diagnosis [address] [address] 10/03/2023 Johnathan Saleh Type 2 diabetes mellitus with diabetic peripheral angiopathy without gangrene E11.51 ; Tinea unguium B35.1 ; Pain in right toe(s) M79.674 ; Pain in left toe(s) M79.675 ; Other hammer toe(s) (acquired), right foot M20.41 and Other hammer toe(s) (acquired), left foot M20.[address] [address] 01/02/2024 Johnathan Saleh Type 2 diabetes mellitus with diabetic peripheral angiopathy without gangrene E11.51 ; Tinea unguium B35.1 ; Pain in right toe(s) M79.674 ; Pain in left toe(s) M79.675 and Xerosis of skin L85.[address] [address] 07/09/2024 Johnathan Saleh Type 2 diabetes mellitus with diabetic peripheral angiopathy without gangrene E11.51 ; Tinea unguium B35.1 ; Pain in right toe(s) M79.674 ; Pain in left toe(s) M79.675 ; Other hammer toe(s) (acquired), right foot M20.41 and Other hammer toe(s) (acquired), left foot M20.42 [facility] [address] [address] 04/02/2024 Johnathan Saleh Assessments Encounter Date Diagnosis [...] Treatment Pending Test Test Name Order Date 13615-VEIATPL NAIL, 1-5 10/03/2023 58928-UZTCSWH NAIL, 1-5 01/02/2024 30016-MRMQFLK NAIL, 1-5 07/09/2024 40966-ICJK SKIN LESIONS, OVER 4 07/10/19 21874-YLFE SKIN LESIONS, 2 TO 4 10/03/19 87171-WYXL SKIN LESIONS, 2 TO 4 01/02/20 24 H9332-ZPGYGONO DYSTROPHIC NAILS ANY # C2571-GDIQDZZB DYSTROPHIC NAILS ANY # E6281-IWISSEIX DYSTROPHIC NAILS ANY # Next Appt Details Provider Name:Johnathan Saleh , 10/15/2024 09:15:00 AM, [address] [place] [address], [id number], Insurance Providers Payer Name Payer Address Payer Phone Subscriber Number Group Number Insured Name Patient Relationship to Insured Coverage Start Date Coverage End Date [employer] Medicare [id number] [address] [address] [place] [address] [id number] Nasir aWrd Self - patient is the insured Medical (General) History Medical History History ICD Code Diabetic Hypertension Replacement Heart Valves Glaucoma COPD Surgical History Surgery Date(Month/Year) Heart Valve
== END 2024-08-06 12:20 | disposition home or self-care (01) ==
LOC: HO.HUSH 11:00
PROVIDERS: PCP Internal Medicine; Visit Provider Urology
DX: Z13.9 Encounter for screening, unspecified (principal)

== ENCOUNTER → 2024-08-06 10:59 | Outpatient (BNVA) | payer MEDICARE, MEDICAID, SELFPAY | PROVIDERS: PCP Internal Medicine; Visit Provider Urology | DX: N32.0 Bladder-neck obstruction (principal) | CPT/HCPCS: 81003; 99212 ==

== ENCOUNTER 2024-08-11 12:41 | Outpatient (AMB) | payer MEDICARE, MEDICAID, SELFPAY ==
--- NOTE | 2024-08-11 12:45 | MHC.PC.OV ---
Vital Signs 08/11/24 12:49 Height 5 ft 8 in Weight 195 lb 6 oz BMI 29.7 BP 130/62 Blood Pressure Location Lt brachial Position Sitting Pulse Source Pulse Oximeter Temp Source Temporal Artery Scan Pulse Oximetry (%) 94 Oxygen Delivery Method Room Air Intake Visit Reasons: [facility] 07/29 Pyelonephritis Intake Note: Dr. Merrill's Pt Regulatory Law Specialist Required: Yes Regulatory Law Specialist Language: Supervisor Pre Wave Name: Id # [id number] Accompanied by: Spouse Allergies levofloxacin (From LEVAQUIN) Allergy (Intermediate, Verified 08/11/24 13:29) HIVES Iodinated Contrast Media (IV CONTRAST) Adverse Reaction (Intermediate, Verified 08/11/24 13:29) HIVES Medication List - Last Reconciled 08/11/24 by Jovanni Wood PA-C albuterol sulfate 90 mcg/actuation 2 puffs inhalation Q6H PRN 30 days aspirin 81 mg PO DAILY 90 days atorvastatin 40 mg PO DAILY 90 days brinzolamide-brimonidine 1-0.2 % (Simbrinza) 1 drp ophthalmic (eye) BID bromfenac 0.07% (Prolensa) 1 drp ophthalmic (eye) DAILY cefuroxime axetil 500 mg PO BID 14 days cholecalciferol (vitamin D3) (Vitamin D3) 50 mcg PO DAILY diltiazem HCl CD (Cartia XT) 180 mg PO DAILY finasteride 5 mg PO DAILY 90 days tmzncqkvdju-ghombrrln-uhzudjkx 200-62.5-25 mcg (Trelegy Ellipta) 1 ea inhalation DAILY lancets (OneTouch Delica Lancets) 1 Lancet to be use twice a day latanoprost 0.005% 1 drp ophthalmic (eye) BEDTIME lisinopril 20 mg PO DAILY 90 days metformin ER 2,000 mg (4 x 500 mg) PO BEDTIME metoprolol succinate ER (Toprol XL) 25 mg PO DAILY netarsudil 0.02% (Rhopressa) 1 drp ophthalmic (eye) BEDTIME prednisolone acetate 1% 1 drp ophthalmic (eye) QID terazosin 5 mg PO DAILY Tobacco use date assessed: 04/08/24 Dental Screening Dental Screen Date: 12/01/23 HPI [facility] 07/29 Pyelonephritis HPI Details Patient is a 78-year-old male here today for hospital discharge follow-up. Patient discharged on 07/29/2024. Patient presented to the hospital with testicular swelling and redness. He underwent imaging which did demonstrate orchitis, hydrocele and possible epididymitis. He was treated with cefepime while in the hospital. Urology consulted and recommended no intervention. His urinalysis did show positive E coli culture and his antibiotic treatment was transitioned to ceftin for 14 days as outpatient. Has followed up with Urology outpatient and recommended 2 more weeks antibiotics. Currently the scrotal swelling has been persistent, with the patient noting significant swelling that has not subsided. There is no associated fever, and the patient reports mild discomfort but no significant pain. The patient has been advised that if the swelling does not decrease, a drainage procedure may be necessary. [facility] TCM Information Date of Discharge 07/29/24 Discharged From [facility] Interactive Contact Date (Reference documentation from this date) 07/30/24 [facility] Medical History Kidney stone Sepsis Acute kidney failure History of TIA (transient ischemic attack) History of DVT (deep vein thrombosis) Grade II diastolic dysfunction Essential hypertension Dyslipidemia Diabetes mellitus COPD (chronic obstructive pulmonary disease) Gross hematuria Microalbuminuria BPH (benign prostatic hyperplasia) Chronic UTI (urinary tract infection) Chronic back pain Glaucoma Surgical History Status post mitral valve repair (~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 Son No problems noted. Daughter No problems noted. Daughter No problems noted. Daughter No problems noted. Social History Household Members: Significant Other Housing: House Are you a primary memory care director to a significant other at home: No Do you presently have visiting nurse or other home services: No Alcohol intake: current Alcohol intake frequency: a few times a month Alcohol type: beer and wine Comment: RN Patient Tobacco Use Status: Former Tobacco user Years Smoked: 10 e-Cigarette/Vaping Use: Never Used Second Hand Smoke Exposure: No service: No Current occupational status: retired Cognitive needs: No Hearing needs: No Vision needs: Yes Questionnaire Thrive Questionnaire Date Thrive assessed: 07/24/24 AUDIT C Alcohol Use Questionnaire (AUDIT-C) 2. How many drinks containing alcohol do you have on a typical day when you are drinking?: 1 or 2 3. How often do you have six or more drinks on one occasion?: Never Total Score: 0 ANNIE-7 AMB Questionnaire ANNIE-7 Date ANNIE - 7 assessed: 04/08/24 Source: Developed by Drs. Jonathan Escobar, Lianet Michaels, Ford López and colleagues, with an educational harrison from [employer]. Review of Systems Const Denies headache(s) Eyes Denies loss of vision ENT Denies vertigo, Denies dizziness, Denies headache(s) and Denies sore throat Card Denies chest pain, Denies leg edema and Denies lightheadedness Resp Denies cough, Denies hemoptysis and Denies wheezing GI Denies abdominal pain, Denies melena, Denies constipation, Denies diarrhea and Denies vomiting Denies dysuria, Denies urinary frequency and Denies urinary urgency Musc Denies arthralgias, Denies joint swelling, Denies numbness and Denies tingling Neuro Denies Abnormal speech present, Denies behavioral changes, Denies vertigo, Denies dizziness, Denies headache(s), Denies loss of vision, Denies memory loss, Denies numbness and Denies tingling Psych Denies anxiety, Denies behavioral changes, Denies depression, Denies memory loss and Denies panic attacks Bryson/Lymph Denies easy bleeding and Denies easy bruising Aller/Immun Denies wheezing Physical exam (Primary Care) Vital Signs: Last Vital Signs BP 130/62 08/11/24 12:49 Pulse Ox 94 08/11/24 12:49 Oxygen Delivery Method Room Air 08/11/24 12:49 BMI result Body Mass Index 29.7 Tobacco/Smoking Status: Tobacco use Status Tobacco use date assessed 04/08/24 08/11/24 12:45 Patient Tobacco Use Status Former Tobacco user 08/11/24 12:45 Tobacco use type 06/19/22 14:04 e-Cigarette/Vaping Use Never Used 08/11/24 12:45 Thrive Assessment: Date of Thrive Assessment Date Thrive assessed 07/24/24 08/11/24 12:45 Const General: healthy appearing, no acute distress, alert and awake Nutritional Appearance: well nourished Orientation/consciousness: oriented to person, oriented to place and oriented to time HENMT Ears: TM's normal bilaterally General nose exam: Normal nasal mucous membranes and turbinates present Eyes Conjunctivae: conjunctivae normal Sclerae: sclerae normal Pupils: Equal, round and reactive pupils present Neck Neck: Yes no lymphadenopathy and Yes no JVD Thyroid: Thyroid normal Carotids: no bruits Resp Effort & Inspection: normal respiratory effort and not tachypneic Auscultation: no crackles, no rales, no rhonchi and no wheezes Cardio Rate: regular rate Rhythm: regular rhythm Heart sounds: no murmurs and normal S1 and S2 GI Palpation (GI): Soft to palpation, nontender, no hepatomegaly and no splenomegaly Auscultation: normal bowel sounds Male genitals images:  1. RIGHT TESTICLE EDEMATOUS AND FIRM TO PALPATION Skin General skin exam: no rashes or lesions noted and dry skin Neuro General: oriented to person, oriented to place and oriented to time Cranial nerves: Yes Equal, round and reactive pupils present Speech: No Abnormal speech present Gait exam (Neuro): Normal gait present Motor exam (neuro): no tremor noted Extrem Right upper extremity: full ROM Left upper extremity: full ROM Right lower extremity: full ROM; no edema Left lower extremity: full ROM; no edema Psych Mental Status: mental status grossly normal Speech and movement: Normal speech and movement present Affect: normal affect Attitude: cooperative Thought process: Normal thought process present Coding Level of Care Code TCM Mod MDM <= 14 Days Diagnoses Hospital discharge follow-up Z09 Orchitis N45.2 Bladder outlet obstruction N32.0 Assessment & Plan Assessment & Plan (1) Hospital discharge follow-up: Code(s): Z09 - Encounter for follow-up examination after completed treatment for conditions other than malignant neoplasm Category: Medical Plan: As per HPI (2) Orchitis: Code(s): N45.2 - Orchitis Category: Medical Plan: The plan includes monitoring the swelling and considering a drainage procedure if there is no improvement. Prednisone has been prescribed to reduce inflammation, with a tapering dosage to minimize side effects. Advised to continue antibiotic treatment for the rest of his course. Has symptoms worsen, fever develops or urinary output decreases advised to go back to the ER (3) Bladder outlet obstruction: Code(s): N32.0 - Bladder-neck obstruction Category: Medical Plan: As per HPI Medications: New prednisone see taper instructions 10 mg PO DIRECTED 12 tabs 0RF 6 days N45.2 - Orchitis
[2024-08-11 12:49] VITALS: BP 130/62; O2SAT 94; BMI 29.7
--- OUTSIDE RECORDS SUMMARY | 2024-08-11 13:11 | XMS_ITS | Patient Health Record ---
[facility] Address [address] [place] [address] Care Team Providers Care Fiscal Services Director Name Role Phone Honey NUNN, Connie Primary Care Provider Unavail able Johnathan Saleh Unavailable [phone] Allergies Allergen (clinical drug ingredient) Drug/Non Drug [...] Problem Acquired hammer toe of right foot (5792950189664 105) Other hammer toe(s) (acquired), right foot (M20.41) Active confirmed Problem Acquired hammer toe of left foot (6067105606624 103) Other hammer toe(s) (acquired), left foot (M20.42) Active confirmed Problem Type 2 diabetes mellitus with peripheral angiopathy (307654771) Type 2 diabetes mellitus with diabetic peripheral angiopathy without gangrene (E11.51) Active confirmed Q7(A), Q8(2B), Q9(1B,2C) Vital Signs Blood pressure diastolic 65 mm Hg 07/09/2024 Height 5 ft 8 in in 07/09/2024 Blood pressure systolic 128 mm Hg 07/09/2024 Weight 184 lbs 07/09/2024 BMI 27.97 kg/m2 07/09/2024 Procedures Procedure Date Ordered Date Performed Result Body Sit e 43412-SIIITZS NAIL, 1-5 10/03/2023 N/A 83042-XRTC SKIN LESIONS, 2 TO 4 10/03/2023 N/A H9130-EQNFQZWE DYSTROPHIC NAILS ANY # 10/03/2023 N/A 68185-BKMHRFA NAIL, 1-5 01/02/2024 N/A 04826-IJKO SKIN LESIONS, 2 TO 4 01/02/2024 N/A B6133-EMDULHER DYSTROPHIC NAILS ANY # 01/02/2024 N/A 11422-RSZZFXD NAIL, 1-5 07/09/2024 N/A 29620-HIMN SKIN LESIONS, OVER 4 07/09/2024 N/A N2597-UCDFMQCS DYSTROPHIC NAILS ANY # 07/09/2024 N/A Encounters Encounter Location Date Provider Diagnosis [address] [address] 10/03/2023 Johnathan Saleh Type 2 diabetes mellitus with diabetic peripheral angiopathy without gangrene E11.51 ; Tinea unguium B35.1 ; Pain in right toe(s) M79.674 ; Pain in left toe(s) M79.675 ; Other hammer toe(s) (acquired), right foot M20.41 and Other hammer toe(s) (acquired), left foot M20.[address] [address] 01/02/2024 Johnathan Saleh Type 2 diabetes mellitus with diabetic peripheral angiopathy without gangrene E11.51 ; Tinea unguium B35.1 ; Pain in right toe(s) M79.674 ; Pain in left toe(s) M79.675 and Xerosis of skin L85.[address] [address] 07/09/2024 Johnathan Saleh Type 2 diabetes mellitus with diabetic peripheral angiopathy without gangrene E11.51 ; Tinea unguium B35.1 ; Pain in right toe(s) M79.674 ; Pain in left toe(s) M79.675 ; Other hammer toe(s) (acquired), right foot M20.41 and Other hammer toe(s) (acquired), left foot M20.42 [facility] [address] [address] 04/02/2024 Johnathan Saleh Assessments Encounter Date Diagnosis [...] Treatment Pending Test Test Name Order Date 81808-WFEEYDA NAIL, 1-10/03/2023 80495-PQBWDSB NAIL, 1-5 01/02/2024 25429-RFAKPCW NAIL, 1-5 07/09/2024 39725-KSIS SKIN LESIONS, OVER 4 07/10/19 22591-LUVS SKIN LESIONS, 2 TO 4 10/03/19 24 61227-WLPA SKIN LESIONS, 2 TO 4 01/02/20 24 B8272-OQGAYYPE DYSTROPHIC NAILS ANY # L4885-LGTVECCY DYSTROPHIC NAILS ANY # T8950-EBOWCMAI DYSTROPHIC NAILS ANY # Next Appt Details Provider Name:Johnathan Saleh , 10/15/2024 09:15:00 AM, [address] [facility], [place], [address], Insurance Providers Payer Name Payer Address Payer Phone Subscriber Number Group Number Insured Name Patient Relationship to Insured Coverage Start Date Coverage End Date [employer] Medicare Adv-[id number] [address] [address] [place] [address] [id number] Nasir Ward Self - patient is the insured Medical (General) History Medical History History ICD Code Diabetic Hypertension Replacement Heart Valves Glaucoma COPD Surgical History Surgery Date(Month/Year) Heart Valve
== END 2024-08-11 13:44 | disposition home or self-care (01) ==
LOC: HO.HMCH 12:42
PROVIDERS: PCP Internal Medicine; Visit Provider Physician Assistant
DX: N45.2 Orchitis (principal); N32.0 Bladder-neck obstruction; Z09 Encounter for follow-up examination after completed treatment for conditions other than malignant neoplasm

== ENCOUNTER → 2024-08-11 12:41 | Outpatient (BNVA) | payer MEDICARE, MEDICAID, SELFPAY | PROVIDERS: PCP Internal Medicine; Visit Provider Physician Assistant | DX: Z09 Encounter for follow-up examination after completed treatment for conditions other than malignant neoplasm (principal); N32.0 Bladder-neck obstruction; N45.2 Orchitis | CPT/HCPCS: 99495 ==

== ENCOUNTER → 2024-09-02 10:44 | Outpatient (REF) | payer MEDICARE, MEDICAID, SELFPAY ==
--- OUTSIDE RECORDS SUMMARY | 2024-09-02 11:37 | XMS_ITS | Encounter Summary ---
Author Organization [facility] Address [address] [facility] [address] [place] [address] Phone Care Team Providers Care Boom Crane Operator Name Role Phone Connie Cummings MD Primary Care Provid er Raul Herrera MD Unavailable [phone] Encounter Details Date Type Department Care Team (Late st Contact Info) Description 03/30/2022 Ophth Exam [facility] Emergency Department [address] [place] [address] Tami Chapin MD [address] [place] [address] [email or web address] Social History Tobacco Use Types Packs/Day Years Used Date Smoking Tobacco: Never Smokeless Tobacco: Never Alcohol Use Standard Drinks/Week Comments Yes 3 (1 standard drink = 0.6 oz pur e alcohol) Sex and Gender Information Value Date Recorded Sex Assigned at Not on file Legal Sex Male 9:27 AM EST Gender Identity Not on file Sexual Orientation Not on file documented as of this encounter Functional Status * Calculated C-SSRS Risk Score (Lifetime/Recent) Answer Date of Assessment Author No Risk Indicated 03/30/2022 10:25 AM Deepak June RN * [place] Suicide Severity Rating Scale (Screener/Recent Self-Report) Question Answer Date of Assessment Author 1. Wish to be (Past 1 Month) No 03/30/2022 10:25 AM Deepak June Ba, RN 2. Non-Specific Active Suicidal Thoughts (Past 1 Month) No 03/30/2022 10:25 AM Deepak June Ba, RN 6. Suicidal Behavior (Lifetime) No 03/30/2022 10:25 AM Deepak June Ba, RN documented as of this encounter Plan of Treatment Not on file documented as of this encounter Visit Diagnoses Not on filedocumented in this encounter Care Teams Boom Crane Operator Relationship Specialty Start Date End Date Connie Cummings MD [address] [place] [address] PCP - General Internal Medicine 03/30/22 Raul Herrera MD [address] [address] Cardiology 10/24/22 documented as of this encounter Additional Source Comments The information contained in this document represents components of the legal health record. It is not the complete legal health record.[facility]
--- OUTSIDE RECORDS SUMMARY | 2024-09-02 11:37 | XMS_ITS | Patient Health Record ---
Author Organization [facility] Address [address] [place] [address] Care Team Providers Care Vehicle Technician Name Role Phone Honey NUNN, Connie Primary Care Provider Unavail able Johnathan Saleh Unavailable [phone] Allergies Allergen (clinical drug ingredient) Drug/Non Drug [...] Problem Acquired hammer toe of right foot (9807905877162 105) Other hammer toe(s) (acquired), right foot (M20.41) Active confirmed Problem Acquired hammer toe of left foot (8258638114986 103) Other hammer toe(s) (acquired), left foot (M20.42) Active confirmed Problem Type 2 diabetes mellitus with peripheral angiopathy (088517443) Type 2 diabetes mellitus with diabetic peripheral angiopathy without gangrene (E11.51) Active confirmed Q7(A), Q8(2B), Q9(1B,2C) Vital Signs Blood pressure diastolic 65 mm Hg 07/09/2024 Height 5 ft 8 in in 07/09/2024 Blood pressure systolic 128 mm Hg 07/09/2024 Weight 184 lbs 07/09/2024 BMI 27.97 kg/m2 07/09/2024 Procedures Procedure Date Ordered Date Performed Result Body Sit e 24731-RGNWXQS NAIL, 1-5 10/03/2023 N/A 36426-OMPI SKIN LESIONS, 2 TO 4 10/03/2023 N/A I6562-WLLLJZSJ DYSTROPHIC NAILS ANY # 10/03/2023 N/A 36595-IPCVCNJ NAIL, 1-5 01/02/2024 N/A 88634-KTZO SKIN LESIONS, 2 TO 4 01/02/2024 N/A Q2646-ATENMPPL DYSTROPHIC NAILS ANY # 01/02/2024 N/A 79399-BTFVMYK NAIL, 1-5 07/09/2024 N/A 93248-SAWP SKIN LESIONS, OVER 4 07/09/2024 N/A E1814-RDPXACCS DYSTROPHIC NAILS ANY # 07/09/2024 N/A Encounters Encounter Location Date Provider Diagnosis [address] [address] 10/03/2023 Johnathan Saleh Type 2 diabetes mellitus with diabetic peripheral angiopathy without gangrene E11.51 ; Tinea unguium B35.1 ; Pain in right toe(s) M79.674 ; Pain in left toe(s) M79.675 ; Other hammer toe(s) (acquired), right foot M20.41 and Other hammer toe(s) (acquired), left foot M20.[address] [address] 01/02/2024 Johnathan Saleh Type 2 diabetes mellitus with diabetic peripheral angiopathy without gangrene E11.51 ; Tinea unguium B35.1 ; Pain in right toe(s) M79.674 ; Pain in left toe(s) M79.675 and Xerosis of skin L85.[address] [address] 07/09/2024 Johnathan Saleh Type 2 diabetes mellitus with diabetic peripheral angiopathy without gangrene E11.51 ; Tinea unguium B35.1 ; Pain in right toe(s) M79.674 ; Pain in left toe(s) M79.675 ; Other hammer toe(s) (acquired), right foot M20.41 and Other hammer toe(s) (acquired), left foot M20.42 [facility] [address] [address] 04/02/2024 Johnathan Saleh Assessments Encounter Date Diagnosis [...] Treatment Pending Test Test Name Order Date 13528-IOHKRWH NAIL, 1-10/03/2023 44647-IPFMCIV NAIL, 1-5 01/02/2024 20546-CTMRKOP NAIL, 1-5 07/09/2024 77635-MMMX SKIN LESIONS, OVER 4 07/10/19 98255-ZMJH SKIN LESIONS, 2 TO 4 10/03/19 24 21905-MMSN SKIN LESIONS, 2 TO 4 01/02/20 24 H9414-AEFWZNLG DYSTROPHIC NAILS ANY # M7910-PVDVQTWS DYSTROPHIC NAILS ANY # U8023-SYNQCYYX DYSTROPHIC NAILS ANY # Next Appt Details Provider Name:Johnathan Saleh , 10/15/2024 09:15:00 AM, [address] [facility], [place], [address], Insurance Providers Payer Name Payer Address Payer Phone Subscriber Number Group Number Insured Name Patient Relationship to Insured Coverage Start Date Coverage End Date [employer] Medicare Adv-[id number] [address] [address] [place] [address] [id number] Nasir Ward Self - patient is the insured Medical (General) History Medical History History ICD Code Diabetic Hypertension Replacement Heart Valves Glaucoma COPD Surgical History Surgery Date(Month/Year) Heart Valve
== END ==
LOC: HO.SL 10:44
PROVIDERS: PCP Internal Medicine; Visit Provider Internal Medicine
DX: G47.33 Obstructive sleep apnea (adult) (pediatric) (principal); G47.36 Sleep related hypoventilation in conditions classified elsewhere
CPT/HCPCS: 95806

== ENCOUNTER → 2024-09-02 10:59 | Outpatient (BNV) | payer MEDICARE, MEDICAID, SELFPAY | PROVIDERS: PCP Internal Medicine; Visit Provider Internal Medicine | DX: G47.33 Obstructive sleep apnea (adult) (pediatric) (principal) | CPT/HCPCS: 95806 ==

== ENCOUNTER 2024-09-30 11:06 | Outpatient (AMB) | payer MEDICARE, MEDICAID, SELFPAY ==
[2024-09-30 11:08] VITALS: BP 110/68; PULSE 63; BMI 29.5
--- NOTE | 2024-09-30 11:08 | MHC.OFFVIS ---
Vital Signs 09/30/24 11:08 Height 5 ft 8 in Weight 194 lb 0.108 oz BMI 29.5 BP 110/68 Blood Pressure Location Lt brachial Position Sitting Pulse 63 Pulse Source Pulse Oximeter Intake Visit Reasons: 3 s/p home sleep Workforce Management Coordinator Required: Yes Workforce Management Coordinator Name: OWEN [id number] Accompanied by: Significant Other Allergies levofloxacin (From LEVAQUIN) Allergy (Intermediate, Verified 08/11/24 13:29) HIVES Iodinated Contrast Media (IV CONTRAST) Adverse Reaction (Intermediate, Verified 08/11/24 13:29) HIVES Medication List - Last Reconciled 09/30/24 by Raul Herrera MD albuterol sulfate 90 mcg/actuation 2 puffs inhalation Q6H PRN 30 days aspirin 81 mg PO DAILY 90 days atorvastatin 40 mg PO DAILY 90 days brinzolamide-brimonidine 1-0.2 % (Simbrinza) 1 drp ophthalmic (eye) BID bromfenac 0.07% (Prolensa) 1 drp ophthalmic (eye) DAILY cefuroxime axetil 500 mg PO BID 14 days cholecalciferol (vitamin D3) (Vitamin D3) 50 mcg PO DAILY diltiazem HCl CD 180 mg PO DAILY 90 days finasteride 5 mg PO DAILY 90 days smfrtzaaigi-lvgocoqtd-besvdysb 200-62.5-25 mcg (Trelegy Ellipta) 1 ea inhalation DAILY lancets (OneTouch Delica Lancets) 1 Lancet to be use twice a day latanoprost 0.005% 1 drp ophthalmic (eye) BEDTIME lisinopril 20 mg PO DAILY 90 days metformin ER 2,000 mg (4 x 500 mg) PO BEDTIME metoprolol succinate ER (Toprol XL) 25 mg PO DAILY netarsudil 0.02% (Rhopressa) 1 drp ophthalmic (eye) BEDTIME prednisolone acetate 1% 1 drp ophthalmic (eye) QID prednisone 10 mg PO DIRECTED 6 days terazosin 5 mg PO DAILY HPI Comments Details: Nasir returns for follow-up. 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 He underwent bioprosthetic aortic valve replacement, mitral valve repair and PFO closure. Overall, he seems to be doing fine. No new concerns. He underwent a sleep study and that shows severe DANIELITO. Awaiting to see Pulmonary. [facility] Medical History Kidney stone Sepsis Acute kidney failure History of TIA (transient ischemic attack) History of DVT (deep vein thrombosis) Grade II diastolic dysfunction Essential hypertension Dyslipidemia Diabetes mellitus COPD (chronic obstructive pulmonary disease) Gross hematuria Microalbuminuria BPH (benign prostatic hyperplasia) Chronic UTI (urinary tract infection) Chronic back pain Glaucoma Surgical History Status post mitral valve repair (~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 Son No problems noted. Daughter No problems noted. Daughter No problems noted. Daughter No problems noted. Social History Household Members: Significant Other Housing: House Are you a primary rn managed care to a significant other at home: No Do you presently have visiting nurse or other home services: No Alcohol intake: current Alcohol intake frequency: a few times a month Alcohol type: beer and wine Comment: RN Patient Tobacco Use Status: Former Tobacco user Years Smoked: 10 e-Cigarette/Vaping Use: Never Used Second Hand Smoke Exposure: No service: No Current occupational status: retired Cognitive needs: No Hearing needs: No Vision needs: Yes Review of Systems Const Denies weakness ENT Denies dizziness Card Denies chest pain, Denies chest pain with activity, Denies syncope, Denies rapid heart rate, Denies pedal edema, Denies edema, Denies leg edema, Denies lightheadedness, Denies palpitations, Denies dyspnea, Denies dyspnea on exertion and Denies orthopnea Resp Denies cough, Denies dyspnea and Denies dyspnea on exertion GI Denies hematochezia and Denies change in stool character Musc Denies abnormal gait, Denies muscle cramps, Denies muscle weakness, Denies numbness, Denies radiating pain into limb and Denies tingling Neuro Denies abnormal gait, Denies dizziness, Denies syncope, Denies numbness, Denies tingling and Denies weakness Endo Denies palpitations Physical Exam Vital Signs: Last Vital Signs Pulse 63 09/30/24 11:08 BP 110/68 09/30/24 11:08 BMI result Body Mass Index 29.5 Const General: comfortable and no acute distress Orientation/consciousness: patient oriented x3 HEENT Other: Unremarkable Head: Yes normal to inspection Neck Neck: Yes normal visual inspection Chest Chest palpation & inspection: normal inspection of the chest Resp Auscultation: clear to auscultation bilaterally Cardio Palpation: normal PMI Heart sounds: S1 normal heart sound present, S2 normal heart sound present, no gallops, Murmur heart sound present systolic II/ and no rubs GI Palpation (GI): Soft to palpation Back/Spine/Pelvis Other: unremarkable Skin General skin exam: no rashes or lesions noted Neuro General: patient oriented x3 Extrem General: Yes normal to inspection Psych Mental Status: mental status grossly normal Assessment & Plan Assessment & Plan (1) Status post aortic valve replacement with bioprosthetic valve: Onset Date: ~2014 Code(s): Z95.3 - Presence of xenogenic heart valve Category: Surgical (2) Status post mitral valve repair: Onset Date: ~2014 Comment: (Aortic valve replaced, Mitrial valve repair, PFO closure - Dr. Joseph, 03/11/2014) Code(s): Z98.890 - Other specified postprocedural states Category: Surgical (3) PVC (premature ventricular contraction): Code(s): I49.3 - Ventricular premature depolarization Category: Medical (4) DANIELITO (obstructive sleep apnea): Code(s): G47.33 - Obstructive sleep apnea (adult) (pediatric) Category: Medical Plan EKG shows sinus rhythm with frequent PVCs. In the most recent echocardiogram, LVEF is 45-50%. Visually similar to the prior study. Bioprosthetic valve with a mean gradient of 16 mm Hg. Slightly elevated. It has been as much as 20 mm Hg in the past. Overall, normal valve function. In the Holter, PVC burden was 2.6%. Based on operative report from 2014, normal coronary arteries. Overall, he remains asymptomatic from cardiac standpoint. With regard to the prosthetic valve, continue aspirin. Infective endocarditis prophylaxis per protocol. With regard to PVCs, he has got no symptoms. He is on Diltiazem/Metoprolol. Sleep study reports severe obstructive sleep apnea. We will refer him back to Pulmonary Medicine for CPAP. Follow up in 6 months time. Discussion Notes I discussed with the patient the findings of his sleep study, which indicated sleep apnea, and the need for referral to a rate and cost analyst for further management. Patient was informed and verbally consented to the use of an ambient scribe for clinic note documentation during this visit. Patient Instructions: - Follow up with the rate and cost analyst as scheduled. - Increase physical activity, such as walking, to improve health. - Monitor symptoms and report any changes to your healthcare provider. Coding Level of Care Code Est Pt Level 4 (85786) Complex EM visit Add On G2211 Diagnoses Status post aortic valve replacement with bioprosthetic valve Z95.3 Status post mitral valve repair Z98.890 PVC (premature ventricular contraction) I49.3 DANIELITO (obstructive sleep apnea) G47.33
--- OUTSIDE RECORDS SUMMARY | 2024-09-30 12:46 | XMS_ITS | Encounter Summary ---
Author Organization [facility] Address [address] [facility] [address] [place] [address] Phone Care Team Providers Care Handstitching Machine Collar Feller Name Role Phone Connie Cummings MD Primary Care Provid er Raul Herrera MD Unavailable [phone] Encounter Details Date Type Department Care Team (Late st Contact Info) Description 03/30/2022 [place] [facility] [place] [address] [place] [address] Tami Chapin MD [address] [place] [address] [email or web address] Social History Tobacco Use Types Packs/Day Years [...] 03/30/2022 10:25 AM Deepak June RN * [place] Suicide Severity Rating Scale (Screener/Recent Self-Report) Question [...] on filedocumented in this encounter Care Teams Handstitching Machine Collar Feller Relationship Specialty Start Date End Date Connie Cummings MD [address] [place] [address] PCP - General Internal Medicine 03/30/22 Raul Herrera MD [address] [address] Cardiology 10/24/22 documented as of this encounter Additional Source Comments The information contained in this document represents components of the legal health record. It is not the complete legal health record.[facility]
--- OUTSIDE RECORDS SUMMARY | 2024-09-30 12:46 | XMS_ITS | Patient Health Record ---
Author Organization [facility] Address [address] [place] [address] Care Team Providers Care Manager Semiconductor Name Role Phone Honey NUNN, Connie Primary Care Provider Unavail able Johnathan Saleh Unavailable [phone] Allergies Allergen (clinical drug ingredient) Drug/Non Drug [...] Problem Acquired hammer toe of right foot (5500161386562 105) Other hammer toe(s) (acquired), right foot (M20.41) Active confirmed Problem Acquired hammer toe of left foot (1688655914842 103) Other hammer toe(s) (acquired), left foot (M20.42) Active confirmed Problem Type 2 diabetes mellitus with peripheral angiopathy (730587753) Type 2 diabetes mellitus with diabetic peripheral angiopathy without gangrene (E11.51) Active confirmed Q7(A), Q8(2B), Q9(1B,2C) Vital Signs Blood pressure diastolic 65 mm Hg 07/09/2024 Height 5 ft 8 in in 07/09/2024 Blood pressure systolic 128 mm Hg 07/09/2024 Weight 184 lbs 07/09/2024 BMI 27.97 kg/m2 07/09/2024 Procedures Procedure Date Ordered Date Performed Result Body Sit e 62071-SGLWTXF NAIL, 1-5 10/03/2023 N/A 37985-QBYI SKIN LESIONS, 2 TO 4 10/03/2023 N/A N7648-ZCLNVVLY DYSTROPHIC NAILS ANY # 10/03/2023 N/A 66523-UVDKRAK NAIL, 1-5 01/02/2024 N/A 82960-FTBC SKIN LESIONS, 2 TO 4 01/02/2024 N/A C1659-GKSIVNJY DYSTROPHIC NAILS ANY # 01/02/2024 N/A 88017-SGHQFED NAIL, 1-5 07/09/2024 N/A 33290-NFUY SKIN LESIONS, OVER 4 07/09/2024 N/A V9116-XZEPHSQW DYSTROPHIC NAILS ANY # 07/09/2024 N/A Encounters Encounter Location Date Provider Diagnosis [address] [address] 10/03/2023 Johnathan Saleh Type 2 diabetes mellitus with diabetic peripheral angiopathy without gangrene E11.51 ; Tinea unguium B35.1 ; Pain in right toe(s) M79.674 ; Pain in left toe(s) M79.675 ; Other hammer toe(s) (acquired), right foot M20.41 and Other hammer toe(s) (acquired), left foot M20.[address] [address] 01/02/2024 Johnathan Saleh Type 2 diabetes mellitus with diabetic peripheral angiopathy without gangrene E11.51 ; Tinea unguium B35.1 ; Pain in right toe(s) M79.674 ; Pain in left toe(s) M79.675 and Xerosis of skin L85.[address] [address] 07/09/2024 Johnathan Saleh Type 2 diabetes mellitus with diabetic peripheral angiopathy without gangrene E11.51 ; Tinea unguium B35.1 ; Pain in right toe(s) M79.674 ; Pain in left toe(s) M79.675 ; Other hammer toe(s) (acquired), right foot M20.41 and Other hammer toe(s) (acquired), left foot M20.[address] [facility] [address] [address] 04/02/2024 Johnathan Saleh Assessments Encounter Date Diagnosis [...] Treatment Pending Test Test Name Order Date 73342-MCUUTII NAIL, 1-10/03/2023 82045-SNRGPUM NAIL, 1-5 01/02/2024 62402-QPYVHTY NAIL, 1-5 07/09/2024 52538-CQLD SKIN LESIONS, OVER 4 07/10/19 88932-HZXT SKIN LESIONS, 2 TO 4 10/03/19 24 80033-ROMY SKIN LESIONS, 2 TO 4 01/02/20 24 T5618-SCIGOYFP DYSTROPHIC NAILS ANY # K7998-GYQRWIZO DYSTROPHIC NAILS ANY # A6159-SNAQOJRG DYSTROPHIC NAILS ANY # Next Appt Details Provider Name:Johnathan Saleh , 10/15/2024 09:15:00 AM, [address] [facility], [place], [address], Insurance Providers Payer Name Payer Address Payer Phone Subscriber Number Group Number Insured Name Patient Relationship to Insured Coverage Start Date Coverage End Date [employer] Medicare Adv-[id number] [address] [address] [place] [address] [id number] Nasir Ward Self - patient is the insured Medical (General) History Medical History History ICD Code Diabetic Hypertension Replacement Heart Valves Glaucoma COPD Surgical History Surgery Date(Month/Year) Heart Valve
== END 2024-09-30 11:35 | disposition home or self-care (01) ==
LOC: HO.HCS 11:07
PROVIDERS: PCP Internal Medicine; Visit Provider Internal Medicine
DX: Z95.3 Presence of xenogenic heart valve (principal); Z98.890 Other specified postprocedural states; I49.3 Ventricular premature depolarization; G47.33 Obstructive sleep apnea (adult) (pediatric)
CPT/HCPCS: 99214; G2211

== ENCOUNTER → 2024-09-30 11:06 | Outpatient (BNVA) | payer MEDICARE, MEDICAID, SELFPAY | PROVIDERS: PCP Internal Medicine; Visit Provider Internal Medicine | DX: G47.33 Obstructive sleep apnea (adult) (pediatric) (principal); I49.3 Ventricular premature depolarization; Z98.890 Other specified postprocedural states; Z95.3 Presence of xenogenic heart valve | CPT/HCPCS: 99212 ==

== ENCOUNTER 2024-10-07 14:01 | Outpatient (AMB) | payer MEDICARE, MEDICAID, SELFPAY ==
--- OUTSIDE RECORDS SUMMARY | 2024-04-02 08:45 | XMS_ITS ---
Author Organization [facility] Address [address] [facility] [place] [address] Care Team Providers Care X Ray Equipment Servicer Name Role Phone Honey NUNN, Connie Primary Care Provider Unavail able Johnathan Saleh Unavailable [phone] Allergies Allergen (clinical drug ingredient) Drug/Non Drug [...] Active Encounters Encounter Location Date Provider Diagnosis [facility] [address] [address] 04/02/2024 Johnathan Saleh Plan Of Treatment Next Appt Details Provider Name:Johnathan Saleh , 10/15/2024 09:15:00 AM, [address] [place] [address], [phone], Progress Notes * Marshall THOMPSONOB:[birth year] (79 yo M)Acc No.[id number]:04/02/2024 Progress Note Patient: Nasir LINDER Provider: Silke Saleh DPM :1945 A ge:78 Y S ex:Male Date:04/02/2024 Address:[address] [place], [place] [id number] Pcp:Connie Méndez MD Subjective: * Chief Complaints: [...] 0 04/02/2024 Generated for Terrence Steele on: 0 10/07/2024 02:50 PM EDT
[2024-10-07 14:15] VITALS: BP 118/70; PULSE 79; O2SAT 96; BMI 30.1
--- NOTE | 2024-10-07 14:15 | MHC.OFFVIS ---
Vital Signs 10/07/24 14:15 Height 5 ft 8 in Weight 198 lb BMI 30.1 BP 118/70 Blood Pressure Location Rt brachial Position Sitting Pulse 79 Pulse Source Pulse Oximeter Pulse Oximetry (%) 96 Oxygen Delivery Method Room Air Intake Visit Reasons: Obstructive sleep apnea Land Surveyor Manager Required: Yes Land Surveyor Manager Name: Juani Hernandez C.L.M Allergies levofloxacin (From LEVAQUIN) Allergy (Intermediate, Verified 10/07/24 14:21) HIVES Iodinated Contrast Media (IV CONTRAST) Adverse Reaction (Intermediate, Verified 10/07/24 14:21) HIVES HPI HPI Obstructive sleep apnea: Details: [id number]-ihf gentleman, former 40+ pack-year smoker, quit over 20 years prior with underlying at least moderate diastolic dysfunction and history of bioprosthetic aortic valve replacement.? He is followed by Cardiology service. He continues to use Trelegy and albuterol MDI with good control of his symptoms. He denies any recent exacerbations. Patient did have recent sleep study that showed underlying severe obstructive sleep apnea. He is waiting to receive his CPAP machine. [facility] Medical History Kidney stone Sepsis Acute kidney failure History of TIA (transient ischemic attack) History of DVT (deep vein thrombosis) Grade II diastolic dysfunction Essential hypertension Dyslipidemia Diabetes mellitus COPD (chronic obstructive pulmonary disease) Gross hematuria Microalbuminuria BPH (benign prostatic hyperplasia) Chronic UTI (urinary tract infection) Chronic back pain Glaucoma Surgical History Status post mitral valve repair (~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 Son No problems noted. Daughter No problems noted. Daughter No problems noted. Daughter No problems noted. Social History Household Members: Significant Other Housing: House Are you a primary palliative care physician to a significant other at home: No Do you presently have visiting nurse or other home services: No Alcohol intake: current Alcohol intake frequency: a few times a month Alcohol type: beer and wine Comment: RN Patient Tobacco Use Status: Former Tobacco user Years Smoked: 10 e-Cigarette/Vaping Use: Never Used Second Hand Smoke Exposure: No service: No Current occupational status: retired Cognitive needs: No Hearing needs: No Vision needs: Yes Review of Systems Const Denies daytime sleepiness, Denies excessive sweating, Denies fatigue, Denies fever(s), Denies lethargy, Denies malaise, Denies night sweats, Denies snoring and Denies weight loss Eyes Denies blurry vision and Denies itchy eyes ENT Denies nasal congestion, Denies post nasal drip, Denies sinus pain, Denies sinus pressure and Denies other ( Thrush) Card Denies chest pain, Denies pedal edema, Denies dyspnea, Denies orthopnea and Denies paroxysmal nocturnal dyspnea Resp Denies cough, Denies hemoptysis, Denies excessive phlegm production, Denies dyspnea, Denies snoring and Denies wheezing GI Denies abdominal pain and Denies heartburn Musc Denies myalgias, Denies arthralgias and Denies joint swelling Skin/Breast Denies rash Neuro Denies memory loss and Denies seizure-like activity Psych Denies abnormal sleep pattern, Denies anxiety and Denies memory loss Endo Denies excessive sweating, Denies fatigue and Denies heat intolerance Bryson/Lymph Denies easy bruising Aller/Immun Denies itchy eyes, Denies seasonal rhinorrhea and Denies wheezing Physical Exam Vital Signs: Last Vital Signs Pulse 79 10/07/24 14:15 BP 118/70 10/07/24 14:15 Pulse Ox 96 10/07/24 14:15 Oxygen Delivery Method Room Air 10/07/24 14:15 BMI result Body Mass Index 30.1 Const General: no acute distress and alert Nutritional Appearance: not obese Orientation/consciousness: Other orientation findings ( oriented) HEENT Head: Yes atraumatic Eyes General: appearance normal, both eyes and all related structures Sclerae: sclerae normal EOM: EOMs intact bilaterally Neck Neck: Yes supple Lymphatic: no lymphadenopathy noted Resp Effort & Inspection: normal respiratory effort and no use of accessory muscles Auscultation: clear to auscultation bilaterally Cardio Rate: regular rate Rhythm: regular rhythm Heart sounds: no gallops, no murmurs and no rubs Skin General skin exam: other ( warm) Extrem General: No clubbing, No cyanosis and No edema Assessment & Plan Assessment & Plan (1) COPD (chronic obstructive pulmonary disease): Code(s): J44.9 - Chronic obstructive pulmonary disease, unspecified Category: Medical Qualifiers: COPD type: unspecified COPD Qualified Code(s): J44.9 - Chronic obstructive pulmonary disease, unspecified Plan: Well controlled on current regimen of Trelegy and albuterol MDI. Continue current regimen. (2) Pulmonary nodules: Code(s): R91.8 - Other nonspecific abnormal finding of lung field Category: Medical Plan: Follow-up CT chest is pending for October of 2024, if nodules are stable this time, no further imaging follow-up would be required. (3) DANIELITO (obstructive sleep apnea): Code(s): G47.33 - Obstructive sleep apnea (adult) (pediatric) Category: Medical Plan: Results of recent sleep study reviewed, underlying severe obstructive sleep apnea. APAP is ordered. Patient is waiting to receive his APAP machine Coding Level of Care Code Est Pt Level 4 (49457) Complex EM visit Add On G2211 Diagnoses Chronic obstructive pulmonary disease, unspecified COPD type J44.9 COPD type: unspecified COPD Pulmonary nodules R91.8 DANIELITO (obstructive sleep apnea) G47.33
--- OUTSIDE RECORDS SUMMARY | 2024-10-07 14:50 | XMS_ITS | Patient Health Record ---
Author Organization [facility] Address [address] [place] [address] Care Team Providers Care Camp Coordinator Name Role Phone Honey NUNN, Connie Primary Care Provider Unavail able Johnathan Saleh Unavailable [phone] Allergies Allergen (clinical drug ingredient) Drug/Non Drug [...] Problem Acquired hammer toe of right foot (9900340867021 105) Other hammer toe(s) (acquired), right foot (M20.41) Active confirmed Problem Acquired hammer toe of left foot (1524822011119 103) Other hammer toe(s) (acquired), left foot (M20.42) Active confirmed Problem Type 2 diabetes mellitus with peripheral angiopathy (370085145) Type 2 diabetes mellitus with diabetic peripheral angiopathy without gangrene (E11.51) Active confirmed Q7(A), Q8(2B), Q9(1B,2C) Vital Signs Blood pressure diastolic 65 mm Hg 07/09/2024 Height 5 ft 8 in in 07/09/2024 Blood pressure systolic 128 mm Hg 07/09/2024 Weight 184 lbs 07/09/2024 BMI 27.97 kg/m2 07/09/2024 Procedures Procedure Date Ordered Date Performed Result Body Sit e 08751-PGGWANF NAIL, 1-5 01/02/2024 N/A 77786-YORH SKIN LESIONS, 2 TO 4 01/02/2024 N/A V9510-XZUQXDQH DYSTROPHIC NAILS ANY # 01/02/2024 N/A 75568-TCXDZLP NAIL, 1-5 07/09/2024 N/A 93996-BRVF SKIN LESIONS, OVER 4 07/09/2024 N/A B2295-UOWKVGHY DYSTROPHIC NAILS ANY # 07/09/2024 N/A Encounters Encounter Location Date Provider Diagnosis [address] [address] 01/02/2024 Johnathan Saleh Type 2 diabetes mellitus with diabetic peripheral angiopathy without gangrene E11.51 ; Tinea unguium B35.1 ; Pain in right toe(s) M79.674 ; Pain in left toe(s) M79.675 and Xerosis of skin L85.[address] [address] 07/09/2024 Johnathan Saleh Type 2 diabetes mellitus with diabetic peripheral angiopathy without gangrene E11.51 ; Tinea unguium B35.1 ; Pain in right toe(s) M79.674 ; Pain in left toe(s) M79.675 ; Other hammer toe(s) (acquired), right foot M20.41 and Other hammer toe(s) (acquired), left foot M20.[address] [address] 04/02/2024 Johnathan Saleh Assessments Encounter Date Diagnosis (ICD Code) Assessment Notes Treatment Notes Treatment Clinical Notes Section Notes 01/02/2024 Tinea unguium (ICD-10 - B35.1) 01/02/2024 [...] INSTRUCTIONS.p df (DIABETIC FOOT CARE INSTRUCTIONS.p df) 07/09/2024 Other hammer toe(s) (acquired), left foot (ICD-10 - M20.42) Plan Of Treatment Pending Test Test Name Order Date 68969-RRHATMW NAIL, 1-5 10/03/2023 90678-OBIWQPV NAIL, 1-5 01/02/2024 95608-UFWYICI NAIL, 1-5 07/09/2024 09495-TGJD SKIN LESIONS, OVER 4 07/10/19 25 94165-VZBX SKIN LESIONS, 2 TO 4 10/03/19 24 81649-NBHP SKIN LESIONS, 2 TO 4 01/02/20 24 E8779-TMZBSJPO DYSTROPHIC NAILS ANY # I7163-RNCNSWHN DYSTROPHIC NAILS ANY # H9221-PWCRNLHR DYSTROPHIC NAILS ANY # Next Appt Details Provider Name:Johnathan Carmen Saleh , 10/15/2024 09:15:00 AM, [address] [facility], [place], [address], Insurance Providers Payer Name Payer Address Payer Phone Subscriber Number Group Number Insured Name Patient Relationship to Insured Coverage Start Date Coverage End Date [employer] Medicare Adv-[id number] [address] [address] [place] [address] [id number] Nasir Ward Self - patient is the insured Medical (General) History Medical History History ICD Code Diabetic Hypertension Replacement Heart Valves Glaucoma COPD Surgical History Surgery Date(Month/Year) Heart Valve
--- OUTSIDE RECORDS SUMMARY | 2024-10-07 14:50 | XMS_ITS | Clinical Summary ---
Author Organization [facility] Address [address] [place] [address] Phone Care Team Providers Care Event Attendant Name Role Phone Connie Cummings MD Primary Care Provid er Ralu Herrera MD Unavailable [phone] Allergies No known active allergies Medications acetaZOLAMIDE (DIAMOX) 500 mg capsule TAKE 1 CAPSULE BY MOUTH TWICE A DAY DIRECTED 3 Active VITAMIN D3 50 mcg (2,000 unit) capsule Take 2,000 Units by mouth daily. 2 Active atorvastatin (LIPITOR) 40 MG tablet Take 40 mg by mouth Every Afternoon. 2 Active aspirin 81 MG EC tablet Take 81 mg by mouth daily. 3 Active dilTIAZem (CARDIZEM CD) 180 MG 24 hr capsule Take by mouth daily. 3 Active metFORMIN (GLUCOPHAGE-XR) 500 MG 24 hr tablet TAKE 4 TABLETS BY MOUTH EVERY EVENING WITH FOOD 2 Active terazosin (HYTRIN) 5 MG capsule Take 5 mg by mouth nightly at bedtime. 2 Active finasteride (PROSCAR) 5 mg tablet Take 5 mg by mouth daily. 2 Active lisinopril (PRINIVIL,ZESTR IL) 20 MG tablet Take 20 mg by mouth daily. 3 Active TRELEGY ELLIPTA 200-62.5-25 mcg inhaler INHALE 1 PUFF EVERY DAY 3 Active latanoprost (XALATAN) 0.005 % ophthalmic solution INSTILL 1 DROP IN EACH EYE AT BEDTIME 3 Active SIMBRINZA 1-0.2 % DrpS Place 1 drop into each eye 2 (two) times a day. 3 Active PROLENSA 0.07 % Drop ophthalmic solution INSTILL 1 DROP IN THE LEFT EYE ONCE DAILY DIRECTED TO BEGIN 3 DAYS BEFORE SURGERY 3 Active netarsudiL (RHOPRESSA) 0.02 % ophthalmic solution Place 1 drop into each eye nightly at bedtime. 1 drop, Each eye, Nightly 2.5 mL 12 3 Active albuterol 90 mcg/actuation inhaler INHALE 2 PUFFS EVERY 6 HOURS NEEDED FOR WHEEZING OR SHORTNESS OF BREATH 3 Active prednisoLONE acetate (PRED FORTE) 1 % ophthalmic suspension Place 1 drop into each eye every 2 (two) hours as needed. 5 mL 3 3 Active Active Problems Problem Noted Date Diagnosed Date Primary open angle glaucoma of both eyes, severe stage 05/26/2022 Overview (08/01/2022): Target IOP: / ; Tmax: ( ) / ( ); Central corneal thickness: 538, 533 / 476, 482; CH: / Refractive error: OD . x / OS . x Asthma/steroids: YES Family history: None Optic nerve structure and function: Medications: acetazolamide, Simbrinza, latanoprost, Rhopressa Intolerances: Procedures and Complications: cataract extraction both eyes, Xen left eye (12/2021) Relevant history and problems: Followed outside and referred due to uncontrolled intraocular pressure on maximal medical treatment, seen in ED with end-stage glaucoma right eye (baseline Hand Motions vision and relative afferent pupillary defect) and severe primary open angle glaucoma left eye Assessment & Plan (10/30/2022 1:17 PM EDT): #Severe OAG right eye > left eye: Hand Motions vision right eye and 20/125 left eye Managed in [place], referred to [facility] for second opinion given IOP in mid-20s despite MTMT (including Diamox) - S/p Xen several months ago left eye, flat bleb, but intraocular pressure low - s/p external cyclophotocoagulation both eyes (10/30/22) POD0 IOP and vision stable Intraocular pressure too high and cannot tolerate these medications. Start prednisolone q2h both eyes Continue acetazolamide, Simbrinza, latanoprost, Rhopressa F/u 1w Dr. Leiva Assessment & Plan (09/24/2022 9:38 AM EDT): #Severe OAG right eye > left eye: Hand Motions vision right eye and 20/125 left eye Managed in [place], referred to [facility] for second opinion given IOP in mid-20s despite MTMT (including Diamox) - S/p Xen several months ago left eye, flat bleb, but intraocular pressure low End-stage right eye. Recommend diode both eyes. Intraocular pressure too high and cannot tolerate these medications. Assessment & Plan (08/01/2022 1:12 PM EDT): #Severe OAG right eye > left eye: Hand Motions vision right eye and 20/125 left eye Managed in [place], referred to [facility] for second opinion given IOP in mid-20s despite MTMT (including Diamox) - S/p Xen several months ago left eye, flat bleb, but intraocular pressure low End-stage right eye. Could consider diode both eyes. He is tolerating the acetazolamide, so will try to stop Rhopressa given symptoms. If intraocular pressure remains below target left eye can see if he can be on fewer drops and more comfortable. Right eye may need cyclophotocoagulation, but will see how intraocular pressure behaves with removal of Rhopressa. Will check locally and let me know. Discussed increased susceptibility for glaucoma in family members. Recommend siblings and children have annual eye exam and explain that patient is being treated for glaucoma. Family History Medical History Relation Comments Glaucoma Neg Hx Social History Tobacco Use Types Packs/Day Years Used Date Smoking Tobacco: Never Smokeless Tobacco: Never Alcohol Use Standard Drinks/Week Comments Yes 3 (1 standard drink = 0.6 oz pur e alcohol) weekly Education Answer Date Recorded Are you interested in more education? Not on selin e 06/06/2022 Are you concerned about learning? Not on file 06/06/2022 No 06/06/2022 No 06/06/2022 Digital Access Answer Date Recorded No 07/06/2022 No 07/06/2022 Reliable internet access at home? Not on file 07/06/2022 Device with a working camera? Not on file Intimate Partner Violence Answer Date R ecorded Are you denied basic needs s uch as food, clothing, or medical care? No 10/30/2022 In the past 12 months have y ou been in a relationship with a person who hurts, threatens, or tries to control you? No 10/30/2022 Are you denied basic needs s uch as food, clothing, or medical care? No 10/30/2022 In the past 12 months have y ou been in a relationship with a person who hurts, threatens, or tries to control you? No 10/30/2022 Sex and Gender Information Value Date Recorded Sex Assigned at Not on file Legal Sex Male 9:27 AM EST Gender Identity Not on file Sexual Orientation Not on file Last Filed Vital Signs Vital Sign Reading Time Taken Comments Blood Pressure 136/80 10/30/2022 9:18 AM EDT Pulse 73 10/30/2022 9:18 AM EDT Temperature 36.2 C (97.2 F) 10/30/2022 9:04 AM EDT Respiratory Rate 16 10/30/2022 9:04 AM EDT Oxygen Saturation 95% 10/30/2022 9:18 AM EDT Inhaled Oxygen Concentration 100% 10/30/2022 8 :38 AM EDT Weight 93.4 kg (206 lb) 10/30/2022 7:13 AM EDT Height 172.7 cm (5' 8 ) 10/30/2022 7:13 AM EDT Body Mass Index 31.32 10/30/2022 7:13 AM EDT Plan of Treatment Health Maintenance Due Date Last Done Comments CREATININE LEVEL 1944 LIPID PANEL 1944 POTASSIUM LEVEL 1944 DEPRESSION SCREENING 1956 ZOSTER VACCINES (1 of 2) 1994 PNEUMOCOCCAL VACCINES (50+ years) (2 of 2 - PCV) 06/07/2014 06/07/2013 RSV VACCINE (1 - 1-dose 75+ series) 08/30/2019 COVID-19 VACCINE (4 - 2023-2 5 season) 2023 12/29/2020, 04/20/2020, 03/24/2020 Adult Td,Tdap Booster 11/26/2028 11/26/2018 SMOKING STATUS SCREENING (On ce After 26 Yrs) Completed 10/30/2022 HEPATITIS A VACCINES Aged Out No long er eligible based on patient's age to complete this topic HIB VACCINES Aged Out No longer eligi ble based on patient's age to complete this topic MENINGOCOCCAL VACCINES (ACWY) Aged Out No longer eligible based on patient's age to complete this topic MENINGOCOCCAL VACCINES (B) Aged Out N o longer eligible based on patient's age to complete this topic Medical Devices Implanted Type Area Foreclosure Specialist Device Identifier Shelf Expiration Date Model / Serial / Lot Coronary Stent Iol Insurance MEDICARE REPLACEMENT Member Subscriber Plan / Payer (Ef fective 2022-Present) Name:Nasir Olvera Relation to Subscriber:Self Name:Nasir Olvera Payer ID:[id number] (NAIC) Type:Medicare Address: [place] [id number] MEDICARE REPLACEMENT [place] [id number] MEDICARE REPLACEMENT MEDICARE REPLACEMENT [place] [id number] [facility] MEDICARE REPLACEMENT Care Teams Event Attendant Relationship Specialty Start Date End Date Connie Cummings MD [address] [place] [address] PCP - General Internal Medicine 03/30/22 Raul Herrera MD [address] [address] Cardiology 10/24/22 Additional Source Comments The information contained in this document represents components of the legal health record. It is not the complete legal health record.[facility]
--- OUTSIDE RECORDS SUMMARY | 2024-10-07 14:50 | XMS_ITS | Encounter Summary ---
Author Organization [facility] Address [address] [facility] [address] [place] [address] Phone Care Team Providers Care Ceramics Artist Name Role Phone Connie Cummings MD Primary Care Provid er Raul Herrera MD Unavailable [phone] Encounter Details Date Type Department Care Team (Late st Contact Info) Description 03/30/2022 Ophth Exam [facility] Emergency Department [address] [place] [address] Tami Chapin MD [address] [place] [address] [email or web address] Social History Tobacco Use Types [...] 03/30/2022 10:25 AM Deepak June RN * [place] Suicide Severity Rating Scale (Screener/Recent Self-Report) Question [...] on filedocumented in this encounter Care Teams Ceramics Artist Relationship Specialty Start Date End Date Connie Cummings MD [address] [place] [address] PCP - General Internal Medicine 03/30/22 Raul Herrera MD [address] [address] Cardiology 10/24/22 documented as of this encounter Additional Source Comments The information contained in this document represents components of the legal health record. It is not the complete legal health record.[facility]
--- OUTSIDE RECORDS SUMMARY | 2024-10-07 14:50 | XMS_ITS | Encounter Summary ---
Author Organization [facility] Address [address] [facility] [address] [place] [address] Phone Care Team Providers Care Retouching Operator Name Role Phone Connie Cummings MD Primary Care Provid er Raul Herrera MD Unavailable [phone] Encounter Details Date Type Department Care Team (Late st Contact Info) Description 10/30/2022 Procedure Pass [facility] [place] [facility] DEPT [address] [place] [address] Social History Tobacco Use Types Packs/Day Years [...] on file documented as of this encounter Plan of Treatment Not on file documented as of this encounter Visit Diagnoses Not on filedocumented in this encounter Care Teams Retouching Operator Relationship Specialty Start Date End Date Connie Cummings MD [address] [place] [address] PCP - General Internal Medicine 03/30/22 Raul Herrera MD [address] [address] Cardiology 10/24/22 documented as of this encounter Additional Source Comments The information contained in this document represents components of the legal health record. It is not the complete legal health record.[facility]
== END 2024-10-07 14:49 | disposition home or self-care (01) ==
LOC: HO.HPS 14:01
PROVIDERS: PCP Internal Medicine; Visit Provider Internal Medicine Pulmonary Disease
DX: J44.9 Chronic obstructive pulmonary disease, unspecified (principal); R91.8 Other nonspecific abnormal finding of lung field; G47.33 Obstructive sleep apnea (adult) (pediatric)
CPT/HCPCS: 99214; G2211

== ENCOUNTER → 2024-10-07 14:01 | Outpatient (BNVA) | payer MEDICARE, MEDICAID, SELFPAY | PROVIDERS: PCP Internal Medicine; Visit Provider Internal Medicine Pulmonary Disease | DX: G47.33 Obstructive sleep apnea (adult) (pediatric) (principal); J44.9 Chronic obstructive pulmonary disease, unspecified; R91.8 Other nonspecific abnormal finding of lung field | CPT/HCPCS: 99212 ==

== ENCOUNTER 2024-10-08 12:46 | Outpatient (REF) | payer MEDICARE, MEDICAID, SELFPAY ==
--- OUTSIDE RECORDS SUMMARY | 2024-04-02 08:45 | XMS_ITS ---
Author Organization [facility] Address [address] [facility] [place] [address] Care Team Providers Care Filter Operator Name Role Phone Honey NUNN, Connie Primary Care Provider Unavail able Johnathan Saleh Unavailable [phone] Allergies Allergen (clinical drug ingredient) Drug/Non Drug [...] Active Encounters Encounter Location Date Provider Diagnosis [facility] [address] [address] 04/02/2024 Johnathan Saleh Plan Of Treatment Next Appt Details Provider Name:Johnathan Saleh , 10/15/2024 09:15:00 AM, [address] [place] [address], [phone], Progress Notes * Marshall THOMPSONOB:[birth year] (79 yo M)Acc No.[id number]:04/02/2024 Progress Note Patient: Nasir LINDER Provider: Silke Saleh DPM :1945 A ge:78 Y S ex:Male Date:04/02/2024 Address:[address] [place], [place] [phone] Pcp:Connie Méndez MD Subjective: * Chief Complaints: [...] 04/02/2024 Generated for Terrence Steele on: 0 10/08/2024 01:14 PM EDT
--- NOTE | ~2024-10-08 | CT_ITS ---
CLINICAL HISTORY: R91.8 - Other nonspecific abnormal finding of lung field CT chest without IV contrast. COMPARISON: CT chest dated 09/12/23 at 07:36 EDT FINDINGS: No supraclavicular or axillary lymphadenopathy. Ascending aortic ectasia measuring up to 3.8 cm. Main pulmonary artery is normal in caliber. Aortic valve replacement present. Coronary artery calcifications present within the LAD and RCA. No pericardial effusion. Small hiatal hernia. No mediastinal lymphadenopathy. No pleural effusion. No consolidation. Trachea and central airways are clear. No significant bronchial wall thickening. No bronchiectasis. Right upper lobe 2 mm pulmonary micronodule (series 4, image 42), stable. Right lower lobe superior segment 4 mm pulmonary nodule (series 4, image 62), stable. Cholelithiasis present within the gallbladder body/neck. No pericholecystic inflammatory changes. Flowing marginal osteophytes present throughout the thoracic spine. Status post sternotomy. No acute fracture. IMPRESSION: 1. No acute intrathoracic findings. No evidence of pneumonia. 2. Coronary artery atherosclerosis. 3. Stable right lower lobe 4 mm and right upper lobe 2 mm pulmonary nodules. No further specific follow-up recommendations. 4. Small hiatal hernia. This document has been electronically signed by: Teddy Garcia MD on 10/09/2024 14:31:07
--- OUTSIDE RECORDS SUMMARY | 2024-10-08 13:14 | XMS_ITS | Encounter Summary ---
Author Organization [facility] Address [address] [facility] [address] [place] [address] Phone Care Team Providers Care Audio Video Technician Name Role Phone Connie Cummings MD Primary Care Provid er Raul Herrera MD Unavailable [phone] Encounter Details Date Type Department Care Team (Late st Contact Info) Description 03/30/2022 Ophth Exam [facility] Emergency Department [address] [place] [address] Tami Chapin MD [address] [place] [address] [email or web address] Social History Tobacco Use Types Packs/Day Years [...] 03/30/2022 10:25 AM Deepak June RN * [place] Suicide Severity Rating Scale (Screener/Recent Self-Report) Question [...] on filedocumented in this encounter Care Teams Audio Video Technician Relationship Specialty Start Date End Date Connie Cummings MD [address] [place] [address] PCP - General Internal Medicine 03/30/22 Raul Herrera MD [address] [address] Cardiology 10/24/22 documented as of this encounter Additional Source Comments The information contained in this document represents components of the legal health record. It is not the complete legal health record.[facility]
--- OUTSIDE RECORDS SUMMARY | 2024-10-08 13:14 | XMS_ITS | Encounter Summary ---
Author Organization [facility] Address [address] [facility] [address] [place] [address] Phone Care Team Providers Care Statistician Applied Name Role Phone Connie Cummings MD Primary Care Provid er Raul Herrera MD Unavailable [phone] Encounter Details Date Type Department Care Team (Late st Contact Info) Description 10/30/2022 Procedure Pass [facility] [place] [facility] DEPT [address] [place] [address] Social History Tobacco Use Types Packs/Day Years [...] on filedocumented in this encounter Care Teams Statistician Applied Relationship Specialty Start Date End Date Connie Cummings MD [address] [place] [address] PCP - General Internal Medicine 03/30/22 Raul Herrera MD [address] [address] Cardiology 10/24/22 documented as of this encounter Additional Source Comments The information contained in this document represents components of the legal health record. It is not the complete legal health record.[facility]
--- OUTSIDE RECORDS SUMMARY | 2024-10-08 13:14 | XMS_ITS | Patient Health Record ---
[facility] Address [address] [place] [address] Care Team Providers Care Crusher Machine Operator Name Role Phone Honey NUNN, Connie Primary Care Provider Unavail able Johnathan Saleh Unavailable [phone] Allergies Allergen (clinical drug ingredient) Drug/Non Drug [...] Problem Acquired hammer toe of right foot (665379212971 9105) Other hammer toe(s) (acquired), right foot (M20.41) Active confirmed Problem Acquired hammer toe of left foot ([id number] 9103) Other hammer toe(s) (acquired), left foot [...] Ordered Date Performed Result Body Sit e 05606-WUWGFOJ NAIL, 1-5 01/02/2024 N/A 56485-OHAV SKIN LESIONS, 2 TO 4 01/02/2024 N/A U8887-ZJUMFMFO DYSTROPHIC NAILS ANY # 01/02/2024 N/A 66831-ZDTHTDZ NAIL, 1-5 07/09/2024 N/A 29234-OKTW SKIN LESIONS, OVER 4 07/09/2024 N/A V1720-KVNJJEKJ DYSTROPHIC NAILS ANY # 07/09/2024 N/A Encounters Encounter Location Date Provider Diagnosis [address] [address] 01/02/2024 Johnathan Saleh Type 2 diabetes mellitus with diabetic peripheral angiopathy without gangrene E11.51 ; Tinea unguium B35.1 ; Pain in right toe(s) M79.674 ; Pain in left toe(s) M79.675 and Xerosis of skin L85.[address] [address] 07/09/2024 Johnathan Saleh Type 2 diabetes mellitus with diabetic peripheral angiopathy without gangrene E11.51 ; Tinea unguium B35.1 ; Pain in right toe(s) M79.674 ; Pain in left toe(s) M79.675 ; Other hammer toe(s) (acquired), right foot M20.41 and Other hammer toe(s) (acquired), left foot M20.[address] [address] 04/02/2024 Johnathan Saleh Assessments Encounter Date Diagnosis [...] Treatment Pending Test Test Name Order Date 88803-RLQVNNQ NAIL, 1-5 10/03/2023 57212-QIYLXFM NAIL, 1-5 01/02/2024 63936-OMHUYJM NAIL, 1-5 07/09/2024 11222-YCLM SKIN LESIONS, OVER 4 07/10/19 25 30122-PKHG SKIN LESIONS, 2 TO 4 10/03/19 24 74048-KEXU SKIN LESIONS, 2 TO 4 01/02/20 24 Q5510-FGSYMRGG DYSTROPHIC NAILS ANY # V3913-CVUJURVC DYSTROPHIC NAILS ANY # M7055-KZIWKMOY DYSTROPHIC NAILS ANY # Next Appt Details Provider Name:Johnathan Saleh , 10/15/2024 09:15:00 AM, [address] [facility], [place], [address], Insurance Providers Payer Name Payer Address Payer Phone Subscriber Number Group Number Insured Name Patient Relationship to Insured Coverage Start Date Coverage End Date [employer] Medicare [id number] [address] [address] [place] [address] [id number] Nasir Ward Self - patient is the insured Medical (General) History Medical History History ICD Code Diabetic Hypertension Replacement Heart Valves Glaucoma COPD Surgical History Surgery Date(Month/Year) Heart Valve
--- OUTSIDE RECORDS SUMMARY | 2024-10-08 13:15 | XMS_ITS | Clinical Summary ---
Author Organization [facility] Address [address] [place] [address] Phone Care Team Providers Care Chairman & Chief Executive Officer Name Role Phone Connie Cummings MD Primary Care Provid er Raul Herrera MD Unavailable [phone] Allergies No known active allergies Medications acetaZOLAMIDE [...] eye and 20/125 left eye Managed in [place], referred to [facility] for second opinion given [...] eye and 20/125 left eye Managed in [place], referred to [facility] for second opinion given [...] eye and 20/125 left eye Managed in [place], referred to [facility] for second opinion given [...] this topic Medical Devices Implanted Type Area Director Of Guidance In [employer] Device Identifier Shelf Expiration Date Model / Serial / Lot Coronary Stent Iol Insurance MEDICARE REPLACEMENT Member Subscriber Plan / Payer (Ef fective 2022-Present) Name:Nasir Olvera Relation to Subscriber:Self Name:Nasir Olvera Payer ID:[id number] (NAIC) Type:Medicare Address: [place] [id number] MEDICARE REPLACEMENT [place] [id number] MEDICARE REPLACEMENT MEDICARE REPLACEMENT [place] [id number] [facility] MEDICARE REPLACEMENT Care Teams Chairman & Chief Executive Officer Relationship Specialty Start Date End Date Connie Cummings MD [address] [place] [address] PCP - General Internal Medicine 03/30/22 Raul Herrera MD [address] [address] Cardiology 10/24/22 Additional Source Comments The information contained in this document represents components of the legal health record. It is not the complete legal health record.[facility]
== END 2024-10-08 12:47 | disposition home or self-care (01) ==
LOC: HO.CT 12:46
PROVIDERS: PCP Internal Medicine; Visit Provider Internal Medicine Pulmonary Disease
DX: R91.8 Other nonspecific abnormal finding of lung field (principal)
CPT/HCPCS: 71250

== ENCOUNTER → 2024-10-08 12:48 | Outpatient (BNV) | payer MEDICARE, MEDICAID, SELFPAY | PROVIDERS: PCP Internal Medicine; Visit Provider Radiology Diagnostic Radiology | DX: R91.8 Other nonspecific abnormal finding of lung field (principal) | CPT/HCPCS: 71250 ==

== ENCOUNTER 2024-11-12 06:51 | Outpatient (REF) | payer MEDICARE, SELFPAY ==
--- OUTSIDE RECORDS SUMMARY | 2024-04-02 08:45 | XMS_ITS ---
Author Organization [facility] Address [address] [facility] [place] [address] Care Team Providers Care Supply Controller Name Role Phone Honey NUNN, Connie Primary Care Provider Unavail able Johnathan Saleh Unavailable [phone] Allergies Allergen (clinical drug ingredient) Drug/Non Drug [...] Active Encounters Encounter Location Date Provider Diagnosis [facility] [address] [address] 04/02/2024 Johnathan Saleh Plan Of Treatment Next Appt Details Provider Name:Johnathan Saleh , 02/18/2025 09:15:00 AM, [address] [place] [address], [phone], Progress Notes * Marshall THOMPSONOB:[birth year] (79 yo M)Acc No.[id number]:04/02/2024 Progress Note Patient: Nasir LINDER Provider: Silke Saleh DPM :1945 A ge:78 Y S ex:Male Date:04/02/2024 Address:[address] [place], [place] [address] Pcp:Connie Méndez MD Subjective: * Chief Complaints: [...] 04/02/2024 Generated for Terrence ortez/Gilda/Alejandro on: 1 06:54 AM EDT
--- OUTSIDE RECORDS SUMMARY | 2024-11-12 06:54 | XMS_ITS | Encounter Summary ---
Author Organization [facility] Address [address] [facility] [address] [place] [address] Phone Care Team Providers Care Special Education Preschool Teacher Name Role Phone Connie Cummings MD Primary Care Provid er Raul Herrera MD Unavailable [phone] Encounter Details Date Type Department Care Team (Late st Contact Info) Description 10/30/2022 Procedure Pass [facility] [place] [facility] DEPT [address] [place] [address] Social History Tobacco Use Types Packs/Day Years [...] on filedocumented in this encounter Care Teams Special Education Preschool Teacher Relationship Specialty Start Date End Date Connie Cummings MD [address] [place] [address] PCP - General Internal Medicine 03/30/22 Raul Herrera MD [address] [address] Cardiology 10/24/22 documented as of this encounter Additional Source Comments The information contained in this document represents components of the legal health record. It is not the complete legal health record.[facility]
--- OUTSIDE RECORDS SUMMARY | 2024-11-12 06:54 | XMS_ITS | Encounter Summary ---
Author Organization [facility] Address [address] [facility] [address] [place] [address] Phone Care Team Providers Care Home Attendant Name Role Phone Connie Cummings MD Primary Care Provid er Raul Herrera MD Unavailable [phone] Encounter Details Date Type Department Care Team (Late st Contact Info) Description 03/30/2022 Ophth Exam [facility] Emergency Department [address] [place] [address] Tami Chapin MD [address] [place] [address] [email or web address] Social History Tobacco Use Types Packs/Day [...] 03/30/2022 10:25 AM Deepak June RN * [place] Suicide Severity Rating Scale (Screener/Recent Self-Report) Question [...] on filedocumented in this encounter Care Teams Home Attendant Relationship Specialty Start Date End Date Connie Cummings MD [address] [place] [address] PCP - General Internal Medicine 03/30/22 Raul Herrera MD [address] [address] Cardiology 10/24/22 documented as of this encounter Additional Source Comments The information contained in this document represents components of the legal health record. It is not the complete legal health record.[facility]
--- OUTSIDE RECORDS SUMMARY | 2024-11-12 06:54 | XMS_ITS | Patient Health Record ---
Author Organization [facility] Address [address] [facility] [place] [address] Care Team Providers Care Manpower Development Advisor Name Role Phone Honey NUNN, Connie Primary Care Provider Unavail able Johnathan Saleh Unavailable [phone] Allergies Allergen (clinical drug ingredient) Drug/Non Drug [...] Duration) Notes Start Date End Date Status Vitamin D Active Atorvastatin Calcium 40 MG 1 tablet Oral ly Once a day; Duration: 30 day(s) Active Lisinopril 20 MG 1 tablet Orally Once a day; Duration: 30 day(s) Active Finasteride 5 MG 1 tablet Orally Once a day; Duration: 30 day(s) Active dilTIAZem HCl ER 180 MG 1 tablet Orally Once a day; Duration: 30 day(s) Active Metoprolol Succinate Active Trelegy Ellipta 200-62.5-25 MCG/ACT 1 puff Inhalation Once a day Active ProAir HFA Active metFORMIN HCl 500 MG 1 tablet with a robbie l Orally Once a day; Duration: 30 day(s) Active acetaZOLAMIDE ER 500 MG 1 capsule Orally Twice a day; Duration: 30 day(s) Active Aspirin 81 MG 1 tablet Orally Once a day; Duration: 30 day(s) Active Terazosin HCl 5 MG 1 capsule at bedtime Orally Once a day; Duration: 30 day(s) Active Rhopressa 0.02 % 1 drop into affected eye in the evening Ophthalmic Once a day Active prednisoLONE Acetate 1 % 1 drop into aff ected eye Ophthalmic Twice a day Active Ammonium Lactate 12 % 1 application Exte rnally to affected areas of dry skin to feet except for between the toes Twice a day; Duration: 30 days Active Prolensa 0.07 % 1 drop into affected eye Ophthalmic Once a day Active Simbrinza 1-0.2 % 1 drop into affected eye Ophthalmic Three times a day Active Extra Depth Orthopedic Shoes, (1) Pair With (3) Pair Custom Heat Molded Multidensity Innersoles Dx: NIDDM/PVD(E11.51), Hammertoe Foot Deformity(M20.41,M20.42), Preulcerative Skin Lesion(s)(L85.1) Wear Daily; Duration: 365 days Active Immunizations Vaccine Route Administration Date Status Comme nts Influenza Unknown 10/11/2022 Administered Influenza Unknown 11/12/2023 Administered Social History Tobacco Use: Social History [...] Problem Acquired hammer toe of right foot (8402252465809 105) Other hammer toe(s) (acquired), right foot (M20.41) Active confirmed Problem Acquired hammer toe of left foot (5453696932584 103) Other hammer toe(s) (acquired), left foot (M20.42) Active confirmed Problem Type 2 diabetes mellitus with peripheral angiopathy (687768589) Type 2 diabetes mellitus with diabetic peripheral angiopathy without gangrene (E11.51) Active confirmed Q7(A), Q8(2B), Q9(1B,2C) Vital Signs Blood pressure diastolic 60 mm Hg 10/15/2024 Height 5 ft 8 in in 10/15/2024 Blood pressure systolic 128 mm Hg 10/15/2024 Weight 184 lbs 10/15/2024 BMI 27.97 kg/m2 10/15/2024 Procedures Procedure Date Ordered Date Performed Result Body Sit e 79627-BUHDMLR NAIL, 1-5 01/02/2024 N/A 63962-GNVJ SKIN LESIONS, 2 TO 4 01/02/2024 N/A O3983-SVZNYMMK DYSTROPHIC NAILS ANY # 01/02/2024 N/A 56268-CPNJYRZ NAIL, 1-5 07/09/2024 N/A 88452-JYLZ SKIN LESIONS, OVER 4 07/09/2024 N/A E4811-WGPFRZTG DYSTROPHIC NAILS ANY # 07/09/2024 N/A 54671-YCRPOUT NAIL, 1-5 10/15/2024 N/A 66855-VWTR SKIN LESIONS, OVER 4 10/15/2024 N/A K8029-YLWDVMNI DYSTROPHIC NAILS ANY # 10/15/2024 N/A Encounters Encounter Location Date Provider Diagnosis [address] [address] 01/02/2024 Johnathan Saleh Type 2 diabetes mellitus with diabetic peripheral angiopathy without gangrene E11.51 ; Tinea unguium B35.1 ; Pain in right toe(s) M79.674 ; Pain in left toe(s) M79.675 and Xerosis of skin L85.[address] [address] 07/09/2024 Johnathan Saleh Type 2 diabetes mellitus with diabetic peripheral angiopathy without gangrene E11.51 ; Tinea unguium B35.1 ; Pain in right toe(s) M79.674 ; Pain in left toe(s) M79.675 ; Other hammer toe(s) (acquired), right foot M20.41 and Other hammer toe(s) (acquired), left foot M20.[address] [address] 10/15/2024 Johnathan Saleh Type 2 diabetes mellitus with diabetic peripheral angiopathy without gangrene E11.51 ; Tinea unguium B35.1 ; Pain in right toe(s) M79.674 ; Pain in left toe(s) M79.675 and Xerosis of skin L85.[address] [facility] [address] [address] 04/02/2024 Jonhathan Saleh Assessments Encounter Date Diagnosis (ICD Code) Assessment Notes Treatment Notes Treatment Clinical Notes Section Notes 01/02/2024 Tinea unguium (ICD-10 - B35.1) 01/02/2024 Type 2 diabetes mellitus with diabetic peripheral angiopathy without gangrene (ICD-10 - E11.51) Q7(A), Q8(2B), Q9(1B,2C) 07/09/2024 Tinea unguium (ICD-10 - B35.1) 07/09/2024 Type 2 diabetes mellitus with diabetic peripheral angiopathy without gangrene (ICD-10 - E11.51) 10/15/2024 Tinea unguium (ICD-10 - B35.1) 10/15/2024 Type 2 diabetes mellitus with diabetic peripheral angiopathy without gangrene (ICD-10 - E11.51) 07/09/2024 Pain in right toe(s) (ICD-10 - M79.674) 10/15/2024 Pain in right toe(s) (ICD-10 - M79.674) 01/02/2024 Pain in right toe(s) (ICD-10 - M79.674) 01/02/2024 Pain in left toe(s) (ICD-10 - M79.675) 10/15/2024 Pain in left toe(s) (ICD-10 - M79.675) 07/09/2024 Pain in left toe(s) (ICD-10 - M79.675) 01/02/2024 Xerosis of skin (ICD-10 - L85.3) 07/09/2024 Other hammer toe(s) (acquired), right foot (ICD-10 - M20.41) Patient Educated with: DIABETIC FOOT CARE INSTRUCTIONS.p df (DIABETIC FOOT CARE INSTRUCTIONS.p df) 07/09/2024 Other hammer toe(s) (acquired), left foot (ICD-10 - M20.42) 10/15/2024 Xerosis of skin (ICD-10 - L85.3) Plan Of Treatment Pending Test Test Name Order Date 63327-LWJBZXZ NAIL, 1-10/03/2023 15903-TZTCBAP NAIL, 1-01/02/2024 85646-DKDOGFD NAIL, 1-07/09/2024 56203-PZFQLPR NAIL, 1-5 10/15/2024 40341-IHVN SKIN LESIONS, OVER 4 10/16/19 25 98251-LZRU SKIN LESIONS, OVER 4 07/10/19 25 84332-QGUK SKIN LESIONS, 2 TO 4 10/03/19 24 27677-ISEN SKIN LESIONS, 2 TO 4 01/02/20 24 D3598-URFOYMPQ DYSTROPHIC NAILS ANY # K8906-YJRDEAPK DYSTROPHIC NAILS ANY # D2194-XHOQIFPH DYSTROPHIC NAILS ANY # C1336-VFKZURLG DYSTROPHIC NAILS ANY # Next Appt Details Provider Name:Johnathan Saleh , 02/18/2025 09:15:00 AM, [address] [place] [address], [phone], Insurance Providers Payer Name Payer Address Payer Phone Subscriber Number Group Number Insured Name Patient Relationship to Insured Coverage Start Date Coverage End Date [employer] Medicare [id number] [address] [address] [place] [address] [id number] Nasir Ward Self - patient is the insured Medical (General) History Medical History History ICD Code Diabetic Hypertension Replacement Heart Valves Glaucoma COPD Surgical History Surgery Date(Month/Year) Heart Valve
--- OUTSIDE RECORDS SUMMARY | 2024-11-12 06:54 | XMS_ITS | Clinical Summary ---
Author Organization [facility] Address [address] [place] [id number] Phone Care Team Providers Care Rip Saw Operator Name Role Phone Connie Cummings MD Primary Care Provid er Raul Herrera MD Unavailable [phone] Allergies No known active allergies Medications acetaZOLAMIDE [...] eye and 20/125 left eye Managed in [place], referred to [facility] for second opinion given [...] eye and 20/125 left eye Managed in [place], referred to [facility] for second opinion given [...] eye and 20/125 left eye Managed in [place], referred to [facility] for second opinion given [...] VACCINE (1 - 1-dose 75+ series) 08/30/2019 INFLUENZA VACCINE (#1) 2024 2, 11/26/2018, 03/26/2018, Additional history exists COVID-19 VACCINE (2024- season) 2024 12/29/2020, 04/20/2020, 03/24/2020 Adult Td,Tdap Booster 11/26/2028 11/26/2018 SMOKING STATUS SCREENING (Once After 26 Yrs) Completed 10/30/2022 HEPATITIS A [...] this topic Medical Devices Implanted Type Area Denial Resolution Specialist Device Identifier Shelf Expiration Date Model / Serial / Lot Coronary Stent Iol [place] [address] [place] [address] MEDICARE REPLACEMENT [facility] MEDICARE REPLACEMENT MEDICARE REPLACEMENT MEDICARE REPLACEMENT MEDICARE REPLACEMENT [facility] MEDICARE REPLACEMENT Care Teams Rip Saw Operator Relationship Specialty Start Date End Date Connie Cummings MD [address] [place] [address] PCP - General Internal Medicine 03/30/22 Raul Herrera MD [address] [address] Cardiology 10/24/22 Additional Source Comments The information contained in this document represents components of the legal health record. It is not the complete legal health record.[facility]
[2024-11-12 08:01] LABS: Anion Gap 12 (12-20); Blood Urea Nitrogen 15 mg/dL (9-16); Carbon Dioxide 29 mmol/L (22-29); Chloride 106 mmol/L (96-108); Estimated Glomerular Filt Rate > 60; Potassium 4.0 mmol/L (3.3-5.1); Sodium 143 mmol/L (135-145)
[2024-11-12 09:14] LABS: Protein/Creatinine Ratio, Ur 0.47 (<0.2); Total Protein Urine Random 139 mg/dL (<12)
== END 2024-11-12 06:52 | disposition home or self-care (01) ==
LOC: HO.LAB 06:51
PROVIDERS: PCP Internal Medicine; Visit Provider Internal Medicine Nephrology
DX: I10 Essential (primary) hypertension (principal); R80.8 Other proteinuria; N20.0 Calculus of kidney
CPT/HCPCS: 36415; 80051; 82565; 82570; 84156; 84520; 99212

== ENCOUNTER 2024-11-12 13:46 | Outpatient (AMB) | payer MEDICARE, MEDICAID, SELFPAY ==
--- NOTE | 2024-11-11 10:05 | HO.NEPHOV_ITS ---
Intake Visit Reasons: Essential hypertension-LVM Allergies levofloxacin (From LEVAQUIN) Allergy (Intermediate, Verified 10/07/24 14:21) HIVES Iodinated Contrast Media (IV CONTRAST) Adverse Reaction (Intermediate, Verified 10/07/24 14:21) HIVES [facility] Medical History Kidney stone Sepsis Acute kidney failure History of TIA (transient ischemic attack) History of DVT (deep vein thrombosis) Grade II diastolic dysfunction Essential hypertension Dyslipidemia Diabetes mellitus COPD (chronic obstructive pulmonary disease) Gross hematuria Microalbuminuria BPH (benign prostatic hyperplasia) Chronic UTI (urinary tract infection) Chronic back pain Glaucoma Surgical History Status post mitral valve repair (~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 Son No problems noted. Daughter No problems noted. Daughter No problems noted. Daughter No problems noted. 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
--- NOTE | 2024-11-12 13:50 | HO.NEPHOV ---
Vital Signs 11/12/24 13:53 Height 5 ft 8 in Weight 198 lb BMI 30.1 BP 130/70 Blood Pressure Location Rt brachial Position Sitting Pulse 118 H Pulse Source Pulse Oximeter Pulse Oximetry (%) 96 Oxygen Delivery Method Room Air Intake Visit Reasons: Essential hypertension-LVM Edger Technician Required: Yes Edger Technician Language: Giver Services: Edger Technician Present Edger Technician Name: Mary [id number] Information Interpreted: clinical only Accompanied by: Significant Other Allergies levofloxacin (From LEVAQUIN) Allergy (Intermediate, Verified 11/12/24 13:53) HIVES Iodinated Contrast Media (IV CONTRAST) Adverse Reaction (Intermediate, Verified 11/12/24 13:53) HIVES HPI Comments Details: Nasir is a 78-year-old male whom I had the pleasure of seeing in follow up for proteinuria. He recently had a creatinine level was elevated at 2.38 mg/dL which had settled down to baseline. He had a urinary tract infection @ that time. CT scan of the abdomen and pelvis revealed a 0.6 cm calculus in the right ureter causing hydronephrosis, along with a smaller 0.2 cm calculus in the right kidney. He was treated with IV fluids and ceftriaxone, and cessation of lisinopril due to low blood pressure & DELISA. 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 He has type 2 diabetes treated with metformin, and hyperlipidemia managed with atorvastatin. He has been having proteinuria for some time, most recent UPCR 0.47. He denies hypercalcemia, excess NSAID use, new bone or back pain or any new systemic complaints. He also has H/O vascular disease including TIA. [facility] Medical History Kidney stone Sepsis Acute kidney failure History of TIA (transient ischemic attack) History of DVT (deep vein thrombosis) Grade II diastolic dysfunction Essential hypertension Dyslipidemia Diabetes mellitus COPD (chronic obstructive pulmonary disease) Gross hematuria Microalbuminuria BPH (benign prostatic hyperplasia) Chronic UTI (urinary tract infection) Chronic back pain Glaucoma Surgical History Status post mitral valve repair (~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 Son No problems noted. Daughter No problems noted. Daughter No problems noted. Daughter No problems noted. Social History Household Members: Significant Other Housing: House Are you a primary campground caretaker to a significant other at home: No Do you presently have visiting nurse or other home services: No Alcohol intake: current Alcohol intake frequency: a few times a month Alcohol type: beer and wine Comment: RN Patient Tobacco Use Status: Former Tobacco user Years Smoked: 10 e-Cigarette/Vaping Use: Never Used Second Hand Smoke Exposure: No service: No Current occupational status: retired Cognitive needs: No Hearing needs: No Vision needs: Yes Review of Systems Const All systems reviewed & are unremarkable except as noted in HPI and below Physical Exam Vital Signs: Last Vital Signs Pulse 118 H 11/12/24 13:53 BP 130/70 11/12/24 13:53 Pulse Ox 96 11/12/24 13:53 Oxygen Delivery Method Room Air 11/12/24 13:53 BMI result Body Mass Index 30.1 Const General: comfortable and no acute distress Orientation/consciousness: patient oriented x3 HEENT Head: Yes normocephalic Mouth: Normal oral and palatal mucosa present Eyes EOM: EOMs intact bilaterally Neck Neck: Yes supple Resp Auscultation: clear to auscultation bilaterally Cardio Jugular venous distension: no JVD Rate: regular rate Heart sounds: Murmur heart sound present GI Palpation (GI): Soft to palpation Auscultation: normal bowel sounds General: Yes no CVA tenderness Back/Spine/Pelvis Back: no CVA tenderness Skin General skin exam: no rashes or lesions noted Neuro General: patient oriented x3 and moves all extremities Extrem General: Yes no pedal edema Results Reviewed Nephrology Results: Sodium, (135-145) 143 mmol/L Today Potassium, (3.3-5.1) 4.0 mmol/L Today Chloride, (96-108) 106 mmol/L Today Carbon Dioxide, (22-29) 29 mmol/L Today BUN, (9-16) 15 mg/dL Today Creatinine, (0.5-1.4) 0.96 mg/dL Today Urine Creatinine 294.39 mg/dL Today Protein/Creatinin Ratio, (<0.2) 0.47 H Today Assessment & Plan Assessment & Plan (1) Kidney stone: Code(s): N20.0 - Calculus of kidney Category: Medical (2) Essential hypertension: Code(s): I10 - Essential (primary) hypertension Category: Medical (3) Proteinuria: Code(s): R80.9 - Proteinuria, unspecified Category: Medical Qualifiers: Proteinuria type: other Qualified Code(s): R80.8 - Other proteinuria Plan Nasir has vascular disease as well as diabetes. 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 He had DELISA recently which has resolved. He is on Diltiazem and ACEI. I will start him on Jardiance 10 mg daily at next visit. Will increase lisinopril from 20mg PO daily to 30mg PO daily. He follows up with Urology for renal calculus. All these have been explained to him in detail. Further management is pending evolving data. Orders: Orders Basic Metabolic Panel 6 Weeks I10 - Essential (primary) hypertension, N18.30 - Chronic kidney disease, stage 3 unspecified Basic Metabolic Panel 4 Months I10 - Essential (primary) hypertension, N18.30 - Chronic kidney disease, stage 3 unspecified, R80.8 - Other proteinuria Protein Creatinine Ratio, Ur 4 Months I10 - Essential (primary) hypertension, R80.8 - Other proteinuria Medications: Changed From lisinopril 20 mg PO DAILY 90 days 90 tabs 3RF I10 - Essential (primary) hypertension, R80.8 - Other proteinuria To lisinopril 30 mg (1.5 x 20 mg) PO DAILY 135 tabs 1RF 90 days I10 - Essential (primary) hypertension, R80.8 - Other proteinuria Coding Level of Care Code Est Pt Level 4 (18577) Diagnoses Kidney stone N20.0 Essential hypertension I10 Other proteinuria R80.8 Proteinuria type: other
[2024-11-12 13:53] VITALS: BP 130/70; PULSE 118; O2SAT 96; BMI 30.1
== END 2024-11-12 14:19 | disposition home or self-care (01) ==
PROVIDERS: PCP Internal Medicine; Visit Provider Internal Medicine Nephrology
DX: N20.0 Calculus of kidney (principal); I10 Essential (primary) hypertension; R80.8 Other proteinuria
CPT/HCPCS: 99214

== ENCOUNTER 2024-11-19 10:08 | Outpatient (AMB) | payer MEDICARE, MEDICAID, SELFPAY ==
--- NOTE | 2024-11-19 10:18 | MHC.PC.OV ---
Vital Signs 11/19/24 10:19 Height 5 ft 8 in Weight 195 lb 2 oz BMI 29.7 Blood Pressure Location Lt brachial Position Sitting Pulse Source Pulse Oximeter Temp Source Temporal Artery Scan Oxygen Delivery Method Room Air Intake Visit Reasons: Annual Exam - see comments Intake Note: Patient is here today for a physical. Visual Arts Teacher Required: Yes Visual Arts Teacher Language: Indonesian Information Interpreted: non-clinical & clinical It Applications Developer: Not Required per policy Accompanied by: Self / Same As Patient Allergies levofloxacin (From LEVAQUIN) Allergy (Intermediate, Verified 11/19/24 10:19) HIVES Iodinated Contrast Media (IV CONTRAST) Adverse Reaction (Intermediate, Verified 11/19/24 10:19) HIVES Tobacco use date assessed: 11/19/24 Fall risk assessment: No Falls in past year Last assessed Fall Risk: 11/19/24 Dental Screening Dental Screen Date: 11/19/24 Did you have a dental visit in the last 12 months?: Yes Did you have a dental problem in the last 6 months where you did not have access to dental care?: No Was dental information given to patient?: Patient has dentist [facility] Medical History Kidney stone Sepsis Acute kidney failure History of TIA (transient ischemic attack) History of DVT (deep vein thrombosis) Grade II diastolic dysfunction Essential hypertension Dyslipidemia Diabetes mellitus COPD (chronic obstructive pulmonary disease) Gross hematuria Microalbuminuria BPH (benign prostatic hyperplasia) Chronic UTI (urinary tract infection) Chronic back pain Glaucoma Surgical History Status post mitral valve repair (~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 Son No problems noted. Daughter No problems noted. Daughter No problems noted. Daughter No problems noted. Social History Household Members: Significant Other Housing: House Are you a primary healthcare marketer to a significant other at home: No Do you presently have visiting nurse or other home services: No Alcohol intake: current Alcohol intake frequency: a few times a month Alcohol type: beer and wine Comment: RN Patient Tobacco Use Status: Former Tobacco user Years Smoked: 10 e-Cigarette/Vaping Use: Never Used Second Hand Smoke Exposure: No service: No Current occupational status: retired Cognitive needs: No Hearing needs: No Vision needs: Yes Questionnaire Thrive Questionnaire Date Thrive assessed: 07/24/24 ANNIE-7 AMB Questionnaire ANNIE-7 Date ANNIE - 7 assessed: 04/08/24 Source: Developed by Drs. Jonathan Escobar, Lianet Michaels, Ford López and colleagues, with an educational harrison from [employer]. Physical exam (Primary Care) Tobacco/Smoking Status: Tobacco use Status Tobacco use date assessed 04/08/24 08/11/24 12:45 Patient Tobacco Use Status Former Tobacco user 08/11/24 12:45 Tobacco use type 06/19/22 14:04 e-Cigarette/Vaping Use Never Used 08/11/24 12:45 Thrive Assessment: Date of Thrive Assessment Date Thrive assessed 07/24/24 08/11/24 12:45 Coding
[2024-11-19 10:19] VITALS: BP 138/60; PULSE 67; TEMP 36.1; O2SAT 93; BMI 29.7
--- NOTE | 2024-11-19 10:24 | AM.OFFVISMDC ---
Intake Vital Signs 11/19/24 10:19 Height 5 ft 8 in Weight 195 lb 2 oz BMI 29.7 BP 138/60 Blood Pressure Location Lt brachial Position Sitting Pulse 67 Pulse Source Pulse Oximeter Temp 97 F Temp Source Temporal Artery Scan Pulse Oximetry (%) 93 Oxygen Delivery Method Room Air Intake Visit Reasons: Annual Exam - see comments Intake Note: Patient is here for an Annual Wellness Visit. Precision Filer Hand Required: Yes Precision Filer Hand Language: Ballpoint Pens Assembler Services: Precision Filer Hand Offered & Declined Dairy Equipment Repairer: Dairy Equipment Repairer Present Accompanied by: Spouse Allergies levofloxacin (From LEVAQUIN) Allergy (Intermediate, Verified 11/19/24 10:54) HIVES Iodinated Contrast Media (IV CONTRAST) Adverse Reaction (Intermediate, Verified 11/19/24 10:54) HIVES Medication List - Last Reconciled 11/19/24 by Connie Robertson MD albuterol sulfate 90 mcg/actuation 2 puffs inhalation Q6H PRN 30 days aspirin 81 mg PO DAILY 90 days atorvastatin 40 mg PO DAILY 90 days cholecalciferol (vitamin D3) (Vitamin D3) 50 mcg PO DAILY diltiazem HCl CD 180 mg PO DAILY 90 days finasteride 5 mg PO DAILY 90 days cswgdapkxyp-awrnqtrmz-hykzbuzc 200-62.5-25 mcg (Trelegy Ellipta) 1 ea inhalation DAILY lancets (OneTouch Delica Lancets) 1 Lancet to be use twice a day latanoprost 0.005% 1 drp ophthalmic (eye) BEDTIME lisinopril 30 mg (1.5 x 20 mg) PO DAILY 90 days metformin ER 2,000 mg (4 x 500 mg) PO BEDTIME metoprolol succinate ER (Toprol XL) 25 mg PO DAILY terazosin 5 mg PO DAILY HPI HPI Comments History of Present Illness Details The patient is an 79-year-old male presenting for a Medicare wellness exam and management of chronic conditions. The patient has a history of diabetes mellitus, which is well-controlled with an A1c of 5.5, indicating good glycemic control. He also has hypertension, which is currently well-managed. The patient has been diagnosed with glaucoma affecting both eyes and is currently receiving treatment to manage intraocular pressure. He has a history of cataract surgery and continues to follow up with ophthalmology for ongoing care. The patient has a significant cardiac history, including mitral valve repair and aortic valve replacement performed in 2014. He also has a bioprosthetic valve and underwent patent foramen ovale closure. The patient has a history of Chronic Obstructive Pulmonary Disease (COPD) and is under regular management for this condition. Preventative care measures discussed include pneumococcal and influenza vaccinations, which are recommended as part of his health maintenance. [facility] Medical History (Updated 11/20/24 @ 10:40 by Connie Robertson MD) Kidney stone Sepsis Acute kidney failure History of TIA (transient ischemic attack) History of DVT (deep vein thrombosis) Grade II diastolic dysfunction Essential hypertension Dyslipidemia Diabetes mellitus COPD (chronic obstructive pulmonary disease) Gross hematuria Microalbuminuria BPH (benign prostatic hyperplasia) Chronic UTI (urinary tract infection) Chronic back pain Glaucoma Surgical History Status post mitral valve repair (~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 Son No problems noted. Daughter No problems noted. Daughter No problems noted. Daughter No problems noted. Social History Household Members: Significant Other Housing: House Are you a primary care administrative tech to a significant other at home: No Do you presently have visiting nurse or other home services: No Alcohol intake: current Alcohol intake frequency: a few times a month Alcohol type: beer and wine Comment: RN Patient Tobacco Use Status: Former Tobacco user Years Smoked: 10 e-Cigarette/Vaping Use: Never Used Second Hand Smoke Exposure: No service: No Current occupational status: retired Cognitive needs: No Hearing needs: No Vision needs: Yes Questionnaire Medicare Wellness Checkup What is your age?: 79 or older What gender do you identify with?: male During the past 4 weeks, how much have you been bothered by emotional problems such as feeling anxious, depressed, irritable, sad or downhearted, and blue?: extremely During the past 4 weeks, has your physical & emotional health limited your social activities with family, friends, neighbors, or groups?: extremely During the past 4 weeks, how much bodily pain have you generally had?: moderate pain During the past 4 weeks, was someone available to help you if you needed & wanted help?: yes, some During the past 4 weeks, what was the hardest physical activity you could do for at least 2 minutes?: moderate Can you get to places out of walking distance without help? (For eg., can you travel alone on buses, taxis or drive your car?): No Can you go shopping for groceries or clothes without someone's help?: No Can you prepare your own meals?: No Can you do your housework without help?: No Because of any health problems, do you need the help of another person with your personal care needs such as eating, bathing, dressing or getting around the house?: No Can you handle your own money without help?: Yes During the past 4 weeks, how would you rate your health in general?: fair During the past 4 weeks how have things been going for you?: good & bad parts about equal Are you having difficulties driving your car?: not applicable, I don't use a car Do you always fasten your seat belt when you are in a car?: yes, usually During past 4 weeks, have you been bothered by the following: never: Falling or dizzy when standing up, Sexual problems?, Trouble eating well? and Teeth or denture problems?, sometimes: Tiredness or fatigue? and always: Problems using the telephone? Have you fallen 2 or more times in the past year?: No Are you afraid of falling?: Yes Are you a smoker?: no During the past 4 weeks, how many drinks of wine, beer, or other alcoholic beverages did you have?: 1 drink or less per week Do you exercise for about 20 minutes 3 or more times a week?: no, I usually do not exercise this much Have you been given information to help with the following?: no: Hazards in your house that might hurt you? and no: Keeping track of your medications? How often do you have trouble taking medicines the way you have been told to take them?: I do not have to take medicine How confident are you that you can control & manage most of your health problems?: somewhat confident What is your race?: or origin or descent Mini Mental State Exam (MMSE) Orientation What is the (year) (season) (date) (day) (month)?: year, season, date, day and month Where are we (state) (county) (town or city) (hospital) (floor)?: state, county, town or city, hospital/clinic and floor Registration Name of 3 unrelated objects clearly and slowly, then ask patient to repeat all 3 of them. (1st repeat determines score. Make sure they can repeat all three): object 1, object 2 and object 3 Attention & Calculation (CHOOSE ONE) Spell WORLD backwards (DLROW): 5 letters Recall Ask patient to repeat the 3 items from question #3.: object 1, object 2 and object 3 Language Show patient a wristwatch & ask what it is. Repeat for pencil.: watch and pencil Ask the patient to repeat the phrase 'No ifs, ands, or buts' after you.: correct Ask the patient to 'take a piece of paper with their right hand' 'fold paper in half' 'place paper on floor': take paper in right hand, fold paper in half and place paper on floor Score Score: 27 Activity of Daily Living Bathing - sponge bath, tub bath or shower: receives no assistance (gets in/out by self, if usual bathing means Dressing - getting clothes from closets & drawers, including inner/outer garments & fasteners.: gets clothes & gets completely dressed without help Toileting - going to the 'toilet room' for urine/bowel elimination & cleaning self/arranging clothes: goes to toilet room, cleans self, arranges clothes without help Transfer: moves in & out of bed and chair without help (may use support object) Continence: has occasional 'accidents' Feeding: feeds self without help Total Score: 0 Information obtained from: patient Using telephone: dependent Traveling: dependent Shopping: dependent Preparing meals: dependent Housework: dependent Taking medicine: needs assistance Managing money: independent PHQ-9 Over the last 2 weeks, how often have you been bothered by any of the following problems? 1. Little interest or pleasure in doing things: more than half the days 2. Feeling down, depressed, or hopeless: more than half the days 3. Trouble falling or staying asleep, or sleeping too much: several days 4. Feeling tired or having little energy: several days 5. Poor appetite or overeating: not at all 6. Feeling bad about yourself - or that you are a failure or have let yourself or your family down: not at all 7. Trouble concentrating on things, such as reading the newspaper or watching television: not at all 8. Moving or speaking so slowly that other people could have noticed. Or the opposite - being so fidgety or restless that you have been moving around a lot more than usual: not at all 9. Thoughts that you would be better off or of hurting yourself in some way: not at all Total score: 6 Depression Screening Interpretation: Positive Depression Screening Follow-up: Existing condition and Follow-up Visit Requested Depression Screening Done: Yes 76128 - PHQ-9 Billing: Yes Source: Developed by Drs. Jonathan Escobar, Lianet Michaels, Ford López and colleagues, with an educational harrison from [employer]. Thrive Questionnaire Date Thrive assessed: 07/24/24 ANNIE-7 AMB Questionnaire ANNIE-7 Date ANNIE - 7 assessed: 04/08/24 Source: Developed by Drs. Jonathan Escobar, Lianet Michaels, Ford López and colleagues, with an educational harrison from [employer]. Review of Systems Const All systems reviewed & are unremarkable except as noted in HPI and below Card Denies chest pain at rest, Denies chest pain with activity, Denies edema, Denies irregular heart rhythm, Denies claudication, Denies dyspnea, Denies dyspnea on exertion, Denies orthopnea, Denies paroxysmal nocturnal dyspnea and Denies slow heart rate Resp Denies cough, Denies dyspnea and Denies dyspnea on exertion Physical Exam Vital Signs: Last Vital Signs Temp 97 F 11/19/24 10:19 Pulse 67 11/19/24 10:19 BP 138/60 11/19/24 10:19 Pulse Ox 93 11/19/24 10:19 Oxygen Delivery Method Room Air 11/19/24 10:19 BMI result Body Mass Index 29.7 Resp Effort & Inspection: normal respiratory effort Auscultation: clear to auscultation bilaterally Cardio Jugular venous distension: no JVD Rate: regular rate Rhythm: regular rhythm Heart sounds: S1 normal heart sound present and S2 normal heart sound present Neuro Romberg Test: Negative Extrem General: Yes full ROM Office Procedures Flu Questionnaire Does the patient have a severe egg allergy?: No Does the patient have severe life threatening allergies?: No Does the patient have a fever or illness today?: No Has the patient ever had Guillain-Mahaffey Syndrome?: No Has the patient ever had any past reaction to a flu shot?: No Results AMB Hemoglobin A1c AMB Hemoglobin A1c 5.5 % Last Edit by JAIRO Thompson on 11/19/24 10:35 Immunizations Fluarix [id number] (PF) 45 mcg (15 mcg x 3)/0.5 mL IM syringe Performing Provider: Connie Robertson MD [place] [facility] [facility] Administered by: JAIRO Melendez on 11/19/24 11:28 Dose Route Admin Location Dispensed Lot Number Expiration Date [facility] Label Coder 0.5 mL IM Left Deltoid 0.5 mL [id number] 08/09/25 [id number] [employer] VIS Given Date VIS Provided VIS Publication Date 11/19/24 Single Vaccine 24 Eligibility Eligibility Date Funding Source Not VFC Eligible 11/19/24 Private pneumoc 20-saida conj-dip cr(PF) 0.5 mL IM syringe Performing Provider: Connie Robertson MD Performing [place] [facility] [place] [facility] Administered by: JAIRO Melendez on 11/19/24 11:28 Dose Route Admin Location Dispensed Lot Number Expiration Date [facility] Label Coder 0.5 mL IM Left Deltoid 0.5 mL [id number] 10/11/25 [employer] Total Dispensed Waste 0.5 mL 0 % VIS Given Date VIS Provided VIS Publication Date 11/19/24 Single Vaccine 24 Eligibility Eligibility Date Funding Source Not VFC Eligible 11/19/24 Private Results Reviewed Results Reviewed: Laboratory Last Values Hgb A1c (Clinic) 5.5 % (4.0-6.0) 11/19/24 10:35 Assessment & Plan Assessment & Plan (1) Encounter for Medicare annual wellness exam: Code(s): Z00.00 - Encounter for general adult medical examination without abnormal findings (2) Diabetes mellitus: Code(s): E11.9 - Type 2 diabetes mellitus without complications Qualifiers: Diabetes mellitus type: type 2 Diabetes mellitus fci insulin use: without milker machine use Diabetes mellitus complication status: without complication Qualified Code(s): E11.9 - Type 2 diabetes mellitus without complications (3) COPD (chronic obstructive pulmonary disease): Code(s): J44.9 - Chronic obstructive pulmonary disease, unspecified Qualifiers: COPD type: unspecified COPD Qualified Code(s): J44.9 - Chronic obstructive pulmonary disease, unspecified (4) Glaucoma: Code(s): H40.9 - Unspecified glaucoma Plan Plan Patient was informed and verbally consented to the use of an ambient scribe for clinic note documentation during this visit. 1. Medicare wellness exam Pneumococcal and influenza vaccinations were discussed and recommended as part of the patient's preventative care plan. These vaccinations are important for reducing the risk of respiratory infections. 2. Diabetes Mellitus The patient's diabetes mellitus is well-controlled with an A1c of 5.5, indicating effective management of blood glucose levels. Continued monitoring of A1c levels is recommended to ensure ongoing control. 3. Glaucoma The patient is receiving treatment for glaucoma in both eyes to manage intraocular pressure. Follow-up with ophthalmology is advised to monitor the condition and adjust treatment as necessary. 4. Chronic Obstructive Pulmonary Disease (Copd) The patient is under regular management for COPD and should continue current treatment regimen. Regular follow-up with a financial sales manager is recommended to monitor lung function and adjust treatment as needed. Orders: Orders AMB Hemoglobin A1c 11/19/24 E11.9 - Type 2 diabetes mellitus without complications Microalbumin, Random (w Creat) 4 Months R80.9 - Proteinuria, unspecified Pneumococcal 20 Immunization 11/19/24 Z23 - Encounter for immunization Lipid Panel 4 Months E78.5 - Hyperlipidemia, unspecified Comprehensive Bol[place]. Panel Fast 4 Months I10 - Essential (primary) hypertension Influenza [id number] Immunization 11/19/24 Z23 - Encounter for immunization Referrals Dermatology Referral L98.9 - Disorder of the skin and subcutaneous tissue, unspecified Ophthalmology Referral H40.9 - Unspecified glaucoma Quality Reporting (2019) Depression/Bipolar (159/160/161/177) PHQ-9: Total score: 6 Coding Level of Care Code Medicare Subsequent (G0439) Est Pt Level 3 (29124) Diagnoses Encounter for Medicare annual wellness exam Z00.00 Type 2 diabetes mellitus without complication, without long-term current use of insulin E11.9 Diabetes mellitus type: type 2 Diabetes mellitus milker machine insulin use: without milker machine use Diabetes mellitus complication status: without complication Chronic obstructive pulmonary disease, unspecified COPD type J44.9 COPD type: unspecified COPD Glaucoma H40.9 CPT Codes Advance Care Planning - Time spent: 1-15 minutes, on File ([id number]) Additional Codes PHQ-9 - 73934 - PHQ-9 Billing: Yes ([id number]) Time Spent (min) 35 Advance Care Planning Advance Care Planning discussion: Completed/Scanned Date of discussion: 11/19/24 Who was present: Patient, partner and me Forms completed: Health Care Proxy and MOLST Time spent: 1-15 minutes, on File Actual minutes spent: 3
== END 2024-11-19 11:42 | disposition home or self-care (01) ==
LOC: HO.HMCH 10:08
PROVIDERS: PCP Internal Medicine; Visit Provider Internal Medicine
DX: Z23 Encounter for immunization (principal); E11.9 Type 2 diabetes mellitus without complications

== ENCOUNTER → 2024-11-19 10:08 | Outpatient (BNVA) | payer MEDICARE, MEDICAID, SELFPAY | PROVIDERS: PCP Internal Medicine; Visit Provider Internal Medicine | DX: Z00.00 Encounter for general adult medical examination without abnormal findings (principal); E11.9 Type 2 diabetes mellitus without complications; H40.9 Unspecified glaucoma; J44.9 Chronic obstructive pulmonary disease, unspecified; R80.9 Proteinuria, unspecified; I10 Essential (primary) hypertension; E78.5 Hyperlipidemia, unspecified; L98.9 Disorder of the skin and subcutaneous tissue, unspecified; Z23 Encounter for immunization; Z95.2 Presence of prosthetic heart valve | CPT/HCPCS: 83036; 90471; 90472; 90656; 90677; 96127 ==

== ENCOUNTER 2024-12-03 07:30 | Outpatient (REF) | payer MEDICARE, MEDICAID, SELFPAY ==
--- OUTSIDE RECORDS SUMMARY | 2024-12-03 07:34 | XMS_ITS | Encounter Summary ---
Author Organization [facility] Address [address] [place] [address] Phone Care Team Providers Care Community Placement Worker Name Role Phone Connie Cummings MD Primary Care Provid er Raul Herrera MD Unavailable [phone] Encounter Details Date Type Department Care Team (Late st Contact Info) Description 03/30/2022 Ophth Exam [facility] Department [address] [place] [address] Tami Chapin MD [address] [place] [address] [email or web address] Social History Tobacco Use Types Packs/Day Years [...] 03/30/2022 10:25 AM Deepak June RN * [place] Suicide Severity Rating Scale (Screener/Recent Self-Report) Question [...] on filedocumented in this encounter Care Teams Community Placement Worker Relationship Specialty Start Date End Date Connie Cummings MD [address] [place] [address] PCP - General Internal Medicine 03/30/22 Raul Herrera MD [address] [address] Cardiology 10/24/22 documented as of this encounter Additional Source Comments The information contained in this document represents components of the legal health record. It is not the complete legal health record.[facility]
--- OUTSIDE RECORDS SUMMARY | 2024-12-03 07:34 | XMS_ITS ---
Author Organization Unknown ENCOUNTERS Encounter Performer Location Date Diagnosis Diagnosis Status Inpatient [facility] [address] [place] [address] [id number] [facility] Emergency [facility] Medica l Twilight [address] [place] [address] [id number] AIP Pre Admit [facility] [address] [place] [phone] [id number] [facility]patient [facility] [address] [place] [address] [id number] [facility] Emergency [facility] Center [address] [place] [phone] [id number] AIP Pre Admit [facility] ED Physician [facility] [address] [place] [address] [id number] Pre Admit [facility] [address] [place] [address] [id number] Outpatient [facility] [address] [place] [phone] [id number] [facility] Emergency [facility] [address] [place] [phone] [id number] [facility] *Note: Encounters from your own facility or health system may be excluded. Allergies, Adverse Reactions, Alerts Allergen Type Severity Identification Date levofloxacin drug allergy [id number] Iodinated Contrast Media drug allergy 3 25 Medications Name Date Quantity Days Supplied GPI Number
--- OUTSIDE RECORDS SUMMARY | 2024-12-03 07:34 | XMS_ITS | Clinical Summary ---
Author Organization [facility] Address [address] [place] [phone] Phone Care Team Providers Care Internal Affairs Commander Name Role Phone Connie Cummings MD Primary Care Provid er Raul Herrera MD Unavailable [phone] Allergies No known active allergies Medications acetaZOLAMIDE [...] eye and 20/125 left eye Managed in [place], referred to [facility] for second opinion given [...] eye and 20/125 left eye Managed in [place], referred to [facility] for second opinion given [...] eye and 20/125 left eye Managed in [place], referred to [facility] for second opinion given [...] this topic Medical Devices Implanted Type Area Nursing Administrator Device Identifier Shelf Expiration Date Model / Serial / Lot Coronary Stent Iol [place] [address] [place] [address] MEDICARE REPLACEMENT [facility] MEDICARE REPLACEMENT MEDICARE REPLACEMENT MEDICARE REPLACEMENT MEDICARE REPLACEMENT [facility] MEDICARE REPLACEMENT Care Teams Internal Affairs Commander Relationship Specialty Start Date End Date Connie Cummings MD [address] [place] [address] PCP - General Internal Medicine 03/30/22 Raul Herrera MD [address] [address] Cardiology 10/24/22 Additional Source Comments The information contained in this document represents components of the legal health record. It is not the complete legal health record.[facility]
--- OUTSIDE RECORDS SUMMARY | 2024-12-03 07:34 | XMS_ITS | Encounter Summary ---
Author Organization [facility] Address [address] [facility] [address] [place] [phone] Phone Care Team Providers Care Manager Drive Name Role Phone Connie Cummings MD Primary Care Provid er Raul Herrera MD Unavailable [phone] Encounter Details Date Type Department Care Team (Late st Contact Info) Description 10/30/2022 Procedure Pass [facility]PT [address] [place] [phone] Social History Tobacco Use Types Packs/Day Years [...] on filedocumented in this encounter Care Teams Manager Drive Relationship Specialty Start Date End Date Connie Cummings MD [address] [place] [address] PCP - General Internal Medicine 03/30/22 Raul Herrera MD [address] [address] Cardiology 10/24/22 documented as of this encounter Additional Source Comments The information contained in this document represents components of the legal health record. It is not the complete legal health record.[facility]
[2024-12-03 09:17] LABS: PSA,Total (Free>4and<10) 4.63 ng/mL (0.00-4.00)
[2024-12-06 13:44] LABS: Free Prostate Spec Ag 0.5 ng/mL; Percent Free Prostate Spec Ag 13 % (calc) (>25)
== END 2024-12-03 07:31 | disposition home or self-care (01) ==
LOC: HO.LAB 07:30
PROVIDERS: PCP Internal Medicine; Visit Provider Urology
DX: N40.0 Benign prostatic hyperplasia without lower urinary tract symptoms (principal)
CPT/HCPCS: 36415; 84153; 84154

== ENCOUNTER 2024-12-10 09:53 | Outpatient (AMB) | payer MEDICARE, MEDICAID, SELFPAY ==
--- OUTSIDE RECORDS SUMMARY | 2024-04-02 08:45 | XMS_ITS ---
Author Organization [facility] Address [address] [facility] [place] [address] Care Team Providers Care De Alcoholizer Name Role Phone Honey NUNN, Connie Primary Care Provider Unavail able Johnathan Saleh Unavailable [phone] Allergies Allergen (clinical drug ingredient) Drug/Non Drug [...] Active Encounters Encounter Location Date Provider Diagnosis [facility] [address] [address] 04/02/2024 Johnathan Saleh Plan Of Treatment Next Appt Details Provider Name:Johnathan Saleh , 02/18/2025 09:15:00 AM, [address] [place] [address], [phone], Progress Notes * Marshall THOMPSONOB:[birth year] (79 yo M)Acc No.[id number]:04/02/2024 Progress Note Patient: Nasir LINDER Provider: Silke Saleh DPM :1945 A ge:78 Y S ex:Male Date:04/02/2024 Address:[address] [place], [place] [phone] Pcp:Connie Méndez MD Subjective: * Chief Complaints: [...] DPM Date: 0 04/02/2024 Generated for Terrence ortez/Gilda/Alejandro on: 1 11:06 AM EDT
[2024-12-10 10:01] VITALS: BP 142/62; PULSE 83; O2SAT 95; BMI 30.3
--- NOTE | 2024-12-10 10:01 | MHC.OFFVIS ---
Vital Signs 12/10/24 10:01 Height 5 ft 8 in Weight 199 lb BMI 30.3 BP 142/62 H Blood Pressure Location Rt brachial Position Sitting Pulse 83 Pulse Source Pulse Oximeter Pulse Oximetry (%) 95 Oxygen Delivery Method Room Air Intake Visit Reasons: Obstructive sleep apnea Health Program Director Required: Yes Health Program Director Services: Health Program Director Present Health Program Director Name: [phone] Allergies levofloxacin (From LEVAQUIN) Allergy (Intermediate, Verified 12/10/24 10:06) HIVES Iodinated Contrast Media (IV CONTRAST) Adverse Reaction (Intermediate, Verified 12/10/24 10:06) HIVES HPI HPI Obstructive sleep apnea: Details: 79-year-old gentleman, former 40+ pack-year smoker, quit over 20 years prior with underlying at least moderate diastolic dysfunction and history of bioprosthetic aortic valve replacement.? He is followed by Cardiology service. He continues to use Trelegy and albuterol MDI with good control of his symptoms. He denies any recent exacerbations. He has received his CPAP machine with improving control of his sleep apnea symptoms. [facility] Medical History Kidney stone Sepsis Acute kidney failure History of TIA (transient ischemic attack) History of DVT (deep vein thrombosis) Grade II diastolic dysfunction Essential hypertension Dyslipidemia Diabetes mellitus COPD (chronic obstructive pulmonary disease) Gross hematuria Microalbuminuria BPH (benign prostatic hyperplasia) Chronic UTI (urinary tract infection) Chronic back pain Glaucoma Surgical History Status post mitral valve repair (~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 Son No problems noted. Daughter No problems noted. Daughter No problems noted. Daughter No problems noted. Social History Household Members: Significant Other Housing: House Are you a primary rn long term care to a significant other at home: No Do you presently have visiting nurse or other home services: No Alcohol intake: current Alcohol intake frequency: a few times a month Alcohol type: beer and wine Comment: RN Patient Tobacco Use Status: Former Tobacco user Years Smoked: 10 e-Cigarette/Vaping Use: Never Used Second Hand Smoke Exposure: No service: No Current occupational status: retired Cognitive needs: No Hearing needs: No Vision needs: Yes Review of Systems Const Denies daytime sleepiness, Denies excessive sweating, Denies fatigue, Denies fever(s), Denies lethargy, Denies malaise, Denies night sweats, Denies snoring and Denies weight loss Eyes Denies blurry vision and Denies itchy eyes ENT Denies nasal congestion, Denies post nasal drip, Denies sinus pain, Denies sinus pressure and Denies other ( Thrush) Card Denies chest pain, Denies pedal edema, Denies dyspnea, Denies orthopnea and Denies paroxysmal nocturnal dyspnea Resp Denies cough, Denies hemoptysis, Denies excessive phlegm production, Denies dyspnea, Denies snoring and Denies wheezing GI Denies abdominal pain and Denies heartburn Musc Denies myalgias, Denies arthralgias and Denies joint swelling Skin/Breast Denies rash Neuro Denies memory loss and Denies seizure-like activity Psych Denies abnormal sleep pattern, Denies anxiety and Denies memory loss Endo Denies excessive sweating, Denies fatigue and Denies heat intolerance Bryson/Lymph Denies easy bruising Aller/Immun Denies itchy eyes, Denies seasonal rhinorrhea and Denies wheezing Physical Exam Vital Signs: Last Vital Signs Pulse 83 12/10/24 10:01 BP 142/62 H 12/10/24 10:01 Pulse Ox 95 12/10/24 10:01 Oxygen Delivery Method Room Air 12/10/24 10:01 BMI result Body Mass Index 30.3 Const General: no acute distress and alert Nutritional Appearance: not obese Orientation/consciousness: Other orientation findings ( oriented) HEENT Head: Yes atraumatic Eyes General: appearance normal, both eyes and all related structures Sclerae: sclerae normal EOM: EOMs intact bilaterally Neck Neck: Yes supple Lymphatic: no lymphadenopathy noted Resp Effort & Inspection: normal respiratory effort and no use of accessory muscles Auscultation: clear to auscultation bilaterally Cardio Rate: regular rate Rhythm: regular rhythm Heart sounds: no gallops, no murmurs and no rubs Skin General skin exam: other ( warm) Extrem General: No clubbing, No cyanosis and No edema Assessment & Plan Assessment & Plan (1) COPD (chronic obstructive pulmonary disease): Code(s): J44.9 - Chronic obstructive pulmonary disease, unspecified Category: Medical Qualifiers: COPD type: unspecified COPD Qualified Code(s): J44.9 - Chronic obstructive pulmonary disease, unspecified Plan: Well controlled on current regimen of Trelegy and albuterol MDI. Continue current regimen. (2) Pulmonary nodules: Code(s): R91.8 - Other nonspecific abnormal finding of lung field Category: Medical Plan: Results follow-up CT chest reviewed, stable pulmonary nodules. No further imaging follow-up is required. (3) DANIELITO (obstructive sleep apnea): Code(s): G47.33 - Obstructive sleep apnea (adult) (pediatric) Category: Medical Plan: Patient has received his CPAP machine and now his symptoms are much better controlled. Continue current CPAP therapy. Coding Level of Care Code Est Pt Level 4 (52710) Complex EM visit Add On G2211 Diagnoses Chronic obstructive pulmonary disease, unspecified COPD type J44.9 COPD type: unspecified COPD Pulmonary nodules R91.8 DANIELITO (obstructive sleep apnea) G47.33
--- OUTSIDE RECORDS SUMMARY | 2024-12-10 11:07 | XMS_ITS | Encounter Summary ---
Author Organization [facility] Address [address] [facility] [address] [place] [address] Phone Care Team Providers Care Functional Skills Tutor Name Role Phone Connie Cummings MD Primary Care Provid er Raul Herrera MD Unavailable [phone] Encounter Details Date Type Department Care Team (Late st Contact Info) Description 03/30/2022 Ophth Exam [facility] [address] [place] [address] Tami Chapin MD [address] [place] [address] [email or web address] Social History Tobacco Use Types Packs/Day Years [...] 03/30/2022 10:25 AM Deepak June RN * [place] Suicide Severity Rating Scale (Screener/Recent Self-Report) Question [...] on filedocumented in this encounter Care Teams Functional Skills Tutor Relationship Specialty Start Date End Date Connie Cummings MD [address] [place] [address] PCP - General Internal Medicine 03/30/22 Raul Herrera MD [address] [address] Cardiology 10/24/22 documented as of this encounter Additional Source Comments The information contained in this document represents components of the legal health record. It is not the complete legal health record.[facility]
--- OUTSIDE RECORDS SUMMARY | 2024-12-10 11:07 | XMS_ITS | Patient Health Record ---
Author Organization [facility] Address [address] [facility] [place] [address] Care Team Providers Care Animal Pathologist Name Role Phone Honey NUNN, Connie Primary Care Provider Unavail able Johnathan Saleh Unavailable [phone] Allergies Allergen (clinical drug ingredient) Drug/Non Drug [...] Problem Acquired hammer toe of right foot ([id number] 105) Other hammer toe(s) (acquired), right foot (M20.41) Active confirmed Problem Acquired hammer toe of left foot (1960210560551 103) Other hammer toe(s) (acquired), left foot (M20.42) Active confirmed Problem Type 2 diabetes mellitus with peripheral angiopathy (030949095) Type 2 diabetes mellitus with diabetic peripheral angiopathy without gangrene (E11.51) Active confirmed Q7(A), Q8(2B), Q9(1B,2C) Vital Signs Blood pressure diastolic 60 mm Hg 10/15/2024 Height 5 ft 8 in in 10/15/2024 Blood pressure systolic 128 mm Hg 10/15/2024 Weight 184 lbs 10/15/2024 BMI 27.97 kg/m2 10/15/2024 Procedures Procedure Date Ordered Date Performed Result Body Sit e 42419-URNAXOE NAIL, 1-5 01/02/2024 N/A 39383-QZID SKIN LESIONS, 2 TO 4 01/02/2024 N/A B0508-JRDHRYTE DYSTROPHIC NAILS ANY # 01/02/2024 N/A 17657-QBOGYZG NAIL, 1-5 07/09/2024 N/A 44956-RRSD SKIN LESIONS, OVER 4 07/09/2024 N/A G2796-YSNMBLJJ DYSTROPHIC NAILS ANY # 07/09/2024 N/A 31392-JJEZDFQ NAIL, 1-5 10/15/2024 N/A 24951-GXCF SKIN LESIONS, OVER 4 10/15/2024 N/A N6073-EOXGDYMG DYSTROPHIC NAILS ANY # 10/15/2024 N/A Encounters Encounter Location Date Provider Diagnosis [address] [address] 01/02/2024 Johnathan Saleh Type 2 diabetes mellitus with diabetic peripheral angiopathy without gangrene E11.51 ; Tinea unguium B35.1 ; Pain in right toe(s) M79.674 ; Pain in left toe(s) M79.675 and Xerosis of skin L85.[address] [address] 07/09/2024 Johnathan Saleh Type 2 diabetes mellitus with diabetic peripheral angiopathy without gangrene E11.51 ; Tinea unguium B35.1 ; Pain in right toe(s) M79.674 ; Pain in left toe(s) M79.675 ; Other hammer toe(s) (acquired), right foot M20.41 and Other hammer toe(s) (acquired), left foot M20.[address] [address] 10/15/2024 Johnathan Saleh Type 2 diabetes mellitus with diabetic peripheral angiopathy without gangrene E11.51 ; Tinea unguium B35.1 ; Pain in right toe(s) M79.674 ; Pain in left toe(s) M79.675 and Xerosis of skin L85.3 [facility] [address] [address] 04/02/2024 Johnathan Saleh Assessments Encounter Date Diagnosis [...] Treatment Pending Test Test Name Order Date 95146-VEXKFRV NAIL, 1-10/03/2023 83451-FFQBAHJ NAIL, 1-01/02/2024 30668-SGHEGOS NAIL, 1-07/09/2024 27087-UWJKTUE NAIL, 1-5 10/15/2024 06058-WWSG SKIN LESIONS, OVER 4 10/16/19 25 08730-UXZE SKIN LESIONS, OVER 4 07/10/19 25 17158-AYQZ SKIN LESIONS, 2 TO 4 10/03/19 24 52523-RQXR SKIN LESIONS, 2 TO 4 01/02/20 24 A7685-AZUBSJHP DYSTROPHIC NAILS ANY # D5030-YBOYEXSH DYSTROPHIC NAILS ANY # D9296-XPFNPIOZ DYSTROPHIC NAILS ANY # G4270-HTTACOMC DYSTROPHIC NAILS ANY # Next Appt Details Provider Name:Johnathan Saleh , 02/18/2025 09:15:00 AM, [address] [place] [address], [phone], Insurance Providers Payer Name Payer Address Payer Phone Subscriber Number Group Number Insured Name Patient Relationship to Insured Coverage Start Date Coverage End Date [employer] Medicare Adv-[id number] [address] [address] [place] [address] [id number] Nasir Ward Self - patient is the insured Medical (General) History Medical History History ICD Code Diabetic Hypertension Replacement Heart Valves Glaucoma COPD Surgical History Surgery Date(Month/Year) Heart Valve
--- OUTSIDE RECORDS SUMMARY | 2024-12-10 11:07 | XMS_ITS | Clinical Summary ---
Author Organization [facility] Address [address] [place] [address] Phone Care Team Providers Care Inside Sales Director Name Role Phone Connie Cummings MD Primary Care Provid er Raul Herrera MD Unavailable [phone] Allergies No known active allergies Medications acetaZOLAMIDE [...] eye and 20/125 left eye Managed in [place], referred to [facility] for second opinion given [...] eye and 20/125 left eye Managed in [place], referred to [facility] for second opinion given [...] eye and 20/125 left eye Managed in [place], referred to [facility] for second opinion given [...] this topic Medical Devices Implanted Type Area Manager Assurance Device Identifier Shelf Expiration Date Model / Serial / Lot Coronary Stent Iol [place] [address] [place] [address] MEDICARE REPLACEMENT [facility] MEDICARE REPLACEMENT MEDICARE REPLACEMENT MEDICARE REPLACEMENT MEDICARE REPLACEMENT [facility] MEDICARE REPLACEMENT Care Teams Inside Sales Director Relationship Specialty Start Date End Date Connie Cummings MD [address] [place] [address] PCP - General Internal Medicine 03/30/22 Raul Hrerera MD [address] [address] Cardiology 10/24/22 Additional Source Comments The information contained in this document represents components of the legal health record. It is not the complete legal health record.[facility]
--- OUTSIDE RECORDS SUMMARY | 2024-12-10 11:07 | XMS_ITS | Encounter Summary ---
Author Organization [facility] Address [address] [facility] [address] [place] [address] Phone Care Team Providers Care Accounts Payable Manager Name Role Phone Connie Cummings MD Primary Care Provid er Raul Herrera MD Unavailable [phone] Encounter Details Date Type Department Care Team (Late st Contact Info) Description 10/30/2022 Procedure Pass [facility] [place] [facility] [address] [place] [address] Social History Tobacco Use Types Packs/Day Years [...] on filedocumented in this encounter Care Teams Accounts Payable Manager Relationship Specialty Start Date End Date Connie Cummings MD [address] [place] [address] PCP - General Internal Medicine 03/30/22 Raul Herrera MD [address] [address] Cardiology 10/24/22 documented as of this encounter Additional Source Comments The information contained in this document represents components of the legal health record. It is not the complete legal health record.[facility]
== END 2024-12-10 10:19 | disposition home or self-care (01) ==
LOC: HO.HPS 09:54
PROVIDERS: PCP Internal Medicine; Visit Provider Internal Medicine Pulmonary Disease
DX: J44.9 Chronic obstructive pulmonary disease, unspecified (principal); R91.8 Other nonspecific abnormal finding of lung field; G47.33 Obstructive sleep apnea (adult) (pediatric)
CPT/HCPCS: 99214; G2211

== ENCOUNTER → 2024-12-10 09:53 | Outpatient (BNVA) | payer MEDICARE, MEDICAID, SELFPAY | PROVIDERS: PCP Internal Medicine; Visit Provider Internal Medicine Pulmonary Disease | DX: G47.33 Obstructive sleep apnea (adult) (pediatric) (principal); Z99.89 Dependence on other enabling machines and devices; J44.9 Chronic obstructive pulmonary disease, unspecified; Z87.891 Personal history of nicotine dependence; Z95.2 Presence of prosthetic heart valve | CPT/HCPCS: 99212 ==

== ENCOUNTER 2024-12-17 10:52 | Outpatient (AMB) | payer MEDICARE, MEDICAID, SELFPAY ==
--- OUTSIDE RECORDS SUMMARY | 2024-04-02 07:45 | XMS_ITS ---
Author Organization [facility] Address [address] [facility] [place] [address] Care Team Providers Care Passenger Locomotive Engineer Name Role Phone Honey NUNN, Connie Primary Care Provider Unavail able Johnathan Saleh Unavailable [phone] Allergies Allergen (clinical drug ingredient) Drug/Non Drug Allergy documented on EMR Reaction Allergy Type Onset Date Status Contrast Dye (uncoded) Unknown Allergy Active Medications Medication SIG (Take, Route, Frequency, Duration) Notes Start Date End Date Status Ammonium Lactate 12 % 1 application Exte rnally to affected areas of dry skin to feet except for between the toes Twice a day; Duration: 30 days Active Extra Depth Orthopedic Shoes, (1) Pair With (3) Pair Custom Heat Molded Multidensity Innersoles Dx: NIDDM/PVD(E11.51), Hammertoe Foot Deformity(M20.41,M20.42), Preulcerative Skin Lesion(s)(L85.1) Wear Daily; Duration: 365 days 10/03/2023 Active Vitamin D Active Finasteride 5 MG 1 tablet Orally Once a day; Duration: 30 day(s) Active dilTIAZem HCl ER 180 MG 1 tablet Orally Once a day; Duration: 30 day(s) Active Terazosin HCl 5 MG 1 capsule at bedtime Orally Once a day; Duration: 30 day(s) Active metFORMIN HCl 500 MG 1 tablet with a robbie l Orally Once a day; Duration: 30 day(s) Active Atorvastatin Calcium 40 MG 1 tablet Oral ly Once a day; Duration: 30 day(s) Active Lisinopril 20 MG 1 tablet Orally Once a day; Duration: 30 day(s) Active Aspirin 81 MG 1 tablet Orally Once a day; Duration: 30 day(s) Active acetaZOLAMIDE ER 500 MG 1 capsule Orally Twice a day; Duration: 30 day(s) Active Prolensa 0.07 % 1 drop into [...] 1 puff Inhalation Once a day Active ProAir HFA Active Encounters Encounter Location Date Provider Diagnosis [facility] [address] [address] 04/02/2024 Johnathan Saleh Plan Of Treatment Next Appt Details Provider Name:Johnathan Saleh , 02/18/2025 09:15:00 AM, [address] [place] [address], [phone], Progress Notes * Marshall THOMPSONOB:[birth year] (79 yo M)Acc No.[id number]:04/02/2024 Progress Note Patient: Nasir LINDER Provider: Silke Saleh DPM :1945 A ge:78 Y S ex:Male Date:04/02/2024 Address:[address] [place], [place] [phone] Pcp:Connie Méndez MD Subjective: * Chief Complaints: * * Medical History: D iabetic, Hypertension, Replacement Heart Valves, Glaucoma, COPD. * Medications: T aking ProAir HFA , Taking Trelegy Ellipta 200-62.5-25 MCG/ACT Aerosol Powder Breath Activated 1 puff Inhalation Once a day , Taking prednisoLONE Acetate 1 % Suspension 1 drop into affected eye Ophthalmic Twice a day , Taking Rhopressa 0.02 % Solution 1 drop into affected eye in the evening Ophthalmic Once a day , Taking Simbrinza 1-0.2 % Suspension 1 drop into affected eye Ophthalmic Three times a day , Taking Prolensa 0.07 % Solution 1 drop into affected eye Ophthalmic Once a day , Taking acetaZOLAMIDE ER 500 MG Capsule Extended Release 12 Hour 1 capsule Orally Twice a day , Taking metFORMIN HCl 500 MG Tablet 1 tablet with a meal Orally Once a day , Taking Terazosin HCl 5 MG Capsule 1 capsule at bedtime Orally Once a day , Taking Aspirin 81 MG Tablet Chewable 1 tablet Orally Once a day , Taking Lisinopril 20 MG Tablet 1 tablet Orally Once a day , Taking Atorvastatin Calcium 40 MG Tablet 1 tablet Orally Once a day , Taking dilTIAZem HCl ER 180 MG Tablet Extended Release 24 Hour 1 tablet Orally Once a day , Taking Finasteride 5 MG Tablet 1 tablet Orally Once a day , Taking Vitamin D , Taking Extra Depth Orthopedic Shoes, (1) Pair With (3) Pair Custom Heat Molded Multidensity Innersoles . Dx: NIDDM/PVD(E11.51), Hammertoe Foot Deformity(M20.41,M20.42), Preulcerative Skin Lesion(s)(L85.1) Wear Daily , Taking Ammonium Lactate 12 % Cream 1 application Externally to affected areas of dry skin to feet except for between the toes Twice a day * Allergies: C ontrast Dye. Objective: * Vitals: Assessment: Plan: * Treatment: * Images: * The named appointment provid er may or may not be the originator of this progress note, and it is not deemed complete until electronically signed by the appointment provider. Sign off status: Pending * Provider: Silke Saleh DPM Date: 0 04/02/2024 Generated for Terrence Steele on: 02/17/2024 01:02 PM EST
--- NOTE | 2024-12-17 11:25 | A.OFFVIS_ITS ---
Intake Visit Reasons: 4M PSA/PVR Intake Note: Patient is Present for Follow Up Urology Medication: Terazosin, Finasteride Antibiotic Allergies: Levofloxacin Blood Thinners:Aspirin PVR: 50ml Dining Room Attendant Cafeteria: Dining Room Attendant Cafeteria Present Accompanied by: Spouse Allergies levofloxacin (From LEVAQUIN) Allergy (Intermediate, Verified 12/17/24 11:28) HIVES Iodinated Contrast Media (IV CONTRAST) Adverse Reaction (Intermediate, Verified 12/17/24 11:28) HIVES HPI Comments Details: Nasir is a pleasant Yakut male. He is a patient of Dr. Robertson. He seen for the following urologic conditions - gross hematuria with blood in stone - lower urinary tract symptoms Yakut translation provided in office by qualified medical underwriter Repeat PSA 4.0 13% PSA fell with antibiotics Follow-up 12 month Lower urinary tract symptoms/Bladder stones weakness of stream nocturia times 2-3 current therapy finasteride prior therapy - cystoscopy with removal of bladder stone June 2020 PSA 01/31 2.8, 07/03 4.6 17%, 01/03 4.4, 08/04 10.5, 12/04 4.0 13% PFSH Medical History Kidney stone Sepsis Acute kidney failure History of TIA (transient ischemic attack) History of DVT (deep vein thrombosis) Grade II diastolic dysfunction Essential hypertension Dyslipidemia Diabetes mellitus COPD (chronic obstructive pulmonary disease) Gross hematuria Microalbuminuria BPH (benign prostatic hyperplasia) Chronic UTI (urinary tract infection) Chronic back pain Glaucoma Surgical History Status post mitral valve repair (~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 Son No problems noted. Daughter No problems noted. Daughter No problems noted. Daughter No problems noted. Social History Household Members: Significant Other Housing: House Are you a primary acute care clinical nurse specialist to a significant other at home: No Do you presently have visiting nurse or other home services: No Alcohol intake: current Alcohol intake frequency: a few times a month Alcohol type: beer and wine Comment: RN Patient Tobacco Use Status: Former Tobacco user Years Smoked: 10 e-Cigarette/Vaping Use: Never Used Second Hand Smoke Exposure: No service: No Current occupational status: retired Cognitive needs: No Hearing needs: No Vision needs: Yes Review of Systems Const Denies chills and Denies fever(s) Card Reports no additional complaints and Denies syncope Resp Denies cough GI Denies abdominal pain and Denies heartburn Reports as per HPI and Denies change in libido Neuro Denies syncope Psych Denies change in libido Endo Denies change in libido Physical Exam Const General: cooperative, healthy appearing, comfortable and no acute distress Orientation/consciousness: patient oriented x3 HEENT Face and sinus: Yes normal facial exam Mouth: moist mucous membranes Neck Neck: Yes normal visual inspection, Yes full ROM and Yes trachea midline Chest Chest palpation & inspection: normal inspection of the chest Resp Effort & Inspection: normal respiratory effort, able to speak in complete sentences and no respiratory distress GI Inspection: Yes normal to inspection Back/Spine/Pelvis Cervical Spine: normal cervical lordosis Thoracic/Lumbar Spine: thoracic and lumbar spine normal to inspection Skin General skin exam: no rashes or lesions noted Neuro General: patient oriented x3, gait normal, tone normal and moves all extremities Extrem General: Yes normal to inspection and Yes capillary refill normal Office Procedures Post Void Residual Post Residual Void Post Void Residual (PVR): 50 07474-Siqe Void Residual by ultrasound Assessment & Plan Assessment & Plan (1) Bladder outlet obstruction: Code(s): N32.0 - Bladder-neck obstruction Category: Medical (2) Urinary tract infection: Code(s): N39.0 - Urinary tract infection, site not specified Category: Medical Plan Twelve month follow-up Continue finasteride Orders: Orders AMB Post Void Residual by ultrasound 12/17/24 N40.0 - Benign prostatic hyperplasia without lower urinary tract symptoms Prostate Specific Antigen 12 Months N32.0 - Bladder-neck obstruction Medications: Refilled finasteride 5 mg PO DAILY 90 tabs 3RF 90 days N40.1 - Benign prostatic hyperplasia with lower urinary tract symptoms, R33.9 - Retention of urine, unspecified Patient Instructions: This note is constructed using voice recognition software. While every effort has been made to ensure accuracy electrical and instrument technician errors may have been included. Imaging studies, laboratory and physical exam results were discussed and reviewed in detail. No major barriers to patient understanding were identified. An opportunity to ask questions regarding the treatment plan was provided. All questions were answered. The patient expressed understanding and agreement with the above treatment plan. The patient is aware they should contact our office by phone for worsening of their current condition or the appearance of new urologic symptoms. Compliance is encouraged with any medications and followup testing that is ordered. It is a privilege to participate in the urologic care of your patient. If you have any questions or concerns regarding treatment for the above conditions, or other urologic issues, please do not hesitate to contact me. The office telephone contact is [phone]. Sincerely, Dr Jose D Abel MD, [facility] - Urology Compassionate Specialist Care for the Genitourinary System Coding Level of Care Code Est Pt Level 3 (03682) Complex EM visit Add On G2211 Diagnoses Bladder outlet obstruction N32.0 Urinary tract infection N39.0 CPT Codes Post Residual Void - PVR CPT Code: 59675-Larr Void Residual by ultrasound ([id number])
--- OUTSIDE RECORDS SUMMARY | 2024-12-17 13:02 | XMS_ITS | Encounter Summary ---
Author Organization [facility] Address [address] [facility] [address] [place] [address] Phone Care Team Providers Care Tire Groover Name Role Phone Connie Cummings MD Primary Care Provid er Raul Herrera MD Unavailable [phone] Encounter Details Date Type Department Care Team (Late st Contact Info) Description 03/30/2022 Ophth Exam [facility] Emergency Department [address] [place] [address] Tami Chapin MD [address] [place] [address] [email or web address] Social History Tobacco Use Types Packs/Day [...] 03/30/2022 10:25 AM Deepak June RN * [place] Suicide Severity Rating Scale (Screener/Recent Self-Report) Question [...] on filedocumented in this encounter Care Teams Tire Groover Relationship Specialty Start Date End Date Connie Cummings MD [address] [place] [address] PCP - General Internal Medicine 03/30/22 Raul Herrera MD [address] [address] Cardiology 10/24/22 documented as of this encounter Additional Source Comments The information contained in this document represents components of the legal health record. It is not the complete legal health record.[facility]
--- OUTSIDE RECORDS SUMMARY | 2024-12-17 13:03 | XMS_ITS | Clinical Summary ---
Author Organization [facility] Address [address] [place] [address] Phone Care Team Providers Care Wildland Fire Fighter Name Role Phone Connie Cummings MD Primary Care Provid er Raul Herrera MD Unavailable [phone] Allergies No known active allergies Medications acetaZOLAMIDE [...] eye and 20/125 left eye Managed in [place], referred to [facility] for second opinion given [...] eye and 20/125 left eye Managed in [place], referred to [facility] for second opinion given [...] eye and 20/125 left eye Managed in [place], referred to [facility] for second opinion given [...] this topic Medical Devices Implanted Type Area Potash Flaker Device Identifier Shelf Expiration Date Model / Serial / Lot Coronary Stent Iol [place] [address] MEDICARE REPLACEMENT [facility] MEDICARE REPLACEMENT MEDICARE REPLACEMENT MEDICARE REPLACEMENT MEDICARE REPLACEMENT [facility] MEDICARE REPLACEMENT Care Teams Wildland Fire Fighter Relationship Specialty Start Date End Date Connie Cummings MD [address] [place] [address] PCP - General Internal Medicine 03/30/22 Raul Herrera MD [address] [address] Cardiology 10/24/22 Additional Source Comments The information contained in this document represents components of the legal health record. It is not the complete legal health record.[facility]
--- OUTSIDE RECORDS SUMMARY | 2024-12-17 13:03 | XMS_ITS | Patient Health Record ---
Author Organization [facility] Address [address] [place] [address] Care Team Providers Care Strategy Consultant Name Role Phone Honey NUNN, Connie Primary Care Provider Unavail able Johnathan Saleh Unavailable [phone] Allergies Allergen (clinical drug ingredient) Drug/Non Drug [...] Problem Acquired hammer toe of right foot (9409066350625 105) Other hammer toe(s) (acquired), right foot (M20.41) Active confirmed Problem Acquired hammer toe of left foot (3760254709438 103) Other hammer toe(s) (acquired), left foot (M20.42) Active confirmed Problem Type 2 diabetes mellitus with peripheral angiopathy (829128469) Type 2 diabetes mellitus with diabetic peripheral angiopathy without gangrene (E11.51) Active confirmed Q7(A), Q8(2B), Q9(1B,2C) Vital Signs Blood pressure diastolic 60 mm Hg 10/15/2024 Height 5 ft 8 in in 10/15/2024 Blood pressure systolic 128 mm Hg 10/15/2024 Weight 184 lbs 10/15/2024 BMI 27.97 kg/m2 10/15/2024 Procedures Procedure Date Ordered Date Performed Result Body Sit e 23041-KQJUWSM NAIL, 1-5 01/02/2024 N/A 64614-UOIA SKIN LESIONS, 2 TO 4 01/02/2024 N/A F2513-UMUIJVTP DYSTROPHIC NAILS ANY # 01/02/2024 N/A 32473-NGUUCSC NAIL, 1-5 07/09/2024 N/A 92605-LLPC SKIN LESIONS, OVER 4 07/09/2024 N/A N1930-QWTNGKEB DYSTROPHIC NAILS ANY # 07/09/2024 N/A 17621-JOOKFGY NAIL, 1-5 10/15/2024 N/A 64097-GRIK SKIN LESIONS, OVER 4 10/15/2024 N/A H9497-FRFPLLRT DYSTROPHIC NAILS ANY # 10/15/2024 N/A Encounters Encounter Location Date Provider Diagnosis [address] [address] 01/02/2024 Johnathan Saleh Type 2 diabetes mellitus with diabetic peripheral angiopathy without gangrene E11.51 ; Tinea unguium B35.1 ; Pain in right toe(s) M79.674 ; Pain in left toe(s) M79.675 and Xerosis of skin L85.[address] [address] 07/09/2024 Johnathan Saleh Type 2 diabetes mellitus with diabetic peripheral angiopathy without gangrene E11.51 ; Tinea unguium B35.1 ; Pain in right toe(s) M79.674 ; Pain in left toe(s) M79.675 ; Other hammer toe(s) (acquired), right foot M20.41 and Other hammer toe(s) (acquired), left foot M20.[address] [address] 10/15/2024 Johnathan Saleh Type 2 diabetes mellitus with diabetic peripheral angiopathy without gangrene E11.51 ; Tinea unguium B35.1 ; Pain in right toe(s) M79.674 ; Pain in left toe(s) M79.675 and Xerosis of skin L85.3 [facility] [address] [address] 04/02/2024 Johnathan Saleh Assessments Encounter Date Diagnosis [...] Treatment Pending Test Test Name Order Date 37651-KEQUBTD NAIL, 1-10/03/2023 73676-WJIUODR NAIL, 1-01/02/2024 60976-LPNDDES NAIL, 1-07/09/2024 51664-LPCRKPG NAIL, 1-5 10/15/2024 30734-CGTS SKIN LESIONS, OVER 4 10/16/19 25 35522-YFDO SKIN LESIONS, OVER 4 07/10/19 25 37881-MUGP SKIN LESIONS, 2 TO 4 10/03/19 24 79958-IYHU SKIN LESIONS, 2 TO 4 01/02/20 24 I0919-DLDCPGZH DYSTROPHIC NAILS ANY # T1779-FPCHZCSQ DYSTROPHIC NAILS ANY # C5941-IHGQMWVT DYSTROPHIC NAILS ANY # R5733-KLGUNRCE DYSTROPHIC NAILS ANY # Next Appt Details Provider Name:Johnathan Saelh , 02/18/2025 09:15:00 AM, [address] [place] [address], [phone], Insurance Providers Payer Name Payer Address Payer Phone Subscriber Number Group Number Insured Name Patient Relationship to Insured Coverage Start Date Coverage End Date [employer] Medicare [id number] [address] [address] [place] [address] [id number] [address] Self - patient is the insured Medical (General) History Medical History History ICD Code Diabetic Hypertension Replacement Heart Valves Glaucoma COPD Surgical History Surgery Date(Month/Year) Heart Valve
--- OUTSIDE RECORDS SUMMARY | 2024-12-17 13:03 | XMS_ITS | Encounter Summary ---
Author Organization [facility] Address [address] [place] [address] Phone Care Team Providers Care City Engineer Name Role Phone Connie Cummings MD Primary Care Provid er Raul Herrera MD Unavailable [phone] Encounter Details Date Type Department Care Team (Late st Contact Info) Description 10/30/2022 Procedure Pass [facility] [address] [place] [id number] Social History Tobacco Use Types Packs/Day Years [...] on filedocumented in this encounter Care Teams City Engineer Relationship Specialty Start Date End Date Connie Cummings MD [address] [place] [address] PCP - General Internal Medicine 03/30/22 Raul Herrera MD [address] [address] Cardiology 10/24/22 documented as of this encounter Additional Source Comments The information contained in this document represents components of the legal health record. It is not the complete legal health record.[facility]
== END 2024-12-17 12:14 | disposition home or self-care (01) ==
LOC: HO.HUSH 10:53
PROVIDERS: PCP Internal Medicine; Visit Provider Urology
DX: N32.0 Bladder-neck obstruction (principal); N39.0 Urinary tract infection, site not specified
CPT/HCPCS: 99213; G2211

== ENCOUNTER → 2024-12-17 10:52 | Outpatient (BNVA) | payer MEDICARE, MEDICAID, SELFPAY | PROVIDERS: PCP Internal Medicine; Visit Provider Urology | DX: N32.0 Bladder-neck obstruction (principal); N39.0 Urinary tract infection, site not specified | CPT/HCPCS: 51798; 99212 ==